=== PATIENT | male | born 1965 | race Caucasian/White ===

== ENCOUNTER 2016-11-04 22:26 | Inpatient (IN) | payer MEDICAID ==
[~2016-11-04] VITALS: Ht 185.4 cm; Wt 69.4 kg
--- NOTE | 2016-11-04 22:59 | NUR ---
Pt to room for multiple complaints. Major complaints of abd pain with swelling and firmness, as well as shortness of breath with excertion. Pt ST on monitor. Resp even and unlabored, speaking full sentences, maintaining O2 sats > 95 % on RA. Pt resting in position of comfort for self. Dr. Gibbs at bedside for MSE.
[2016-11-04] MEDS ORDERED: PANTOPRAZOLE SODIUM 40 MG VIAL IV ONE (23:15)
[2016-11-04] MEDS ORDERED: ONDANSETRON 4 MG/2 ML VIAL IV ONE (23:15)
[2016-11-04] MEDS ORDERED: MORPHINE SULFATE 2 MG/1 ML DISP.SYRIN IV ONE (23:15)
[2016-11-04] MEDS ORDERED: ONDANSETRON 4 MG/2 ML VIAL ONE (23:25)
[2016-11-04] MEDS ORDERED: PANTOPRAZOLE SODIUM 40 MG VIAL ONE (23:26)
[2016-11-04] MEDS ORDERED: MORPHINE SULFATE 2 MG/1 ML DISP.SYRIN ONE (23:26)
--- NOTE | 2016-11-04 23:26 | NUR ---
IV established, labs drawn and sent. Pt medicated for discomfort, will monitor for effects of medication. Pt resting in position of comfort for self.
[2016-11-04 23:34] LABS: BASOPHILS # (AUTO) 0.1 K/uL (0.0-8.0); BASOPHILS % (AUTO) 0.5 % (0.0-2.0); EOSINOPHILS # (AUTO) 0.2 K/uL (0.0-0.7); EOSINOPHILS % (AUTO) 1.6 % (0.0-7.0); HEMATOCRIT 27.6 % (40-50); HEMOGLOBIN 8.9 G/DL (14.0-18.0); LYMPHOCYTES # (AUTO) 1.9 K/UL (0.8-4.8); LYMPHOCYTES % (AUTO) 12.5 % (20.5-51.5); MEAN CORPUSCULAR HEMOGLOBIN 24.3 UUG (27.0-31.0); MEAN CORPUSCULAR HGB CONC 32 g/dL (32.0-37.0); MEAN CORPUSCULAR VOLUME 75.3 FL (82.0-92.0); MONOCYTES # (AUTO) 2.9 K/UL (0.1-1.30); NEUTROPHILS % (AUTO) 66.4 % (38.5-71.5); PLATELET COUNT (AUTO) 234 K/UL (150-450); RED BLOOD CELL COUNT(AUTO) 3.67 MIL/UL (4.7-6.1); WHITE BLOOD COUNT (AUTO) 15.1 K/UL (4.0-11.2)
[2016-11-04 23:47] LABS: CARBON DIOXIDE 30 mmol/L (21-32); CHLORIDE 93 mmol/L (98-107); CREATININE 0.6 mg/dL (0.6-1.3); GLUCOSE 110 mg/dL (74-106); POTASSIUM 3.4 mmol/L (3.5-5.1); UREA NITROGEN, BLOOD 3 mg/dL (7-18)
[2016-11-04 23:53] LABS: ALANINE AMINOTRANSFERASE 42 U/L (16-63); ALKALINE PHOSPHATASE 506 U/L (50-136); ASPARTATE AMINOTRANSFERASE 122 U/L (15-37); BILIRUBIN,TOTAL 2.9 mg/dL (0.2-1.0); LIPASE 168 U/L (73-393); TOTAL PROTEIN, SERUM 7.2 g/dL (6.4-8.2)
--- NOTE | 2016-11-05 00:03 | NUR ---
Pt sts no change in pain from previous medication. Pt also c/o heartburn pain. Dr. Gibbs notified, awaiting further orders.
[2016-11-05] MEDS ORDERED: HYDROMORPHONE 1 MG/1 ML DISP.SYRIN IV ONE ×2 (00:15→01:00)
[2016-11-05 00:19] LABS: EOSINOPHILS % (MANUAL) 1 % (0-8); LYMPHOCYTES % (MANUAL) 19 % (20-40); MONOCYTES % (MANUAL) 13 % (2-10); NEUTROPHILS % (MANUAL) 67 % (42-75)
--- NOTE | 2016-11-05 00:26 | NUR ---
Pt to CT via [facility]
--- NOTE | 2016-11-05 00:37 | NUR ---
pt returned from CT via [facility]
[2016-11-05 00:47] LABS: *BILIRUBIN,URIN NEGATIVE (NEGATIVE); *BLOOD, URINE Trace-lysed (NEGATIVE); *CLARITY,URINE CLEAR (CLEAR); *COLOR,URINE YELLOW (YELLOW); *KETONES,URINE NEGATIVE (NEGATIVE); *PROTEIN,URINE NEGATIVE (NEGATIVE); LEUKOCYTE ESTERASE ,URINE NEGATIVE (NEGATIVE); NITRITE, URINE NEGATIVE (NEGATIVE); UGLUCOSE NEGATIVE (NEGATIVE)
[2016-11-05 00:52] LABS: BACTERIA,URINE NONE SEEN /HPF (NONE SEEN); RBC,URINE 0-3 /HPF (0-3); SQUAMOUS EPITHELIAL CELL,UR FEW /HPF (NONE SEEN); WBC,URINE 0-3 /HPF (0-3)
[2016-11-05] MEDS ORDERED: HYDROMORPHONE 2 MG/1 ML DISP.SYRIN ONE (01:11)
--- NOTE | 2016-11-05 01:20 | NUR ---
Pt medicated for continued pain, will monitor for effects of medication.
[2016-11-05] MEDS ORDERED: CEFOTAXIME SODIUM 500 MG VIAL IV ONE (01:45)
--- NOTE | 2016-11-05 02:00 | NUR ---
Pt to be admitted. Dr. Gibbs spoke with KHURRAM Vital. Admission pending.
[2016-11-05] MEDS ORDERED: MORPHINE SULFATE 2 MG/1 ML DISP.SYRIN IV PRN (02:15)
[2016-11-05] MEDS ORDERED: MAGNESIUM HYDROXIDE 30 ML LIQUID UDC PO PRN (02:15)
[2016-11-05] MEDS ORDERED: ONDANSETRON 4 MG/2 ML VIAL IV PRN (02:15)
[2016-11-05] MEDS ORDERED: Z GUARD REMEDY PASTE 57 GM TUBE TOP PRN (02:15)
--- NOTE | 2016-11-05 02:59 | NUR ---
Pt sts no change in pain from previous medication. Pt conts to c/o severe abd pain 10/. Prior to vital sign assessment pt was resting in position of comfort for self, resp even and unlabored. No facial grimacing noted, no moaning noted. Dr. Gibbs notified of pt's cont c/o pain. Due to pt's blood pressure pain medication to be held at this time. Dr. Gibbs also notified that Claforan is unavailable. Awaiting further orders.
[2016-11-05] MEDS ORDERED: LEVOFLOXACIN 750 MG/D5W 150 ML PIGGYBACK IV ONE ×2 (03:15→03:30)
[2016-11-05] MEDS ORDERED: NEOMY/BACITRA/POLYMYXIN B OINT UD PACKET TP ONE ×2 (03:30→03:42)
[2016-11-05] MEDS ORDERED: LEVOFLOXACIN 750MG/D5W 150 ML IV ONE (03:42)
--- NOTE | 2016-11-05 04:06 | NUR ---
Sores to BUE from scratching cleaned, triple antibiotic ointment applied and simple drsg applied.
[2016-11-05] MEDS ORDERED: LORAZEPAM 2 MG/1 ML VIAL IV ONE (04:15)
[2016-11-05] MEDS ORDERED: LORAZEPAM 2 MG/1 ML VIAL ONE (04:30)
--- NOTE | 2016-11-05 05:07 | NUR ---
ABT infusion completed. No adverse reactions noted. Report called BALTA Hernandez. Preparing to transfer pt to the floor.
--- NOTE | 2016-11-05 05:35 | NUR ---
RECEIVED PATIENT FROM ER ,STILL VERY DROWSY, GOT ATIVAN 2MG FROM ER,MOVE ALL EXTREMITIES,BILATERAL ARMS WITH SMALL WOUND AND SCAB FROM ITCHING,COMPLETED ASSESSMENT DONE,VITAL SIGNS WNL,PATIENT NOT IN ANY DISTRESS,NSR ON TELE MONITOR.
[2016-11-05 05:53] VITALS: BP 96/54
[2016-11-05] MEDS: IV NS 1000 ML 1,000 ML IV PRN ×2 (07:00→20:29)
--- NOTE | 2016-11-05 07:30 | NUR ---
RECEIVED PATIENT IN BED ASLEEP BUT EASILY AROUSABLE REMAIN ON IVF ORDERED TO HIS RIGHT ANTECUBITAL WITH NO S/S OF INFILTERATION ON SITE AT THIS TIME.TELEMETRY MONITORING IS SINUS WITH NO ECTOPY.USING URINAL AT THIS TIME TO VOID.PATIENT ENCOURAGED TO CALL FOR ASSISTANCE NEEDED TO PREVENT FALLS AND HE EXPRESSED UNDERSTANDING.MADE COMFORTABLE.
[2016-11-05] MEDS: PANTOPRAZOLE SODIUM 40 MG TABLET.DR PO SCH (08:05)
[2016-11-05] MEDS ORDERED: CEFTRIAXONE 2 G in IV DEXTROSE 5% 100 ML IV SCH (09:00)
[2016-11-05 11:01] VITALS: BP 101/58
--- NOTE | 2016-11-05 11:30 | NUR ---
DR JOSE ALEJANDRO JACOBO HERE AND I NOTIFIED HIM THAT PATIENT IS A HEAVY SMOKER AND WILL REQUIRE NICOTINE PATCH AND HE STATED THAT HE WILL ORDER SOME BLOOD WORK FOR TODAY AND WILL DECIDE IF HE WILL DISCHARGE THE PATIENT TODAY OR NOT AND NOTED.
[2016-11-05 11:49] LABS: BASOPHILS # (AUTO) 0.1 K/uL (0.0-8.0); BASOPHILS % (AUTO) 1.5 % (0.0-2.0); EOSINOPHILS # (AUTO) 0.1 K/uL (0.0-0.7); EOSINOPHILS % (AUTO) 1.3 % (0.0-7.0); LYMPHOCYTES # (AUTO) 0.7 K/UL (0.8-4.8); LYMPHOCYTES % (AUTO) 9.2 % (20.5-51.5); MEAN CORPUSCULAR HEMOGLOBIN 24.3 UUG (27.0-31.0); MEAN CORPUSCULAR HGB CONC 32 g/dL (32.0-37.0); MEAN CORPUSCULAR VOLUME 75.9 FL (82.0-92.0); MONOCYTES # (AUTO) 1.5 K/UL (0.1-1.30); MONOCYTES % (AUTO) 18.9 % (0.0-11.0); NEUTROPHILS # (AUTO) 5.6 K/UL (1.8-8.9); NEUTROPHILS % (AUTO) 69.1 % (38.5-71.5)
[2016-11-05 11:58] LABS: ALANINE AMINOTRANSFERASE 32 U/L (16-63); ALKALINE PHOSPHATASE 414 U/L (50-136); ASPARTATE AMINOTRANSFERASE 84 U/L (15-37); BILIRUBIN,TOTAL 2.5 mg/dL (0.2-1.0); CARBON DIOXIDE 27 mmol/L (21-32); CHLORIDE 97 mmol/L (98-107); CREATININE 0.6 mg/dL (0.6-1.3); GLUCOSE 103 mg/dL (74-106); POTASSIUM 3.8 mmol/L (3.5-5.1); UREA NITROGEN, BLOOD 2 mg/dL (7-18)
[2016-11-05 12:05] LABS: HEMATOCRIT 23.8 % (40-50); HEMOGLOBIN 7.6 G/DL (14.0-18.0)
[2016-11-05 12:06] LABS: PLATELET COUNT (AUTO) 173 K/UL (150-450); RED BLOOD CELL COUNT(AUTO) 3.14 MIL/UL (4.7-6.1)
[2016-11-05] MEDS: CEFTRIAXONE 1 G in IV DEXTROSE 5% 50 ML IV SCH (12:16)
[2016-11-05 12:25] LABS: BAND % (MANUAL) 2 % (0-10); EOSINOPHILS % (MANUAL) 1 % (0-8); LYMPHOCYTES % (MANUAL) 12 % (20-40); MONOCYTES % (MANUAL) 15 % (2-10); NEUTROPHILS % (MANUAL) 70 % (42-75)
[2016-11-05] MEDS: ACETAMINOPHEN 325 MG TABLET PO PRN (12:56)
--- NOTE | 2016-11-05 13:04 | NUR ---
Patient complaint of chest pain not radiating to arm or shoulder and myron leg pain also, given pain meds as ordered.
[2016-11-05 15:14] VITALS: BP 108/58
[2016-11-05] MEDS ORDERED: THIAMINE HCL 200 MG/2 ML VIAL IM ONE (15:45)
[2016-11-05] MEDS: NICOTINE 21 MG/24HR PATCH TD SCH (16:13)
[2016-11-05] MEDS: LORAZEPAM 2 MG/1 ML VIAL IV PRN (16:20)
--- NOTE | 2016-11-05 16:33 | NUR ---
PATIENT IS SHOWING ALCOHOL WITHDRAWAL ARMS ARE SHAKING WITH MILD HEADACHE, GIVEN IV ATIVAN 2MG ONCE DOSE ORDERED. PATIENT WANTS TO SMOKE EXPLAINED TO HIM ABOUT THE HOSPITAL'S NO SMOKING POLICY, STARTED NICOTINE PATCH ON LEFT ARM INSTEAD ORDERED.
--- NOTE | 2016-11-05 18:14 | NUR ---
PATIENT STILL HAVING MILD HAND TREMORS BUT WAS ABLE TO NAP FOR A WHILE. OTHERWISE NO OTHER SEVERE SIGNS PF ALCOHOL WITHDRAWAL SYMPTOM SEEN AT THIS TIME.
[2016-11-05 20:00] VITALS: BP 111/63
--- NOTE | 2016-11-05 20:01 | NUR ---
Received patient resting in bed. Patient is in no distress at this time. Patient is able to verbalize needs. No pain or discomfort reported by patient. Respirations are unlabored. Reminded patient not to get out of bed on his own, and to use the call eller for assistance. Bed in lowest position with 2/4 side rails up for safety. Call light within reach. Will continue to monitor
[2016-11-06] VITALS: BP 119/64
[2016-11-06 04:00] VITALS: BP 117/72
[2016-11-06] MEDS: PANTOPRAZOLE SODIUM 40 MG TABLET.DR PO SCH (06:20)
[2016-11-06 06:41] LABS: BASOPHILS % (AUTO) 0.5 % (0.0-2.0); EOSINOPHILS # (AUTO) 0.1 K/uL (0.0-0.7); EOSINOPHILS % (AUTO) 1.5 % (0.0-7.0); HEMATOCRIT 24.2 % (40-50); HEMOGLOBIN 7.7 G/DL (14.0-18.0); LYMPHOCYTES % (AUTO) 12.9 % (20.5-51.5); MEAN CORPUSCULAR HGB CONC 32 g/dL (32.0-37.0); MEAN CORPUSCULAR VOLUME 75.9 FL (82.0-92.0); MONOCYTES # (AUTO) 1.3 K/UL (0.1-1.30); MONOCYTES % (AUTO) 15.8 % (0.0-11.0); NEUTROPHILS # (AUTO) 5.7 K/UL (1.8-8.9); NEUTROPHILS % (AUTO) 69.3 % (38.5-71.5); PLATELET COUNT (AUTO) 179 K/UL (150-450); RED BLOOD CELL COUNT(AUTO) 3.19 MIL/UL (4.7-6.1); WHITE BLOOD COUNT (AUTO) 8.1 K/UL (4.0-11.2)
[2016-11-06 07:13] LABS: ALANINE AMINOTRANSFERASE 30 U/L (16-63); ALKALINE PHOSPHATASE 392 U/L (50-136); ASPARTATE AMINOTRANSFERASE 82 U/L (15-37); BILIRUBIN,TOTAL 3.2 mg/dL (0.2-1.0); CARBON DIOXIDE 27 mmol/L (21-32); CHLORIDE 98 mmol/L (98-107); CREATININE 0.5 mg/dL (0.6-1.3); GLUCOSE 94 mg/dL (74-106); LIPASE 131 U/L (73-393); MAGNESIUM 1.6 mg/dL (1.8-2.4); PHOSPHOROUS 2.8 mg/dL (2.5-4.9); POTASSIUM 3.4 mmol/L (3.5-5.1); TOTAL PROTEIN, SERUM 5.8 g/dL (6.4-8.2); UREA NITROGEN, BLOOD 5 mg/dL (7-18)
[2016-11-06] MEDS: THIAMINE HCL 100 MG TABLET PO SCH (08:03)
[2016-11-06] MEDS: FOLIC ACID 1 MG TABLET PO SCH (08:03)
[2016-11-06] MEDS: MULTIVITAMINS,THERAPEUTIC TABLET PO SCH (08:03)
[2016-11-06] MEDS: NICOTINE 21 MG/24HR PATCH TD SCH (08:03)
[2016-11-06] MEDS: LORAZEPAM 2 MG/1 ML VIAL IV PRN (08:25)
[2016-11-06] MEDS: CEFTRIAXONE 1 G in IV DEXTROSE 5% 50 ML IV SCH (08:25)
[2016-11-06 08:28] LABS: BAND % (MANUAL) 3 % (0-10); BASOPHILS % (MANUAL) 1 % (0-2); LYMPHOCYTES % (MANUAL) 16 % (20-40); MONOCYTES % (MANUAL) 12 % (2-10); NEUTROPHILS % (MANUAL) 68 % (42-75)
[2016-11-06] MEDS: MORPHINE SULFATE 2 MG/1 ML DISP.SYRIN IV PRN ×2 (11:14→21:50)
[2016-11-06 11:38] VITALS: BP 110/64
[2016-11-06] MEDS ORDERED: POTASSIUM CHLORIDE 20 MEQ TAB.PRT.SR PO ONE (12:45)
[2016-11-06] MEDS: MAGNESIUM SULFATE/D5W 100 ML IV SCH ×2 (12:49→13:43)
[2016-11-06] MEDS: ACETAMINOPHEN 325 MG TABLET PO PRN (13:46)
--- NOTE | 2016-11-06 13:49 | NUR ---
WOUND CARE CONSULT: PT PRESENTS WITH SCRATCH/ABRASION TO RT NECK AND BILATERAL ARM SKIN TEARS, PRESENT ON ADMISSION. PT IS CONTINENT. PT HAS VERY DRY SKIN WHICH IS FRAGILE. RT HIP BRUISE NOTED. RECOMMENDATIONS MADE FOR SKIN PROTECTION AND WOUND CARE. DISCUSSED WITH NURSING STAFF. WILL SEE PRN. BOOTH IN AGREEMENT WITH PLAN OF CARE. Addendum: 11/06/16 at 1350 by COLTON ABDI RN Amended: Links added.
[2016-11-06 15:45] VITALS: BP 115/72
--- NOTE | 2016-11-06 19:10 | NUR ---
WOUND CARE IS DONE PER THE ORDER. NO S/S OF RESPIRATORY DISTRESS NOTED. PT IS ON RA. IV INTACT/PATENT. ALL SAFETY NEEDS ARE MET. NO BLEEDING NOTED.
--- NOTE | 2016-11-06 19:30 | NUR ---
PT RECEIVED IN BED, AWAKE. A/OX4. ABLE TO MAKE NEEDS KNOWN. V/S STABLE. IN NO ACUTE DISTRESS. PT STATES ABDOMINAL PAIN OF 8/10. 100 SINUS RHYTHM ON THE TELE MONITOR. IV SITE RAC INFILTRATED. RAC IV D/C. FLUIDS ON HOLD. SAFETY MEASURES IMPLEMENTED. CALL LIGHT WITHIN REACH.
[2016-11-06 20:00] VITALS: BP 115/67
[2016-11-07] VITALS: BP 117/63
[2016-11-07] MEDS: MORPHINE SULFATE 2 MG/1 ML DISP.SYRIN IV PRN (03:55)
[2016-11-07 04:00] VITALS: BP 111/65
[2016-11-07] MEDS: LORAZEPAM 2 MG/1 ML VIAL IV PRN (04:01)
[2016-11-07] MEDS: IV NS 1000 ML 1,000 ML IV PRN (05:41)
[2016-11-07 06:12] LABS: CARBON DIOXIDE 26 mmol/L (21-32); CHLORIDE 99 mmol/L (98-107); CREATININE 0.4 mg/dL (0.6-1.3); GLUCOSE 91 mg/dL (74-106); MAGNESIUM 1.9 mg/dL (1.8-2.4); POTASSIUM 3.5 mmol/L (3.5-5.1); UREA NITROGEN, BLOOD 4 mg/dL (7-18)
--- NOTE | 2016-11-07 06:44 | NUR ---
END OF SHIFT NOTES. PT SLEPT INTERMITTENTLY THROUGHOUT SHIFT. IN STABLE CONDITION. 88 SINUS RHYTHM ON THE TELE MONITOR. PT COMPLAINS OF LOWER ABDOMINAL PAIN. ADMINISTERED PAIN MEDICATION ORDERED. PT STATES FEELING ANXIOUS NOT KNOWING WHAT TO DO. PT STATES FEELING RESTLESS. ATIVAN ADMINISTERED ORDERED. IVF INFUSING. SAFETY MAINTAINED. CALL LIGHT WITHIN REACH.
[2016-11-07] MEDS: PANTOPRAZOLE SODIUM 40 MG TABLET.DR PO SCH (06:53)
--- NOTE | 2016-11-07 08:00 | NUR ---
asleep on rounds but arouses easily, tele SR, denies of pain, no tremors noted, explained plan of care- verbalized understanding, safety measures maintained, call light within reach
[2016-11-07] MEDS: MULTIVITAMINS,THERAPEUTIC TABLET PO SCH (08:44)
[2016-11-07] MEDS: CEFTRIAXONE 1 G in IV DEXTROSE 5% 50 ML IV SCH (08:44)
[2016-11-07] MEDS: FOLIC ACID 1 MG TABLET PO SCH (08:44)
[2016-11-07] MEDS: THIAMINE HCL 100 MG TABLET PO SCH (08:44)
[2016-11-07] MEDS: NICOTINE 21 MG/24HR PATCH TD SCH (08:44)
--- NOTE | 2016-11-07 10:00 | NUR ---
wound care done as ordered, states was seeing puppy dog earlier but denies now, no tremors noted
[2016-11-07 12:03] VITALS: BP 103/65
--- NOTE | 2016-11-07 14:41 | NUR ---
seen by Khoa Curtis with orders, medicated for c/o heartburn, no tremors, no hallucinations noted
[2016-11-07] MEDS ORDERED: MAG HYDROX/AL HYDROX/SIMETH 30 ML LIQUID UDC PO PRN (14:45)
[2016-11-07 16:00] VITALS: BP 110/64
--- NOTE | 2016-11-07 17:01 | NUR ---
Discharge Plan: Once medically cleared patient will be discharged to self. Provided the patient with a resource packet, in which he refused [facility] placement. Will offer patient a bus token for transportation.
[2016-11-07 17:18] LABS: BASOPHILS # (AUTO) 0.1 K/uL (0.0-8.0); BASOPHILS % (AUTO) 0.7 % (0.0-2.0); EOSINOPHILS # (AUTO) 0.2 K/uL (0.0-0.7); EOSINOPHILS % (AUTO) 2.1 % (0.0-7.0); HEMATOCRIT 27.1 % (40-50); HEMOGLOBIN 8.6 G/DL (14.0-18.0); LYMPHOCYTES # (AUTO) 1.2 K/UL (0.8-4.8); LYMPHOCYTES % (AUTO) 11.6 % (20.5-51.5); MEAN CORPUSCULAR HEMOGLOBIN 23.8 UUG (27.0-31.0); MEAN CORPUSCULAR HGB CONC 32 g/dL (32.0-37.0); MEAN CORPUSCULAR VOLUME 75.3 FL (82.0-92.0); MONOCYTES # (AUTO) 1.7 K/UL (0.1-1.30); MONOCYTES % (AUTO) 16.8 % (0.0-11.0); NEUTROPHILS # (AUTO) 7.1 K/UL (1.8-8.9); NEUTROPHILS % (AUTO) 68.8 % (38.5-71.5); PLATELET COUNT (AUTO) 187 K/UL (150-450); RED BLOOD CELL COUNT(AUTO) 3.59 MIL/UL (4.7-6.1); WHITE BLOOD COUNT (AUTO) 10.3 K/UL (4.0-11.2)
[2016-11-07 17:41] LABS: LYMPHOCYTES % (MANUAL) 18 % (20-40); MONOCYTES % (MANUAL) 14 % (2-10); NEUTROPHILS % (MANUAL) 68 % (42-75)
--- NOTE | 2016-11-07 17:45 | NUR ---
stat cbc: Hgb- 8.6/ Hct 27.1- pt wanted to leave, homeless booklet for resources/referrals given and discharge instructions given-verbalized understanding, pt in agreement with d/c plan, saline lock removed- no swelling/redness on site tele d/cd.
[2016-11-07 17:50] VITALS: BP 110/64
--- NOTE | 2016-11-07 18:05 | NUR ---
escorted to lobby in stable condition with all belongings
== END 2016-11-07 18:03 | disposition home or self-care (01) | DRG 280 ==
LOC: ER 22:27 → MED 11-05 05:02 → TELE 11-05 05:32 → MED 11-07 16:30
PROVIDERS: ADMIT Nurse Practitioner Acute Care; ATTEND Nurse Practitioner Acute Care
DX: K70.11 Alcoholic hepatitis with ascites (principal); K70.31 Alcoholic cirrhosis of liver with ascites; K65.2 Spontaneous bacterial peritonitis; D68.4 Acquired coagulation factor deficiency; E87.1 Hypo-osmolality and hyponatremia; D62 Acute posthemorrhagic anemia; B96.89 Other specified bacterial agents as the cause of diseases classified elsewhere; J98.11 Atelectasis; F10.20 Alcohol dependence, uncomplicated; Y90.9 Presence of alcohol in blood, level not specified; Z72.0 Tobacco use; F10.230 Alcohol dependence with withdrawal, uncomplicated
CPT/HCPCS: 36415; 70030-TC; 71010; 83690; 83735; 84100; 85025; 85730; 86850; 86900; 86901; 87086; 93005; A4217; A4663; C9113; G0480; J0696; J0698; J1170; J1956; J2060; J2270; J2405; J3411; J7030; J7060

== ENCOUNTER 2016-11-08 22:24 | Emergency (ER) | payer MEDICAID ==
[~2016-11-08] VITALS: Ht 185.4 cm; Wt 74.8 kg
--- NOTE | 2016-11-08 22:55 | NUR ---
MSE DONE BY XAVIER AT BEDSIDE.
[2016-11-08] MEDS ORDERED: HYDROCODONE/APAP 5-325MG TABLET PO ONE (23:15)
[2016-11-08 23:27] LABS: BASOPHILS # (AUTO) 0.1 K/uL (0.0-8.0); BASOPHILS % (AUTO) 0.8 % (0.0-2.0); EOSINOPHILS # (AUTO) 0.2 K/uL (0.0-0.7); EOSINOPHILS % (AUTO) 2.1 % (0.0-7.0); HEMATOCRIT 24.7 % (40-50); HEMOGLOBIN 7.9 G/DL (14.0-18.0); LYMPHOCYTES # (AUTO) 1.3 K/UL (0.8-4.8); LYMPHOCYTES % (AUTO) 12.4 % (20.5-51.5); MEAN CORPUSCULAR HEMOGLOBIN 23.7 UUG (27.0-31.0); MEAN CORPUSCULAR HGB CONC 32 g/dL (32.0-37.0); MONOCYTES # (AUTO) 2.3 K/UL (0.1-1.30); MONOCYTES % (AUTO) 22.1 % (0.0-11.0); NEUTROPHILS # (AUTO) 6.5 K/UL (1.8-8.9); NEUTROPHILS % (AUTO) 62.6 % (38.5-71.5); PLATELET COUNT (AUTO) 192 K/UL (150-450); RED BLOOD CELL COUNT(AUTO) 3.34 MIL/UL (4.7-6.1); WHITE BLOOD COUNT (AUTO) 10.4 K/UL (4.0-11.2)
--- NOTE | 2016-11-08 23:30 | NUR ---
PAIN GIVEN A MEAL TRAY AT BEDSIDE. NOTED NO S/S ANY DISTRESS
[2016-11-08] MEDS ORDERED: HYDROCODONE/APAP 5-325MG TABLET ONE (23:40)
[2016-11-08 23:44] LABS: ALANINE AMINOTRANSFERASE 33 U/L (16-63); ALKALINE PHOSPHATASE 374 U/L (50-136); ASPARTATE AMINOTRANSFERASE 79 U/L (15-37); BILIRUBIN,DIRECT 1.6 mg/dL (0.0-0.2); BILIRUBIN,TOTAL 2.5 mg/dL (0.2-1.0); CARBON DIOXIDE 25 mmol/L (21-32); CHLORIDE 96 mmol/L (98-107); CREATININE 0.5 mg/dL (0.6-1.3); GLUCOSE 90 mg/dL (74-106); LIPASE 141 U/L (73-393); POTASSIUM 3.5 mmol/L (3.5-5.1); TOTAL PROTEIN, SERUM 6.5 g/dL (6.4-8.2); UREA NITROGEN, BLOOD 3 mg/dL (7-18)
[2016-11-09 01:02] VITALS: BP 112/73
[2016-11-09 03:28] LABS: BAND % (MANUAL) 14 % (0-10); EOSINOPHILS % (MANUAL) 3 % (0-8); LYMPHOCYTES % (MANUAL) 14 % (20-40); METAMYELOCYTES % 1 % (0-1); MONOCYTES % (MANUAL) 11 % (2-10); NEUTROPHILS % (MANUAL) 57 % (42-75)
== END 2016-11-09 01:08 | disposition home or self-care (01) ==
LOC: ER 22:24
DX: K70.31 Alcoholic cirrhosis of liver with ascites (principal); E87.1 Hypo-osmolality and hyponatremia; D64.9 Anemia, unspecified
CPT/HCPCS: 36415; 71010; 80048; 80076; 82140; 83690; 85025; 85730; 99284; A4663

== ENCOUNTER 2016-11-11 21:58 | Inpatient (IN) | payer MEDICAID ==
[~2016-11-11] VITALS: Ht 185.4 cm; Wt 78.0 kg
--- NOTE | 2016-11-11 22:30 | NUR ---
Pt ambulated to room with steady gait, changed into gown and placed on monitor. Pt NSR and ST. Pt c/o severe abd pain and severe BLE pain. Pt recently diagnosed with liver cirrhosis and admits to being a daily drinker. Pt resting in position of comfort for self, awaiting further eval.
--- NOTE | 2016-11-11 23:40 | NUR ---
Dr. Catalan at bedside for MSE
--- NOTE | 2016-11-12 00:30 | NUR ---
Pt to and from radiology. Pt repositioned for comfort. Friend remains at bedside.
[2016-11-12 00:49] LABS: CARBON DIOXIDE 25 mmol/L (21-32); CHLORIDE 99 mmol/L (98-107); CREATININE 0.5 mg/dL (0.6-1.3); GLUCOSE 92 mg/dL (74-106); POTASSIUM 3.3 mmol/L (3.5-5.1); UREA NITROGEN, BLOOD 3 mg/dL (7-18)
[2016-11-12 00:52] LABS: BASOPHILS % (AUTO) 0.5 % (0.0-2.0); EOSINOPHILS # (AUTO) 0.3 K/uL (0.0-0.7); HEMOGLOBIN 7.7 G/DL (14.0-18.0); LYMPHOCYTES # (AUTO) 1.3 K/UL (0.8-4.8); MEAN CORPUSCULAR HGB CONC 33 g/dL (32.0-37.0); MEAN CORPUSCULAR VOLUME 73.4 FL (82.0-92.0); MONOCYTES # (AUTO) 1.7 K/UL (0.1-1.30); MONOCYTES % (AUTO) 16.9 % (0.0-11.0); NEUTROPHILS # (AUTO) 6.7 K/UL (1.8-8.9); NEUTROPHILS % (AUTO) 66.6 % (38.5-71.5); PLATELET COUNT (AUTO) 196 K/UL (150-450); RED BLOOD CELL COUNT(AUTO) 3.22 MIL/UL (4.7-6.1)
[2016-11-12 00:53] LABS: ALANINE AMINOTRANSFERASE 36 U/L (16-63); ALKALINE PHOSPHATASE 370 U/L (50-136); ASPARTATE AMINOTRANSFERASE 88 U/L (15-37); BILIRUBIN,DIRECT 1.6 mg/dL (0.0-0.2); BILIRUBIN,TOTAL 2.4 mg/dL (0.2-1.0); LIPASE 143 U/L (73-393); TOTAL PROTEIN, SERUM 6.7 g/dL (6.4-8.2)
[2016-11-12 00:59] LABS: HEMATOCRIT 23.6 % (40-50)
--- NOTE | 2016-11-12 01:00 | NUR ---
Pt medicated for discomfort, will monitor for effects of medication. Pt resting in position of comfort for self. Friend at bedside.
[2016-11-12 01:24] LABS: EOSINOPHILS % (MANUAL) 3 % (0-8); LYMPHOCYTES % (MANUAL) 10 % (20-40); MONOCYTES % (MANUAL) 17 % (2-10); NEUTROPHILS % (MANUAL) 70 % (42-75)
--- NOTE | 2016-11-12 01:30 | NUR ---
ABT infusion started, will monitor for any adverse reactions.
--- NOTE | 2016-11-12 01:42 | NUR ---
PAGED EPPIC PANEL DR MARTINES ORDERED. WAITING FOR DR DUEÑAS TO CALL BACK
--- NOTE | 2016-11-12 01:51 | NUR ---
Rectal exam completed by Dr. Catalan, awaiting results.
[2016-11-12 02:22] LABS: *OCCULT BLOOD STOOL NEGATIVE (NEGATIVE)
--- NOTE | 2016-11-12 03:00 | NUR ---
Pt ambulated to and from br with steady gait. Resting in position of comfort for self. No complaints at this time
--- NOTE | 2016-11-12 03:54 | NUR ---
Report given to BALTA Euceda. Preparing to transfer pt to the floor.
[2016-11-12 05:00] VITALS: BP 102/65
--- NOTE | 2016-11-12 07:00 | NUR ---
Admitted this 51 y/o male patient via [facility]. UGI Bleed, Anemia, & Bacterial Peritonitis. Initially patient was Telemetry status but transferred to PATTI due to IV drip meds issues. Current H/H 7.7 & 23.6. For transfusion of 1 unit PRBC, but held for now due tro H/H within parameters > 7. Tele shows sinus rhythm. Medicated for pain PRN . Ativan 1mg IVP adm for anxiousness. Multiple skin scabs/wounds noted, see pictures in chart. Wopund consult was ordered. Patient is starving requesting for food, discussed about current diet, patient verbalized understanding. Patient is on full liquid diet. Vital signs WNL. IVF NS at 75ml started, last bag of Protonix 80mg IV drip at 10ml/hr & Sandostatin IV drip 5ml/hr given & still infusing as of this time. patient sleeping comfortably at this time. Will continue to monitor. No acute resp distress.
[2016-11-12 07:29] VITALS: BP 101/60
[2016-11-12 12:00] VITALS: BP 108/63
[2016-11-12 12:43] LABS: BASOPHILS # (AUTO) 0.1 K/uL (0.0-8.0); BASOPHILS % (AUTO) 0.8 % (0.0-2.0); EOSINOPHILS # (AUTO) 0.2 K/uL (0.0-0.7); EOSINOPHILS % (AUTO) 3.1 % (0.0-7.0); HEMOGLOBIN 8.3 G/DL (14.0-18.0); LYMPHOCYTES % (AUTO) 15.8 % (20.5-51.5); MEAN CORPUSCULAR HEMOGLOBIN 23.4 UUG (27.0-31.0); MEAN CORPUSCULAR HGB CONC 32 g/dL (32.0-37.0); MEAN CORPUSCULAR VOLUME 72.9 FL (82.0-92.0); MONOCYTES # (AUTO) 1.1 K/UL (0.1-1.30); MONOCYTES % (AUTO) 16.4 % (0.0-11.0); NEUTROPHILS % (AUTO) 63.9 % (38.5-71.5); PLATELET COUNT (AUTO) 186 K/UL (150-450); RED BLOOD CELL COUNT(AUTO) 3.57 MIL/UL (4.7-6.1); WHITE BLOOD COUNT (AUTO) 6.4 K/UL (4.0-11.2)
[2016-11-12 12:50] LABS: THYROID STIMULATING HORMONE 1.649 mIU/mL (0.358-3.740)
[2016-11-12 12:51] LABS: ALANINE AMINOTRANSFERASE 29 U/L (16-63); ALKALINE PHOSPHATASE 362 U/L (50-136); ASPARTATE AMINOTRANSFERASE 73 U/L (15-37); BILIRUBIN,TOTAL 2.6 mg/dL (0.2-1.0); CARBON DIOXIDE 26 mmol/L (21-32); CHLORIDE 101 mmol/L (98-107); CHOLESTEROL 98 mg/dL (<200); CREATININE 0.6 mg/dL (0.6-1.3); GLUCOSE 104 mg/dL (74-106); HDL CHOLESTEROL 20 mg/dL (40-60); IRON, SERUM 14 ug/dL (50-175); POTASSIUM 3.6 mmol/L (3.5-5.1); TOTAL PROTEIN, SERUM 6.6 g/dL (6.4-8.2); TRIGLYCERIDES 73 MG/DL (30-150); UREA NITROGEN, BLOOD 2 mg/dL (7-18)
[2016-11-12 13:12] LABS: EOSINOPHILS % (MANUAL) 2 % (0-8); LYMPHOCYTES % (MANUAL) 16 % (20-40); MONOCYTES % (MANUAL) 11 % (2-10); NEUTROPHILS % (MANUAL) 71 % (42-75)
[2016-11-12 15:43] VITALS: BP 97/56
[2016-11-12 18:45] LABS: *BILIRUBIN,URIN NEGATIVE (NEGATIVE); *BLOOD, URINE NEGATIVE (NEGATIVE); *CLARITY,URINE CLEAR (CLEAR); *COLOR,URINE DARK YELLOW (YELLOW); *KETONES,URINE NEGATIVE (NEGATIVE); *PROTEIN,URINE NEGATIVE (NEGATIVE); LEUKOCYTE ESTERASE ,URINE NEGATIVE (NEGATIVE); NITRITE, URINE NEGATIVE (NEGATIVE); UGLUCOSE NEGATIVE (NEGATIVE)
[2016-11-12 19:00] LABS: MUCUS,URINE MODERATE /LPF (0-FEW); WBC,URINE 0-3 /HPF (0-3)
[2016-11-12 19:48] VITALS: BP 107/68
[2016-11-13] VITALS (10 sets, daily range): BP systolic 105–119; BP diastolic 60–87
--- NOTE | 2016-11-13 02:00 | NUR ---
Medicated / eMar this shift for abdominal & back pain. Restless sitting of side of bed a lot. Con't Sandostatin & NSS via IV to right forearm.
--- NOTE | 2016-11-13 05:55 | NUR ---
Note to pharmacy: Morphine charted elsewhere in eMar.
[2016-11-13 06:51] LABS: BASOPHILS # (AUTO) 0.1 K/uL (0.0-8.0); BASOPHILS % (AUTO) 0.7 % (0.0-2.0); EOSINOPHILS # (AUTO) 0.2 K/uL (0.0-0.7); EOSINOPHILS % (AUTO) 3.1 % (0.0-7.0); HEMATOCRIT 24.7 % (40-50); HEMOGLOBIN 7.9 G/DL (14.0-18.0); LYMPHOCYTES # (AUTO) 0.9 K/UL (0.8-4.8); LYMPHOCYTES % (AUTO) 12.1 % (20.5-51.5); MEAN CORPUSCULAR HEMOGLOBIN 23.7 UUG (27.0-31.0); MEAN CORPUSCULAR HGB CONC 32 g/dL (32.0-37.0); MEAN CORPUSCULAR VOLUME 73.8 FL (82.0-92.0); MONOCYTES # (AUTO) 1.2 K/UL (0.1-1.30); NEUTROPHILS # (AUTO) 5.3 K/UL (1.8-8.9); NEUTROPHILS % (AUTO) 68.1 % (38.5-71.5); PLATELET COUNT (AUTO) 191 K/UL (150-450); RED BLOOD CELL COUNT(AUTO) 3.34 MIL/UL (4.7-6.1); WHITE BLOOD COUNT (AUTO) 7.7 K/UL (4.0-11.2)
--- NOTE | 2016-11-13 07:20 | NUR ---
PATIENT RECEIVED IN ROOM RESTING IN BED WITH EYES CLOSED IN NO ACUTE DISTRESS. SR ON PLASTIC TUBING INSULATION SUPERVISOR. RESPIRATIONS EVEN AND UNLABORED. CALL LIGHT AT REACH.
[2016-11-13 08:05] LABS: EOSINOPHILS % (MANUAL) 3 % (0-8); LYMPHOCYTES % (MANUAL) 7 % (20-40); MONOCYTES % (MANUAL) 9 % (2-10); NEUTROPHILS % (MANUAL) 81 % (42-75)
[2016-11-13 08:16] LABS: ALANINE AMINOTRANSFERASE 29 U/L (16-63); ALKALINE PHOSPHATASE 303 U/L (50-136); ASPARTATE AMINOTRANSFERASE 78 U/L (15-37); BILIRUBIN,TOTAL 1.9 mg/dL (0.2-1.0); CARBON DIOXIDE 26 mmol/L (21-32); CHLORIDE 104 mmol/L (98-107); CREATININE 0.6 mg/dL (0.6-1.3); GLUCOSE 106 mg/dL (74-106); MAGNESIUM 1.9 mg/dL (1.8-2.4); PHOSPHOROUS 3.5 mg/dL (2.5-4.9); POTASSIUM 3.6 mmol/L (3.5-5.1); TOTAL PROTEIN, SERUM 6.1 g/dL (6.4-8.2); UREA NITROGEN, BLOOD 5 mg/dL (7-18)
--- NOTE | 2016-11-13 10:55 | NUR ---
PRBC ORDER FOR HGB 7.9 STARED NO A/Rs NOTED AT THIS TIME. WILL CONTINUE MONITORING.
--- NOTE | 2016-11-13 13:17 | NUR ---
FINISHED 1 UNIT OF PRBC NO A/Rs OBSERVED.
--- NOTE | 2016-11-13 14:34 | NUR ---
WOUND CARE CONSULT: PT PRESENTS WITH DRY SKIN AND DRY ABRASIONS TO ARMS WITH SCARRING. PT HAS DRY SKIN. ALL SKIN PROTECTION MEASURES IN PLACE AND DISCUSSED WITH NURSING STAFF. WILL SEE PRN. BOOTH IN AGREEMENT WITH PLAN OF CARE. Addendum: 11/13/16 at 1435 by COLTON ABDI RN Amended: Links added.
--- NOTE | 2016-11-13 17:10 | NUR ---
PATIENT FINISHED US GUIDED PARACENTESIS AND TOLERATED WITH NO S/S OF DISTRESS. 4200 ML OF FLUID REMOVED.
--- NOTE | 2016-11-13 18:30 | NUR ---
END OF SHIFT NOTE: PATIENT IN NO ACUTE DISTRESS THROUGHOUT SHIFT. PAIN MANAGED WITH MEDICATION PRESCRIBED AND AFTER PARACENTESIS PATIENT STATES. "IT IS MUCH BETTER!" VSS. NEEDS MET BY STAFF.
[2016-11-14 04:53] VITALS: BP 115/77
--- NOTE | 2016-11-14 06:30 | NUR ---
PATIENT IN NO ACUTE DISTRESS THROUGHOUT SHIFT. PAIN & SHAKINESS MANAGED WITH MEDICATION PRESCRIBED AND NEEDS MET BY STAFF. PATIENT COMPLIANT WITH CARE. CALL LIGHT PLACED WITHIN REACH OF PATIENT.
[2016-11-14 06:52] LABS: BASOPHILS # (AUTO) 0.1 K/uL (0.0-8.0); BASOPHILS % (AUTO) 0.9 % (0.0-2.0); EOSINOPHILS # (AUTO) 0.3 K/uL (0.0-0.7); HEMATOCRIT 30.8 % (40-50); HEMOGLOBIN 9.7 G/DL (14.0-18.0); LYMPHOCYTES # (AUTO) 1.6 K/UL (0.8-4.8); LYMPHOCYTES % (AUTO) 15.5 % (20.5-51.5); MEAN CORPUSCULAR HEMOGLOBIN 23.8 UUG (27.0-31.0); MEAN CORPUSCULAR HGB CONC 31 g/dL (32.0-37.0); MEAN CORPUSCULAR VOLUME 75.6 FL (82.0-92.0); MONOCYTES # (AUTO) 1.7 K/UL (0.1-1.30); MONOCYTES % (AUTO) 15.7 % (0.0-11.0); NEUTROPHILS # (AUTO) 6.9 K/UL (1.8-8.9); NEUTROPHILS % (AUTO) 64.9 % (38.5-71.5); PLATELET COUNT (AUTO) 235 K/UL (150-450); RED BLOOD CELL COUNT(AUTO) 4.07 MIL/UL (4.7-6.1); WHITE BLOOD COUNT (AUTO) 10.6 K/UL (4.0-11.2)
[2016-11-14 07:29] LABS: ALANINE AMINOTRANSFERASE 28 U/L (16-63); ALKALINE PHOSPHATASE 299 U/L (50-136); ASPARTATE AMINOTRANSFERASE 70 U/L (15-37); BILIRUBIN,TOTAL 2.6 mg/dL (0.2-1.0); CARBON DIOXIDE 27 mmol/L (21-32); CHLORIDE 102 mmol/L (98-107); CREATININE 0.6 mg/dL (0.6-1.3); GLUCOSE 97 mg/dL (74-106); MAGNESIUM 1.6 mg/dL (1.8-2.4); PHOSPHOROUS 2.7 mg/dL (2.5-4.9); POTASSIUM 3.2 mmol/L (3.5-5.1); TOTAL PROTEIN, SERUM 6.4 g/dL (6.4-8.2); UREA NITROGEN, BLOOD 4 mg/dL (7-18)
[2016-11-14 09:38] LABS: BAND % (MANUAL) 3 % (0-10); EOSINOPHILS % (MANUAL) 2 % (0-8); LYMPHOCYTES % (MANUAL) 16 % (20-40); MONOCYTES % (MANUAL) 13 % (2-10); NEUTROPHILS % (MANUAL) 66 % (42-75)
--- NOTE | 2016-11-14 10:00 | NUR ---
ABDOMEN DISTENDED AND FIRM. C/O INTERMITTENT ABD. PAIN
[2016-11-14 11:19] VITALS: BP 109/65
[2016-11-14 15:18] VITALS: BP 113/77
--- NOTE | 2016-11-14 19:40 | NUR ---
Patient alert and awake on bed, watching TV. No sob . Abdomen is rigid and distended to touch. Patient c/o of abdominal pain. Continuing on pain medication as ordered. Will continue to monitor.
[2016-11-14 20:24] VITALS: BP 103/67
[2016-11-15 04:44] VITALS: BP 98/57
--- NOTE | 2016-11-15 06:29 | NUR ---
Patient on and off awake during the shift. IV infusion disconnected for sometime upon patient's request. Abdomen still distended and firm. Continue on pain medication due to abdominal pain.
--- NOTE | 2016-11-15 07:40 | NUR ---
PATIENT RECEIVED IN ROOM RESTING IN BED WITH EYES CLOSED IN NO ACUTE DISTRESS. RESPIRATIONS EVEN AND UNLABORED. CALL LIGHT AT REACH.
[2016-11-15 07:51] LABS: BASOPHILS % (AUTO) 0.5 % (0.0-2.0); EOSINOPHILS # (AUTO) 0.3 K/uL (0.0-0.7); EOSINOPHILS % (AUTO) 3.1 % (0.0-7.0); HEMOGLOBIN 8.4 G/DL (14.0-18.0); LYMPHOCYTES # (AUTO) 1.3 K/UL (0.8-4.8); LYMPHOCYTES % (AUTO) 14.4 % (20.5-51.5); MEAN CORPUSCULAR HEMOGLOBIN 23.8 UUG (27.0-31.0); MEAN CORPUSCULAR HGB CONC 32 g/dL (32.0-37.0); MEAN CORPUSCULAR VOLUME 75.6 FL (82.0-92.0); MONOCYTES # (AUTO) 1.6 K/UL (0.1-1.30); MONOCYTES % (AUTO) 18.4 % (0.0-11.0); NEUTROPHILS # (AUTO) 5.6 K/UL (1.8-8.9); NEUTROPHILS % (AUTO) 63.6 % (38.5-71.5); WHITE BLOOD COUNT (AUTO) 8.8 K/UL (4.0-11.2)
[2016-11-15 07:59] LABS: HEMATOCRIT 26.5 % (40-50); PLATELET COUNT (AUTO) 170 K/UL (150-450)
[2016-11-15 08:25] LABS: ALANINE AMINOTRANSFERASE 22 U/L (16-63); ALKALINE PHOSPHATASE 275 U/L (50-136); ASPARTATE AMINOTRANSFERASE 58 U/L (15-37); BILIRUBIN,TOTAL 2.2 mg/dL (0.2-1.0); CARBON DIOXIDE 27 mmol/L (21-32); CHLORIDE 103 mmol/L (98-107); CREATININE 0.5 mg/dL (0.6-1.3); GLUCOSE 90 mg/dL (74-106); MAGNESIUM 1.9 mg/dL (1.8-2.4); PHOSPHOROUS 2.9 mg/dL (2.5-4.9); POTASSIUM 3.3 mmol/L (3.5-5.1); TOTAL PROTEIN, SERUM 5.5 g/dL (6.4-8.2); UREA NITROGEN, BLOOD 5 mg/dL (7-18)
[2016-11-15 09:52] LABS: BAND % (MANUAL) 1 % (0-10); EOSINOPHILS % (MANUAL) 5 % (0-8); LYMPHOCYTES % (MANUAL) 11 % (20-40); MONOCYTES % (MANUAL) 15 % (2-10); NEUTROPHILS % (MANUAL) 68 % (42-75)
[2016-11-15 11:00] VITALS: BP 106/68
--- NOTE | 2016-11-15 13:00 | NUR ---
Patient on and off awake during the shift. IV infusion disconnected upon patient's request. MD MADE AWARE Abdomen still distended and firm. Continue on pain medication due to abdominal pain.
[2016-11-15 15:06] VITALS: BP 110/72
--- NOTE | 2016-11-15 17:29 | NUR ---
END OF SHIFT NOTE: PATIENT IN NO ACUTE DISTRESS THROUGHOUT SHIFT. PAIN MANAGED WITH MEDICATION PRESCRIBED
[2016-11-15 20:11] VITALS: BP 105/69
--- NOTE | 2016-11-15 21:30 | NUR ---
PATIENT AWAKE,ALERT,ORIENTED,VITAL SIGNS WNL,ABDOMEN DISTENDED,PATIENT C/O GENERALIZED PAIN AND ANXIETY,ATIVAN AND MORPHINE MEDICATED,PATIENT SIGNED CONSENT FOR EGD PROCEDURE IN AM, PATIENT WAS EXPLAINED AND VERBALIZED UNDERSTANDING.
[2016-11-16] VITALS (8 sets, daily range): BP systolic 107–113; BP diastolic 67–76
--- NOTE | 2016-11-16 00:05 | NUR ---
NPO AFTER MIDNIGHT FOR EGD,STARTED PATIENT ON IVF ORDERED, INSTRUCTED PATIENT TO USE URINAL OR CALL FOR ASSISTANCE,BED ALARM ON.
[2016-11-16 07:02] LABS: BASOPHILS % (AUTO) 0.6 % (0.0-2.0); EOSINOPHILS # (AUTO) 0.3 K/uL (0.0-0.7); HEMOGLOBIN 8.4 G/DL (14.0-18.0); LYMPHOCYTES # (AUTO) 1.2 K/UL (0.8-4.8); LYMPHOCYTES % (AUTO) 16.9 % (20.5-51.5); MEAN CORPUSCULAR HEMOGLOBIN 23.5 UUG (27.0-31.0); MEAN CORPUSCULAR HGB CONC 31 g/dL (32.0-37.0); MEAN CORPUSCULAR VOLUME 75.8 FL (82.0-92.0); MONOCYTES # (AUTO) 1.2 K/UL (0.1-1.30); MONOCYTES % (AUTO) 16.8 % (0.0-11.0); NEUTROPHILS # (AUTO) 4.5 K/UL (1.8-8.9); NEUTROPHILS % (AUTO) 61.7 % (38.5-71.5); PLATELET COUNT (AUTO) 178 K/UL (150-450); RED BLOOD CELL COUNT(AUTO) 3.56 MIL/UL (4.7-6.1); WHITE BLOOD COUNT (AUTO) 7.2 K/UL (4.0-11.2)
[2016-11-16 07:06] LABS: ALANINE AMINOTRANSFERASE 26 U/L (16-63); ALKALINE PHOSPHATASE 307 U/L (50-136); ASPARTATE AMINOTRANSFERASE 60 U/L (15-37); CARBON DIOXIDE 25 mmol/L (21-32); CHLORIDE 103 mmol/L (98-107); CREATININE 0.6 mg/dL (0.6-1.3); GLUCOSE 95 mg/dL (74-106); PHOSPHOROUS 3.2 mg/dL (2.5-4.9); POTASSIUM 3.4 mmol/L (3.5-5.1); TOTAL PROTEIN, SERUM 5.8 g/dL (6.4-8.2); UREA NITROGEN, BLOOD 5 mg/dL (7-18)
--- NOTE | 2016-11-16 07:30 | NUR ---
PATIENT PICKED UP BY BED TO GI LAB FOR EGD ORDERED.PATIENT IS AWAKE ALERT AND ORIENTED DENIES PAIN OR DISCOMFORTS AT THIS TIME.IVF IN PROGRESS ORDERED TO HIS LEFT FOREARM NOT IN DISTRESS AT THIS TIME.
[2016-11-16 08:28] LABS: BASOPHILS % (MANUAL) 1 % (0-2); EOSINOPHILS % (MANUAL) 5 % (0-8); LYMPHOCYTES % (MANUAL) 18 % (20-40); MONOCYTES % (MANUAL) 11 % (2-10); NEUTROPHILS % (MANUAL) 65 % (42-75)
--- NOTE | 2016-11-16 09:40 | NUR ---
PATIENT RETURNED FROM THE GI LAB AWAKE ALERT AND VERBALLY RESPONSIVE WITH O2 AT 2L/M BY THE NASAL CANULLA WITH SATS AT 93%.PATIENT STATED WANTS THE CANULLA OFF HIS NOSE ENCOURAGED HIM TO LEAVE IN PLACE FOR NOW.APPLE JUICE AND JELLO GIVEN AND TOLERATED FAIRLY WELL.
--- NOTE | 2016-11-16 10:00 | NUR ---
PATIENT SEEN ANS EXAMINED BY BHAVNA PARKING ASSISTANT WITH NEW ORDERS POTASIUM LEVEL IS 3.4
--- NOTE | 2016-11-16 11:35 | NUR ---
FIRST DOSE OF POTASIUM WAS STARTED ORDERED BUT ABOUT 3/4 OF THE BAG INFUSED PATIENT STARTED TO SCREAM AND STATED THAT HE WILL REAP OFF THE LINE IN SO MUCH PAIN AND CANNOT TOLERATE ANYMORE.BHAVNA HOME CARE MUSIC THERAPIST NOTIFIED AND STATED TO STOP AND GIVE HIM ONE DOSE OF 20 MEQ ORALLY AND NOTED.
--- NOTE | 2016-11-16 12:00 | NUR ---
PATIENT SEEN BY THE PHYSICAL THERAPY AND HE AMBULATED IN THE HALLWAY AND TOLERATED WELL.
--- NOTE | 2016-11-16 15:02 | NUR ---
Faxed the patient's information to the following SNFs: [facility] - - [phone] [facility] - [phone] - [phone] [facility] - - [phone] [facility] - - [phone] [facility] - - [phone] [facility] - - [phone] [facility] - - [phone] - [phone] [facility] - - [phone] - [phone] [facility] - - [phone] [facility] - - Addendum: 11/16/16 at 1631 by HEATHER GOLDSTEIN CM Letha from [facility] [ ; [phone]; [address], [place] [address]] confirmed that they are able to admit the patient tomorrow morning. Updated the toy assembler, Lynne.
--- NOTE | 2016-11-16 16:05 | NUR ---
MEDICATED WITH ATIVAN PER PATIENTS REQUEST STATED THAT HE FEELS SHAKY
--- NOTE | 2016-11-16 18:00 | NUR ---
PATIENT WENT TO THE BATHROOM AND SEEN GETTING BACK INTO BED AND STATED THAT HE FEELS WEAK REMINDED HIM THAT HE RECEIVED MORPHINE AND SHOULD CALL FOR ASSISTANCE NEEDED TO PREVENT FALL AND HE EXPRESSED UNDERSTANDING.
--- NOTE | 2016-11-16 20:00 | NUR ---
PATIENT HAS EGD DONE TODAY,STILL C/O ABDOMINAL PAIN,RECEIVED MORPHINE FOR PAIN CONTROL,ABDOMEN STILL FIRM,VERY DISTENDED,HAS BOWEL MOVEMENT THIS AM,PATIENT DOING OK IN ROOM AIR,NO RESPIRATORY DISTRESS NOTED,FALL PRECAUTIONS PATIENT WAS REINSTRUCTED TO CALL FOR ASSISTANCE.
[2016-11-17 05:57] VITALS: BP 120/72
--- NOTE | 2016-11-17 06:09 | NUR ---
PATIENT SLEPT WELL THROUGH THE NIGHT.NO ACUTE DISTRESS.VITAL SIGNS STABLE WNL.
[2016-11-17 06:48] LABS: BASOPHILS % (AUTO) 0.6 % (0.0-2.0); EOSINOPHILS # (AUTO) 0.3 K/uL (0.0-0.7); EOSINOPHILS % (AUTO) 4.1 % (0.0-7.0); HEMATOCRIT 26.3 % (40-50); HEMOGLOBIN 8.3 G/DL (14.0-18.0); LYMPHOCYTES # (AUTO) 1.3 K/UL (0.8-4.8); LYMPHOCYTES % (AUTO) 15.4 % (20.5-51.5); MEAN CORPUSCULAR HEMOGLOBIN 23.8 UUG (27.0-31.0); MEAN CORPUSCULAR HGB CONC 32 g/dL (32.0-37.0); MEAN CORPUSCULAR VOLUME 75.2 FL (82.0-92.0); MONOCYTES # (AUTO) 1.2 K/UL (0.1-1.30); MONOCYTES % (AUTO) 14.5 % (0.0-11.0); NEUTROPHILS # (AUTO) 5.4 K/UL (1.8-8.9); NEUTROPHILS % (AUTO) 65.4 % (38.5-71.5); PLATELET COUNT (AUTO) 189 K/UL (150-450); WHITE BLOOD COUNT (AUTO) 8.2 K/UL (4.0-11.2)
[2016-11-17 07:08] LABS: ALANINE AMINOTRANSFERASE 25 U/L (16-63); ALKALINE PHOSPHATASE 266 U/L (50-136); ASPARTATE AMINOTRANSFERASE 55 U/L (15-37); BILIRUBIN,TOTAL 2.2 mg/dL (0.2-1.0); CARBON DIOXIDE 26 mmol/L (21-32); CHLORIDE 104 mmol/L (98-107); CREATININE 0.6 mg/dL (0.6-1.3); GLUCOSE 89 mg/dL (74-106); MAGNESIUM 1.8 mg/dL (1.8-2.4); PHOSPHOROUS 3.4 mg/dL (2.5-4.9); POTASSIUM 3.4 mmol/L (3.5-5.1); TOTAL PROTEIN, SERUM 5.6 g/dL (6.4-8.2); UREA NITROGEN, BLOOD 2 mg/dL (7-18)
--- NOTE | 2016-11-17 08:55 | NUR ---
AWAKE ALERT AND ORIENTED ON ROOM AIR WITH NO SHORTNESS OF BREATH AT THIS TIME.STATED TIRED BECAUSE HE DID NOT SLEEP WELL LAST NITE MADE COMFORTABLE AND WILL OBSERVE.
[2016-11-17 11:10] VITALS: BP 103/63
[2016-11-17] MEDS ORDERED: FERR325T28 PO (13:11)
[2016-11-17] MEDS ORDERED: PANT40TA2 PO (13:11)
[2016-11-17] MEDS ORDERED: DOCU100C36 PO (13:11)
--- NOTE | 2016-11-17 14:00 | NUR ---
PATIENT SEEN BY DR NAVARRO ROOT WITH ORDER TO [facility] AND NOTED PER THE SMOKE ROOM OPERATOR THE REHAB CENTER WILL BE HERE TO EVALUATE PATIENT FIRST BEFORE ACCEPTING THE PATIENT.PATIENT STATED THAT HE DOES NOT FEEL READY TO LEAVE DR ROOT WAS NOTIFIED AND HE STATED THAT PATIENT IS READY TO BE DISCHARGED.
--- NOTE | 2016-11-17 15:10 | NUR ---
PATIENT IS ALL DRESSED UP AND READY TO LEAVE INFORMED HIM THAT SOMEONE WAS COMING FROM [facility] TO EVALUATE HIM THIS EVENING FOR ADMISSION AND HE STATED THAT HE WANTS TO GO BACK TO THE [place] WHERE [place] C[place] FROM THAT HE HAS BEEN IN SO MANY REHAB PLACES AND DID NOT LIKE THE EXPERIENCE STATED FOR ME TO JUST GIVE HIM A TOKEN.DR NAVARRO ROOT NOTIFIED THAT THE PATIENT DOES NOT WANT TO GO THE REHAB AND HE STATED [facility] HE CAN GO TO WHERE EVEN HE IS COMFORTABLE AND SO HE PROVIDED A PRESCRIPTION FOR HIM.THE MIXER OPERATOR WAS NOTIFIED TO PROVIDE THE PATIENT WITH A TOKEN
--- NOTE | 2016-11-17 15:12 | NUR ---
OPTION TO GO TO THE [facility] WAS OFFERED TO THE PATIENT OPPOSED TO THE [facility] BUT PATIENT DECLINED AND STATED WILL NOT GO TO EITHER THE [facility] OR TO REHAB STATED THAT HE HAS BEEN TO THESE PLACES BEFORE AND DOES NOT LIKE THEM
--- NOTE | 2016-11-17 15:15 | NUR ---
PATIENT REFUSED TO HAVE HIS AZITHROMAX DUE AT THIS TIME AND REFUSED TO HAVE HIS PICTURES TAKEN OF HIS SCABS.PATIENTS RIGHT TO REFUSE RESPECTED.
[2016-11-17 15:16] VITALS: BP 112/72
--- NOTE | 2016-11-17 16:00 | NUR ---
PATIENT DISCHARGED WITH DISCHARGE INSTRUCTIONS AND PRESCRIPTIONS AND A BUS TOKIN AND HE WAS INSTRUCTED TO CALL HIS PRIMARY CARE DOCTOR FOR A FOLLOW UP APPOINTMENT WITHIN THE NEXT ONE TO TWO WEEKS AND TO TAKE HIS MEDICATIONS ORDERED AND HE EXPRESSED UNDERSTANDING.PATIENT ASSISTED VIA W/CHAIR AND HE AMBULATED TO THE STREET TO CATCH THE BUS.
[2016-11-17 16:19] VITALS: BP 112/72
[2016-11-26] MEDS ORDERED: THIA100T13 PO (12:20)
[2016-11-26] MEDS ORDERED: ACET325T53 PO (12:20)
[2016-11-26] MEDS ORDERED: MAGN400O6 PO (12:20)
[2016-11-26] MEDS ORDERED: FERR325T28 PO (12:20)
[2016-11-26] MEDS ORDERED: LACT10SO7 PO (12:20)
[2016-11-26] MEDS ORDERED: NICO1PAT28 TD (12:20)
[2016-11-26] MEDS ORDERED: SPIR100T PO (12:20)
[2016-11-26] MEDS ORDERED: FOLI1TAB16 PO (12:20)
[2016-11-26] MEDS ORDERED: MULT-24 PO (12:20)
[2016-11-26] MEDS ORDERED: PANT40TA2 PO (12:20)
[2016-11-26] MEDS ORDERED: HYDR-3326 PO (14:50)
[2016-12-05] MEDS ORDERED: CEPH500C2 PO (12:26)
[2016-12-05] MEDS ORDERED: PANT40TA2 PO (12:26)
[2016-12-05] MEDS ORDERED: DOCU100C36 PO (12:26)
[2016-12-05] MEDS ORDERED: FOLI1TAB16 PO (12:26)
[2016-12-05] MEDS ORDERED: SPIR100T PO (12:26)
[2016-12-05] MEDS ORDERED: ACET325T53 PO (12:26)
[2016-12-05] MEDS ORDERED: NICO1PAT28 TD (12:26)
[2016-12-05] MEDS ORDERED: THIA100T13 PO (12:26)
[2016-12-05] MEDS ORDERED: MULT-24 PO (12:26)
[2016-12-05] MEDS ORDERED: FERR325T28 PO (12:26)
[2016-12-06] MEDS ORDERED: HYDR-3326 PO (11:11)
== END 2016-11-17 16:00 | disposition home or self-care (01) | DRG 229 ==
LOC: ER 21:59 → TELE 11-12 02:30 → EDBD 11-12 02:30 → TELE-TD 11-12 06:37 → TELE 11-13 07:58 → MED 11-13 11:09
PROVIDERS: ADMIT Internal Medicine; ATTEND Nurse Practitioner Acute Care
PROC: 0W9G3ZX Drainage of Peritoneal Cavity, Percutaneous Approach, Diagnostic (ICD-10-PCS; principal; 2016-11-13)
PROC: 30233N1 Transfusion of Nonautologous Red Blood Cells into Peripheral Vein, Percutaneous Approach (ICD-10-PCS; principal; 2016-11-13)
PROC: 0DB48ZX Excision of Esophagogastric Junction, Via Natural or Artificial Opening Endoscopic, Diagnostic (ICD-10-PCS; 2016-11-16)
PROC: 0DB78ZX Excision of Stomach, Pylorus, Via Natural or Artificial Opening Endoscopic, Diagnostic (ICD-10-PCS; 2016-11-16)
PROC: 0DB98ZX Excision of Duodenum, Via Natural or Artificial Opening Endoscopic, Diagnostic (ICD-10-PCS; 2016-11-16)
PROC: 0DB68ZX Excision of Stomach, Via Natural or Artificial Opening Endoscopic, Diagnostic (ICD-10-PCS; 2016-11-16)
DX: K29.01 Acute gastritis with bleeding (principal); E43 Unspecified severe protein-calorie malnutrition; J18.9 Pneumonia, unspecified organism; D68.4 Acquired coagulation factor deficiency; K76.6 Portal hypertension; E87.1 Hypo-osmolality and hyponatremia; K29.81 Duodenitis with bleeding; I85.10 Secondary esophageal varices without bleeding; K22.8 Other specified diseases of esophagus; K86.0 Alcohol-induced chronic pancreatitis; K70.31 Alcoholic cirrhosis of liver with ascites; K86.1 Other chronic pancreatitis; K20.9 Esophagitis, unspecified; Z59.0 Homelessness; D62 Acute posthemorrhagic anemia; B19.9 Unspecified viral hepatitis without hepatic coma; F10.20 Alcohol dependence, uncomplicated; Y90.9 Presence of alcohol in blood, level not specified; G25.81 Restless legs syndrome; Z81.3 Family history of other psychoactive substance abuse and dependence; Z81.1 Family history of alcohol abuse and dependence; F17.210 Nicotine dependence, cigarettes, uncomplicated; M16.0 Bilateral primary osteoarthritis of hip; Z87.440 Personal history of urinary (tract) infections; Z68.22 Body mass index [BMI] 22.0-22.9, adult; E87.6 Hypokalemia; K40.90 Unilateral inguinal hernia, without obstruction or gangrene, not specified as recurrent; K57.30 Diverticulosis of large intestine without perforation or abscess without bleeding; R16.2 Hepatomegaly with splenomegaly, not elsewhere classified; E83.42 Hypomagnesemia; E88.09 Other disorders of plasma-protein metabolism, not elsewhere classified; J98.11 Atelectasis; K59.00 Constipation, unspecified; K29.70 Gastritis, unspecified, without bleeding; R17 Unspecified jaundice; K42.9 Umbilical hernia without obstruction or gangrene; K29.51 Unspecified chronic gastritis with bleeding
CPT/HCPCS: 36415; 71010; 76700; 82378; 83550; 83690; 83735; 84100; 84443; 85025; 85610; 85730; 86850; 86900; 86901; 86920; 87070; 87086; 87205; 93005; 94664; 97116; 97530; A4217; A4663; C9113; J0456; J0696; J2060; J2270; J2354; J3475; J3480; J3490; J3590; J7030; J7040; J7042; J7050; J7060; J7120; P9016-BL; P9021; Q0163

== ENCOUNTER 2016-11-19 22:07 | Inpatient (IN) | payer MEDICAID ==
[~2016-11-19] VITALS: Ht 185.4 cm; Wt 79.8 kg
[~2016-11-19 22:07] MED LIST: DOCU100C36 PO; FERR325T28 PO; PANT40TA2 PO
[2016-11-19] MEDS ORDERED: SODIUM BICARBONATE 4.2 % (NEUT) 5 ML VIAL TP ONE (22:45)
[2016-11-19] MEDS ORDERED: LIDOCAINE 1%-EPI 1:100,000 20 ML VIAL TP ONE (22:45)
[2016-11-19] MEDS ORDERED: LIDOCAINE 2%-EPI 1:100,000 20 ML VIAL ONE (22:52)
[2016-11-19] MEDS ORDERED: OXYCODONE/APAP 5-325 MG TABLET PO ONE (23:00)
[2016-11-19] MEDS ORDERED: LIDOCAINE 2%-EPI 1:100,000 20 ML VIAL TP ONE (23:00)
--- NOTE | 2016-11-19 23:00 | NUR ---
PATIENT CALLED 911 FOR C/O SEVER ABDOMIONAL PAIN. PATIENT UPON ARRIVAL A/OX4,C/O ABDOMINAL PAIN AND TENDERNESS ON LEFT RIB AREA. PATIENT ABDOMEN IS ROUND AND SOFT. DENIES N/V,DIRRHEA,SOB AND CP
[2016-11-19] MEDS ORDERED: OXYCODONE/APAP 5-325 MG TABLET ONE (23:07)
[2016-11-20 00:03] LABS: BILIRUBIN,DIRECT 1.5 mg/dL (0.0-0.2); BILIRUBIN,TOTAL 2.7 mg/dL (0.2-1.0); CREATININE 0.7 mg/dL (0.6-1.3); POTASSIUM 3.3 mmol/L (3.5-5.1); TOTAL PROTEIN, SERUM 6.6 g/dL (6.4-8.2)
[2016-11-20 00:42] LABS: BASOPHILS # (AUTO) 0.2 K/uL (0.0-8.0); BASOPHILS % (AUTO) 1.9 % (0.0-2.0); EOSINOPHILS # (AUTO) 0.3 K/uL (0.0-0.7); EOSINOPHILS % (AUTO) 3.4 % (0.0-7.0); HEMATOCRIT 27.9 % (40-50); HEMOGLOBIN 8.9 G/DL (14.0-18.0); LYMPHOCYTES # (AUTO) 1.9 K/UL (0.8-4.8); LYMPHOCYTES % (AUTO) 19.9 % (20.5-51.5); MEAN CORPUSCULAR HEMOGLOBIN 24.1 UUG (27.0-31.0); MEAN CORPUSCULAR HGB CONC 32 g/dL (32.0-37.0); MEAN CORPUSCULAR VOLUME 75.4 FL (82.0-92.0); MONOCYTES % (AUTO) 20.5 % (0.0-11.0); NEUTROPHILS # (AUTO) 5.2 K/UL (1.8-8.9); NEUTROPHILS % (AUTO) 54.3 % (38.5-71.5); PLATELET COUNT (AUTO) 218 K/UL (150-450); WHITE BLOOD COUNT (AUTO) 9.6 K/UL (4.0-11.2)
[2016-11-20] MEDS ORDERED: HYDROMORPHONE 1 MG/1 ML DISP.SYRIN IV ONE ×2 (01:00→03:15)
[2016-11-20] MEDS ORDERED: IV D5W-0.45% NS +20 KCL 1,000 ML IV ONE (01:07)
[2016-11-20] MEDS ORDERED: MVI-12 10 ML IV ONE (01:15)
[2016-11-20] MEDS ORDERED: THIAMINE HCL 200 MG/2 ML VIAL IV ONE (01:15)
[2016-11-20] MEDS ORDERED: HYDROMORPHONE 2 MG/1 ML DISP.SYRIN ONE ×2 (01:16→03:16)
[2016-11-20] MEDS ORDERED: THIAMINE HCL 200 MG/2 ML VIAL ONE (01:21)
[2016-11-20] MEDS ORDERED: IV NORMAL SALINE 250 ML IV ONE (01:34)
[2016-11-20] MEDS ORDERED: IOHEXOL 300MG/ML 100 ML INFUS..BTL ONE ×2 (01:34→01:53)
[2016-11-20 02:39] LABS: *BLOOD, URINE NEGATIVE (NEGATIVE); *CLARITY,URINE CLEAR (CLEAR); *COLOR,URINE AMBER (YELLOW); *KETONES,URINE NEGATIVE (NEGATIVE); *PROTEIN,URINE NEGATIVE (NEGATIVE); LEUKOCYTE ESTERASE ,URINE NEGATIVE (NEGATIVE); NITRITE, URINE NEGATIVE (NEGATIVE); PH,URINE 5.5 (5.0-8.0); UGLUCOSE NEGATIVE (NEGATIVE)
[2016-11-20 03:08] LABS: *BILIRUBIN,URIN 1+ (NEGATIVE)
[2016-11-20 03:14] LABS: BACTERIA,URINE NONE SEEN /HPF (NONE SEEN); MUCUS,URINE MODERATE /LPF (0-FEW); RBC,URINE 0-3 /HPF (0-3); SQUAMOUS EPITHELIAL CELL,UR FEW /HPF (NONE SEEN); WBC,URINE 0-3 /HPF (0-3)
[2016-11-20] MEDS ORDERED: diphenhydrAMINE 50 MG/1 ML VIAL IV ONE (03:15)
--- NOTE | 2016-11-20 03:20 | NUR ---
PAGED EPPIC PANEL FOR ADMISSION OF PATIENT. WAITING FOR JOSE ALEJANDRO JACOBO DNP TO CALL BACK
[2016-11-20] MEDS ORDERED: diphenhydrAMINE 50 MG/1 ML VIAL ONE (03:22)
[2016-11-20 04:30] VITALS: BP 126/72
--- NOTE | 2016-11-20 04:40 | NUR ---
TRANSFERED TO 2ND FLOOR VIA GURNY WITH NO DISTRESS NOTED
[2016-11-20] MEDS ORDERED: ONDANSETRON 4 MG/2 ML VIAL IV PRN (05:30)
[2016-11-20 05:46] LABS: BAND % (MANUAL) 7 % (0-10); EOSINOPHILS % (MANUAL) 3 % (0-8); LYMPHOCYTES % (MANUAL) 17 % (20-40); METAMYELOCYTES % 1 % (0-1); MONOCYTES % (MANUAL) 15 % (2-10); NEUTROPHILS % (MANUAL) 57 % (42-75)
[2016-11-20] MEDS: IV NS 1000 ML 1,000 ML IV PRN ×2 (06:00→17:55)
[2016-11-20] MEDS: LORAZEPAM 2 MG/1 ML VIAL IV PRN ×4 (06:09→23:21)
[2016-11-20] MEDS: MORPHINE SULFATE 2 MG/1 ML DISP.SYRIN IV PRN ×5 (06:09→22:14)
[2016-11-20] MEDS ORDERED: MORPHINE SULFATE 2 MG/1 ML DISP.SYRIN ONE (06:16)
[2016-11-20] MEDS ORDERED: LORAZEPAM 2 MG/1 ML VIAL ONE (06:17)
--- NOTE | 2016-11-20 06:40 | NUR ---
Admitted this patient to Telemetry floor Dx. GI Bleed, awake alert & oriented, no SOB denies chest pain but c/o abdominal discomfort. Initial assessment done, patient anxious about current condition. Abdominal distention noted, patient stated he's been constipated for 2 days. Prune juice provided. Assisted to the bathroom due to unsteady gait. Slightly jaundiced, w/ pedal edema noted. Admission orders initiated by Dr. Curtis. gear repairer applied, sinus rhythm on the monitor. On regular diet, early breakfast provided per patient request. Tolerated turkey sandwich & apple juice. IVF NS at 100ml/hr started as ordered. Ativan 2mg given IVP, & medicated w/ Morphine 2 mg IVP for pain. Kept comfortable. Instructed to use urinal for strict I & O order by MD, patient verbalized understanding. Fall precaution observed. Kept call light within reach. Will continue to monitor.
--- NOTE | 2016-11-20 07:05 | NUR ---
Patient resting comfortably, no acute resp. distress. Sinus rhythm on the monitor.
--- NOTE | 2016-11-20 07:30 | NUR ---
RECIEVED PT SOUND ASLEEP IN BED WITH HOB UP AT 35DEGREES. COLOR IS SLIGHTLY JAUNDICED. AROUSABLE AND OPENS EYES TO CALL. MAIN IVF IS NS AT 100ML/HR VIA RT AC INFUSING WELL G20. HR IS NSR NO ECTOPY. APPEARS COMFORTABLE AT THIS TIME.
[2016-11-20] MEDS: THIAMINE HCL INJ 100 MG in IV DEXTROSE 5% 50 ML IV SCH (09:21)
[2016-11-20] MEDS: PANTOPRAZOLE SODIUM 40 MG TABLET.DR PO SCH (09:21)
--- NOTE | 2016-11-20 09:30 | NUR ---
PT AWAKENED AND ATE BREAKFAST TOLERATED WELL. NO N/V NOTED. PT GENERALLY WEAK. NO APPARENT RESPIRATORY DISTRESS NOTED ON ROOM AIR. ABDOMEN IS DISTENDED AND SLIGHTLY HARD TO TOUCH. GOOD BS NOTED. HAS PEDAL EDEMA ON BOTH LEGS +3 AND ITS PITTING WITH GOOD PEDAL PULSES. VERY PLEASANT.
[2016-11-20 11:13] VITALS: BP 107/68
--- NOTE | 2016-11-20 13:30 | NUR ---
SEEN AND EXAMINED BY DR BRICEÑO. PT UP WITH PT AROUND THE RIOS, TOLERATED WELL. PT C/O PAIN ON HIS LEFT SIDE OF HIS CHEST LEVEL 7.
--- NOTE | 2016-11-20 14:00 | NUR ---
MEDICATED WITH MORPHINE SULFATE 2MG SLOW IVP PUSH FOR HIS PAIN.
[2016-11-20 15:07] VITALS: BP 107/72
--- NOTE | 2016-11-20 16:00 | NUR ---
PT IS HAVING ANXIETY AGITATION. MEDICATED WITH ATIVAN 2MG SLOW IVP. ABLE TO CALM DOWN.
[2016-11-20] MEDS: ACETAMINOPHEN 325 MG TABLET PO PRN (16:09)
--- NOTE | 2016-11-20 19:20 | NUR ---
Received pt in bed, awake, alert and oriented x 4. No acute distress noted. C/O tolerable back pain at this time. Continue to monitor. Safety measures and fall precautions maintained. Continue current plan of care.
[2016-11-20 20:14] VITALS: BP 110/72
--- NOTE | 2016-11-20 21:05 | NUR ---
Ativan given as ordered for restlessness/agitation. Continue to monitor.
--- NOTE | 2016-11-20 22:16 | NUR ---
IV leaking, Morphine given was wasted.
--- NOTE | 2016-11-20 22:20 | NUR ---
Pt Right AC Peripheral IV Line leaking, removed. Restarted on Left upper arm, G #20 x 1. Good blood return. Resume IV fluid.
[2016-11-21] MEDS: LORAZEPAM 2 MG/1 ML VIAL IV PRN ×3 (03:31→20:27)
[2016-11-21 05:43] VITALS: BP 119/76
[2016-11-21] MEDS: IV NS 1000 ML 1,000 ML IV PRN ×2 (06:16→17:21)
[2016-11-21] MEDS: PANTOPRAZOLE SODIUM 40 MG TABLET.DR PO SCH (06:40)
--- NOTE | 2016-11-21 06:48 | NUR ---
Medicated twice for pain and Ativan 4x with help. Patient uncooperative/non-compliant with care at times. Reinforced proper body positioning/alignment to avoid more pressure to affected areas. Noted some bladder incontinence, frequency and urgency. Safety measures and fall precaution maintained. Continue care as planned.
[2016-11-21 06:59] LABS: THYROID STIMULATING HORMONE 5.944 mIU/mL (0.358-3.740)
[2016-11-21 07:06] LABS: IRON, SERUM 13 ug/dL (50-175)
[2016-11-21 07:08] LABS: ALANINE AMINOTRANSFERASE 24 U/L (16-63); ALKALINE PHOSPHATASE 263 U/L (50-136); ASPARTATE AMINOTRANSFERASE 55 U/L (15-37); CARBON DIOXIDE 24 mmol/L (21-32); CHLORIDE 104 mmol/L (98-107); CHOLESTEROL 93 mg/dL (<200); CREATININE 0.5 mg/dL (0.6-1.3); GLUCOSE 95 mg/dL (74-106); HDL CHOLESTEROL 18 mg/dL (40-60); MAGNESIUM 1.8 mg/dL (1.8-2.4); PHOSPHOROUS 3.2 mg/dL (2.5-4.9); POTASSIUM 3.7 mmol/L (3.5-5.1); TOTAL PROTEIN, SERUM 5.7 g/dL (6.4-8.2); TRIGLYCERIDES 48 MG/DL (30-150); UREA NITROGEN, BLOOD 5 mg/dL (7-18)
--- NOTE | 2016-11-21 07:57 | NUR ---
RECEIVED PATIENT IN BED ASLEEP AND SEEMS COMFORTABLE WITH IVF OF NS AT 100ML/H ORDERED WITH NO S/S OF INFILTERATION.PATIENT IS COMFORTABLE AT THIS TIME AND WILL CONTINUE TO OBSERVE.
[2016-11-21 07:59] LABS: BASOPHILS # (AUTO) 0.1 K/uL (0.0-8.0); BASOPHILS % (AUTO) 0.7 % (0.0-2.0); EOSINOPHILS # (AUTO) 0.2 K/uL (0.0-0.7); EOSINOPHILS % (AUTO) 2.6 % (0.0-7.0); HEMATOCRIT 27.5 % (40-50); HEMOGLOBIN 8.7 G/DL (14.0-18.0); LYMPHOCYTES # (AUTO) 0.9 K/UL (0.8-4.8); LYMPHOCYTES % (AUTO) 10.8 % (20.5-51.5); MONOCYTES # (AUTO) 1.4 K/UL (0.1-1.30); MONOCYTES % (AUTO) 17.4 % (0.0-11.0); NEUTROPHILS # (AUTO) 5.6 K/UL (1.8-8.9); NEUTROPHILS % (AUTO) 68.5 % (38.5-71.5); PLATELET COUNT (AUTO) 207 K/UL (150-450); RED BLOOD CELL COUNT(AUTO) 3.62 MIL/UL (4.7-6.1); WHITE BLOOD COUNT (AUTO) 8.2 K/UL (4.0-11.2)
[2016-11-21 08:02] LABS: MEAN CORPUSCULAR VOLUME 75.9 FL (82.0-92.0)
[2016-11-21 08:03] LABS: MEAN CORPUSCULAR HGB CONC 32 g/dL (32.0-37.0)
[2016-11-21 09:21] LABS: BAND % (MANUAL) 3 % (0-10); BASOPHILS % (MANUAL) 1 % (0-2); EOSINOPHILS % (MANUAL) 2 % (0-8); LYMPHOCYTES % (MANUAL) 10 % (20-40); MONOCYTES % (MANUAL) 16 % (2-10); NEUTROPHILS % (MANUAL) 68 % (42-75)
[2016-11-21] MEDS: THIAMINE HCL INJ 100 MG in IV DEXTROSE 5% 50 ML IV SCH (09:21)
[2016-11-21 11:41] VITALS: BP 106/74
[2016-11-21] MEDS: MORPHINE SULFATE 2 MG/1 ML DISP.SYRIN IV PRN ×3 (15:43→23:19)
--- NOTE | 2016-11-21 15:43 | NUR ---
AWAKE ALERT AND ORIENTED REQUESTING FOR PAIN MEDICATION STATED HAVING PAIN IN HIS RIB AREA MEDICATED WITH MORPHINE ORDERED MADE COMFORTABLE AND WILL CONTINUE TO OBSERVE.
[2016-11-21 16:21] VITALS: BP 116/81
--- NOTE | 2016-11-21 17:57 | NUR ---
RESTING IN BED EATING LUNCH COMPLAINED OF FEELING TREMORS MEDICATED WITH ATIVAN ORDERED.
--- NOTE | 2016-11-21 19:22 | NUR ---
PATIENT INSTRUCTED ON THE USE OF INCENTIVE SPIROMETER.PATIENT REFUSED TO BE BATHE TODAY ATTEMPTS WAS MADE SO MANY TIMES BUT HE STILL REFUSED.
[2016-11-21 20:00] VITALS: BP_SYST 107; BP_SYST 124; BP_DIAS 65; BP_DIAS 78
[2016-11-22] MEDS: LORAZEPAM 2 MG/1 ML VIAL IV PRN (00:12)
--- NOTE | 2016-11-22 00:15 | NUR ---
NURSES NOTES PATIENT SEEN, ANXIOUS AND RESTLESS, PATIENT STATED "I WANT SOMETHING TO TAKE THE EDGE OFF." PATIENT GIVEN ATIVAN ORDERED.
[2016-11-22] MEDS: IV NS 1000 ML 1,000 ML IV PRN (03:06)
[2016-11-22 04:00] VITALS: BP 116/77
[2016-11-22] MEDS: MORPHINE SULFATE 2 MG/1 ML DISP.SYRIN IV PRN ×2 (04:30→13:09)
[2016-11-22] MEDS: PANTOPRAZOLE SODIUM 40 MG TABLET.DR PO SCH (06:20)
--- NOTE | 2016-11-22 08:00 | NUR ---
Pt is in no acute distress. Pt very disheveled and dirty - encouraged pt to take shower. Discussed plan of care with pt re: pain management, fall precautions. Pt agreeable with plan of care. Educated pt on how to splint his fx left rib with pillow when he coughs pt able to return demonstrate proper splinting technique. Call light is within reach.
[2016-11-22] MEDS: THIAMINE HCL 100 MG TABLET PO SCH (08:36)
[2016-11-22 11:57] VITALS: BP 118/79
[2016-11-22 15:38] VITALS: BP 110/75
--- NOTE | 2016-11-22 15:54 | NUR ---
Helps perform self care activities.
[2016-11-22] MEDS: NICOTINE 21 MG/24HR PATCH TD SCH (16:11)
--- NOTE | 2016-11-22 18:32 | NUR ---
Plan of care effective. No fall noted. Pt's pain managed with pain meds and splinting technique. Pt took shower with MOD A. Pt comfortable with nicotine patch on. Pix taken of L skin tare noted on left elbow, right elbow scab and bruising noted, left hip bruising noted, and right forehead bruising noted - pt states that these were all resulted fall prior to being in the hospital. Pt is in no acte distress.
[2016-11-22 20:09] VITALS: BP 113/72
[2016-11-23] MEDS: MORPHINE SULFATE 2 MG/1 ML DISP.SYRIN IV PRN ×5 (00:25→21:41)
--- NOTE | 2016-11-23 05:46 | NUR ---
PT SLEPT WELL, IN NO ACUTE DISTRESS, NO SOB. NO SIGNIFICANT CHANGE OF CONDITION THROUGHOUT THE SHIFT. PAIN MANAGEMENT ORDERED. CALL LIGHT WITHIN REACH, BED ALARM ON. WILL CONTINUE TO MONITOR.
[2016-11-23] MEDS: PANTOPRAZOLE SODIUM 40 MG TABLET.DR PO SCH (06:01)
[2016-11-23 06:49] VITALS: BP 115/65
[2016-11-23] MEDS: THIAMINE HCL 100 MG TABLET PO SCH (07:57)
[2016-11-23] MEDS: ACETAMINOPHEN 325 MG TABLET PO PRN (07:57)
[2016-11-23 08:00] VITALS: BP 96/68
[2016-11-23] MEDS: LORAZEPAM 2 MG/1 ML VIAL IV PRN ×3 (08:05→20:04)
[2016-11-23] MEDS: NICOTINE 21 MG/24HR PATCH TD SCH (09:17)
[2016-11-23] MEDS ORDERED: FUROSEMIDE 40 MG/4 ML VIAL IV ONE (09:30)
[2016-11-23] MEDS: SPIRONOLACTONE 100 MG TABLET PO SCH (10:17)
[2016-11-23 11:03] VITALS: BP 101/65
[2016-11-23 11:28] VITALS: BP 110/78
[2016-11-23 15:38] VITALS: BP 106/71
[2016-11-23] MEDS ORDERED: GUAIFENESIN/DEXTROMETHORPHAN 5 ML UDC PO PRN (16:30)
--- NOTE | 2016-11-23 19:06 | NUR ---
Patient's pain managed with morphine PRN. Patient's anxiety managed with ativan. Patient continues to experience pain in left abdomen. Ice packs placed on site of pain. Patient also complained of having trouble coughing up his flem so hot tea with honey provided to patient and patient stated that "it helped". Dr. Villalba ordered Lasix and Spironolactone. Patient's fluids discontinued. Physical therapy consult provided to patient after morphine was administered to patient. Patient tolerated PT. Patient stated that he "wanted to have dinner first before getting the morphine". Patient has tolerated pain a lot better this shift than previous shifts.
[2016-11-23 20:00] VITALS: BP 112/72
[2016-11-24 03:00] VITALS: BP 114/71
[2016-11-24] MEDS: PANTOPRAZOLE SODIUM 40 MG TABLET.DR PO SCH (06:20)
[2016-11-24 06:28] LABS: BASOPHILS # (AUTO) 0.1 K/uL (0.0-8.0); EOSINOPHILS # (AUTO) 0.3 K/uL (0.0-0.7); EOSINOPHILS % (AUTO) 4.3 % (0.0-7.0); HEMATOCRIT 27.4 % (40-50); HEMOGLOBIN 8.7 G/DL (14.0-18.0); LYMPHOCYTES # (AUTO) 1.1 K/UL (0.8-4.8); LYMPHOCYTES % (AUTO) 14.9 % (20.5-51.5); MEAN CORPUSCULAR HGB CONC 32 g/dL (32.0-37.0); MEAN CORPUSCULAR VOLUME 75.3 FL (82.0-92.0); MONOCYTES # (AUTO) 1.2 K/UL (0.1-1.30); MONOCYTES % (AUTO) 15.7 % (0.0-11.0); NEUTROPHILS # (AUTO) 4.9 K/UL (1.8-8.9); NEUTROPHILS % (AUTO) 64.1 % (38.5-71.5); PLATELET COUNT (AUTO) 223 K/UL (150-450); RED BLOOD CELL COUNT(AUTO) 3.64 MIL/UL (4.7-6.1); WHITE BLOOD COUNT (AUTO) 7.6 K/UL (4.0-11.2)
[2016-11-24 06:43] LABS: ALANINE AMINOTRANSFERASE 22 U/L (16-63); ALKALINE PHOSPHATASE 236 U/L (50-136); ASPARTATE AMINOTRANSFERASE 49 U/L (15-37); BILIRUBIN,TOTAL 1.9 mg/dL (0.2-1.0); CARBON DIOXIDE 27 mmol/L (21-32); CHLORIDE 103 mmol/L (98-107); CREATININE 0.6 mg/dL (0.6-1.3); GLUCOSE 97 mg/dL (74-106); MAGNESIUM 1.7 mg/dL (1.8-2.4); PHOSPHOROUS 3.6 mg/dL (2.5-4.9); POTASSIUM 2.9 mmol/L (3.5-5.1); TOTAL PROTEIN, SERUM 5.7 g/dL (6.4-8.2); UREA NITROGEN, BLOOD 3 mg/dL (7-18)
[2016-11-24] MEDS: SPIRONOLACTONE 100 MG TABLET PO SCH (08:33)
[2016-11-24] MEDS: THIAMINE HCL 100 MG TABLET PO SCH (08:33)
[2016-11-24] MEDS: NICOTINE 21 MG/24HR PATCH TD SCH (08:34)
[2016-11-24 08:38] LABS: EOSINOPHILS % (MANUAL) 5 % (0-8); LYMPHOCYTES % (MANUAL) 15 % (20-40); MONOCYTES % (MANUAL) 11 % (2-10); NEUTROPHILS % (MANUAL) 69 % (42-75)
[2016-11-24] MEDS ORDERED: POTASSIUM CHLORIDE 20 MEQ TAB.PRT.SR PO ONE (10:15)
[2016-11-24] MEDS ORDERED: MAGNESIUM SULFATE/D5W 100 ML IV SCH (10:15)
[2016-11-24] MEDS: MORPHINE SULFATE 2 MG/1 ML DISP.SYRIN IV PRN ×3 (10:41→21:04)
[2016-11-24] MEDS: FOLIC ACID 1 MG TABLET PO SCH (10:59)
[2016-11-24 11:47] VITALS: BP 107/61
[2016-11-24 15:29] VITALS: BP 123/69
[2016-11-24] MEDS: MULTIVITAMINS,THERAPEUTIC TABLET PO SCH (16:24)
--- NOTE | 2016-11-24 18:05 | NUR ---
Patient appears to have improved pain toleration throughout shift. Morphine given to patient at 1041 for PT consult. PT consult provided to patient at 1100 and patient tolerated, cooperated PT. Patient seen by physician's assistant professor of business, Dr. Gallagher and ordered CT of Abdomen (complete) for possible ascites and possible paracentesis. Notified results of CT Abdomen to Dr. Gallagher and Dr. Gallagher ordered paracentesis for tomorrow (11/25/16). Consent form signed by patient, and witnessed by nurse. Patient slightly improved position changes in bed and ambulation to bathroom with minimal assistance.
[2016-11-24] MEDS: LACTULOSE 20 G/30 ML LIQUID UDC PO SCH (18:58)
--- NOTE | 2016-11-24 19:30 | NUR ---
RECEIVED PATIENT IN BED FROM DAY SHIFT. A/O, NO SIGNS OF DISCOMFORT OR SOB. REPORT GIVEN AT BEDSIDE. PATIENT IS STABLE. COMPLAINTS OF PAIN 10/10 AT START OF SHIFT. MORPHINE ADMINISTERED. CALL LIGHT IS WITHIN REACH. WILL CONTINUE TO MONITOR THROUGH OUT SHIFT.
[2016-11-24 20:00] VITALS: BP 116/71
[2016-11-24] MEDS: LORAZEPAM 2 MG/1 ML VIAL IV PRN (23:31)
[2016-11-25] VITALS (7 sets, daily range): BP systolic 97–114; BP diastolic 53–76
[2016-11-25] MEDS: LACTULOSE 20 G/30 ML LIQUID UDC PO SCH ×5 (00:52→23:29)
[2016-11-25] MEDS: PANTOPRAZOLE SODIUM 40 MG TABLET.DR PO SCH (06:22)
--- NOTE | 2016-11-25 06:50 | NUR ---
PATIENT LYING IN BED. ALL NEEDS ATTENDED THROUGH OUT SHIFT. NO SIGNS OF SOB. SAFETY MEASURES IMPLEMENTED. NO SIGNS OF PAIN. ALL MEDS ADMINISTERED ORDERED.
[2016-11-25 07:48] LABS: BASOPHILS % (AUTO) 0.5 % (0.0-2.0); EOSINOPHILS # (AUTO) 0.3 K/uL (0.0-0.7); EOSINOPHILS % (AUTO) 3.2 % (0.0-7.0); HEMATOCRIT 28.7 % (40-50); HEMOGLOBIN 9.2 G/DL (14.0-18.0); LYMPHOCYTES # (AUTO) 1.1 K/UL (0.8-4.8); LYMPHOCYTES % (AUTO) 12.5 % (20.5-51.5); MEAN CORPUSCULAR HGB CONC 32 g/dL (32.0-37.0); MEAN CORPUSCULAR VOLUME 75.4 FL (82.0-92.0); MONOCYTES # (AUTO) 1.5 K/UL (0.1-1.30); MONOCYTES % (AUTO) 16.5 % (0.0-11.0); NEUTROPHILS # (AUTO) 6.2 K/UL (1.8-8.9); NEUTROPHILS % (AUTO) 67.3 % (38.5-71.5); PLATELET COUNT (AUTO) 235 K/UL (150-450); RED BLOOD CELL COUNT(AUTO) 3.81 MIL/UL (4.7-6.1); WHITE BLOOD COUNT (AUTO) 9.1 K/UL (4.0-11.2)
[2016-11-25 07:59] LABS: ALANINE AMINOTRANSFERASE 23 U/L (16-63); ALKALINE PHOSPHATASE 264 U/L (50-136); ASPARTATE AMINOTRANSFERASE 54 U/L (15-37); BILIRUBIN,TOTAL 1.9 mg/dL (0.2-1.0); CARBON DIOXIDE 26 mmol/L (21-32); CHLORIDE 104 mmol/L (98-107); CREATININE 0.6 mg/dL (0.6-1.3); GLUCOSE 98 mg/dL (74-106); MAGNESIUM 1.9 mg/dL (1.8-2.4); PHOSPHOROUS 3.6 mg/dL (2.5-4.9); POTASSIUM 3.3 mmol/L (3.5-5.1); TOTAL PROTEIN, SERUM 6.2 g/dL (6.4-8.2); UREA NITROGEN, BLOOD 5 mg/dL (7-18)
[2016-11-25 08:01] LABS: IRON, SERUM 14 ug/dL (50-175)
[2016-11-25] MEDS: SPIRONOLACTONE 100 MG TABLET PO SCH (08:10)
[2016-11-25] MEDS: FOLIC ACID 1 MG TABLET PO SCH (08:10)
[2016-11-25] MEDS: THIAMINE HCL 100 MG TABLET PO SCH (08:10)
[2016-11-25] MEDS: NICOTINE 21 MG/24HR PATCH TD SCH (08:10)
[2016-11-25] MEDS: MULTIVITAMINS,THERAPEUTIC TABLET PO SCH (08:11)
[2016-11-25] MEDS: MORPHINE SULFATE 2 MG/1 ML DISP.SYRIN IV PRN ×3 (08:11→20:06)
--- NOTE | 2016-11-25 08:30 | NUR ---
AWAKE COOPERATE WELL NO SOB C/O OF ABD PAIN NO N/V MED PRN GIVEN ORDER ON FALL PRECAUTION BED ALARM ON AND CALL BRYANT IN REACH ,SCHEDULE FOR PARACENTESIS TODAY CONSENT SIGNS AND PATIENT WAS AWARE
[2016-11-25 09:04] LABS: EOSINOPHILS % (MANUAL) 1 % (0-8); LYMPHOCYTES % (MANUAL) 13 % (20-40); MONOCYTES % (MANUAL) 8 % (2-10); NEUTROPHILS % (MANUAL) 78 % (42-75)
[2016-11-25] MEDS ORDERED: POTASSIUM CHLORIDE 20 MEQ TAB.PRT.SR PO ONE (10:15)
[2016-11-25] MEDS ORDERED: MAGNESIUM HYDROXIDE 30 ML LIQUID UDC PO PRN (10:15)
[2016-11-25] MEDS: FERROUS SULFATE 325 MG TABEC PO SCH ×2 (10:41→20:05)
[2016-11-25] MEDS: LORAZEPAM 2 MG/1 ML VIAL IV PRN (10:42)
[2016-11-25 11:19] LABS: *OCCULT BLOOD STOOL NEGATIVE (NEGATIVE)
--- NOTE | 2016-11-25 13:00 | NUR ---
EAT MOD AMT C/O ABD PAIN MORPHINE IV PRN GIVEN ORDER SCHEDULE FOR PARACENTESIS AT 3PM INFORM TO PATIENT
--- NOTE | 2016-11-25 14:08 | NUR ---
Discharge Plan: [facility]eth[facility] from [facility] [ ; [address], [place] [address]] evaluated the patient today. They agreed to admit the patient after his last hospitalization but he left AMA. They will still admit the patient once he is medically cleared. CM/SW will follow-up.
--- NOTE | 2016-11-25 15:45 | NUR ---
PARACENTESIS BY RADIOLOGIST AT BEDSIDE DREA PROCEDURE WELL TAKE OUT 6800ML FLD VS TAKEN AFTER PROCEDURE STABLE STATE FEEL MUCH BETTER NO PAIN OR SOB
--- NOTE | 2016-11-25 16:30 | NUR ---
ASSIST TO BRP VOIDING WELL AND SIT UP AT BED EAT SNACK AT THIS TIME NO PAIN OR SOB
--- NOTE | 2016-11-25 17:30 | NUR ---
VS STABLE NO RESPIRATORY DISTRESS ,PAIN UNDER CONTROL SAFETY MEASURE PROVIDED CALL LIGHT IN REACH SMALL BANDAGE AT [facility] ABD D/I
[2016-11-25] MEDS ORDERED: SOD FERRIC GLUC COMPLX/SUCROSE 125 MG in IV NORMAL SALINE 100 ML IV SCH (18:00)
--- NOTE | 2016-11-25 19:40 | NUR ---
PT RECEIVED IN BED, AWAKE. A/OX4. ABLE TO MAKE NEEDS KNOWN. V/S STABLE. IN NO ACUTE DISTRESS. PT C/O OF ABDOMINAL PAIN OF 8/10. WILL ADMINISTER PAIN MEDICATION ORDERED. IV MEDICATION INFUSING. IV LINE INTACT AND PATENT. SAFETY MEASURE IMPLEMENTED. CALL LIGHT WITHIN REACH.
[2016-11-26 05:53] VITALS: BP 105/70
[2016-11-26 06:08] LABS: BASOPHILS % (AUTO) 0.7 % (0.0-2.0); EOSINOPHILS # (AUTO) 0.3 K/uL (0.0-0.7); EOSINOPHILS % (AUTO) 4.3 % (0.0-7.0); HEMATOCRIT 28.5 % (40-50); HEMOGLOBIN 9.2 G/DL (14.0-18.0); LYMPHOCYTES # (AUTO) 1.3 K/UL (0.8-4.8); LYMPHOCYTES % (AUTO) 18.7 % (20.5-51.5); MEAN CORPUSCULAR HGB CONC 32 g/dL (32.0-37.0); MEAN CORPUSCULAR VOLUME 74.3 FL (82.0-92.0); MONOCYTES # (AUTO) 1.3 K/UL (0.1-1.30); MONOCYTES % (AUTO) 19.4 % (0.0-11.0); NEUTROPHILS % (AUTO) 56.9 % (38.5-71.5); PLATELET COUNT (AUTO) 213 K/UL (150-450); RED BLOOD CELL COUNT(AUTO) 3.84 MIL/UL (4.7-6.1); WHITE BLOOD COUNT (AUTO) 6.9 K/UL (4.0-11.2)
[2016-11-26] MEDS: LACTULOSE 20 G/30 ML LIQUID UDC PO SCH ×2 (06:11→12:25)
[2016-11-26] MEDS: PANTOPRAZOLE SODIUM 40 MG TABLET.DR PO SCH (06:11)
[2016-11-26 06:18] LABS: ALANINE AMINOTRANSFERASE 24 U/L (16-63); ALKALINE PHOSPHATASE 240 U/L (50-136); ASPARTATE AMINOTRANSFERASE 50 U/L (15-37); BILIRUBIN,TOTAL 1.8 mg/dL (0.2-1.0); CARBON DIOXIDE 27 mmol/L (21-32); CHLORIDE 105 mmol/L (98-107); CREATININE 0.6 mg/dL (0.6-1.3); GLUCOSE 87 mg/dL (74-106); MAGNESIUM 1.8 mg/dL (1.8-2.4); PHOSPHOROUS 3.5 mg/dL (2.5-4.9); POTASSIUM 3.4 mmol/L (3.5-5.1); TOTAL PROTEIN, SERUM 5.9 g/dL (6.4-8.2); UREA NITROGEN, BLOOD 1 mg/dL (7-18)
--- NOTE | 2016-11-26 06:37 | NUR ---
END OF SHIFT NOTES. PT SLEPT WELL THROUGHOUT THE NIGHT. IN STABLE CONDITION. ALL NEEDS ATTENDED. SAFETY MAINTAINED. CALL LIGHT WITHIN REACH.
[2016-11-26 07:24] LABS: BAND % (MANUAL) 2 % (0-10); EOSINOPHILS % (MANUAL) 3 % (0-8); LYMPHOCYTES % (MANUAL) 18 % (20-40); MONOCYTES % (MANUAL) 16 % (2-10); NEUTROPHILS % (MANUAL) 61 % (42-75)
[2016-11-26] MEDS: FOLIC ACID 1 MG TABLET PO SCH (08:51)
[2016-11-26] MEDS: MULTIVITAMINS,THERAPEUTIC TABLET PO SCH (08:51)
[2016-11-26] MEDS: FERROUS SULFATE 325 MG TABEC PO SCH (08:51)
[2016-11-26] MEDS: THIAMINE HCL 100 MG TABLET PO SCH (08:51)
[2016-11-26] MEDS: SPIRONOLACTONE 100 MG TABLET PO SCH (08:51)
[2016-11-26] MEDS: NICOTINE 21 MG/24HR PATCH TD SCH (08:52)
[2016-11-26] MEDS ORDERED: POTASSIUM CHLORIDE 20 MEQ TAB.PRT.SR PO ONE (10:15)
--- NOTE | 2016-11-26 11:20 | NUR ---
report received from Monica GIFFORD- took over care, resting in bed, denies of pain, up and about in the room and hallway, call light within reach
[2016-11-26 11:40] VITALS: BP 103/60
--- NOTE | 2016-11-26 12:17 | NUR ---
seen by Marlon Gill DELIVERY SALES WORKER - pt to go to [facility]- pt informed- asking if he could be d/cd tomorrow instead- informed Aileen about pt request but was told to go today and pt informed- pt agreed
[2016-11-26] MEDS ORDERED: MULT-24 PO (12:20)
[2016-11-26] MEDS ORDERED: PANT40TA2 PO (12:20)
[2016-11-26] MEDS ORDERED: LACT10SO7 PO (12:20)
[2016-11-26] MEDS ORDERED: MAGN400O6 PO (12:20)
[2016-11-26] MEDS ORDERED: FERR325T28 PO (12:20)
[2016-11-26] MEDS ORDERED: ACET325T53 PO (12:20)
[2016-11-26] MEDS ORDERED: SPIR100T PO (12:20)
[2016-11-26] MEDS ORDERED: FOLI1TAB16 PO (12:20)
[2016-11-26] MEDS ORDERED: NICO1PAT28 TD (12:20)
[2016-11-26] MEDS ORDERED: THIA100T13 PO (12:20)
[2016-11-26] MEDS: MORPHINE SULFATE 2 MG/1 ML DISP.SYRIN IV PRN (13:28)
--- NOTE | 2016-11-26 14:25 | NUR ---
report given to Nhan at [facility], saline lock removed- no swelling/redness noted on site
[2016-11-26] MEDS ORDERED: HYDR-3326 PO (14:50)
--- NOTE | 2016-11-26 15:10 | NUR ---
pt decided to go AMA - states "am going to my friend to take care of things and i have to leave right now", papers signed, A Jairo PARTY PLAN SALES AGENT informed, heavy equipment supervisor informed, charge nurse aware
== END 2016-11-26 15:10 | disposition left against medical advice (07) | DRG 135 ==
LOC: ER 22:07 → TELE 11-20 02:00 → MED 11-20 10:35
PROVIDERS: ADMIT Nurse Practitioner Acute Care; ATTEND Internal Medicine
PROC: 0W9G3ZZ Drainage of Peritoneal Cavity, Percutaneous Approach (ICD-10-PCS; principal; 2016-11-25)
DX: S22.42XA Multiple fractures of ribs, left side, initial encounter for closed fracture (principal); E43 Unspecified severe protein-calorie malnutrition; D68.4 Acquired coagulation factor deficiency; D68.69 Other thrombophilia; K76.6 Portal hypertension; E87.1 Hypo-osmolality and hyponatremia; K70.31 Alcoholic cirrhosis of liver with ascites; K86.0 Alcohol-induced chronic pancreatitis; E83.42 Hypomagnesemia; E83.51 Hypocalcemia; K20.9 Esophagitis, unspecified; E03.9 Hypothyroidism, unspecified; Z87.440 Personal history of urinary (tract) infections; D50.9 Iron deficiency anemia, unspecified; R16.1 Splenomegaly, not elsewhere classified; E80.6 Other disorders of bilirubin metabolism; R74.0 Nonspecific elevation of levels of transaminase and lactic acid dehydrogenase [LDH]; K57.30 Diverticulosis of large intestine without perforation or abscess without bleeding; E87.6 Hypokalemia; F17.210 Nicotine dependence, cigarettes, uncomplicated; M16.0 Bilateral primary osteoarthritis of hip; K29.80 Duodenitis without bleeding; K29.70 Gastritis, unspecified, without bleeding; K40.90 Unilateral inguinal hernia, without obstruction or gangrene, not specified as recurrent; F10.10 Alcohol abuse, uncomplicated; Y90.9 Presence of alcohol in blood, level not specified; E88.09 Other disorders of plasma-protein metabolism, not elsewhere classified; Z68.23 Body mass index [BMI] 23.0-23.9, adult; G25.81 Restless legs syndrome; I51.7 Cardiomegaly; R29.6 Repeated falls; E53.8 Deficiency of other specified B group vitamins; W19.XXXA Unspecified fall, initial encounter; Y93.9 Activity, unspecified; Y92.9 Unspecified place or not applicable; D63.8 Anemia in other chronic diseases classified elsewhere; R74.8 Abnormal levels of other serum enzymes; M25.451 Effusion, right hip; Z59.0 Homelessness
CPT/HCPCS: 36415; 70460; 71101; 74000; 76705; 82746; 83550; 83615; 83690; 83735; 84100; 84155; 84443; 85025; 85610; 85651; 85730; 86301; 87070; 87205; 93005; 97116; 97530; A4663; J1170; J1200; J1940; J2060; J2270; J2916; J3411; J3475; J3490; J7030; J7040; J7050; J7060; Q9967

== ENCOUNTER 2016-11-28 20:18 | Emergency (ER) | payer MEDICAID ==
[~2016-11-28] VITALS: Ht 185.4 cm; Wt 77.1 kg
[~2016-11-28 20:18] MED LIST changes: +ACET325T53 PO; -DOCU100C36 PO; +FOLI1TAB16 PO; +HYDR-3326 PO; +LACT10SO7 PO; +MAGN400O6 PO; +MULT-24 PO; +NICO1PAT28 TD; +SPIR100T PO; +THIA100T13 PO
--- NOTE | 2016-11-28 20:46 | NUR ---
DR MCGRAW AT BEDSIDE FOR EVAL
[2016-11-28] MEDS ORDERED: HYDROCODONE/APAP 5-325MG TABLET PO ONE (21:15)
[2016-11-28] MEDS ORDERED: HYDROCODONE/APAP 5-325MG TABLET ONE (21:22)
--- NOTE | 2016-11-28 21:25 | NUR ---
PATIENT REFUSED TO HAVE XRAY TAKEN. ERMD AWARE.
--- NOTE | 2016-11-28 21:26 | NUR ---
Patient discharged to home in stable conditon. Written and verbal after care instructions given. Patient verbalizes understanding of instructions. PATIENT LEFT WITH STABLE GAIT.
[2016-11-28 21:27] VITALS: BP 115/67
== END 2016-11-28 21:27 | disposition home or self-care (01) ==
LOC: ER 20:19
DX: S22.42XA Multiple fractures of ribs, left side, initial encounter for closed fracture (principal); F17.200 Nicotine dependence, unspecified, uncomplicated; G25.81 Restless legs syndrome; Z59.0 Homelessness; W19.XXXA Unspecified fall, initial encounter; Y93.89 Activity, other specified; Y92.9 Unspecified place or not applicable; Y99.9 Unspecified external cause status
CPT/HCPCS: A4663

== ENCOUNTER 2016-12-04 01:16 | Inpatient (IN) | payer MEDICAID ==
[~2016-12-04] VITALS: Ht 182.9 cm; Wt 77.1 kg
--- NOTE | 2016-12-04 02:00 | NUR ---
PATIENT WAS ASKED ABOUT MEDICATION LIST. PATIENT STATES "I DON'T TAKE ANY MEDICATION."
--- NOTE | 2016-12-04 05:37 | NUR ---
DR. COREAS AT BEDSIDE FOR PARACENTESIS.
[2016-12-04 07:00] LABS: HEMATOCRIT 33.1 % (40-50); HEMOGLOBIN 10.8 G/DL (14.0-18.0); MEAN CORPUSCULAR HEMOGLOBIN 24.2 UUG (27.0-31.0); MEAN CORPUSCULAR HGB CONC 33 g/dL (32.0-37.0); MEAN CORPUSCULAR VOLUME 74.2 FL (82.0-92.0); PLATELET COUNT (AUTO) 264 K/UL (150-450); RED BLOOD CELL COUNT(AUTO) 4.46 MIL/UL (4.7-6.1); WHITE BLOOD COUNT (AUTO) 6.4 K/UL (4.0-11.2)
[2016-12-04 07:08] LABS: CARBON DIOXIDE 27 mmol/L (21-32); CHLORIDE 101 mmol/L (98-107); CREATININE 0.5 mg/dL (0.6-1.3); GLUCOSE 91 mg/dL (74-106); POTASSIUM 3.3 mmol/L (3.5-5.1); UREA NITROGEN, BLOOD 1 mg/dL (7-18)
[2016-12-04 07:14] LABS: ALANINE AMINOTRANSFERASE 19 U/L (16-63); ALKALINE PHOSPHATASE 311 U/L (50-136); ASPARTATE AMINOTRANSFERASE 57 U/L (15-37); BILIRUBIN,DIRECT 0.6 mg/dL (0.0-0.2); BILIRUBIN,TOTAL 1.2 mg/dL (0.2-1.0); LIPASE 128 U/L (73-393); TOTAL PROTEIN, SERUM 6.3 g/dL (6.4-8.2)
--- NOTE | 2016-12-04 07:15 | NUR ---
report received from Juan watters. paracentecis in progress being done by dr borrero.
--- NOTE | 2016-12-04 07:16 | NUR ---
REPORT GIVEN TO BALTA SIERRA
--- NOTE | 2016-12-04 07:20 | NUR ---
paracentesis fluid out 300ml
--- NOTE | 2016-12-04 07:25 | NUR ---
ambulated to br to void.
--- NOTE | 2016-12-04 07:25 | NUR ---
IV saline lock inserted via left hand.
--- NOTE | 2016-12-04 08:42 | NUR ---
report given to Domenica SO. room 220
--- NOTE | 2016-12-04 09:00 | NUR ---
waiting for [facility] for admission
--- NOTE | 2016-12-04 09:58 | NUR ---
Pt trans to m/s floor, NAD noted.
[2016-12-04] MEDS ORDERED: MAGNESIUM HYDROXIDE 30 ML LIQUID UDC PO PRN (10:00)
[2016-12-04] MEDS ORDERED: ONDANSETRON 4 MG/2 ML VIAL IV PRN (10:00)
[2016-12-04] MEDS ORDERED: POTASSIUM CHLORIDE 20 MEQ TAB.PRT.SR PO ONE (10:00)
[2016-12-04 10:24] LABS: BAND % (MANUAL) 1 % (0-10); EOSINOPHILS % (MANUAL) 5 % (0-8); LYMPHOCYTES % (MANUAL) 25 % (20-40); MONOCYTES % (MANUAL) 12 % (2-10); NEUTROPHILS % (MANUAL) 57 % (42-75)
[2016-12-04 10:26] VITALS: BP 108/65
--- NOTE | 2016-12-04 10:36 | NUR ---
PT RECEIVED FROM ER VIA RORD FOR ASCITES IN STABLE CONDITION .ORIENT THE PT TO ROOM AND SURROUNDINGS
[2016-12-04] MEDS: SPIRONOLACTONE 100 MG TABLET PO SCH (10:49)
[2016-12-04] MEDS: THIAMINE HCL 100 MG TABLET PO SCH (10:49)
[2016-12-04] MEDS: FERROUS SULFATE 325 MG TABEC PO SCH ×2 (10:49→21:29)
[2016-12-04] MEDS: MULTIVITAMINS,THERAPEUTIC TABLET PO SCH (10:49)
[2016-12-04] MEDS: PANTOPRAZOLE SODIUM 40 MG TABLET.DR PO SCH (10:49)
[2016-12-04] MEDS: FOLIC ACID 1 MG TABLET PO SCH (10:49)
[2016-12-04] MEDS: MORPHINE SULFATE 2 MG/1 ML DISP.SYRIN IV PRN ×3 (10:53→21:38)
[2016-12-04] MEDS: CEPHALEXIN MONOHYDRATE 500 MG CAPSULE PO SCH ×2 (15:28→21:29)
[2016-12-04] MEDS: NICOTINE 21 MG/24HR PATCH TD SCH (15:28)
[2016-12-04 15:54] VITALS: BP 103/62
--- NOTE | 2016-12-04 16:30 | NUR ---
paracentesis fluid out 4 litter
--- NOTE | 2016-12-04 18:12 | NUR ---
pt is resting in his bed ,Zofran i/v given per Md orders.call light with in reach
--- NOTE | 2016-12-04 19:20 | NUR ---
Received patient resting in bed. Denies any pain/discomforts at this time. Continue plan of care.
[2016-12-04 20:06] VITALS: BP 111/63
[2016-12-04] MEDS: DOCUSATE SODIUM 100 MG CAPSULE PO SCH (21:29)
--- NOTE | 2016-12-04 22:10 | NUR ---
Medicated for left shoulder pain in scale of 8/10. will monitor.
[2016-12-04] MEDS ORDERED: MAG HYDROX/AL HYDROX/SIMETH 30 ML LIQUID UDC PO PRN (22:45)
[2016-12-05] MEDS: ACETAMINOPHEN 325 MG TABLET PO PRN ×2 (00:30→23:39)
[2016-12-05] MEDS: LORAZEPAM 2 MG/1 ML VIAL IV PRN ×2 (00:30→23:41)
--- NOTE | 2016-12-05 00:30 | NUR ---
Ativan given for anxiet. Will monitor.
[2016-12-05 04:25] VITALS: BP 108/64
[2016-12-05] MEDS: CEPHALEXIN MONOHYDRATE 500 MG CAPSULE PO SCH ×3 (06:09→21:45)
[2016-12-05] MEDS: PANTOPRAZOLE SODIUM 40 MG TABLET.DR PO SCH (06:09)
--- NOTE | 2016-12-05 06:30 | NUR ---
Slept well after Ativan was given. No further complaint presented. All needs attended and met. No significant event reported all night. Continue current plan of care.
[2016-12-05 07:16] LABS: ALANINE AMINOTRANSFERASE 21 U/L (16-63); ALKALINE PHOSPHATASE 293 U/L (50-136); ASPARTATE AMINOTRANSFERASE 48 U/L (15-37); BILIRUBIN,TOTAL 1.9 mg/dL (0.2-1.0); CARBON DIOXIDE 30 mmol/L (21-32); CHLORIDE 99 mmol/L (98-107); CREATININE 0.5 mg/dL (0.6-1.3); GLUCOSE 100 mg/dL (74-106); MAGNESIUM 1.6 mg/dL (1.8-2.4); PHOSPHOROUS 3.8 mg/dL (2.5-4.9); POTASSIUM 3.8 mmol/L (3.5-5.1); TOTAL PROTEIN, SERUM 5.9 g/dL (6.4-8.2); UREA NITROGEN, BLOOD 2 mg/dL (7-18)
[2016-12-05 07:20] LABS: HEMATOCRIT 29.8 % (40-50); HEMOGLOBIN 9.7 G/DL (14.0-18.0); MEAN CORPUSCULAR HEMOGLOBIN 24.3 UUG (27.0-31.0); MEAN CORPUSCULAR HGB CONC 33 g/dL (32.0-37.0); MEAN CORPUSCULAR VOLUME 74.5 FL (82.0-92.0); WHITE BLOOD COUNT (AUTO) 5.3 K/UL (4.0-11.2)
--- NOTE | 2016-12-05 07:25 | NUR ---
Received patient resting in bed. Denies any pain/discomforts at this time. Continue plan of care.call light with in reach ,bed in low position,
[2016-12-05 07:31] LABS: PLATELET COUNT (AUTO) 173 K/UL (150-450)
[2016-12-05] MEDS: NICOTINE 21 MG/24HR PATCH TD SCH (08:00)
[2016-12-05] MEDS: THIAMINE HCL 100 MG TABLET PO SCH (08:01)
[2016-12-05] MEDS: FERROUS SULFATE 325 MG TABEC PO SCH ×2 (08:01→20:37)
[2016-12-05] MEDS: SPIRONOLACTONE 100 MG TABLET PO SCH (08:01)
[2016-12-05] MEDS: MULTIVITAMINS,THERAPEUTIC TABLET PO SCH (08:01)
[2016-12-05] MEDS: FOLIC ACID 1 MG TABLET PO SCH (08:01)
[2016-12-05 09:16] LABS: BAND % (MANUAL) 1 % (0-10); EOSINOPHILS % (MANUAL) 1 % (0-8); LYMPHOCYTES % (MANUAL) 19 % (20-40); MONOCYTES % (MANUAL) 13 % (2-10); NEUTROPHILS % (MANUAL) 66 % (42-75)
[2016-12-05] MEDS ORDERED: MAGNESIUM SULFATE/D5W 100 ML IV SCH (09:45)
--- NOTE | 2016-12-05 10:30 | NUR ---
CALL TO SHAWNA GINNER AT [facility] [phone] REGARDING ACCEPTING ADMISSION OF ANDIE HAMMOND, AWAITING CALL BACK
[2016-12-05 12:04] VITALS: BP 107/57
[2016-12-05] MEDS ORDERED: PANT40TA2 PO (12:26)
[2016-12-05] MEDS ORDERED: MULT-24 PO (12:26)
[2016-12-05] MEDS ORDERED: DOCU100C36 PO (12:26)
[2016-12-05] MEDS ORDERED: FOLI1TAB16 PO (12:26)
[2016-12-05] MEDS ORDERED: ACET325T53 PO (12:26)
[2016-12-05] MEDS ORDERED: NICO1PAT28 TD (12:26)
[2016-12-05] MEDS ORDERED: THIA100T13 PO (12:26)
[2016-12-05] MEDS ORDERED: SPIR100T PO (12:26)
[2016-12-05] MEDS ORDERED: FERR325T28 PO (12:26)
[2016-12-05] MEDS ORDERED: CEPH500C2 PO (12:26)
--- NOTE | 2016-12-05 13:00 | NUR ---
SECOND CALL TO SHAWNA AT [facility], SHE STATES THE NURSE IS STILL REVIEWING THE CHART AND WILL CALL US WHEN THE PATIENT IS ACCEPTED.
[2016-12-05 15:43] VITALS: BP 111/66
--- NOTE | 2016-12-05 17:24 | NUR ---
Slept well all day. No further complaint presented. All needs attended and met. No significant event reported this time. still waiting the call from [facility]
[2016-12-05 19:50] VITALS: BP 111/66
[2016-12-05] MEDS: MORPHINE SULFATE 2 MG/1 ML DISP.SYRIN IV PRN (20:37)
[2016-12-05] MEDS: DOCUSATE SODIUM 100 MG CAPSULE PO SCH (20:37)
[2016-12-06] MEDS: MORPHINE SULFATE 2 MG/1 ML DISP.SYRIN IV PRN ×6 (02:06→22:18)
[2016-12-06] MEDS: CEPHALEXIN MONOHYDRATE 500 MG CAPSULE PO SCH ×3 (06:07→21:15)
[2016-12-06] MEDS: PANTOPRAZOLE SODIUM 40 MG TABLET.DR PO SCH (06:07)
--- NOTE | 2016-12-06 06:11 | NUR ---
VS stable. Slept in between care. Medicated twice for pain with relief. No further complaint presented. All needs attended and met. Continue care as planned.
[2016-12-06 06:38] VITALS: BP 107/66
--- NOTE | 2016-12-06 07:20 | NUR ---
Received report form night clerk nurse, patient in bed asleep, no evidence of distress noted, bed inlow position, side rails up x2.
[2016-12-06] MEDS: MULTIVITAMINS,THERAPEUTIC TABLET PO SCH (08:47)
[2016-12-06] MEDS: THIAMINE HCL 100 MG TABLET PO SCH (08:47)
[2016-12-06] MEDS: SPIRONOLACTONE 100 MG TABLET PO SCH (08:47)
[2016-12-06] MEDS: FOLIC ACID 1 MG TABLET PO SCH (08:47)
[2016-12-06] MEDS: FERROUS SULFATE 325 MG TABEC PO SCH ×2 (08:47→21:15)
[2016-12-06] MEDS: NICOTINE 21 MG/24HR PATCH TD SCH (08:47)
[2016-12-06] MEDS ORDERED: HYDR-3326 PO (11:11)
[2016-12-06 12:00] VITALS: BP 113/70
[2016-12-06 16:06] VITALS: BP 104/68
--- NOTE | 2016-12-06 18:44 | NUR ---
Patient has been reporting pain intermittently throughout the day. Patient has not had a significant amount of meals and reports not having a bowel movement in three days. Milk of magnesia administered, and pain is currently managed. bed in low position , side rails up x2.
--- NOTE | 2016-12-06 19:40 | NUR ---
PT RECEIVED IN BED, AWAKE. A/OX4. ABLE TO MAKE NEEDS KNOWN. V/S STABLE. IN NO ACUTE DISTRESS. NO C/O PAIN AT THIS TIME. IV INTACT AND PATENT. SAFETY MEASURES IMPLEMENTED. CALL LIGHT WITHIN REACH.
[2016-12-06 20:00] VITALS: BP 109/69
[2016-12-06] MEDS: DOCUSATE SODIUM 100 MG CAPSULE PO SCH (21:15)
[2016-12-07] MEDS: MORPHINE SULFATE 2 MG/1 ML DISP.SYRIN IV PRN ×3 (02:38→11:18)
[2016-12-07 05:34] VITALS: BP 108/65
--- NOTE | 2016-12-07 05:38 | NUR ---
END OF SHIFT NOTES. PT SLEPT INTERMITTENTLY THROUGHOUT SHIFT. IN STABLE CONDITION. PAIN MANAGED. ALL NEEDS ATTENDED. SAFETY MAINTAINED. CALL LIGHT WITHIN REACH.
[2016-12-07] MEDS: CEPHALEXIN MONOHYDRATE 500 MG CAPSULE PO SCH ×2 (06:40→15:50)
[2016-12-07] MEDS: PANTOPRAZOLE SODIUM 40 MG TABLET.DR PO SCH (06:40)
[2016-12-07] MEDS: SPIRONOLACTONE 100 MG TABLET PO SCH (10:09)
[2016-12-07] MEDS: FERROUS SULFATE 325 MG TABEC PO SCH (10:09)
[2016-12-07] MEDS: FOLIC ACID 1 MG TABLET PO SCH (10:09)
[2016-12-07] MEDS: THIAMINE HCL 100 MG TABLET PO SCH (10:10)
[2016-12-07] MEDS: MULTIVITAMINS,THERAPEUTIC TABLET PO SCH (10:10)
[2016-12-07] MEDS: NICOTINE 21 MG/24HR PATCH TD SCH (10:11)
[2016-12-07 11:44] VITALS: BP 107/72
[2016-12-07 14:38] VITALS: BP 107/72
[2016-12-07 16:00] VITALS: BP 110/70
--- NOTE | 2016-12-07 18:00 | NUR ---
HOME INSTRUCTIONS AND RX'S REVIEWED WITH PT. DISCHARGED HOME IV D/C'D.
== END 2016-12-07 18:00 | disposition home or self-care (01) | DRG 280 ==
LOC: ER 01:20 → MED 09:55
PROVIDERS: ADMIT Internal Medicine; ATTEND Internal Medicine
PROC: 0W9G3ZZ Drainage of Peritoneal Cavity, Percutaneous Approach (ICD-10-PCS; principal; 2016-12-04)
DX: K70.31 Alcoholic cirrhosis of liver with ascites (principal); E43 Unspecified severe protein-calorie malnutrition; D68.4 Acquired coagulation factor deficiency; E87.1 Hypo-osmolality and hyponatremia; K86.0 Alcohol-induced chronic pancreatitis; K76.6 Portal hypertension; L03.115 Cellulitis of right lower limb; L03.116 Cellulitis of left lower limb; F17.210 Nicotine dependence, cigarettes, uncomplicated; D50.9 Iron deficiency anemia, unspecified; J98.11 Atelectasis; M16.0 Bilateral primary osteoarthritis of hip; S22.32XD Fracture of one rib, left side, subsequent encounter for fracture with routine healing; W19.XXXD Unspecified fall, subsequent encounter; E87.6 Hypokalemia; Z68.23 Body mass index [BMI] 23.0-23.9, adult; E02 Subclinical iodine-deficiency hypothyroidism; Z87.440 Personal history of urinary (tract) infections; E53.8 Deficiency of other specified B group vitamins; Z59.0 Homelessness; K40.90 Unilateral inguinal hernia, without obstruction or gangrene, not specified as recurrent; G25.81 Restless legs syndrome; F41.9 Anxiety disorder, unspecified; G89.29 Other chronic pain; M54.2 Cervicalgia; M54.5 Low back pain; R60.0 Localized edema; E83.42 Hypomagnesemia; Z79.899 Other long term (current) drug therapy; R16.1 Splenomegaly, not elsewhere classified
CPT/HCPCS: 36415; 70030-TC; 71010; 83615; 83690; 83735; 84100; 84155; 85025; 85730; 87070; 87205; 93005; 97116; 97530; A4663; J2060; J2270; J2405; J3475

== ENCOUNTER 2016-12-14 15:37 | Inpatient (IN) | payer MEDICAID ==
[~2016-12-14] VITALS: Ht 182.9 cm; Wt 68.9 kg
[~2016-12-14 15:37] MED LIST changes: +CEPH500C2 PO; +DOCU100C36 PO; -LACT10SO7 PO; -MAGN400O6 PO
[2016-12-14 16:19] LABS: BASOPHILS # (AUTO) 0.2 K/uL (0.0-8.0); BASOPHILS % (AUTO) 1.9 % (0.0-2.0); EOSINOPHILS # (AUTO) 0.1 K/uL (0.0-0.7); EOSINOPHILS % (AUTO) 1.4 % (0.0-7.0); HEMOGLOBIN 10.2 G/DL (14.0-18.0); LYMPHOCYTES % (AUTO) 20.3 % (20.5-51.5); MEAN CORPUSCULAR HEMOGLOBIN 23.9 UUG (27.0-31.0); MEAN CORPUSCULAR HGB CONC 32 g/dL (32.0-37.0); MEAN CORPUSCULAR VOLUME 74.8 FL (82.0-92.0); MONOCYTES # (AUTO) 1.8 K/UL (0.1-1.30); NEUTROPHILS # (AUTO) 5.7 K/UL (1.8-8.9); NEUTROPHILS % (AUTO) 58.4 % (38.5-71.5); PLATELET COUNT (AUTO) 257 K/UL (150-450); RED BLOOD CELL COUNT(AUTO) 4.28 MIL/UL (4.7-6.1); WHITE BLOOD COUNT (AUTO) 9.8 K/UL (4.0-11.2)
[2016-12-14] MEDS ORDERED: PANTOPRAZOLE SODIUM IV 40 MG in IV DEXTROSE 5% 100 ML IV ONE (16:30)
[2016-12-14] MEDS ORDERED: ONDANSETRON IV *ER 4 MG/2 ML VIAL IV ONE (16:30)
[2016-12-14] MEDS ORDERED: MORPHINE SULFATE 4 MG/1 ML DISP.SYRIN IV ONE (16:30)
[2016-12-14] MEDS ORDERED: FUROSEMIDE 20 MG/2 ML VIAL IV ONE (16:30)
[2016-12-14 16:33] LABS: CARBON DIOXIDE 22 mmol/L (21-32); CHLORIDE 101 mmol/L (98-107); CREATININE 0.6 mg/dL (0.6-1.3); GLUCOSE 79 mg/dL (74-106); UREA NITROGEN, BLOOD 5 mg/dL (7-18)
[2016-12-14] MEDS ORDERED: FUROSEMIDE 40 MG/4 ML VIAL ONE (16:33)
[2016-12-14] MEDS ORDERED: PANTOPRAZOLE SODIUM 40 MG VIAL ONE (16:38)
[2016-12-14] MEDS ORDERED: MORPHINE SULFATE 4 MG/1 ML DISP.SYRIN ONE (16:38)
[2016-12-14] MEDS ORDERED: ONDANSETRON 4 MG/2 ML VIAL ONE (16:38)
[2016-12-14 16:47] LABS: ALANINE AMINOTRANSFERASE 21 U/L (16-63); ALKALINE PHOSPHATASE 286 U/L (50-136); ASPARTATE AMINOTRANSFERASE 55 U/L (15-37); BILIRUBIN,TOTAL 1.3 mg/dL (0.2-1.0); TOTAL PROTEIN, SERUM 6.7 g/dL (6.4-8.2)
[2016-12-14 17:05] LABS: *BILIRUBIN,URIN NEGATIVE (NEGATIVE); *BLOOD, URINE NEGATIVE (NEGATIVE); *CLARITY,URINE CLEAR (CLEAR); *COLOR,URINE YELLOW (YELLOW); *KETONES,URINE NEGATIVE (NEGATIVE); *PROTEIN,URINE NEGATIVE (NEGATIVE); *UROBILINOGEN,URINE 0.2 E.U./dl (NORMAL); LEUKOCYTE ESTERASE ,URINE NEGATIVE (NEGATIVE); NITRITE, URINE NEGATIVE (NEGATIVE); PH,URINE 5.5 (5.0-8.0); UGLUCOSE NEGATIVE (NEGATIVE)
[2016-12-14 17:09] LABS: BACTERIA,URINE NONE SEEN /HPF (NONE SEEN); RBC,URINE 0-3 /HPF (0-3); SQUAMOUS EPITHELIAL CELL,UR NONE SEEN /HPF (NONE SEEN); WBC,URINE 0-3 /HPF (0-3)
[2016-12-14] MEDS ORDERED: IV NORMAL SALINE 250 ML IV ONE (17:09)
[2016-12-14] MEDS ORDERED: NORMAL SALINE FLUSH 10 ML DISP.SYRIN ONE (17:09)
[2016-12-14] MEDS ORDERED: IOHEXOL 300MG/ML 100 ML INFUS..BTL ONE (17:09)
[2016-12-14 20:00] VITALS: BP 136/63
--- NOTE | 2016-12-14 20:00 | NUR ---
ADMITTED THIS 51 Y.O. MALE FROM ER VIA [facility],ALERT AND ORIENTED X3,APPEARS TO BE IN VERY POOR PERSONAL HYGIENE.HE IS HOMELESS AND HAS MULTIPLE MEDICAL PROBLEMS,THIS TIME HIS CHIEF COMPLAINTS IS ABDOMINAL PAIN FOR SEVERALWEEKS AND GENERALIZED WEAKNESS.AFEBRILE AND VITAL SIGNS STABLE. ON TELE SINUS 92,.ADMISSION CARE DONE.HE IS A FREQUENT PATIENT IN THIS HOSPITAL.CONTINENT OF BOWEL AND BLADDER, ABLE TO WALK TO BR BUT WITH SOME GAIT UNSTEADY.INSTRUCTED ON FALL PRECAUTION AND SAFETY ISSUES, ABLE TO COMPREHEND WELL TO INSTRUCTIONS.VENKAT JERONIMO NP NOTIFIED ,ORDERS GIVEN AND CARRIED OUT.
[2016-12-14] MEDS ORDERED: ONDANSETRON 4 MG/2 ML VIAL IV PRN (20:15)
[2016-12-14] MEDS ORDERED: ACETAMINOPHEN 325 MG TABLET PO PRN (20:15)
[2016-12-14] MEDS: HYDROCODONE/APAP 5-325MG TABLET PO PRN (21:56)
--- NOTE | 2016-12-14 22:00 | NUR ---
MEDICATED WITH NORCO 5-325 1 TAB.FOR GEN PAIN AND ABDL PAIN, WILL EVALUATE AT A LATER TIME.BIG HEMATOMA ON RIGHT FLANK NOTED,PHOTO TAKEN.REQUESTING IV PAIN MED, ACTIVE LISTENING PROVIDED. MADE PT AWARE THAT ULTRASOUND GUIDED PARACENTESIS IS ORDERED IN AM,
[2016-12-14] MEDS: DOCUSATE SODIUM 100 MG CAPSULE PO SCH (22:34)
[2016-12-14] MEDS: FERROUS SULFATE 325 MG TABEC PO SCH (22:34)
[2016-12-14] MEDS: ZOLPIDEM 5 MG TABLET PO PRN (22:35)
[2016-12-15] VITALS: BP 130/64
[2016-12-15] MEDS: HYDROCODONE/APAP 5-325MG TABLET PO PRN ×4 (02:13→19:42)
[2016-12-15 04:00] VITALS: BP 130/64
[2016-12-15 06:36] LABS: BASOPHILS % (AUTO) 0.6 % (0.0-2.0); EOSINOPHILS # (AUTO) 0.2 K/uL (0.0-0.7); EOSINOPHILS % (AUTO) 4.3 % (0.0-7.0); HEMATOCRIT 29.1 % (40-50); HEMOGLOBIN 9.5 G/DL (14.0-18.0); LYMPHOCYTES # (AUTO) 1.3 K/UL (0.8-4.8); LYMPHOCYTES % (AUTO) 26.2 % (20.5-51.5); MEAN CORPUSCULAR HEMOGLOBIN 24.4 UUG (27.0-31.0); MEAN CORPUSCULAR HGB CONC 33 g/dL (32.0-37.0); MEAN CORPUSCULAR VOLUME 74.9 FL (82.0-92.0); MONOCYTES # (AUTO) 1.1 K/UL (0.1-1.30); MONOCYTES % (AUTO) 21.4 % (0.0-11.0); NEUTROPHILS # (AUTO) 2.5 K/UL (1.8-8.9); NEUTROPHILS % (AUTO) 47.5 % (38.5-71.5); PLATELET COUNT (AUTO) 160 K/UL (150-450); RED BLOOD CELL COUNT(AUTO) 3.89 MIL/UL (4.7-6.1); WHITE BLOOD COUNT (AUTO) 5.1 K/UL (4.0-11.2)
[2016-12-15] MEDS: PANTOPRAZOLE SODIUM 40 MG TABLET.DR PO SCH (07:00)
[2016-12-15 07:16] LABS: CARBON DIOXIDE 27 mmol/L (21-32); CHLORIDE 103 mmol/L (98-107); CHOLESTEROL 108 mg/dL (<200); CREATININE 0.6 mg/dL (0.6-1.3); GLUCOSE 95 mg/dL (74-106); HDL CHOLESTEROL 39 mg/dL (40-60); MAGNESIUM 1.7 mg/dL (1.8-2.4); PHOSPHOROUS 4.3 mg/dL (2.5-4.9); POTASSIUM 3.2 mmol/L (3.5-5.1); TRIGLYCERIDES 45 MG/DL (30-150); UREA NITROGEN, BLOOD 5 mg/dL (7-18)
--- NOTE | 2016-12-15 07:30 | NUR ---
ENDORSED TO AM NURSE,IN APPARENTLY FAIR CONDITION, RESTING QUIETLY AT THIS TIME,NPO MAINTAINED,,NO ACUTE DISTRESS NOTED.
[2016-12-15] MEDS: SPIRONOLACTONE 50 MG TABLET PO SCH (08:03)
[2016-12-15] MEDS: FERROUS SULFATE 325 MG TABEC PO SCH ×2 (08:03→19:42)
[2016-12-15] MEDS: FUROSEMIDE 40 MG TABLET PO SCH (08:08)
[2016-12-15] MEDS ORDERED: POTASSIUM CHLORIDE 20 MEQ TAB.PRT.SR PO ONE ×2 (09:15→20:00)
[2016-12-15] MEDS ORDERED: MAGNESIUM OXIDE 400 MG TABLET PO ONE (09:15)
[2016-12-15 09:44] LABS: BAND % (MANUAL) 3 % (0-10); EOSINOPHILS % (MANUAL) 1 % (0-8); LYMPHOCYTES % (MANUAL) 11 % (20-40); MONOCYTES % (MANUAL) 17 % (2-10); NEUTROPHILS % (MANUAL) 68 % (42-75)
[2016-12-15] MEDS ORDERED: MORPHINE SULFATE 2 MG/1 ML DISP.SYRIN IM PRN (10:15)
[2016-12-15] MEDS ORDERED: MORPHINE SULFATE 2 MG/1 ML DISP.SYRIN INJ PRN (10:30)
[2016-12-15] MEDS ORDERED: POTASSIUM CHLORIDE 50 ML IV SCH ×2 (10:45→12:30)
[2016-12-15] MEDS: POTASSIUM CHLORIDE 50 ML IV SCH ×4 (11:05→13:45)
[2016-12-15] MEDS: MORPHINE SULFATE 2 MG/1 ML DISP.SYRIN IVP PRN ×2 (11:05→18:16)
[2016-12-15] MEDS: MAGNESIUM SULFATE/D5W 100 ML IV SCH ×3 (11:05→11:21)
[2016-12-15 11:38] VITALS: BP 132/84
--- NOTE | 2016-12-15 12:32 | NUR ---
PATIENT RECEIVED 1 BAG OF POTASSIUM IV, WHEN TRIED TO ADMINISTER THE SECOND ONE, PT REFUSED AND SAID NO MORE "OF THAT THING!! IT HAYES! i DON'T WANT IT!"
--- NOTE | 2016-12-15 12:37 | NUR ---
RETURN THE POTASSIUM IN PHARMACY BIN
[2016-12-15 15:00] VITALS: BP 116/77
--- NOTE | 2016-12-15 15:14 | NUR ---
PER DR. KAISER IF THE PT WILL HAVE MORE THAN 4L REMOVED WITH PARACENTESIS -- GIVE ALBUMIN 25 X 4 BAGS IN TOTAL OF 100 AND LASIX 40MG IV PUSH ONCE TO FOLLOW UP
[2016-12-15 16:05] VITALS: BP 116/77
[2016-12-15] MEDS: ALBUMIN HUMAN 25% 25 GM in PREMIXED 1 EACH IV SCH ×4 (17:29→20:35)
--- NOTE | 2016-12-15 17:55 | NUR ---
PT REFUSED TO RECEIVE MAGNESIUM AND POTASSIUM VIA IV. PT RECEIVED 1 BAG OUT OF 2 FOR MAGNESIUM, AND 1 OUT OF 4 BAG OF [address] ADVIS[address] KAISER IN REGARDS OF THE PT REFUSAL, PT WANTS TO RECEIVE HIS MAGNESIUM AND POTASSIUM PO.
--- NOTE | 2016-12-15 19:18 | NUR ---
PT RECEIVED PARACENTHESIS, NO BLEEDING AT THE SITE OF INSERTION. NO PAIN NOTED. NO S/S OF RESPIRATORY DISTRESS NOTED. REMOVED 650 ML OUT. ALL SAFETY NEEDS ARE MET. IV INTACT/PATENT,
[2016-12-15] MEDS: DOCUSATE SODIUM 100 MG CAPSULE PO SCH (19:42)
[2016-12-15] MEDS: MAGNESIUM OXIDE 400 MG TABLET PO SCH (19:45)
[2016-12-15 20:00] VITALS: BP 100/62
[2016-12-15] MEDS ORDERED: FUROSEMIDE 40 MG/4 ML VIAL IV ONE (21:00)
[2016-12-15] MEDS: ZOLPIDEM 5 MG TABLET PO PRN (22:22)
[2016-12-16] MEDS: MORPHINE SULFATE 2 MG/1 ML DISP.SYRIN IVP PRN ×4 (00:29→21:14)
[2016-12-16] MEDS: PANTOPRAZOLE SODIUM 40 MG TABLET.DR PO SCH (05:43)
[2016-12-16] MEDS: HYDROCODONE/APAP 5-325MG TABLET PO PRN (05:43)
[2016-12-16 05:49] VITALS: BP 127/80
[2016-12-16 06:37] LABS: HEMATOCRIT 26.8 % (40-50); MEAN CORPUSCULAR HEMOGLOBIN 25.2 UUG (27.0-31.0); MEAN CORPUSCULAR HGB CONC 34 g/dL (32.0-37.0); PLATELET COUNT (AUTO) 112 K/UL (150-450); RED BLOOD CELL COUNT(AUTO) 3.57 MIL/UL (4.7-6.1); WHITE BLOOD COUNT (AUTO) 3.2 K/UL (4.0-11.2)
[2016-12-16 06:54] LABS: CARBON DIOXIDE 34 mmol/L (21-32); CHLORIDE 99 mmol/L (98-107); CREATININE 0.4 mg/dL (0.6-1.3); GLUCOSE 93 mg/dL (74-106); MAGNESIUM 1.6 mg/dL (1.8-2.4); UREA NITROGEN, BLOOD 4 mg/dL (7-18)
[2016-12-16] MEDS: FERROUS SULFATE 325 MG TABEC PO SCH ×2 (08:23→21:13)
[2016-12-16] MEDS: FUROSEMIDE 40 MG TABLET PO SCH (08:23)
[2016-12-16] MEDS: SPIRONOLACTONE 50 MG TABLET PO SCH (08:23)
[2016-12-16] MEDS: MAGNESIUM OXIDE 400 MG TABLET PO SCH ×2 (08:23→17:47)
[2016-12-16 08:29] LABS: POTASSIUM 2.5 mmol/L (3.5-5.1)
--- NOTE | 2016-12-16 08:50 | NUR ---
POTASSIUM RESULTS REPORTED TO DR. JOB ROOT. SEE NEW ORDERS.
[2016-12-16 11:06] LABS: BAND % (MANUAL) 1 % (0-10); EOSINOPHILS % (MANUAL) 4 % (0-8); LYMPHOCYTES % (MANUAL) 27 % (20-40); MONOCYTES % (MANUAL) 20 % (2-10); NEUTROPHILS % (MANUAL) 48 % (42-75)
[2016-12-16 11:14] VITALS: BP 108/57
[2016-12-16] MEDS: POTASSIUM CHLORIDE 50 ML IV SCH ×4 (15:07→17:15)
[2016-12-16 15:14] VITALS: BP 102/58
--- NOTE | 2016-12-16 17:15 | NUR ---
Pt reports being unable to tolerate administration of potassium medications, specifically KCL 10 meq/50 ml IVPB, first bag out of four completed as ordered. MD notified. Will follow up with request to switch to PO method. Pt has no s/s of any acute distress, aside from being unable to tolerate IVPB potassium medications. Will continue to monitor and follow up.
[2016-12-16] MEDS: MAGNESIUM SULFATE/D5W 100 ML IV SCH ×2 (17:36→17:37)
[2016-12-16] MEDS ORDERED: POTASSIUM PHOSPHATE MM 5 MMOL in IV DEXTROSE 5% 100 ML IV SCH (18:00)
--- NOTE | 2016-12-16 18:58 | NUR ---
Pt shows no s/s of distress at this time. Pt unable to tolerate additional IVPB potassium medications, notified, pharmacy request to add litocane Addendum: 12/16/16 at 1905 by CARMEN SIMONS RN lidocaine to upcoming doses. Pain managed throughout the shift with PRN pain medication per orders. Pt refused dinner tray stating allergy to tomato sauce. Allergy noted in chart and new tray ordered, and delivered to bedside. Pt has remained in stable condition throughout this shift. All safety and comfort measures met. Will continue to monitor and endorse to [facility] shift lead.
[2016-12-16] MEDS: POTASSIUM CHLORIDE 10 MEQ CAPSULE.SA PO SCH ×2 (19:15→23:15)
--- NOTE | 2016-12-16 19:30 | NUR ---
RECEIVED PATIENT FROM DAY SHIFT NURSE. SHIFT REPORT AT BEDSIDE. PATIENT IN NO DISTRESS. COMPLAINTS OF PAIN 8/10 ABDOMINAL. PERTINENT ASSESSMENTS COMPLETED. WILL CONTINUE TO MONITOR PATIENT THROUGH OUT SHIFT.
[2016-12-16 20:25] VITALS: BP 108/65
[2016-12-16] MEDS: DOCUSATE SODIUM 100 MG CAPSULE PO SCH (21:13)
--- NOTE | 2016-12-16 21:30 | NUR ---
ACCORDING TO DAY SHIFT NURSE DURING REPORT POTASSIUM MEDICATION GIVEN BOTH PO DOSE AND IV DOSE. MEDICATIONS WERE NOT SCANNED. DAY SHIFT NURSE STATED THAT PATIENT DOES NOT WANT POTASSIUM IV MEDICATION AND WAS COMPLAINING OF PAIN DURING ADMINISTRATION. SECOND DOSE OF POTASSIUM NOT GIVEN DUE TO DRUG NOT BEING AVAILABLE. CHARGE NURSE INFORMED. WILL F/U.
[2016-12-17] MEDS: POTASSIUM CHLORIDE 10 MEQ CAPSULE.SA PO SCH ×3 (03:42→13:45)
--- NOTE | 2016-12-17 03:42 | NUR ---
SECOND DOSE OF POTASSIUM MICRO-K 30 MEQ ADMINISTERED PO. DOSE OF POTASSIUM BROUGHT BY NURSE AZURE ARCHITECT. WILL CONTINUE TO MONITOR PATIENT THROUGH OUT SHIFT.
[2016-12-17] MEDS ORDERED: POTASSIUM CHLORIDE 10 MEQ CAPSULE.SA ONE (03:49)
[2016-12-17 05:47] VITALS: BP 101/57
[2016-12-17] MEDS: PANTOPRAZOLE SODIUM 40 MG TABLET.DR PO SCH (06:43)
--- NOTE | 2016-12-17 07:20 | NUR ---
RECEIVED REPORT FROM SALES DEPARTMENT CLERK NURSE, PATIENT IN BED SLEEPING, UPON AWAKING PATIENT MENTIONED THAT HE NEEDS PAIN MEDS AND THAT HIS ABDOMEN IS ENLARGED AGAIN AND IN PAIN.
[2016-12-17] MEDS: FUROSEMIDE 40 MG TABLET PO SCH (08:39)
[2016-12-17] MEDS: SPIRONOLACTONE 50 MG TABLET PO SCH (08:39)
[2016-12-17] MEDS: MAGNESIUM OXIDE 400 MG TABLET PO SCH ×2 (08:39→17:00)
[2016-12-17] MEDS: MORPHINE SULFATE 2 MG/1 ML DISP.SYRIN IVP PRN ×3 (08:39→20:57)
[2016-12-17] MEDS: FERROUS SULFATE 325 MG TABEC PO SCH ×2 (08:39→20:58)
[2016-12-17 10:17] LABS: BASOPHILS % (AUTO) 0.5 % (0.0-2.0); EOSINOPHILS # (AUTO) 0.1 K/uL (0.0-0.7); EOSINOPHILS % (AUTO) 1.7 % (0.0-7.0); LYMPHOCYTES # (AUTO) 0.7 K/UL (0.8-4.8); LYMPHOCYTES % (AUTO) 14.8 % (20.5-51.5); MEAN CORPUSCULAR HEMOGLOBIN 24.5 UUG (27.0-31.0); MEAN CORPUSCULAR HGB CONC 33 g/dL (32.0-37.0); MEAN CORPUSCULAR VOLUME 75.1 FL (82.0-92.0); MONOCYTES # (AUTO) 0.7 K/UL (0.1-1.30); MONOCYTES % (AUTO) 14.2 % (0.0-11.0); NEUTROPHILS # (AUTO) 3.4 K/UL (1.8-8.9); NEUTROPHILS % (AUTO) 68.8 % (38.5-71.5); PLATELET COUNT (AUTO) 131 K/UL (150-450)
[2016-12-17 10:25] LABS: HEMATOCRIT 32.3 % (40-50); HEMOGLOBIN 10.5 G/DL (14.0-18.0); WHITE BLOOD COUNT (AUTO) 4.9 K/UL (4.0-11.2)
[2016-12-17 10:43] LABS: CARBON DIOXIDE 31 mmol/L (21-32); CHLORIDE 101 mmol/L (98-107); CREATININE 0.5 mg/dL (0.6-1.3); GLUCOSE 100 mg/dL (74-106); MAGNESIUM 1.9 mg/dL (1.8-2.4); PHOSPHOROUS 3.3 mg/dL (2.5-4.9); POTASSIUM 3.3 mmol/L (3.5-5.1); UREA NITROGEN, BLOOD 4 mg/dL (7-18)
[2016-12-17 11:03] VITALS: BP 106/68
[2016-12-17] MEDS ORDERED: POTASSIUM CHLORIDE 20 MEQ TAB.PRT.SR PO ONE (11:15)
[2016-12-17 15:22] VITALS: BP 104/69
[2016-12-17] MEDS: POTASSIUM CHLORIDE 10 MEQ in IV D5 1/2 NS 1000 ML 1,000 ML IV PRN (16:51)
--- NOTE | 2016-12-17 18:24 | NUR ---
Patient has been cooperative with care all day, no evidence of distress besides severe levels of pain just before the medication has worn off. Patient will be Npo after midnight for an endoscopy tomorrow morning. Consent still needs to be signed after Dr Valle arrives. Patient is in bed, awake, watching TV making pleasant conversation.
[2016-12-17 20:41] VITALS: BP 101/47
[2016-12-17] MEDS: DOCUSATE SODIUM 100 MG CAPSULE PO SCH (20:58)
--- NOTE | 2016-12-17 23:16 | NUR ---
PATIENT RECEIVED SITTING UPRIGHT IN BED. ALERT AND ORIENTED X4, PLEASANT AND COOPERATIVE. ABDOMINAL DISTENTION WITH PAIN 9/10 GIVEN IV MORPHINE PRN ORDERED. INSTRUCTED AND REMINDED FOR NPO AFTER MIDNIGHT TONIGHT FOR ENDOSCOPY TOMORROW. CONSENT SIGNED AT BEDSIDE WITNESS BY THE NURSE ADVISOR, INFORMED CONSENT WITH THE PHYSICIAN IN THE MORNING. INFILTRATED IV SITE, REINSERTED ON LEFT FOREARM. OTHERWISE PATIENT IS COMFORTABLE NO OTHER COMPLAINT. VSS. CALL LIGHT WITHIN REACH.
[2016-12-18] MEDS: MORPHINE SULFATE 2 MG/1 ML DISP.SYRIN IVP PRN ×4 (03:22→23:10)
[2016-12-18 04:00] VITALS: BP 99/56
[2016-12-18] MEDS: POTASSIUM CHLORIDE 10 MEQ in IV D5 1/2 NS 1000 ML 1,000 ML IV PRN ×2 (05:36→18:27)
--- NOTE | 2016-12-18 05:45 | NUR ---
PATIENT SLEPT INTERMITTENTLY THROUGH THE NIGHT DUE TO ABDOMINAL PAIN. MAINTAINED ON NPO FOR ENDOSCOPY TODAY. OTHERWISE NO RESPIRATORY DISTRESS. ALL NEEDS ATTENDED.
[2016-12-18] MEDS: PANTOPRAZOLE SODIUM 40 MG TABLET.DR PO SCH (06:26)
--- NOTE | 2016-12-18 07:25 | NUR ---
RECEIVED REPORT FROM RN PERITONEAL DIALYSIS NURSE, PATIENT IN BED COMPLAINED THAT EVERYONE KEPT COMING IN TO TAKE BLOOD, VITALS, TRASH ETC. AND THAT THEY DIDNT CLOSE THE DOOR. COMPLAINS OF PAIN 71/0, ADVISED THAT MEDICATION IS NOT DUE UNTIL 9AM, ADVISED TO REPOSITION TO HELP ALLEVIATE PAIN.
[2016-12-18 07:50] LABS: CARBON DIOXIDE 28 mmol/L (21-32); CHLORIDE 105 mmol/L (98-107); CREATININE 0.5 mg/dL (0.6-1.3); GLUCOSE 111 mg/dL (74-106); MAGNESIUM 1.8 mg/dL (1.8-2.4); PHOSPHOROUS 3.2 mg/dL (2.5-4.9); POTASSIUM 3.7 mmol/L (3.5-5.1); UREA NITROGEN, BLOOD 7 mg/dL (7-18)
[2016-12-18 08:02] LABS: BASOPHILS % (AUTO) 0.6 % (0.0-2.0); EOSINOPHILS # (AUTO) 0.2 K/uL (0.0-0.7); EOSINOPHILS % (AUTO) 3.2 % (0.0-7.0); HEMATOCRIT 29.7 % (36.7-47.1); HEMOGLOBIN 9.8 g/dL (12.5-16.3); LYMPHOCYTES # (AUTO) 1.2 K/uL (20.0-40.0); LYMPHOCYTES % (AUTO) 21.6 % (20.5-51.5); MEAN CORPUSCULAR HEMOGLOBIN 24.9 uug (23.8-33.4); MEAN CORPUSCULAR HGB CONC 33 g/dL (32.5-36.3); MEAN CORPUSCULAR VOLUME 75.1 fL (73.0-96.2); MONOCYTES % (AUTO) 18.8 % (0.0-11.0); NEUTROPHILS % (AUTO) 55.8 % (38.5-71.5); PLATELET COUNT (AUTO) 97 K/uL (152-348); RED BLOOD CELL COUNT(AUTO) 3.95 MIL/uL (4.06-5.63); WHITE BLOOD COUNT (AUTO) 5.5 K/uL (3.6-10.2)
[2016-12-18] MEDS: FERROUS SULFATE 325 MG TABEC PO SCH ×2 (09:43→21:00)
[2016-12-18] MEDS: SPIRONOLACTONE 50 MG TABLET PO SCH (09:43)
[2016-12-18] MEDS: FUROSEMIDE 40 MG TABLET PO SCH (09:43)
[2016-12-18 11:02] VITALS: BP 94/57
[2016-12-18 12:31] LABS: EOSINOPHILS % (MANUAL) 6 % (0-8); LYMPHOCYTES % (MANUAL) 25 % (20-40); MONOCYTES % (MANUAL) 14 % (2-10); NEUTROPHILS % (MANUAL) 55 % (42-75)
[2016-12-18 15:03] VITALS: BP 97/73
[2016-12-18] MEDS: CYCLOBENZAPRINE HCL 10 MG TABLET PO PRN (17:08)
--- NOTE | 2016-12-18 18:48 | NUR ---
patient has been compliant with care, experienced intermittent episodes of severe pain, relieved with medication. No evidence of distress noted at this time, bed in low side rails up x2. Report endorsed to mold shifter nurse.
[2016-12-18 20:00] VITALS: BP 98/65
[2016-12-18] MEDS: DOCUSATE SODIUM 100 MG CAPSULE PO SCH (21:00)
[2016-12-18] MEDS: HYDROCODONE/APAP 5-325MG TABLET PO PRN (21:05)
[2016-12-19] MEDS: MORPHINE SULFATE 2 MG/1 ML DISP.SYRIN IVP PRN ×2 (05:32→11:45)
[2016-12-19 05:44] VITALS: BP 94/56
[2016-12-19] MEDS: PANTOPRAZOLE SODIUM 40 MG TABLET.DR PO SCH (06:42)
[2016-12-19 07:41] LABS: BASOPHILS % (AUTO) 0.6 % (0.0-2.0); EOSINOPHILS # (AUTO) 0.3 K/uL (0.0-0.7); EOSINOPHILS % (AUTO) 5.2 % (0.0-7.0); HEMATOCRIT 29.8 % (40-50); HEMOGLOBIN 9.6 G/DL (14.0-18.0); LYMPHOCYTES # (AUTO) 1.1 K/UL (0.8-4.8); LYMPHOCYTES % (AUTO) 20.8 % (20.5-51.5); MEAN CORPUSCULAR HEMOGLOBIN 24.7 UUG (27.0-31.0); MEAN CORPUSCULAR HGB CONC 32 g/dL (32.0-37.0); MEAN CORPUSCULAR VOLUME 76.6 FL (82.0-92.0); MONOCYTES # (AUTO) 0.9 K/UL (0.1-1.30); MONOCYTES % (AUTO) 17.1 % (0.0-11.0); NEUTROPHILS % (AUTO) 56.3 % (38.5-71.5); PLATELET COUNT (AUTO) 101 K/UL (150-450); WHITE BLOOD COUNT (AUTO) 5.3 K/UL (4.0-11.2)
[2016-12-19 07:44] LABS: CARBON DIOXIDE 26 mmol/L (21-32); CHLORIDE 105 mmol/L (98-107); CREATININE 0.5 mg/dL (0.6-1.3); GLUCOSE 98 mg/dL (74-106); MAGNESIUM 1.6 mg/dL (1.8-2.4); PHOSPHOROUS 3.6 mg/dL (2.5-4.9); POTASSIUM 3.3 mmol/L (3.5-5.1); UREA NITROGEN, BLOOD 5 mg/dL (7-18)
[2016-12-19] MEDS: POTASSIUM CHLORIDE 10 MEQ in IV D5 1/2 NS 1000 ML 1,000 ML IV PRN (08:15)
--- NOTE | 2016-12-19 08:30 | NUR ---
PATIENT IS AWAKE ALERT AND ORIENTED MEDICATED FOR C/O PAIN ORDERED.REMAIN ON IVF ORDERED WITH NO S/S OF INFILTERATION ON SITE MADE COMFORTABLE WITH NO DISTRESS AT THIS TIME.
[2016-12-19] MEDS: FERROUS SULFATE 325 MG TABEC PO SCH (08:37)
[2016-12-19] MEDS: FUROSEMIDE 40 MG TABLET PO SCH (08:37)
[2016-12-19] MEDS: SPIRONOLACTONE 50 MG TABLET PO SCH (08:37)
[2016-12-19] MEDS: HYDROCODONE/APAP 5-325MG TABLET PO PRN (08:38)
[2016-12-19 09:27] LABS: BAND % (MANUAL) 1 % (0-10); EOSINOPHILS % (MANUAL) 2 % (0-8); LYMPHOCYTES % (MANUAL) 20 % (20-40); MONOCYTES % (MANUAL) 15 % (2-10); NEUTROPHILS % (MANUAL) 62 % (42-75)
[2016-12-19] MEDS ORDERED: POTASSIUM CHLORIDE 20 MEQ TAB.PRT.SR PO ONE (09:45)
--- NOTE | 2016-12-19 09:45 | NUR ---
POTASSIUM LEVEL IS 3.3 AND MAGNESSIUM IS 1.[address] KAISER WITH NEW ORDERS AND NOTED
[2016-12-19] MEDS ORDERED: SPIR50TA PO (09:52)
[2016-12-19] MEDS ORDERED: FURO40TA5 PO (09:52)
[2016-12-19] MEDS ORDERED: HYDR-3326 PO (09:52)
--- NOTE | 2016-12-19 10:28 | NUR ---
ORDER NOTED TO DISCHARGE PATIENT TO THE ASSISTED SO THE LEAD ELECTRICAL ENGINEER CALLED THE INSPECTOR [facility]ALL [facility]INTS WHO STATED THAT THE SNF WILL NOT TAKE HIM BECAUSE HE LEAVES THE SNF AMA EACH TIME HE IS ADMITTED THERE PATIENT WILL NEED TO GO TO THE NURSING HOME.
[2016-12-19] MEDS: MAGNESIUM SULFATE/D5W 100 ML IV SCH ×2 (10:35→11:45)
[2016-12-19] MEDS: CYCLOBENZAPRINE HCL 10 MG TABLET PO PRN (10:35)
[2016-12-19] MEDS: POTASSIUM CHLORIDE 20 MEQ TAB.PRT.SR PO SCH ×3 (10:35→13:03)
[2016-12-19 11:58] VITALS: BP 114/70
--- NOTE | 2016-12-19 13:10 | NUR ---
PATIENT DISCHARGED WITH DISCHARGE INSTRUCTIONS AND PRESCRIPTIONS AND PATIENT INSTRUCTED TO CALL HIS PRIMARY DOCTOR AND POKER IN FOR A FOLLOW UP APPOINTMENT WITHIN THIS WEEK.[facility] PHARMACIST WAS CALLED TO SEE PATIENT BUT PATIENT STATED DOES NOT NEED TO BE EDUCATED. PATIENT REFUSED TO TAKE THE DISCHARGE PAPERS STATED DOES NOT NEED THEM BUT DID TAKE THE PRESCRIPTION AND ALL OF HIS PERSONAL BELONGINGS.PATIENT ASSISTED TO [place] WITH THE TOKIN FOR THE BUS RIDE.
[2016-12-19 13:58] VITALS: BP 114/70
== END 2016-12-19 13:10 | disposition home or self-care (01) | DRG 280 ==
LOC: ER 15:38 → TELE 19:35 → MED 12-15 15:41
PROVIDERS: ADMIT Internal Medicine; ATTEND Internal Medicine
PROC: 0W9G3ZZ Drainage of Peritoneal Cavity, Percutaneous Approach (ICD-10-PCS; principal; 2016-12-15)
DX: K70.31 Alcoholic cirrhosis of liver with ascites (principal); E43 Unspecified severe protein-calorie malnutrition; L03.115 Cellulitis of right lower limb; K76.6 Portal hypertension; E87.1 Hypo-osmolality and hyponatremia; L03.116 Cellulitis of left lower limb; I85.10 Secondary esophageal varices without bleeding; F10.20 Alcohol dependence, uncomplicated; D50.9 Iron deficiency anemia, unspecified; J98.11 Atelectasis; E02 Subclinical iodine-deficiency hypothyroidism; F17.210 Nicotine dependence, cigarettes, uncomplicated; Y90.9 Presence of alcohol in blood, level not specified; Z59.0 Homelessness; G25.81 Restless legs syndrome; Z68.20 Body mass index [BMI] 20.0-20.9, adult; E87.6 Hypokalemia; Z91.19 Patient's noncompliance with other medical treatment and regimen; R60.0 Localized edema; G89.29 Other chronic pain; M54.9 Dorsalgia, unspecified; M54.2 Cervicalgia; M54.5 Low back pain; S22.42XD Multiple fractures of ribs, left side, subsequent encounter for fracture with routine healing; X58.XXXD Exposure to other specified factors, subsequent encounter; F41.9 Anxiety disorder, unspecified; F32.9 Major depressive disorder, single episode, unspecified; K27.9 Peptic ulcer, site unspecified, unspecified as acute or chronic, without hemorrhage or perforation; K86.89 Other specified diseases of pancreas
CPT/HCPCS: 36415; 70030-TC; 71010; 83735; 84100; 85025; 85610; 93005; A4663; C9113; J1940; J2270; J2405; J3475; J3480; J3490; J7030; J7040; J7050; J7060; P9047; Q9967

== ENCOUNTER 2016-12-23 22:25 | Emergency (ER) | payer MEDICAID ==
[~2016-12-23] VITALS: Ht 182.9 cm; Wt 70.3 kg
[~2016-12-23 22:25] MED LIST changes: -ACET325T53 PO; -CEPH500C2 PO; -FOLI1TAB16 PO; +FURO40TA5 PO; -MULT-24 PO; -NICO1PAT28 TD; -PANT40TA2 PO; -SPIR100T PO; +SPIR50TA PO; -THIA100T13 PO
--- NOTE | 2016-12-24 00:34 | NUR ---
Patient discharged to home in stable conditon. Written and verbal after care instructions given. Patient verbalizes understanding of instructions. Ambulated from ER with stable gait. patient refused to take AVS and prescription at this time. Patient education provided, patient offered list of homeless shelters and resources. patient refused at this time.
[2016-12-24 00:52] VITALS: BP 113/78
== END 2016-12-24 00:57 | disposition home or self-care (01) ==
LOC: ER 22:26
DX: K70.31 Alcoholic cirrhosis of liver with ascites (principal); F10.988 Alcohol use, unspecified with other alcohol-induced disorder; F17.200 Nicotine dependence, unspecified, uncomplicated; Z59.0 Homelessness; G25.81 Restless legs syndrome; W01.0XXA Fall on same level from slipping, tripping and stumbling without subsequent striking against object, initial encounter; Y93.89 Activity, other specified; Y92.9 Unspecified place or not applicable; Y99.9 Unspecified external cause status
CPT/HCPCS: A4663; J1885

== ENCOUNTER 2016-12-26 15:37 | Emergency (ER) | payer MEDICAID ==
[~2016-12-26] VITALS: Ht 182.9 cm; Wt 68.9 kg
--- NOTE | 2016-12-26 16:14 | NUR ---
PT STATES THAT HE DOES NOT TAKE ANY HOME MEDICATION AT HIS TIME.
--- NOTE | 2016-12-26 17:36 | NUR ---
Patient discharged to home in stable conditon. Written and verbal after care instructions given to patient and family-friend. Patient verbalizes understanding of instructions.
== END 2016-12-26 17:49 | disposition home or self-care (01) ==
LOC: ER 15:39
DX: K70.31 Alcoholic cirrhosis of liver with ascites (principal); F10.988 Alcohol use, unspecified with other alcohol-induced disorder; G89.29 Other chronic pain; F17.200 Nicotine dependence, unspecified, uncomplicated
CPT/HCPCS: A4663; J2270

== ENCOUNTER 2017-06-29 16:18 | Emergency (ER) | payer MEDICAID ==
[~2017-06-29] VITALS: Ht 177.8 cm; Wt 72.1 kg
--- NOTE | 2017-06-29 16:42 | NUR ---
REPORTED TO HAVE RAN OUT OF HIS MEDS 3 WEEKS AGO - NOT TAKING ANY MEDICATION AT THE MOMENT.
--- NOTE | 2017-06-29 17:23 | NUR ---
PT IS IN ROOM #1A. DR COREAS EVALUATED THE PT.
[2017-06-29 17:25] LABS: BASOPHILS # (AUTO) 0.1 K/uL (0.0-8.0); BASOPHILS % (AUTO) 0.9 % (0.0-2.0); EOSINOPHILS # (AUTO) 0.2 K/uL (0.0-0.7); EOSINOPHILS % (AUTO) 2.4 % (0.0-7.0); HEMATOCRIT 35.7 % (36.7-47.1); HEMOGLOBIN 11.7 g/dL (12.5-16.3); LYMPHOCYTES # (AUTO) 2.1 K/uL (20.0-40.0); MEAN CORPUSCULAR HEMOGLOBIN 23.9 uug (23.8-33.4); MEAN CORPUSCULAR HGB CONC 33 g/dL (32.5-36.3); MEAN CORPUSCULAR VOLUME 72.6 fL (73.0-96.2); MONOCYTES # (AUTO) 1.2 K/uL (2.0-10.0); MONOCYTES % (AUTO) 16.7 % (0.0-11.0); NEUTROPHILS # (AUTO) 3.7 K/uL (1.8-8.9); PLATELET COUNT (AUTO) 118 K/uL (152-348); RED BLOOD CELL COUNT(AUTO) 4.92 MIL/uL (4.06-5.63); WHITE BLOOD COUNT (AUTO) 7.3 K/uL (3.6-10.2)
[2017-06-29 17:32] LABS: ABG BASE EXCESS 1.3 mmol/L; ABG PCO2 36.6 mmHg (35.0-45.0); ABG PH 7.452 (7.350-7.450); ABG PO2 96.4 mmHg (75.0-100.0); ABG SITE LEFT RADIAL; ABG TOTAL HEMOGLOBIN 12.7 G/dL (13.5-18.0); COHb 9.7 % (0.5-1.5); MetHb 0.4 % (0.0-1.5); VENT MODE Nasal Cannula
[2017-06-29 17:35] LABS: CARBON DIOXIDE 27 mmol/L (21-32); CHLORIDE 102 mmol/L (98-107); CREATININE 0.5 mg/dL (0.6-1.3); GLUCOSE 107 mg/dL (74-106); POTASSIUM 3.2 mmol/L (3.5-5.1); UREA NITROGEN, BLOOD 5 mg/dL (7-18)
[2017-06-29 17:39] LABS: ETHANOL 374 MG/DL (0-0)
[2017-06-29 17:40] LABS: ALANINE AMINOTRANSFERASE 49 U/L (16-63); ALKALINE PHOSPHATASE 233 U/L (50-136); ASPARTATE AMINOTRANSFERASE 101 U/L (15-37); BILIRUBIN,DIRECT 0.3 mg/dL (0.0-0.2); BILIRUBIN,TOTAL 0.9 mg/dL (0.2-1.0); TOTAL PROTEIN, SERUM 7.3 g/dL (6.4-8.2)
[2017-06-29 17:49] LABS: ACETAMINOPHEN < 2.0 ug/mL (10-30)
[2017-06-29 17:50] LABS: THYROID STIMULATING HORMONE 1.247 mIU/mL (0.358-3.740)
[2017-06-29 18:17] LABS: BAND % (MANUAL) 3 % (0-10); EOSINOPHILS % (MANUAL) 3 % (0-8); LYMPHOCYTES % (MANUAL) 29 % (20-40); MONOCYTES % (MANUAL) 16 % (2-10); NEUTROPHILS % (MANUAL) 49 % (42-75)
[2017-06-29] MEDS ORDERED: PANTOPRAZOLE SODIUM 40 MG VIAL IV ONE (18:45)
[2017-06-29 19:22] LABS: BASOPHILS # (AUTO) 0.1 K/uL (0.0-8.0); BASOPHILS % (AUTO) 1.4 % (0.0-2.0); EOSINOPHILS # (AUTO) 0.2 K/uL (0.0-0.7); EOSINOPHILS % (AUTO) 2.8 % (0.0-7.0); HEMOGLOBIN 11.4 g/dL (12.5-16.3); LYMPHOCYTES % (AUTO) 31.9 % (20.5-51.5); MEAN CORPUSCULAR HGB CONC 33 g/dL (32.5-36.3); MEAN CORPUSCULAR VOLUME 73.5 fL (73.0-96.2); MONOCYTES % (AUTO) 15.7 % (0.0-11.0); NEUTROPHILS % (AUTO) 48.2 % (38.5-71.5); PLATELET COUNT (AUTO) 115 K/uL (152-348); RED BLOOD CELL COUNT(AUTO) 4.76 MIL/uL (4.06-5.63); WHITE BLOOD COUNT (AUTO) 6.3 K/uL (3.6-10.2)
--- NOTE | 2017-06-29 19:23 | NUR ---
REPORT GIVEN TO WORKERS' COMPENSATION COMMISSIONER RN.
[2017-06-29] MEDS ORDERED: PANTOPRAZOLE SODIUM 40 MG VIAL ONE (19:27)
[2017-06-29 20:19] LABS: BAND % (MANUAL) 3 % (0-10); EOSINOPHILS % (MANUAL) 4 % (0-8); LYMPHOCYTES % (MANUAL) 29 % (20-40); MONOCYTES % (MANUAL) 14 % (2-10); NEUTROPHILS % (MANUAL) 50 % (42-75)
[2017-06-29] MEDS ORDERED: ALBUTEROL SULFATE 2.5 MG/3 ML NEBU NEB ONE (20:30)
[2017-06-29] MEDS ORDERED: IPRATROPIUM BROMIDE 0.5 MG/2.5 ML NEBU NEB ONE (20:30)
[2017-06-29] MEDS ORDERED: ALBUTEROL SULFATE 2.5 MG/3 ML NEBU ONE (20:57)
[2017-06-29] MEDS ORDERED: IPRATROPIUM BROMIDE 0.5 MG/2.5 ML NEBU ONE (20:57)
[2017-06-29] MEDS ORDERED: IV NORMAL SALINE 1000 ML BAG IV ONE (21:30)
[2017-06-29 22:26] VITALS: BP 131/79
== END 2017-06-29 22:15 | disposition home or self-care (01) ==
LOC: ER 16:19
DX: F10.129 Alcohol abuse with intoxication, unspecified (principal); K70.31 Alcoholic cirrhosis of liver with ascites; F17.210 Nicotine dependence, cigarettes, uncomplicated; Z91.018 Allergy to other foods; Z79.891 Long term (current) use of opiate analgesic; Z79.899 Other long term (current) drug therapy
CPT/HCPCS: 36415; 36600; 70030-TC; 70450; 71045; 83605; 84443; 85025; 85730; 87040; 93005; A4663; C9113; G0480; G0480-TC; J3590; J7030

== ENCOUNTER 2017-10-31 16:24 | Inpatient (IN) | payer MEDICAID ==
[~2017-10-31] VITALS: Ht 185.4 cm; Wt 66.4 kg
[2017-10-31] MEDS ORDERED: TDAP DIPH,PERTUSS,TET VAC/PF 0.5 ML DISP.SYRIN IM ONE ×2 (16:45→16:51)
[2017-10-31 17:08] LABS: BASOPHILS # (AUTO) 0.1 K/uL (0.0-8.0); BASOPHILS % (AUTO) 0.6 % (0.0-2.0); EOSINOPHILS # (AUTO) 0.2 K/uL (0.0-0.7); EOSINOPHILS % (AUTO) 2.2 % (0.0-7.0); HEMATOCRIT 32.9 % (36.7-47.1); HEMOGLOBIN 10.8 g/dL (12.5-16.3); LYMPHOCYTES # (AUTO) 1.6 K/uL (20.0-40.0); LYMPHOCYTES % (AUTO) 15.6 % (20.5-51.5); MEAN CORPUSCULAR HEMOGLOBIN 25.9 uug (23.8-33.4); MEAN CORPUSCULAR HGB CONC 33 g/dL (32.5-36.3); MEAN CORPUSCULAR VOLUME 79.1 fL (73.0-96.2); MONOCYTES # (AUTO) 1.8 K/uL (2.0-10.0); MONOCYTES % (AUTO) 17.1 % (0.0-11.0); NEUTROPHILS # (AUTO) 6.7 K/uL (1.8-8.9); NEUTROPHILS % (AUTO) 64.5 % (38.5-71.5); PLATELET COUNT (AUTO) 176 K/uL (152-348); RED BLOOD CELL COUNT(AUTO) 4.17 MIL/uL (4.06-5.63); WHITE BLOOD COUNT (AUTO) 10.4 K/uL (3.6-10.2)
[2017-10-31] MEDS ORDERED: NEOMY/BACITRA/POLYMYXIN B OINT UD PACKET TP ONE (17:19)
[2017-10-31 17:20] LABS: ALANINE AMINOTRANSFERASE 46 U/L (16-63); ALKALINE PHOSPHATASE 398 U/L (50-136); ASPARTATE AMINOTRANSFERASE 110 U/L (15-37); BILIRUBIN,DIRECT 2.7 mg/dL (0.0-0.2); BILIRUBIN,TOTAL 3.9 mg/dL (0.2-1.0); CARBON DIOXIDE 25 mmol/L (21-32); CHLORIDE 99 mmol/L (98-107); CREATININE 0.5 mg/dL (0.6-1.3); GLUCOSE 91 mg/dL (74-106); LIPASE 166 U/L (73-393); TOTAL PROTEIN, SERUM 6.2 g/dL (6.4-8.2)
[2017-10-31 17:24] LABS: POTASSIUM 2.7 mmol/L (3.5-5.1); UREA NITROGEN, BLOOD 2 mg/dL (7-18)
[2017-10-31] MEDS ORDERED: PANTOPRAZOLE SODIUM IV 40 MG in IV DEXTROSE 5% 100 ML IV ONE (17:30)
[2017-10-31 17:36] LABS: BAND % (MANUAL) 2 % (0-10); EOSINOPHILS % (MANUAL) 1 % (0-8); LYMPHOCYTES % (MANUAL) 17 % (20-40); MONOCYTES % (MANUAL) 14 % (2-10); NEUTROPHILS % (MANUAL) 66 % (42-75)
[2017-10-31] MEDS: POTASSIUM CHLORIDE 50 ML IV SCH ×3 (17:45→18:32)
[2017-10-31] MEDS ORDERED: POTASSIUM CHLORIDE 0 ML ONE (18:14)
[2017-10-31] MEDS ORDERED: POTASSIUM CHLORIDE 50 ML ONE (18:15)
[2017-10-31] MEDS ORDERED: POTASSIUM CHLORIDE 20 MEQ TAB.PRT.SR PO ONE (18:30)
[2017-10-31] MEDS ORDERED: POTASSIUM CHLORIDE 10 MEQ TAB.PRT.SR ONE (18:35)
[2017-10-31 19:00] VITALS: BP 105/66
[2017-10-31] MEDS ORDERED: MAGNESIUM HYDROXIDE 30 ML LIQUID UDC PO PRN (19:00)
[2017-10-31] MEDS ORDERED: HYDROMORPHONE 1 MG/1 ML DISP.SYRIN IV PRN (19:00)
[2017-10-31] MEDS ORDERED: ACETAMINOPHEN 325 MG TABLET PO PRN (19:00)
[2017-10-31] MEDS ORDERED: HYDROCODONE/APAP 5-325MG TABLET PO PRN (19:00)
[2017-10-31] MEDS ORDERED: ONDANSETRON 4 MG/2 ML VIAL IV PRN (19:00)
[2017-10-31] MEDS: MORPHINE SULFATE 2 MG/1 ML DISP.SYRIN IM PRN (20:03)
[2017-10-31 20:05] VITALS: BP 105/63
[2017-10-31] MEDS: IV NS 1000 ML 1,000 ML IV PRN (23:20)
[2017-11-01] VITALS: BP 97/54
[2017-11-01 04:00] VITALS: BP 94/55
[2017-11-01] MEDS: MORPHINE SULFATE 2 MG/1 ML DISP.SYRIN IM PRN ×4 (05:57→20:36)
[2017-11-01 06:42] LABS: EOSINOPHILS # (AUTO) 0.1 K/uL (0.0-0.7); LYMPHOCYTES # (AUTO) 0.8 K/uL (20.0-40.0); LYMPHOCYTES % (AUTO) 13.9 % (20.5-51.5); NEUTROPHILS # (AUTO) 3.9 K/uL (1.8-8.9); PLATELET COUNT (AUTO) 147 K/uL (152-348)
[2017-11-01 06:50] LABS: BASOPHILS % (AUTO) 0.7 % (0.0-2.0); EOSINOPHILS % (AUTO) 1.9 % (0.0-7.0); MEAN CORPUSCULAR HEMOGLOBIN 26.3 uug (23.8-33.4); MEAN CORPUSCULAR HGB CONC 33 g/dL (32.5-36.3); MEAN CORPUSCULAR VOLUME 79.4 fL (73.0-96.2); MONOCYTES # (AUTO) 1.2 K/uL (2.0-10.0); MONOCYTES % (AUTO) 19.3 % (0.0-11.0); NEUTROPHILS % (AUTO) 64.2 % (38.5-71.5); RED BLOOD CELL COUNT(AUTO) 3.69 MIL/uL (4.06-5.63)
[2017-11-01 06:51] LABS: HEMATOCRIT 29.3 % (36.7-47.1); HEMOGLOBIN 9.7 g/dL (12.5-16.3)
[2017-11-01] MEDS ORDERED: PANTOPRAZOLE SODIUM 40 MG TABLET.DR PO SCH (07:00)
[2017-11-01 07:02] LABS: ALANINE AMINOTRANSFERASE 40 U/L (16-63); ALKALINE PHOSPHATASE 337 U/L (50-136); ASPARTATE AMINOTRANSFERASE 85 U/L (15-37); BILIRUBIN,DIRECT 1.9 mg/dL (0.0-0.2); BILIRUBIN,TOTAL 2.9 mg/dL (0.2-1.0); CARBON DIOXIDE 28 mmol/L (21-32); CHLORIDE 102 mmol/L (98-107); CREATININE 0.5 mg/dL (0.6-1.3); GLUCOSE 89 mg/dL (74-106); MAGNESIUM 1.9 mg/dL (1.8-2.4); PHOSPHOROUS 2.9 mg/dL (2.5-4.9); TOTAL PROTEIN, SERUM 5.7 g/dL (6.4-8.2); UREA NITROGEN, BLOOD 3 mg/dL (7-18)
[2017-11-01 08:12] LABS: CHOLESTEROL 117 mg/dL (<200); HDL CHOLESTEROL 23 mg/dL (40-60); TRIGLYCERIDES 71 MG/DL (30-150)
[2017-11-01] MEDS: THIAMINE HCL 100 MG TABLET PO SCH (08:38)
[2017-11-01] MEDS: FOLIC ACID 1 MG TABLET PO SCH (08:38)
[2017-11-01] MEDS: NICOTINE 21 MG/24HR PATCH TD SCH (08:38)
[2017-11-01] MEDS ORDERED: POTASSIUM CHLORIDE 20 MEQ TAB.PRT.SR PO ONE (09:30)
[2017-11-01 09:35] LABS: BAND % (MANUAL) 1 % (0-10); BASOPHILS % (MANUAL) 2 % (0-2); EOSINOPHILS % (MANUAL) 3 % (0-8); LYMPHOCYTES % (MANUAL) 8 % (20-40); MONOCYTES % (MANUAL) 21 % (2-10); MYELOCYTES % 1 % (0-0); NEUTROPHILS % (MANUAL) 64 % (42-75)
[2017-11-01 11:21] LABS: *OCCULT BLOOD STOOL NEGATIVE (NEGATIVE)
[2017-11-01 11:56] VITALS: BP 110/60
[2017-11-01 16:00] VITALS: BP 102/62
[2017-11-01] MEDS: IV NS 1000 ML 1,000 ML IV PRN (17:44)
[2017-11-01] MEDS: LORAZEPAM 2 MG/1 ML VIAL IV PRN ×2 (17:44→23:06)
[2017-11-01 20:07] VITALS: BP 101/53
[2017-11-01] MEDS: PANTOPRAZOLE SODIUM 40 MG VIAL IV SCH (20:30)
[2017-11-02 00:14] VITALS: BP 98/57
[2017-11-02 05:08] VITALS: BP 105/64
[2017-11-02 06:31] LABS: BASOPHILS % (AUTO) 0.7 % (0.0-2.0); EOSINOPHILS # (AUTO) 0.1 K/uL (0.0-0.7); EOSINOPHILS % (AUTO) 2.1 % (0.0-7.0); HEMATOCRIT 30.1 % (36.7-47.1); HEMOGLOBIN 9.7 g/dL (12.5-16.3); LYMPHOCYTES # (AUTO) 0.9 K/uL (20.0-40.0); LYMPHOCYTES % (AUTO) 15.3 % (20.5-51.5); MEAN CORPUSCULAR HEMOGLOBIN 25.8 uug (23.8-33.4); MEAN CORPUSCULAR HGB CONC 32 g/dL (32.5-36.3); MEAN CORPUSCULAR VOLUME 79.5 fL (73.0-96.2); MONOCYTES # (AUTO) 1.2 K/uL (2.0-10.0); MONOCYTES % (AUTO) 21.1 % (0.0-11.0); NEUTROPHILS # (AUTO) 3.4 K/uL (1.8-8.9); NEUTROPHILS % (AUTO) 60.8 % (38.5-71.5); PLATELET COUNT (AUTO) 132 K/uL (152-348); RED BLOOD CELL COUNT(AUTO) 3.78 MIL/uL (4.06-5.63); WHITE BLOOD COUNT (AUTO) 5.6 K/uL (3.6-10.2)
[2017-11-02 06:42] LABS: CARBON DIOXIDE 28 mmol/L (21-32); CHLORIDE 101 mmol/L (98-107); CREATININE 0.5 mg/dL (0.6-1.3); GLUCOSE 90 mg/dL (74-106); POTASSIUM 3.2 mmol/L (3.5-5.1); UREA NITROGEN, BLOOD 3 mg/dL (7-18)
[2017-11-02] MEDS: FOLIC ACID 1 MG TABLET PO SCH (08:57)
[2017-11-02] MEDS: NICOTINE 21 MG/24HR PATCH TD SCH (08:57)
[2017-11-02] MEDS: THIAMINE HCL 100 MG TABLET PO SCH (08:57)
[2017-11-02] MEDS: PANTOPRAZOLE SODIUM 40 MG VIAL IV SCH ×2 (08:58→20:23)
[2017-11-02] MEDS: IV NS 1000 ML 1,000 ML IV PRN (09:12)
[2017-11-02 10:24] LABS: EOSINOPHILS % (MANUAL) 1 % (0-8); LYMPHOCYTES % (MANUAL) 13 % (20-40); MONOCYTES % (MANUAL) 5 % (2-10); NEUTROPHILS % (MANUAL) 81 % (42-75)
[2017-11-02 11:44] VITALS: BP 116/68
[2017-11-02] MEDS ORDERED: POTASSIUM CHLORIDE 20 MEQ POWDER PACKET PO ONE (12:30)
[2017-11-02] MEDS: MORPHINE SULFATE 2 MG/1 ML DISP.SYRIN IM PRN ×2 (15:23→20:31)
[2017-11-02 15:45] VITALS: BP 105/65
[2017-11-02 17:54] LABS: *BILIRUBIN,URIN 1+ (NEGATIVE); *BLOOD, URINE NEGATIVE (NEGATIVE); *CLARITY,URINE CLEAR (CLEAR); *COLOR,URINE AMBER (YELLOW); *KETONES,URINE NEGATIVE (NEGATIVE); *PROTEIN,URINE NEGATIVE (NEGATIVE); LEUKOCYTE ESTERASE ,URINE NEGATIVE (NEGATIVE); NITRITE, URINE NEGATIVE (NEGATIVE); UGLUCOSE NEGATIVE (NEGATIVE)
[2017-11-02 18:21] LABS: WBC,URINE 0-3 /HPF (0-3)
[2017-11-02 18:22] LABS: MUCUS,URINE FEW /LPF (0-FEW)
[2017-11-02 20:23] VITALS: BP 126/81
[2017-11-02] MEDS: LORAZEPAM 2 MG/1 ML VIAL IV PRN (22:11)
[2017-11-03] MEDS: MORPHINE SULFATE 2 MG/1 ML DISP.SYRIN IM PRN ×4 (00:36→12:18)
[2017-11-03] MEDS: IV NS 1000 ML 1,000 ML IV PRN (04:48)
[2017-11-03 05:16] VITALS: BP 102/63
[2017-11-03 06:51] LABS: CARBON DIOXIDE 25 mmol/L (21-32); CHLORIDE 105 mmol/L (98-107); CREATININE 0.5 mg/dL (0.6-1.3); GLUCOSE 91 mg/dL (74-106); POTASSIUM 3.3 mmol/L (3.5-5.1); UREA NITROGEN, BLOOD 4 mg/dL (7-18)
[2017-11-03] MEDS: FOLIC ACID 1 MG TABLET PO SCH (08:03)
[2017-11-03] MEDS: THIAMINE HCL 100 MG TABLET PO SCH (08:03)
[2017-11-03] MEDS: PANTOPRAZOLE SODIUM 40 MG VIAL IV SCH (08:07)
[2017-11-03] MEDS: NICOTINE 21 MG/24HR PATCH TD SCH (08:07)
[2017-11-03] MEDS ORDERED: MAGNESIUM CITRATE 296 ML BOTTLE PO ONE (10:00)
[2017-11-03] MEDS ORDERED: FLEET ENEMA 133 ML BOTTLE RC PRN (10:00)
[2017-11-03] MEDS ORDERED: POTASSIUM CHLORIDE 50 ML IV SCH (11:30)
[2017-11-03 11:40] VITALS: BP 119/74
[2017-11-03] MEDS ORDERED: POTASSIUM CHLORIDE 20 MEQ TAB.PRT.SR PO ONE (11:45)
[2017-11-03] MEDS ORDERED: GOLYTELY 4000 ML BOTTLE PO ONE (12:00)
== END 2017-11-03 13:05 | disposition left against medical advice (07) | DRG 280 ==
LOC: ER 16:27 → TELE 18:42 → MED 11-02 12:45
PROVIDERS: ADMIT Internal Medicine; ATTEND Nurse Practitioner Acute Care
DX: K70.31 Alcoholic cirrhosis of liver with ascites (principal); D68.4 Acquired coagulation factor deficiency; E46 Unspecified protein-calorie malnutrition; I11.9 Hypertensive heart disease without heart failure; K76.6 Portal hypertension; D69.59 Other secondary thrombocytopenia; K86.1 Other chronic pancreatitis; I85.10 Secondary esophageal varices without bleeding; G62.1 Alcoholic polyneuropathy; F10.10 Alcohol abuse, uncomplicated; D50.0 Iron deficiency anemia secondary to blood loss (chronic); F17.210 Nicotine dependence, cigarettes, uncomplicated; Z59.0 Homelessness; Y90.9 Presence of alcohol in blood, level not specified; Z91.19 Patient's noncompliance with other medical treatment and regimen; G25.81 Restless legs syndrome; E87.6 Hypokalemia; K57.30 Diverticulosis of large intestine without perforation or abscess without bleeding; K21.9 Gastro-esophageal reflux disease without esophagitis; E03.9 Hypothyroidism, unspecified; I70.0 Atherosclerosis of aorta; G89.4 Chronic pain syndrome; F41.9 Anxiety disorder, unspecified; K27.9 Peptic ulcer, site unspecified, unspecified as acute or chronic, without hemorrhage or perforation; D72.829 Elevated white blood cell count, unspecified; S40.812A Abrasion of left upper arm, initial encounter; S40.811A Abrasion of right upper arm, initial encounter; W19.XXXA Unspecified fall, initial encounter; Y92.89 Other specified places as the place of occurrence of the external cause; F32.9 Major depressive disorder, single episode, unspecified
CPT/HCPCS: 36415; 71045; 76700; 83690; 83735; 84100; 85025; 85730; 90715; 93005; A4217; A4663; C9113; J2060; J2270; J3480; J7030; J7060

== ENCOUNTER 2018-03-17 20:36 | Inpatient (IN) | payer MEDICAID ==
[~2018-03-17] VITALS: Ht 185.4 cm; Wt 70.8 kg
[2018-03-17] MEDS ORDERED: ONDANSETRON 4 MG/2 ML VIAL IV ONE (21:15)
[2018-03-17] MEDS ORDERED: PANTOPRAZOLE SODIUM 40 MG VIAL IV ONE (21:15)
[2018-03-17] MEDS ORDERED: HYDROMORPHONE 1 MG/1 ML DISP.SYRIN IV ONE (21:15)
[2018-03-17] MEDS ORDERED: IV NORMAL SALINE 500 ML BAG IV ONE (21:15)
--- NOTE | 2018-03-17 21:25 | NUR ---
PT A/OX4, SELF-AMBULATED INTO THE ED C/O ABD PAIN. PT HAS HX OF ASCITES AND PRESENTS W/ DISTENDED ABD. VSS. ABD PAIN 10/10, SHARP IN QUALITY AND CONSTANT. ABD SOUNDS ACTIVE UPON AUSCULTATION. PT STATES HE HAS VOMITED TODAY. PT DENIES C/P, SOB, DIZZINESS, HEADACHE. ER MD AT BEDSIDE FOR MSE.
[2018-03-17] MEDS ORDERED: PANTOPRAZOLE SODIUM 40 MG VIAL ONE (21:30)
[2018-03-17] MEDS ORDERED: ONDANSETRON 4 MG/2 ML VIAL ONE (21:30)
[2018-03-17] MEDS ORDERED: HYDROMORPHONE 1 MG/1 ML DISP.SYRIN ONE (21:30)
--- NOTE | 2018-03-17 21:40 | NUR ---
PILLOW FILLER AT BEDSIDE.
[2018-03-17 21:41] LABS: BASOPHILS % (AUTO) 0.7 % (0.0-2.0); EOSINOPHILS # (AUTO) 0.1 K/uL (0.0-0.7); EOSINOPHILS % (AUTO) 2.6 % (0.0-7.0); HEMATOCRIT 27.9 % (36.7-47.1); LYMPHOCYTES # (AUTO) 1.2 K/uL (20.0-40.0); LYMPHOCYTES % (AUTO) 21.1 % (20.5-51.5); MEAN CORPUSCULAR HEMOGLOBIN 21.3 uug (23.8-33.4); MEAN CORPUSCULAR HGB CONC 32 g/dL (32.5-36.3); MEAN CORPUSCULAR VOLUME 66.4 fL (73.0-96.2); MONOCYTES # (AUTO) 1.3 K/uL (2.0-10.0); MONOCYTES % (AUTO) 21.9 % (0.0-11.0); NEUTROPHILS # (AUTO) 3.1 K/uL (1.8-8.9); NEUTROPHILS % (AUTO) 53.7 % (38.5-71.5); PLATELET COUNT (AUTO) 124 K/uL (152-348); WHITE BLOOD COUNT (AUTO) 5.7 K/uL (3.6-10.2)
--- NOTE | 2018-03-17 21:41 | NUR ---
Pt provided urine sample, sent to lab.
--- NOTE | 2018-03-17 21:44 | NUR ---
PT TAKEN TO RADIOLOGY FOR CT SCAN.
[2018-03-17 21:45] LABS: *BILIRUBIN,URIN NEGATIVE (NEGATIVE); *BLOOD, URINE NEGATIVE (NEGATIVE); *CLARITY,URINE CLEAR (CLEAR); *COLOR,URINE YELLOW (YELLOW); *KETONES,URINE NEGATIVE (NEGATIVE); *PROTEIN,URINE NEGATIVE (NEGATIVE); *UROBILINOGEN,URINE 0.2 E.U./dl (NORMAL); LEUKOCYTE ESTERASE ,URINE NEGATIVE (NEGATIVE); NITRITE, URINE NEGATIVE (NEGATIVE); UGLUCOSE NEGATIVE (NEGATIVE)
[2018-03-17 21:46] LABS: CARBON DIOXIDE 22 mmol/L (21-32); CHLORIDE 101 mmol/L (98-107); CREATININE 0.6 mg/dL (0.6-1.3); GLUCOSE 86 mg/dL (74-106); POTASSIUM 2.9 mmol/L (3.5-5.1); UREA NITROGEN, BLOOD 4 mg/dL (7-18)
[2018-03-17 21:49] LABS: ALANINE AMINOTRANSFERASE 36 U/L (16-63); ALKALINE PHOSPHATASE 313 U/L (50-136); ASPARTATE AMINOTRANSFERASE 61 U/L (15-37); BILIRUBIN,DIRECT 1.1 mg/dL (0.0-0.2); BILIRUBIN,TOTAL 2.1 mg/dL (0.2-1.0); LIPASE 279 U/L (73-393); TOTAL PROTEIN, SERUM 7.1 g/dL (6.4-8.2)
--- NOTE | 2018-03-17 22:06 | NUR ---
PT BACK IN ED FROM RADIOLOGY.
[2018-03-17 22:11] LABS: SQUAMOUS EPITHELIAL CELL,UR FEW /HPF (NONE SEEN); WBC,URINE NONE SEEN /HPF (0-3)
[2018-03-17] MEDS ORDERED: POTASSIUM CHLORIDE 20 MEQ TAB.PRT.SR PO ONE (22:15)
[2018-03-17] MEDS ORDERED: POTASSIUM CHLORIDE 20 MEQ TAB.PRT.SR ONE (22:16)
[2018-03-17 22:23] LABS: EOSINOPHILS % (MANUAL) 3 % (0-8); LYMPHOCYTES % (MANUAL) 17 % (20-40); MONOCYTES % (MANUAL) 21 % (2-10); NEUTROPHILS % (MANUAL) 59 % (42-75)
--- NOTE | 2018-03-17 22:53 | NUR ---
ER SPOKE W/ JOSE ALEJANDRO JACOBO, KOFI, RE PT'S ADMISSION TO TELE.
--- NOTE | 2018-03-17 23:10 | NUR ---
PT WILL BE ADMITTED TO TELE 223 UNDER JOSE ALEJANDRO JACOBO DNP.
--- NOTE | 2018-03-17 23:10 | NUR ---
GAVE ADMITTING REPORT TO BHAVYA.
--- NOTE | 2018-03-17 23:30 | NUR ---
Patient admitted in Telemetry Unit under the care of Ronald Curtis PLASTER MIXER . Belonging list done . Charge Nurse confiscated contra band and place it a locker . Patient alert oriented . Complaining of pain will medicate patient as ordered. Ronald Curtis was notified .
[2018-03-17 23:56] VITALS: BP 110/61
[2018-03-18] MEDS ORDERED: ACETAMINOPHEN 325 MG TABLET PO PRN (00:30)
[2018-03-18] MEDS ORDERED: Z GUARD REMEDY PASTE 57 GM TUBE TOP PRN (00:30)
[2018-03-18] MEDS ORDERED: ONDANSETRON 4 MG/2 ML VIAL IV PRN (00:30)
[2018-03-18] MEDS ORDERED: POTASSIUM CHLORIDE 40 MEQ in IV D5/ 0.9% NACL 1,000 ML IV PRN (00:30)
[2018-03-18] MEDS ORDERED: ZOLPIDEM 5 MG TABLET PO PRN (00:30)
[2018-03-18] MEDS ORDERED: THIAMINE HCL INJ 100 MG in IV DEXTROSE 5% 50 ML IV SCH (00:30)
[2018-03-18] MEDS ORDERED: THIAMINE HCL 200 MG/2 ML VIAL ONE (01:15)
[2018-03-18] MEDS: MORPHINE SULFATE 4 MG/1 ML DISP.SYRIN IV PRN ×5 (01:19→23:09)
[2018-03-18] MEDS ORDERED: POTASSIUM CHLORIDE 10 MEQ TAB.PRT.SR PO SCH (02:00)
--- NOTE | 2018-03-18 02:00 | NUR ---
PATIENT REFUSED IV WITH POTASSIUM ON IT, STATED THAT IT WILL HURT HIS IV SITE AND ARMS, NOTIFY DR. DE LA VEGA WITH ORDER TO CHANGE IV WITH NO POTASSIUM ON IT, AND TO GIVE KDUR 40 MEQ, TIMES TWO DOSES ONLY.
[2018-03-18] MEDS: PANTOPRAZOLE SODIUM 40 MG VIAL IV SCH ×3 (02:19→21:30)
[2018-03-18] MEDS: POTASSIUM CHLORIDE 20 MEQ TAB.PRT.SR PO SCH ×2 (02:36→06:01)
[2018-03-18] MEDS: IV D5/ 0.9% NACL 1,000 ML IV PRN ×2 (02:38→23:10)
[2018-03-18 04:00] VITALS: BP 98/57
[2018-03-18 06:37] LABS: BASOPHILS % (AUTO) 0.9 % (0.0-2.0); EOSINOPHILS # (AUTO) 0.1 K/uL (0.0-0.7); EOSINOPHILS % (AUTO) 3.2 % (0.0-7.0); LYMPHOCYTES # (AUTO) 0.9 K/uL (20.0-40.0); LYMPHOCYTES % (AUTO) 27.1 % (20.5-51.5); MEAN CORPUSCULAR HEMOGLOBIN 21.6 uug (23.8-33.4); MEAN CORPUSCULAR HGB CONC 32 g/dL (32.5-36.3); MEAN CORPUSCULAR VOLUME 67.5 fL (73.0-96.2); MONOCYTES # (AUTO) 0.8 K/uL (2.0-10.0); MONOCYTES % (AUTO) 23.8 % (0.0-11.0); NEUTROPHILS # (AUTO) 1.5 K/uL (1.8-8.9); PLATELET COUNT (AUTO) 93 K/uL (152-348); RED BLOOD CELL COUNT(AUTO) 3.36 MIL/uL (4.06-5.63)
[2018-03-18 06:48] LABS: CARBON DIOXIDE 23 mmol/L (21-32); CHLORIDE 105 mmol/L (98-107); CREATININE 0.5 mg/dL (0.6-1.3); GLUCOSE 89 mg/dL (74-106); MAGNESIUM 1.8 mg/dL (1.8-2.4); PHOSPHOROUS 3.5 mg/dL (2.5-4.9); POTASSIUM 3.6 mmol/L (3.5-5.1); UREA NITROGEN, BLOOD 3 mg/dL (7-18)
[2018-03-18 07:45] LABS: WHITE BLOOD COUNT (AUTO) 3.4 K/uL (3.6-10.2)
[2018-03-18 07:46] LABS: HEMOGLOBIN 7.3 g/dL (12.5-16.3)
[2018-03-18 07:47] LABS: HEMATOCRIT 22.7 % (36.7-47.1)
[2018-03-18] MEDS: THIAMINE HCL 100 MG TABLET PO SCH (09:41)
[2018-03-18] MEDS: FOLIC ACID 1 MG TABLET PO SCH (09:41)
[2018-03-18] MEDS: FUROSEMIDE 40 MG TABLET PO SCH ×2 (09:41→16:48)
[2018-03-18] MEDS: SPIRONOLACTONE 100 MG TABLET PO SCH (09:41)
[2018-03-18] MEDS: MULTIVITAMINS,THERAPEUTIC TABLET PO SCH (09:41)
[2018-03-18 10:11] LABS: BASOPHILS % (MANUAL) 1 % (0-2); EOSINOPHILS % (MANUAL) 3 % (0-8); LYMPHOCYTES % (MANUAL) 31 % (20-40); METAMYELOCYTES % 1 % (0-1); MONOCYTES % (MANUAL) 19 % (2-10); NEUTROPHILS % (MANUAL) 45 % (42-75)
[2018-03-18 11:29] VITALS: BP 113/66
[2018-03-18 16:14] VITALS: BP 97/47
--- NOTE | 2018-03-18 20:36 | NUR ---
RECEIVED PATIENT ALERT ORIENTED, SLIGHTLY AGITATED, ATTEND ALL NEEDS, KEPT COMFORTABLE. PATIENT REQUEST EXTRA WATER, TEACH PATIENT TO SLOW DOWN ON FLUIDS, BUT PATIENT DO WANT HE WANTS. CONT ON PAIN MANAGEMENT. CONT TO MONITOR.
[2018-03-18 20:52] VITALS: BP 120/62
--- NOTE | 2018-03-18 21:00 | NUR ---
PATIENT REFUSING IV FLUIDS, EXPLAINED THE RISK AND BENEFITS OF NON COMPLIANCE WITH CARE. PATIENT PERIPHERAL IV PATENT NO REDNESS, NO S/S OF INFILTRATION NOTED, PATIENT IV FLUIDS ON HOLD, PATIENT DRINKS ENOUGH PO FLUIDS, WILL CONT TO ENCOURAGE.
--- NOTE | 2018-03-19 | NUR ---
PATIENT CONTINUE TO REFUSED IV FLUIDS, PATIENT ALERT ORIENTED, RESPECT PATIENT WISHES.
[2018-03-19 06:25] LABS: BASOPHILS % (AUTO) 0.5 % (0.0-2.0); EOSINOPHILS # (AUTO) 0.1 K/uL (0.0-0.7); HEMATOCRIT 22.8 % (36.7-47.1); LYMPHOCYTES # (AUTO) 0.5 K/uL (20.0-40.0); LYMPHOCYTES % (AUTO) 13.4 % (20.5-51.5); MEAN CORPUSCULAR HEMOGLOBIN 21.2 uug (23.8-33.4); MEAN CORPUSCULAR HGB CONC 32 g/dL (32.5-36.3); MEAN CORPUSCULAR VOLUME 66.6 fL (73.0-96.2); MONOCYTES # (AUTO) 0.9 K/uL (2.0-10.0); MONOCYTES % (AUTO) 26.3 % (0.0-11.0); NEUTROPHILS % (AUTO) 57.8 % (38.5-71.5); PLATELET COUNT (AUTO) 69 K/uL (152-348); RED BLOOD CELL COUNT(AUTO) 3.43 MIL/uL (4.06-5.63); WHITE BLOOD COUNT (AUTO) 3.5 K/uL (3.6-10.2)
[2018-03-19 06:36] LABS: CARBON DIOXIDE 28 mmol/L (21-32); CHLORIDE 98 mmol/L (98-107); CREATININE 0.5 mg/dL (0.6-1.3); GLUCOSE 104 mg/dL (74-106); MAGNESIUM 1.6 mg/dL (1.8-2.4); PHOSPHOROUS 3.1 mg/dL (2.5-4.9); POTASSIUM 3.1 mmol/L (3.5-5.1); UREA NITROGEN, BLOOD 4 mg/dL (7-18)
--- NOTE | 2018-03-19 06:39 | NUR ---
PATIENT ASLEPT BUT EASITLY AWAKEN, NO COMPLAIN OF PAIN AT THIS TIME. PATIENT DRINK AND ATE FOOD ALL NIGHTS, CONT TO REFUSED IV FLUIDS, PATIENT COMPLAIN OF ITCHING OF THE BACK, WILL OFFER SHOWER AND THEN APPLY LOTION TO SKIN MAY DUE TO DRYNESS. CONT TO MONITOR.
[2018-03-19 06:43] VITALS: BP 110/68
[2018-03-19 06:46] LABS: HEMOGLOBIN 7.3 g/dL (12.5-16.3)
[2018-03-19] MEDS: FUROSEMIDE 40 MG TABLET PO SCH ×2 (08:07→17:19)
[2018-03-19] MEDS: THIAMINE HCL 100 MG TABLET PO SCH (08:07)
[2018-03-19] MEDS: PANTOPRAZOLE SODIUM 40 MG VIAL IV SCH ×2 (08:07→20:40)
[2018-03-19] MEDS: FOLIC ACID 1 MG TABLET PO SCH (08:07)
[2018-03-19] MEDS: MULTIVITAMINS,THERAPEUTIC TABLET PO SCH (08:07)
[2018-03-19] MEDS: SPIRONOLACTONE 100 MG TABLET PO SCH (08:08)
[2018-03-19] MEDS: MORPHINE SULFATE 4 MG/1 ML DISP.SYRIN IV PRN ×3 (08:16→20:44)
--- NOTE | 2018-03-19 08:30 | NUR ---
Pt IV site leaking. Removed IV, kept FA clean and dry. New site on right FA 22g, intact and patent with no s/s of redness or swelling. Pt has no complaints of pain. Will continue to monitor. Addendum: 03/19/18 at 2158 by CLARK JOSÉ RN WRONG TIME, - NOTE DOCUMENTED FOR 2030
[2018-03-19 08:58] LABS: LYMPHOCYTES % (MANUAL) 12 % (20-40); MONOCYTES % (MANUAL) 23 % (2-10); NEUTROPHILS % (MANUAL) 65 % (42-75)
[2018-03-19] MEDS ORDERED: diphenhydrAMINE 50 MG/1 ML VIAL IV PRN (11:45)
[2018-03-19 11:57] VITALS: BP 91/53
[2018-03-19] MEDS ORDERED: POTASSIUM CHLORIDE 20 MEQ TAB.PRT.SR PO ONE (12:30)
[2018-03-19] MEDS ORDERED: MAGNESIUM OXIDE 400 MG TABLET PO ONE (12:30)
[2018-03-19 15:52] VITALS: BP 90/46
--- NOTE | 2018-03-19 19:45 | NUR ---
Pt awake, sitting up in bed. Alert and oriented x4. Discussed and reviewed plan of care with pt, pt cooperative with care. Pt states pain level of 9/10 on pain scale. Pt shows no s/s of acute distress. IV intact. Safety precautions and comfort measures implemented. Call light within reach. Will continue to monitor.
[2018-03-19 20:15] VITALS: BP 94/54
[2018-03-19 20:45] VITALS: BP 107/66
[2018-03-19] MEDS ORDERED: diphenhydrAMINE 50 MG CAPSULE PO PRN (20:45)
[2018-03-19] MEDS ORDERED: FLUOCINONIDE 0.05% CREAM 30 GM TUBE TP PRN (20:45)
[2018-03-20 05:16] VITALS: BP 99/45
--- NOTE | 2018-03-20 06:35 | NUR ---
No significant changes t/o shift. Pain med given x1 with effect. Pt states pain level of 4/10 on pain scale but can tolerate. Denies SOB, n/v, or severe headache. No acute distress noted. Safety precautions and comfort measures maintained at all times. All needs met during shift. Call light within reach.
[2018-03-20 06:50] LABS: BASOPHILS % (AUTO) 0.7 % (0.0-2.0); EOSINOPHILS # (AUTO) 0.1 K/uL (0.0-0.7); EOSINOPHILS % (AUTO) 1.7 % (0.0-7.0); HEMATOCRIT 24.6 % (36.7-47.1); HEMOGLOBIN 7.9 g/dL (12.5-16.3); LYMPHOCYTES # (AUTO) 0.7 K/uL (20.0-40.0); LYMPHOCYTES % (AUTO) 16.2 % (20.5-51.5); MEAN CORPUSCULAR HEMOGLOBIN 21.7 uug (23.8-33.4); MEAN CORPUSCULAR HGB CONC 32 g/dL (32.5-36.3); MEAN CORPUSCULAR VOLUME 67.4 fL (73.0-96.2); MONOCYTES # (AUTO) 1.2 K/uL (2.0-10.0); NEUTROPHILS # (AUTO) 2.2 K/uL (1.8-8.9); NEUTROPHILS % (AUTO) 53.4 % (38.5-71.5); PLATELET COUNT (AUTO) 82 K/uL (152-348); RED BLOOD CELL COUNT(AUTO) 3.65 MIL/uL (4.06-5.63); WHITE BLOOD COUNT (AUTO) 4.1 K/uL (3.6-10.2)
[2018-03-20 07:11] LABS: ALANINE AMINOTRANSFERASE 23 U/L (16-63); ALKALINE PHOSPHATASE 231 U/L (50-136); ASPARTATE AMINOTRANSFERASE 41 U/L (15-37); BILIRUBIN,TOTAL 1.7 mg/dL (0.2-1.0); CARBON DIOXIDE 26 mmol/L (21-32); CHLORIDE 100 mmol/L (98-107); CREATININE 0.6 mg/dL (0.6-1.3); GLUCOSE 95 mg/dL (74-106); LIPASE 158 U/L (73-393); MAGNESIUM 1.9 mg/dL (1.8-2.4); POTASSIUM 3.4 mmol/L (3.5-5.1); TOTAL PROTEIN, SERUM 5.8 g/dL (6.4-8.2); UREA NITROGEN, BLOOD 7 mg/dL (7-18)
--- NOTE | 2018-03-20 07:20 | NUR ---
RECEIVED PATIENT RESTING IN BED , NO S/S ACUTE DISTRESS NOTED AT THIS TIME. CONTINUE CARE.
[2018-03-20] MEDS: SPIRONOLACTONE 100 MG TABLET PO SCH (08:47)
[2018-03-20] MEDS: THIAMINE HCL 100 MG TABLET PO SCH (08:47)
[2018-03-20] MEDS: MULTIVITAMINS,THERAPEUTIC TABLET PO SCH (08:47)
[2018-03-20] MEDS: FOLIC ACID 1 MG TABLET PO SCH (08:47)
[2018-03-20] MEDS: FUROSEMIDE 40 MG TABLET PO SCH (08:47)
[2018-03-20] MEDS: PANTOPRAZOLE SODIUM 40 MG VIAL IV SCH (08:47)
[2018-03-20 11:28] VITALS: BP 100/60
[2018-03-20] MEDS ORDERED: POTASSIUM CHLORIDE 20 MEQ TAB.PRT.SR PO ONE (12:15)
[2018-03-20 12:23] LABS: BAND % (MANUAL) 2 % (0-10); EOSINOPHILS % (MANUAL) 1 % (0-8); LYMPHOCYTES % (MANUAL) 15 % (20-40); MONOCYTES % (MANUAL) 26 % (2-10); NEUTROPHILS % (MANUAL) 56 % (42-75)
--- NOTE | 2018-03-20 13:00 | NUR ---
PATIENT IS DISCHARGE TO HOME, ON STABLE CONDITION, AMBULATORY , SELF CARE. ABLE TO MAKE NEEDS KNOWN, NO S/S ACUTE DISTRESS NOTED. DISCHARGE INSTRUCTIONS PROVIDED AND VERBALIZED UNDERSTANDING. IV REMOVED. BELONGINGS ACCOUNTED FOR AND QUESTIONS AND CONCERNS ADDRESSED.
[2018-03-20] MEDS ORDERED: SPIR100T PO (20:06)
[2018-03-20] MEDS ORDERED: MULT-24 PO (20:06)
[2018-03-20] MEDS ORDERED: THIA100T13 PO (20:06)
[2018-03-20] MEDS ORDERED: FOLI1TAB16 PO (20:06)
[2018-03-20] MEDS ORDERED: FURO40TA5 PO (20:06)
== END 2018-03-20 13:10 | disposition home or self-care (01) | DRG 280 ==
LOC: ER 20:37 → TELE 23:15 → MED 03-18 16:20
PROVIDERS: ADMIT Nurse Practitioner Acute Care; ATTEND Nurse Practitioner Acute Care
PROC: 0W9G3ZZ Drainage of Peritoneal Cavity, Percutaneous Approach (ICD-10-PCS; principal; 2018-03-17)
DX: K70.31 Alcoholic cirrhosis of liver with ascites (principal); I85.11 Secondary esophageal varices with bleeding; D68.4 Acquired coagulation factor deficiency; D69.59 Other secondary thrombocytopenia; D69.6 Thrombocytopenia, unspecified; E87.1 Hypo-osmolality and hyponatremia; E87.2 Acidosis; G62.1 Alcoholic polyneuropathy; E87.6 Hypokalemia; Z59.0 Homelessness; F10.10 Alcohol abuse, uncomplicated; Y90.9 Presence of alcohol in blood, level not specified; F17.210 Nicotine dependence, cigarettes, uncomplicated; D63.8 Anemia in other chronic diseases classified elsewhere; K76.1 Chronic passive congestion of liver; L29.9 Pruritus, unspecified
CPT/HCPCS: 36415; 70030-TC; 71045; 83605; 83690; 83735; 84100; 85025; 85730; 87040; 87086; 93005; A4663; C9113; G0378; J1170; J1200; J2270; J2405; J3411; J3480; J7040; J7042; J7060

== ENCOUNTER 2018-05-06 18:09 | Emergency (ER) | payer MEDICAID ==
[~2018-05-06] VITALS: Ht 182.9 cm; Wt 77.1 kg
[~2018-05-06 18:09] MED LIST changes: -DOCU100C36 PO; -FERR325T28 PO; +FOLI1TAB16 PO; -HYDR-3326 PO; +MULT-24 PO; +SPIR100T PO; -SPIR50TA PO; +THIA100T13 PO
--- NOTE | 2018-05-06 18:31 | NUR ---
pending MD evaluation, urinal offered per patient's request.
--- NOTE | 2018-05-06 18:39 | NUR ---
Dr Roberts is now at bedside.
[2018-05-06 19:10] LABS: BASOPHILS # (AUTO) 0.1 K/uL (0.0-8.0); BASOPHILS % (AUTO) 1.6 % (0.0-2.0); EOSINOPHILS # (AUTO) 0.1 K/uL (0.0-0.7); EOSINOPHILS % (AUTO) 1.9 % (0.0-7.0); HEMATOCRIT 31.6 % (36.7-47.1); MEAN CORPUSCULAR HEMOGLOBIN 21.5 uug (23.8-33.4); MEAN CORPUSCULAR HGB CONC 32 g/dL (32.5-36.3); MEAN CORPUSCULAR VOLUME 68.4 fL (73.0-96.2); MONOCYTES # (AUTO) 1.1 K/uL (2.0-10.0); MONOCYTES % (AUTO) 16.4 % (0.0-11.0); NEUTROPHILS # (AUTO) 3.5 K/uL (1.8-8.9); NEUTROPHILS % (AUTO) 51.1 % (38.5-71.5); PLATELET COUNT (AUTO) 170 K/uL (152-348); RED BLOOD CELL COUNT(AUTO) 4.62 MIL/uL (4.06-5.63); WHITE BLOOD COUNT (AUTO) 6.9 K/uL (3.6-10.2)
[2018-05-06 19:14] LABS: CARBON DIOXIDE 26 mmol/L (21-32); CHLORIDE 105 mmol/L (98-107); CREATININE 0.5 mg/dL (0.6-1.3); GLUCOSE 84 mg/dL (74-106); POTASSIUM 3.1 mmol/L (3.5-5.1); UREA NITROGEN, BLOOD 3 mg/dL (7-18)
--- NOTE | 2018-05-06 19:14 | NUR ---
SBAR to nurse Tiffanie
[2018-05-06 19:20] LABS: ALANINE AMINOTRANSFERASE 27 U/L (16-63); ALKALINE PHOSPHATASE 221 U/L (50-136); ASPARTATE AMINOTRANSFERASE 54 U/L (15-37); BILIRUBIN,DIRECT 0.8 mg/dL (0.0-0.2); BILIRUBIN,TOTAL 1.4 mg/dL (0.2-1.0); LIPASE 70 U/L (73-393); TOTAL PROTEIN, SERUM 6.1 g/dL (6.4-8.2)
[2018-05-06 19:31] LABS: *BILIRUBIN,URIN NEGATIVE (NEGATIVE); *BLOOD, URINE NEGATIVE (NEGATIVE); *CLARITY,URINE CLEAR (CLEAR); *COLOR,URINE YELLOW (YELLOW); *KETONES,URINE NEGATIVE (NEGATIVE); *UROBILINOGEN,URINE 0.2 E.U./dl (NORMAL); LEUKOCYTE ESTERASE ,URINE NEGATIVE (NEGATIVE); NITRITE, URINE NEGATIVE (NEGATIVE); PH,URINE 6.5 (5.0-8.0); UGLUCOSE NEGATIVE (NEGATIVE)
[2018-05-06 19:58] LABS: BAND % (MANUAL) 5 % (0-10); EOSINOPHILS % (MANUAL) 4 % (0-8); LYMPHOCYTES % (MANUAL) 20 % (20-40); MONOCYTES % (MANUAL) 15 % (2-10); NEUTROPHILS % (MANUAL) 56 % (42-75)
[2018-05-06] MEDS ORDERED: POTASSIUM CHLORIDE 20 MEQ TAB.PRT.SR PO ONE ×2 (20:30)
[2018-05-06] MEDS ORDERED: POTASSIUM CHLORIDE 20 MEQ TAB.PRT.SR ONE (20:36)
--- NOTE | 2018-05-06 21:02 | NUR ---
Patient given written and verbal discharge instructions. Patient verbalizes understanding of instructions. Patient is ambulatory with steady gait. Refuses offer of [facility] placement. Patient given list of available shelters in surrounding area. Patient provided with taxi voucher for desired destination. Homeless waiver form signed.
[2018-05-06 21:06] VITALS: BP 110/74
== END 2018-05-06 21:07 | disposition home or self-care (01) ==
LOC: ER 18:09
DX: G89.29 Other chronic pain (principal); R10.9 Unspecified abdominal pain; E87.6 Hypokalemia; D64.9 Anemia, unspecified; Z91.018 Allergy to other foods; Z91.010 Allergy to peanuts; Z59.0 Homelessness; Z79.899 Other long term (current) drug therapy
CPT/HCPCS: 36415; 83690; 85025; A4663

== ENCOUNTER 2018-07-15 17:47 | Inpatient (IN) | payer MEDICAID, OTHER ==
[~2018-07-15] VITALS: Ht 182.9 cm; Wt 89.4 kg
--- NOTE | 2018-07-15 18:05 | NUR ---
Dr Kimball is at bedside evaluating the patient, pending orders
[2018-07-15 18:20] LABS: BASOPHILS # (AUTO) 0.1 K/uL (0.0-8.0); BASOPHILS % (AUTO) 0.8 % (0.0-2.0); EOSINOPHILS # (AUTO) 0.1 K/uL (0.0-0.7); HEMATOCRIT 25.1 % (36.7-47.1); HEMOGLOBIN 8.2 g/dL (12.5-16.3); LYMPHOCYTES # (AUTO) 1.2 K/uL (20.0-40.0); LYMPHOCYTES % (AUTO) 18.1 % (20.5-51.5); MEAN CORPUSCULAR HEMOGLOBIN 23.9 uug (23.8-33.4); MEAN CORPUSCULAR HGB CONC 33 g/dL (32.5-36.3); MEAN CORPUSCULAR VOLUME 73.5 fL (73.0-96.2); MONOCYTES # (AUTO) 1.7 K/uL (2.0-10.0); MONOCYTES % (AUTO) 24.6 % (0.0-11.0); NEUTROPHILS # (AUTO) 3.8 K/uL (1.8-8.9); NEUTROPHILS % (AUTO) 55.5 % (38.5-71.5); PLATELET COUNT (AUTO) 103 K/uL (152-348); RED BLOOD CELL COUNT(AUTO) 3.41 MIL/uL (4.06-5.63); WHITE BLOOD COUNT (AUTO) 6.8 K/uL (3.6-10.2)
--- NOTE | 2018-07-15 18:21 | NUR ---
Patient is resting comfortably on gurney with eyes closed, extra warm blankets on ,for results and disposition
[2018-07-15 18:28] LABS: CARBON DIOXIDE 24 mmol/L (21-32); CHLORIDE 97 mmol/L (98-107); CREATININE 0.6 mg/dL (0.6-1.3); GLUCOSE 106 mg/dL (74-106); POTASSIUM 3.5 mmol/L (3.5-5.1); UREA NITROGEN, BLOOD 4 mg/dL (7-18)
--- NOTE | 2018-07-15 18:31 | NUR ---
Patient wants something for his chronic pains, notified.
[2018-07-15 18:33] LABS: ALANINE AMINOTRANSFERASE 30 U/L (16-63); ALKALINE PHOSPHATASE 389 U/L (50-136); ASPARTATE AMINOTRANSFERASE 80 U/L (15-37); BILIRUBIN,TOTAL 1.8 mg/dL (0.2-1.0); LIPASE 236 U/L (73-393); TOTAL PROTEIN, SERUM 5.6 g/dL (6.4-8.2)
--- NOTE | 2018-07-15 18:44 | NUR ---
Dr Rosales is now at bedside evaluating the patient.
[2018-07-15 18:55] LABS: BAND % (MANUAL) 3 % (0-10); LYMPHOCYTES % (MANUAL) 15 % (20-40); MONOCYTES % (MANUAL) 23 % (2-10); NEUTROPHILS % (MANUAL) 59 % (42-75)
--- NOTE | 2018-07-15 19:09 | NUR ---
Received report from richard RN, assumed care of pt., pt. in bed, bed in low position, NAD
--- NOTE | 2018-07-15 20:15 | NUR ---
Pt. up to use restroom, ambulated w/ steady gait
--- NOTE | 2018-07-15 21:40 | NUR ---
Pt. resting in bed, bed in low position, NAD
--- NOTE | 2018-07-15 22:24 | NUR ---
at bedside for paracentesis procedure,
[2018-07-15] MEDS ORDERED: LIDOCAINE HCL 1% 20 ML VIAL ONE (22:30)
[2018-07-15] MEDS ORDERED: IV NORMAL SALINE 1000 ML BAG IV ONE (22:45)
--- NOTE | 2018-07-15 22:56 | NUR ---
Pt. taken off unit for CT
--- NOTE | 2018-07-15 23:18 | NUR ---
Pt. back from CT,
--- NOTE | 2018-07-15 23:47 | NUR ---
[facility] called, awaiting callback from Dr. Borja
--- NOTE | 2018-07-15 23:47 | NUR ---
Pt. resting in bed, IV infusing/patent- no s/s infiltration/phlebitis,
--- NOTE | 2018-07-15 23:57 | NUR ---
KADEN speaking with Jose M Martines (SURGERY).
[2018-07-16] VITALS (12 sets, daily range): BP systolic 95–159; BP diastolic 53–77
--- NOTE | 2018-07-16 00:17 | NUR ---
Called security to collect pt. contraband - marijuana pipe and full beer cans found in pt. bag, requested pt. to be wanded,
--- NOTE | 2018-07-16 00:30 | NUR ---
Security at bedside, pt. wanded, paraphenalia/contraband collected and taken w/ security,
[2018-07-16] MEDS ORDERED: SWABABLE VALVE TRANSFER SET EA MC ONE (00:34)
[2018-07-16] MEDS ORDERED: IV NORMAL SALINE 250 ML IV ONE (00:34)
[2018-07-16] MEDS ORDERED: NORMAL SALINE FLUSH 10 ML DISP.SYRIN ONE (00:34)
[2018-07-16] MEDS ORDERED: IOHEXOL 350 100 ML INFUS..BTL ONE (00:34)
--- NOTE | 2018-07-16 00:39 | NUR ---
Gave report to Erika, pt. to go into [phone] tele.,
--- NOTE | 2018-07-16 00:46 | NUR ---
Pt. taken off unit via stretcher by [employer]. for CTA
--- NOTE | 2018-07-16 01:07 | NUR ---
Pt. back from CT,
--- NOTE | 2018-07-16 01:33 | NUR ---
Pt. taken off unit for transfer to tele. via stretcher by CARLINE Lomeli
--- NOTE | 2018-07-16 01:34 | NUR ---
IV fluids infusing and to be continued upstairs, no s/s infiltration/phlebitis,
--- NOTE | 2018-07-16 02:00 | NUR ---
PATIENT BROUGHT IN FROM ER VIA GOURNEY. PATEINT ALERT AND AWAKE . C/O PAIN LOWER ABD. ABDOMEN DISTENDED AND FIRM TO TOUCH . PATIENT UNCLEAN WITH FOUL ODOR. DECLINED SHOWER. PROVIDED COMPLETE BED BATH . SINUS RHYTHM ON THE MONITOR. WILL . SKIN ASSESSMENT DONE. PICTURES TAKEN. WILL CONTINUE TO MONITOR
[2018-07-16] MEDS ORDERED: IV NS 1000 ML 1,000 ML IV PRN (02:08)
[2018-07-16] MEDS ORDERED: ACETAMINOPHEN 325 MG TABLET PO PRN (02:15)
[2018-07-16] MEDS ORDERED: ONDANSETRON 4 MG/2 ML VIAL IV PRN (02:15)
[2018-07-16] MEDS ORDERED: Z GUARD REMEDY PASTE 57 GM TUBE TOP PRN (02:15)
[2018-07-16] MEDS: HYDROCODONE/APAP 10-325 MG TABLET PO PRN ×4 (02:49→23:14)
[2018-07-16 02:55] LABS: HEMATOCRIT 22.3 % (36.7-47.1)
[2018-07-16 03:01] LABS: HEMOGLOBIN 7.2 g/dL (12.5-16.3)
--- NOTE | 2018-07-16 03:15 | NUR ---
Recieved critical lab value h/h 7.2/22.3 notified with new orders
--- NOTE | 2018-07-16 06:35 | NUR ---
PATIENT AWAKE ON AND OFF . BLODD IS TRANSFUSING ORDERED WITH OUT ANY A/R.CONTINUE MONITORING V/S . ABDOMEN STILL DISTENDED. SAFETY PRECAUTIONS OBSERVED.
--- NOTE | 2018-07-16 08:00 | NUR ---
RECEIVED PATIENT AWAKE ALERT AND ORIENTED WITH BLOOD TRANSFUSSION IN PROGRESS ORDERED TO HIS LEFT ANTECUBITAL WITH NO S/S OF ADVERSE OR ALLERGIC REACTIONS AT THIS TIME ABDOMEN VERY LARGE AND DISTENDED NO C/O PAIN OR DISCOMFORTS AT THIS TIME WILL CONTINUE TO OBSERVE.
--- NOTE | 2018-07-16 09:00 | NUR ---
SECOND UNIT OD PRBC STARTED ORDERED TOLERATING WELL WITH NO ADVERSE OR ALLERGIC REACTIONS AT THIS TIME.
--- NOTE | 2018-07-16 12:00 | NUR ---
SECOND UNIT OF PRBC COMPLETED ORDERED WITH NO ADVERSE OR ALLERGIC REACTIONS AT THIS TIME LINE FLUSHED PER PROTOCOL MADE COMFORTABLE AND WILL CONTINUE TO OBSERVE.
[2018-07-16 13:23] LABS: BASOPHILS % (AUTO) 0.6 % (0.0-2.0); EOSINOPHILS % (AUTO) 0.6 % (0.0-7.0); HEMATOCRIT 25.6 % (36.7-47.1); HEMOGLOBIN 8.7 g/dL (12.5-16.3); LYMPHOCYTES # (AUTO) 0.8 K/uL (20.0-40.0); LYMPHOCYTES % (AUTO) 12.6 % (20.5-51.5); MEAN CORPUSCULAR HEMOGLOBIN 25.6 uug (23.8-33.4); MEAN CORPUSCULAR HGB CONC 34 g/dL (32.5-36.3); MEAN CORPUSCULAR VOLUME 75.4 fL (73.0-96.2); MONOCYTES # (AUTO) 1.7 K/uL (2.0-10.0); MONOCYTES % (AUTO) 25.3 % (0.0-11.0); NEUTROPHILS # (AUTO) 4.1 K/uL (1.8-8.9); NEUTROPHILS % (AUTO) 60.9 % (38.5-71.5); PLATELET COUNT (AUTO) 68 K/uL (152-348); WHITE BLOOD COUNT (AUTO) 6.7 K/uL (3.6-10.2)
[2018-07-16 13:32] LABS: ALANINE AMINOTRANSFERASE 33 U/L (16-63); ALKALINE PHOSPHATASE 364 U/L (50-136); ASPARTATE AMINOTRANSFERASE 118 U/L (15-37); BILIRUBIN,TOTAL 2.9 mg/dL (0.2-1.0); CARBON DIOXIDE 26 mmol/L (21-32); CHLORIDE 101 mmol/L (98-107); CREATININE 0.5 mg/dL (0.6-1.3); GLUCOSE 78 mg/dL (74-106); MAGNESIUM 1.6 mg/dL (1.8-2.4); PHOSPHOROUS 2.8 mg/dL (2.5-4.9); POTASSIUM 3.9 mmol/L (3.5-5.1); TOTAL PROTEIN, SERUM 5.2 g/dL (6.4-8.2); UREA NITROGEN, BLOOD 4 mg/dL (7-18)
[2018-07-16 13:40] LABS: BAND % (MANUAL) 2 % (0-10); EOSINOPHILS % (MANUAL) 1 % (0-8); LYMPHOCYTES % (MANUAL) 11 % (20-40); METAMYELOCYTES % 1 % (0-1); MONOCYTES % (MANUAL) 22 % (2-10); NEUTROPHILS % (MANUAL) 63 % (42-75)
--- NOTE | 2018-07-16 18:35 | NUR ---
MEDICATED FOR C/O ABDOMINAL PAIN PATIENT IS REFUSING TO EAT STATED NOT HUNGRY BUT DRINKING HIS FLUIDS ORALLY WILL CONTINUE TO OBSERVE.
--- NOTE | 2018-07-16 19:10 | NUR ---
DR KEITH HERE TO SEE PATIENT WITH NEW ORDERS AND NOTED STATED PLANNING FOR ENDOSCOPY AND PARACENTESIS BUT STATED WILL DECIDE AND WILL CALL FOR ORDERS ENDORSED.
[2018-07-16] MEDS ORDERED: PHYTONADIONE 10 MG/1 ML AMPUL SQ ONE (20:00)
[2018-07-16] MEDS ORDERED: GUAIFENESIN/DEXTROMETHORPHAN 5 ML UDC PO PRN (23:30)
[2018-07-16] MEDS: MAGNESIUM SULFATE/D5W 100 ML IV SCH (23:51)
--- NOTE | 2018-07-17 | NUR ---
PATIENT REFUSED ORDERED IV MAGNESIUM WANTS TO TAKE IN PILL OR LIQUID FORM. I EXPLAINED THE RISKS OF NOT RECEIVING MAGNESIUM AND PATIENT STILL REFUSED.
[2018-07-17] MEDS ORDERED: MAGNESIUM SULFATE/D5W 200 ML ONE (00:29)
[2018-07-17] MEDS: MAGNESIUM SULFATE/D5W 100 ML IV SCH ×2 (01:00)
--- NOTE | 2018-07-17 01:00 | NUR ---
PATIENT REFUSED ORDERED IV MAGNESIUM WANTS TO TAKE IN PILL OR LIQUID FORM. I EXPLAINED THE RISKS OF NOT RECEIVING MAGNESIUM AND PATIENT STILL REFUSED.
[2018-07-17 05:19] VITALS: BP 120/71
[2018-07-17 06:29] LABS: BASOPHILS % (AUTO) 0.5 % (0.0-2.0); EOSINOPHILS % (AUTO) 0.3 % (0.0-7.0); HEMATOCRIT 27.3 % (36.7-47.1); LYMPHOCYTES # (AUTO) 0.6 K/uL (20.0-40.0); LYMPHOCYTES % (AUTO) 11.9 % (20.5-51.5); MEAN CORPUSCULAR HEMOGLOBIN 25.3 uug (23.8-33.4); MEAN CORPUSCULAR HGB CONC 33 g/dL (32.5-36.3); MEAN CORPUSCULAR VOLUME 76.3 fL (73.0-96.2); MONOCYTES # (AUTO) 1.1 K/uL (2.0-10.0); MONOCYTES % (AUTO) 22.6 % (0.0-11.0); NEUTROPHILS # (AUTO) 3.3 K/uL (1.8-8.9); NEUTROPHILS % (AUTO) 64.7 % (38.5-71.5); PLATELET COUNT (AUTO) 54 K/uL (152-348); RED BLOOD CELL COUNT(AUTO) 3.58 MIL/uL (4.06-5.63); WHITE BLOOD COUNT (AUTO) 5.1 K/uL (3.6-10.2)
--- NOTE | 2018-07-17 06:54 | NUR ---
PATIENT SLEPT INTERMITTENTLY THROUGHOUT NIGHT. PATIENT REFUSED IV MAGNESIUM 1G X 2 BAG INFUSION, IS REQUESTING TO HAVE ORAL MAGNESIUM EITHER IN PILL OR LIQUID FORM. I OFFERED TO MOVE IV SITES TO ALLEVIATE PREVIOUS EXPERIENCE WITH IV PUMP ALARM, BUT PATIENT IS ADAMANT ABOUT WANTING ORAL MAGNESIUM. COMPLAINTS OF PAIN WERE ADDRESSED WITH PRESCRIBED ANALGESICS. FALL AND SAFETY PRECAUTIONS IN PLACE. CALL LIGHT WITHIN REACH AT ALL TIMES. WILL PROVIDE INFORMATION TO ONCOMING SHIFT.
[2018-07-17 06:55] LABS: CARBON DIOXIDE 24 mmol/L (21-32); CHLORIDE 100 mmol/L (98-107); CHOLESTEROL 96 mg/dL (<200); CREATININE 0.5 mg/dL (0.6-1.3); GLUCOSE 63 mg/dL (74-106); HDL CHOLESTEROL 36 mg/dL (40-60); MAGNESIUM 1.6 mg/dL (1.8-2.4); PHOSPHOROUS 2.5 mg/dL (2.5-4.9); POTASSIUM 3.7 mmol/L (3.5-5.1); TRIGLYCERIDES 75 MG/DL (30-150); UREA NITROGEN, BLOOD 5 mg/dL (7-18)
[2018-07-17 07:26] LABS: LYMPHOCYTES % (MANUAL) 13 % (20-40); MONOCYTES % (MANUAL) 22 % (2-10); NEUTROPHILS % (MANUAL) 65 % (42-75)
[2018-07-17] MEDS: HYDROCODONE/APAP 10-325 MG TABLET PO PRN ×2 (08:37→15:50)
--- NOTE | 2018-07-17 08:37 | NUR ---
AWAKE ALERT AND ORIENTED STATED HAVING PAIN IN ABDOMEN MEDICATED ORDERED ABDOMEN REMAINS DISTENDED REFUSING TO EAT HIS BREAKFAST AT THIS TIME STATED WILL EAT SOON CALL LIGHTS AND PERSONAL BELONGINGS PLACED WITHIN EASY REACH MADE COMFORTABLE AND WILL CONTINUE TO OBSERVE.
[2018-07-17] MEDS ORDERED: PHYTONADIONE 10 MG/1 ML AMPUL SQ ONE (09:00)
--- NOTE | 2018-07-17 09:58 | NUR ---
PATIENT REFUSED MAGNESSIUM YESTERDAY ORDERED AND CONTINUE TO REFUSE STATED WILL ATTEMPT TO TAKE ORALLY BUT NOT IV ROUTE. ATTEMPTS TO EXPLAIN TO THE PATIENT THE BENEFIT OF TAKING HIS MEDICATIONS ORDERED FAILED AND PATIENTS RIGHTS TO REFUSED RESPECTED AT THIS TIME.
[2018-07-17] MEDS ORDERED: MAGNESIUM SULFATE/D5W 100 ML IV SCH ×2 (10:00→12:45)
[2018-07-17] MEDS ORDERED: MAGNESIUM OXIDE 400 MG TABLET PO ONE (10:00)
[2018-07-17 11:27] VITALS: BP 134/85
[2018-07-17 15:10] VITALS: BP 133/80
--- NOTE | 2018-07-17 15:31 | NUR ---
PATIENT CONTINUES TO SLEEP ON AND OFF ALERT WHEN AWAKE TAKING FLUIDS ORALLY BUT CONTINUES TO REFUSE HIS MEALS STATED WILL EAT BUT STILL HAS NOT EATEN YET.WILL CONTINUE TO ENCOURAGE PATIENT TO SOME NO MATTER HOW SMALL.
--- NOTE | 2018-07-17 17:38 | NUR ---
AWAKE AT THIS TIME EATING HIS FRUIT STATED WILL ATTEMPT TO EAT SOME OF HIS POTATOES AND TURKEY.
[2018-07-17 20:29] VITALS: BP 140/84
--- NOTE | 2018-07-17 20:45 | NUR ---
MS Nursing Note: A/O x4 Denies of any distress On Med surg status. Abd very distended 20 ga angio S/L intact/patent. Side rails up Call light within reach.
--- NOTE | 2018-07-17 22:12 | NUR ---
Consent: Pt signed consent for parcenthesis and iv sedation. Notify Dr Valle voicemail [phone]. Procedure scheduled for 9am tomorrow.
[2018-07-18 05:03] VITALS: BP 124/84
--- NOTE | 2018-07-18 06:37 | NUR ---
Ms Nursing: Awake in room Lab draw completed. Started S/l 20 ga angio to right forearm . Remains NPO since Midnight. Siderails up Call light within reach.Denies of any distress.
[2018-07-18 07:18] LABS: BASOPHILS % (AUTO) 0.3 % (0.0-2.0); EOSINOPHILS % (AUTO) 0.5 % (0.0-7.0); HEMATOCRIT 27.7 % (36.7-47.1); HEMOGLOBIN 9.2 g/dL (12.5-16.3); LYMPHOCYTES # (AUTO) 0.6 K/uL (20.0-40.0); LYMPHOCYTES % (AUTO) 8.6 % (20.5-51.5); MEAN CORPUSCULAR HEMOGLOBIN 25.2 uug (23.8-33.4); MEAN CORPUSCULAR HGB CONC 33 g/dL (32.5-36.3); MEAN CORPUSCULAR VOLUME 76.4 fL (73.0-96.2); MONOCYTES # (AUTO) 1.2 K/uL (2.0-10.0); MONOCYTES % (AUTO) 18.4 % (0.0-11.0); NEUTROPHILS # (AUTO) 4.7 K/uL (1.8-8.9); NEUTROPHILS % (AUTO) 72.2 % (38.5-71.5); PLATELET COUNT (AUTO) 61 K/uL (152-348); RED BLOOD CELL COUNT(AUTO) 3.63 MIL/uL (4.06-5.63); WHITE BLOOD COUNT (AUTO) 6.4 K/uL (3.6-10.2)
[2018-07-18 07:32] LABS: CARBON DIOXIDE 25 mmol/L (21-32); CHLORIDE 99 mmol/L (98-107); CREATININE 0.5 mg/dL (0.6-1.3); GLUCOSE 97 mg/dL (74-106); MAGNESIUM 1.7 mg/dL (1.8-2.4); POTASSIUM 3.7 mmol/L (3.5-5.1); UREA NITROGEN, BLOOD 8 mg/dL (7-18)
[2018-07-18 08:31] LABS: EOSINOPHILS % (MANUAL) 1 % (0-8); LYMPHOCYTES % (MANUAL) 8 % (20-40); MONOCYTES % (MANUAL) 9 % (2-10); NEUTROPHILS % (MANUAL) 82 % (42-75)
--- NOTE | 2018-07-18 08:50 | NUR ---
PATIENT PICKED UP BY BED TO GI LAB ORDERED FOR PARACENTESIS PATIENT IS ALERT ORIENTED AND STATED THAT HE HAS NOT HAD ANY THING TO DRINK SINCE MIDNITE.
[2018-07-18] MEDS ORDERED: LIDOCAINE 1%-EPI 1:100,000 20 ML VIAL ONE (09:08)
--- NOTE | 2018-07-18 10:19 | NUR ---
10:15am: SS consulted received this morning. This SW attempted to see the patient, but patient was in surgery. SW will follow-up at a later time.
[2018-07-18 10:30] VITALS: BP 111/64
--- NOTE | 2018-07-18 10:35 | NUR ---
PATIENT RETURNED FROM PACU BY BED AWAKE ALERT AND ORIENTED WITH LR IN PROGRESS ORDERED TO HIS RIGHT ARM ABD STILL LARGE AND DISTENDED BUT SOFTER AT THIS TIME.ON O2 WITH NO SHORTNESS OF BREATH NOTED LEFT ABDOMEN WITH 4X4 GAUZE INTACT WITH NO DRAINAGE AT THIS TIME PATIENT MADE COMFORTABLE.
[2018-07-18 10:45] VITALS: BP 114/67
--- NOTE | 2018-07-18 11:04 | NUR ---
PULVERIZER FEEDER HERE A STATED HAS ORDER FOR PARACENTESIS FROM DR BRICEÑO INFORMED HIM THAT PATIENT JUST RETURNED FROM PACU AFTER PARACENTESIS BY DR KEITH AND 6000 ML WAS REMOVED AND AFTER HE CHECKED PATIENT STATED THAT HE STILL HAS A LOT OF FLUID STATED WILL TALK TO THE RADIOLOGIST TO SEE WHAT HE WANTS TO DO.
[2018-07-18 11:07] VITALS: BP 102/63
[2018-07-18] MEDS ORDERED: IV LACTATED RINGERS SOLUTION 1,000 ML IV PRN (11:15)
[2018-07-18] MEDS ORDERED: MAGNESIUM OXIDE 400 MG TABLET PO ONE (11:30)
--- NOTE | 2018-07-18 11:31 | NUR ---
MAGNESSIUM LEVEL IS 1.7 DR BRICEÑO NOTIFIED WITH ORDER FOR REPLACEMENT AND NOTED
--- NOTE | 2018-07-18 11:39 | NUR ---
DR BRICEÑO HERE NOTIFIED HIM THAT 6000 ML WAS REMOVED FROM THE PATIENT TODAY AND PER THE BUSINESS SUPPORT HE STILL HAS LOTS OF FLUIDS IN THE ABDOMEN AND HE STATED NOT TO REMOVE ANY MORE TODAY.
[2018-07-18] MEDS: HYDROCODONE/APAP 10-325 MG TABLET PO PRN (11:59)
--- NOTE | 2018-07-18 12:19 | NUR ---
DR BRICEÑO HERE SEEN PATIENT WITH ORDER TO DISCHARGE PATIENT HOME TODAY AND TO FOLLOW UP WITH PATTI LABOY PREBOARDER BRICK POINTER AWARE TO DETERMINE HIS FINAL DESTINATION
[2018-07-18 15:09] VITALS: BP 107/62
--- NOTE | 2018-07-18 16:02 | NUR ---
AWAITING FOR LEAD SALES CONSULTANT SPANISH SPEAKING BABYSITTER TO CONCLUDE PATIENTS FINAL DESTINATION PATIENT AWARE OF HIS DISCHARGE WAS SEEN BY THE PHYSICAL THERAPY PATIENT WAS ABLE TO ONLY STAND STATED FEELS VERY WEAK AND BACK TO BED.
[2018-07-18] MEDS ORDERED: NEUTRA PHOS PACKET PO ONE (16:45)
--- NOTE | 2018-07-18 18:00 | NUR ---
PATIENT IS REFUSING [facility] AND INTERMEDIATE PER THE COMPUTER SCIENCE INSTRUCTOR PATIENT STATED WILL JUST LEAVE
[2018-07-18] MEDS ORDERED: PROPOFOL 200 MG/20 ML BOTTLE IV ONE (18:41)
[2018-07-18] MEDS ORDERED: IV LACTATED RINGERS SOLUTION 1,000 ML BAG IV ONE (18:41)
[2018-07-18] MEDS ORDERED: LIDOCAINE-MPF 2% 5 ML VIAL MC ONE (18:41)
--- NOTE | 2018-07-18 18:42 | NUR ---
PATIENT DISCHARGED TO SELF WITH ALL OF HIS PERSONAL BELONGINGS AND PRESCRIPTION AND INSTRUCTED TO CALL PATTI SINGH AND ANDRALE AN APPOINTMENT FOR A FOLLOW UP WITH A GASTRO ENTEROLOGIST AND HE EXPRESSED UNDERSTANDING. ESCORTED OUT BY W/CHAIR.
== END 2018-07-18 18:42 | disposition home or self-care (01) | DRG 280 ==
LOC: ER 17:48 → TELE3 07-16 01:27 → MEDSURG3 07-16 13:15
PROVIDERS: ADMIT Nurse Practitioner Acute Care
PROC: 0W9G3ZZ Drainage of Peritoneal Cavity, Percutaneous Approach (ICD-10-PCS; principal; 2018-07-16)
PROC: 30233N1 Transfusion of Nonautologous Red Blood Cells into Peripheral Vein, Percutaneous Approach (ICD-10-PCS; principal; 2018-07-16)
PROC: 0W9G3ZX Drainage of Peritoneal Cavity, Percutaneous Approach, Diagnostic (ICD-10-PCS; 2018-07-18)
DX: K70.31 Alcoholic cirrhosis of liver with ascites (principal); I85.11 Secondary esophageal varices with bleeding; J90 Pleural effusion, not elsewhere classified; D68.9 Coagulation defect, unspecified; E44.0 Moderate protein-calorie malnutrition; E83.42 Hypomagnesemia; D69.6 Thrombocytopenia, unspecified; S22.41XA Multiple fractures of ribs, right side, initial encounter for closed fracture; E87.1 Hypo-osmolality and hyponatremia; G62.1 Alcoholic polyneuropathy; K76.6 Portal hypertension; I85.10 Secondary esophageal varices without bleeding; F10.229 Alcohol dependence with intoxication, unspecified; Y90.8 Blood alcohol level of 240 mg/100 ml or more; S22.41XD Multiple fractures of ribs, right side, subsequent encounter for fracture with routine healing; X58.XXXD Exposure to other specified factors, subsequent encounter; S32.039D Unspecified fracture of third lumbar vertebra, subsequent encounter for fracture with routine healing; Z59.0 Homelessness; J98.11 Atelectasis; K57.30 Diverticulosis of large intestine without perforation or abscess without bleeding; M16.0 Bilateral primary osteoarthritis of hip; G25.81 Restless legs syndrome; F41.9 Anxiety disorder, unspecified; X58.XXXA Exposure to other specified factors, initial encounter; Y92.89 Other specified places as the place of occurrence of the external cause; E53.8 Deficiency of other specified B group vitamins; F17.200 Nicotine dependence, unspecified, uncomplicated; F32.9 Major depressive disorder, single episode, unspecified; K86.1 Other chronic pancreatitis; E03.9 Hypothyroidism, unspecified; D64.9 Anemia, unspecified; R58 Hemorrhage, not elsewhere classified; M84.48XD Pathological fracture, other site, subsequent encounter for fracture with routine healing
CPT/HCPCS: 36415; 49083; 71045; 83690; 83735; 83986; 84100; 84155; 85018; 85025; 85730; 86850; 86900; 86901; 86920; 87070; 87075; 87205; 93005; 97110; 97530; A4663; G0378; G0480; J2405; J3430; J3475; J3490; J7030; J7050; J7120; P9016-BL; P9021; Q9967

== ENCOUNTER 2018-09-16 21:08 | Inpatient (IN) | payer OTHER ==
[~2018-09-16] VITALS: Ht 177.8 cm; Wt 75.3 kg
[2018-09-16] MEDS ORDERED: MORPHINE SULFATE 2 MG/1 ML DISP.SYRIN IV ONE (22:45)
[2018-09-16] MEDS ORDERED: ONDANSETRON 4 MG/2 ML VIAL IV ONE (22:45)
[2018-09-16] MEDS ORDERED: ONDANSETRON 4 MG/2 ML VIAL ONE (23:09)
[2018-09-16] MEDS ORDERED: MORPHINE SULFATE 2 MG/1 ML DISP.SYRIN ONE (23:09)
[2018-09-16 23:43] LABS: BASOPHILS # (AUTO) 0.1 K/uL (0.0-8.0); BASOPHILS % (AUTO) 0.7 % (0.0-2.0); EOSINOPHILS # (AUTO) 0.3 K/uL (0.0-0.7); EOSINOPHILS % (AUTO) 3.4 % (0.0-7.0); HEMATOCRIT 27.5 % (36.7-47.1); HEMOGLOBIN 9.2 g/dL (12.5-16.3); LYMPHOCYTES # (AUTO) 1.5 K/uL (20.0-40.0); LYMPHOCYTES % (AUTO) 20.3 % (20.5-51.5); MEAN CORPUSCULAR HEMOGLOBIN 26.3 uug (23.8-33.4); MEAN CORPUSCULAR HGB CONC 33 g/dL (32.5-36.3); MEAN CORPUSCULAR VOLUME 78.8 fL (73.0-96.2); MONOCYTES # (AUTO) 1.6 K/uL (2.0-10.0); MONOCYTES % (AUTO) 21.6 % (0.0-11.0); PLATELET COUNT (AUTO) 171 K/uL (152-348); RED BLOOD CELL COUNT(AUTO) 3.49 MIL/uL (4.06-5.63); WHITE BLOOD COUNT (AUTO) 7.4 K/uL (3.6-10.2)
[2018-09-16 23:50] LABS: CARBON DIOXIDE 25 mmol/L (21-32); CHLORIDE 98 mmol/L (98-107); CREATININE 0.6 mg/dL (0.6-1.3); GLUCOSE 87 mg/dL (74-106); POTASSIUM 3.4 mmol/L (3.5-5.1); UREA NITROGEN, BLOOD 8 mg/dL (7-18)
[2018-09-17 00:03] LABS: ALANINE AMINOTRANSFERASE 19 U/L (16-63); ALKALINE PHOSPHATASE 362 U/L (50-136); ASPARTATE AMINOTRANSFERASE 43 U/L (15-37); BILIRUBIN,DIRECT 0.4 mg/dL (0.0-0.2); LIPASE 418 U/L (73-393); TOTAL PROTEIN, SERUM 5.9 g/dL (6.4-8.2)
[2018-09-17] MEDS ORDERED: MORPHINE SULFATE 2 MG/1 ML DISP.SYRIN ONE (00:07)
[2018-09-17] MEDS ORDERED: LEVOFLOXACIN 750 MG/D5W 150 ML PIGGYBACK IV ONE (00:15)
[2018-09-17] MEDS ORDERED: MORPHINE SULFATE 2 MG/1 ML DISP.SYRIN IV ONE ×2 (00:15→15:00)
[2018-09-17] MEDS ORDERED: LEVOFLOXACIN 750MG/D5W 0 ML IV ONE (00:23)
[2018-09-17] MEDS ORDERED: Z GUARD REMEDY PASTE 57 GM TUBE TOP PRN (00:30)
[2018-09-17] MEDS ORDERED: ONDANSETRON 4 MG/2 ML VIAL IV PRN (00:30)
[2018-09-17] MEDS ORDERED: MAGNESIUM HYDROXIDE 30 ML LIQUID UDC PO PRN (00:30)
[2018-09-17] MEDS ORDERED: MORPHINE SULFATE 4 MG/1 ML DISP.SYRIN ONE (00:53)
[2018-09-17] MEDS ORDERED: MORPHINE SULFATE 4 MG/1 ML DISP.SYRIN IV ONE (01:00)
[2018-09-17 01:04] LABS: *BILIRUBIN,URIN NEGATIVE (NEGATIVE); *COLOR,URINE YELLOW (YELLOW); *KETONES,URINE NEGATIVE (NEGATIVE); *UROBILINOGEN,URINE 0.2 E.U./dl (NORMAL); LEUKOCYTE ESTERASE ,URINE NEGATIVE (NEGATIVE); NITRITE, URINE NEGATIVE (NEGATIVE); PH,URINE 6.5 (5.0-8.0); UGLUCOSE NEGATIVE (NEGATIVE)
[2018-09-17 01:05] LABS: *BLOOD, URINE TRACE (NEGATIVE); *CLARITY,URINE HAZY (CLEAR)
[2018-09-17 01:10] LABS: BACTERIA,URINE NONE SEEN /HPF (NONE SEEN); RBC,URINE 0-3 /HPF (0-3); WBC,URINE 0-3 /HPF (0-3)
[2018-09-17 01:11] LABS: SQUAMOUS EPITHELIAL CELL,UR FEW /HPF (NONE SEEN)
[2018-09-17 01:18] LABS: EOSINOPHILS % (MANUAL) 1 % (0-8); LYMPHOCYTES % (MANUAL) 18 % (20-40); MONOCYTES % (MANUAL) 12 % (2-10); NEUTROPHILS % (MANUAL) 69 % (42-75)
[2018-09-17 01:48] VITALS: BP 107/62
[2018-09-17] MEDS: MORPHINE SULFATE 2 MG/1 ML DISP.SYRIN IV PRN ×5 (04:16→23:38)
[2018-09-17 04:50] VITALS: BP 116/60
[2018-09-17 08:00] VITALS: BP 99/55
[2018-09-17 11:24] VITALS: BP 105/71
[2018-09-17] MEDS: FAMOTIDINE. 20 MG/2 ML VIAL IV SCH (12:05)
[2018-09-17 12:08] LABS: BASOPHILS % (AUTO) 0.8 % (0.0-2.0); EOSINOPHILS # (AUTO) 0.1 K/uL (0.0-0.7); EOSINOPHILS % (AUTO) 2.4 % (0.0-7.0); HEMATOCRIT 27.9 % (36.7-47.1); MEAN CORPUSCULAR HEMOGLOBIN 25.6 uug (23.8-33.4); MEAN CORPUSCULAR HGB CONC 32 g/dL (32.5-36.3); MEAN CORPUSCULAR VOLUME 79.6 fL (73.0-96.2); NEUTROPHILS # (AUTO) 3.6 K/uL (1.8-8.9); NEUTROPHILS % (AUTO) 61.4 % (38.5-71.5); PLATELET COUNT (AUTO) 141 K/uL (152-348); WHITE BLOOD COUNT (AUTO) 5.8 K/uL (3.6-10.2)
[2018-09-17 12:09] LABS: LYMPHOCYTES # (AUTO) 1.2 K/uL (20.0-40.0); MONOCYTES # (AUTO) 0.9 K/uL (2.0-10.0); MONOCYTES % (AUTO) 15.4 % (0.0-11.0)
[2018-09-17 12:13] LABS: LYMPHOCYTES % (MANUAL) 25 % (20-40); MONOCYTES % (MANUAL) 10 % (2-10); NEUTROPHILS % (MANUAL) 65 % (42-75)
[2018-09-17 12:14] LABS: ASPARTATE AMINOTRANSFERASE 40 U/L (15-37); BILIRUBIN,TOTAL 1.6 mg/dL (0.2-1.0); CARBON DIOXIDE 28 mmol/L (21-32); CHLORIDE 102 mmol/L (98-107); CHOLESTEROL 129 mg/dL (<200); CREATININE 0.4 mg/dL (0.6-1.3); GLUCOSE 96 mg/dL (74-106); HDL CHOLESTEROL 77 mg/dL (40-60); MAGNESIUM 1.8 mg/dL (1.8-2.4); PHOSPHOROUS 3.8 mg/dL (2.5-4.9); POTASSIUM 3.6 mmol/L (3.5-5.1); TOTAL PROTEIN, SERUM 5.6 g/dL (6.4-8.2); TRIGLYCERIDES 37 MG/DL (30-150); UREA NITROGEN, BLOOD 6 mg/dL (7-18)
[2018-09-17 12:32] LABS: ALANINE AMINOTRANSFERASE 15 U/L (16-63); ALKALINE PHOSPHATASE 309 U/L (50-136)
[2018-09-17 15:42] VITALS: BP 117/60
[2018-09-17 20:24] VITALS: BP 107/62
[2018-09-17] MEDS ORDERED: LEVOFLOXACIN 750MG/D5W 150 ML IV ONE (23:33)
[2018-09-17] MEDS: LEVOFLOXACIN 750MG/D5W 750 MG in PREMIXED 1 EACH IV SCH (23:38)
[2018-09-18] MEDS: MORPHINE SULFATE 2 MG/1 ML DISP.SYRIN IV PRN ×4 (04:10→20:18)
[2018-09-18 05:57] VITALS: BP 99/59
[2018-09-18 07:40] LABS: MAGNESIUM 1.6 mg/dL (1.8-2.4); PHOSPHOROUS 3.2 mg/dL (2.5-4.9)
[2018-09-18 08:06] LABS: BASOPHILS % (AUTO) 0.7 % (0.0-2.0); EOSINOPHILS # (AUTO) 0.1 K/uL (0.0-0.7); EOSINOPHILS % (AUTO) 3.1 % (0.0-7.0); HEMOGLOBIN 8.5 g/dL (12.5-16.3); LYMPHOCYTES # (AUTO) 0.6 K/uL (20.0-40.0); LYMPHOCYTES % (AUTO) 16.3 % (20.5-51.5); MEAN CORPUSCULAR HEMOGLOBIN 25.9 uug (23.8-33.4); MEAN CORPUSCULAR HGB CONC 33 g/dL (32.5-36.3); MEAN CORPUSCULAR VOLUME 79.1 fL (73.0-96.2); MONOCYTES # (AUTO) 0.9 K/uL (2.0-10.0); MONOCYTES % (AUTO) 21.9 % (0.0-11.0); NEUTROPHILS # (AUTO) 2.3 K/uL (1.8-8.9); PLATELET COUNT (AUTO) 106 K/uL (152-348); RED BLOOD CELL COUNT(AUTO) 3.28 MIL/uL (4.06-5.63); WHITE BLOOD COUNT (AUTO) 3.9 K/uL (3.6-10.2)
[2018-09-18] MEDS: FAMOTIDINE. 20 MG/2 ML VIAL IV SCH (09:05)
[2018-09-18 11:32] VITALS: BP 100/59
[2018-09-18] MEDS ORDERED: MAGNESIUM OXIDE 400 MG TABLET PO ONE (12:15)
[2018-09-18 13:31] LABS: BAND % (MANUAL) 2 % (0-10); EOSINOPHILS % (MANUAL) 2 % (0-8); LYMPHOCYTES % (MANUAL) 20 % (20-40); MONOCYTES % (MANUAL) 17 % (2-10); NEUTROPHILS % (MANUAL) 59 % (42-75)
[2018-09-18 15:28] VITALS: BP 108/62
[2018-09-18] MEDS: MORPHINE SULFATE 2 MG/1 ML DISP.SYRIN IV ONE ×2 (16:36→16:40)
[2018-09-18 20:44] VITALS: BP 113/69
[2018-09-19] MEDS: LEVOFLOXACIN 750MG/D5W 750 MG in PREMIXED 1 EACH IV SCH (00:06)
[2018-09-19] MEDS: MORPHINE SULFATE 2 MG/1 ML DISP.SYRIN IV PRN ×4 (00:41→16:54)
[2018-09-19 06:35] LABS: BASOPHILS % (AUTO) 0.6 % (0.0-2.0); EOSINOPHILS # (AUTO) 0.2 K/uL (0.0-0.7); EOSINOPHILS % (AUTO) 3.4 % (0.0-7.0); HEMATOCRIT 25.9 % (36.7-47.1); HEMOGLOBIN 8.4 g/dL (12.5-16.3); LYMPHOCYTES # (AUTO) 0.7 K/uL (20.0-40.0); LYMPHOCYTES % (AUTO) 15.5 % (20.5-51.5); MEAN CORPUSCULAR HGB CONC 32 g/dL (32.5-36.3); MEAN CORPUSCULAR VOLUME 80.2 fL (73.0-96.2); MONOCYTES # (AUTO) 0.9 K/uL (2.0-10.0); MONOCYTES % (AUTO) 19.6 % (0.0-11.0); NEUTROPHILS # (AUTO) 2.7 K/uL (1.8-8.9); NEUTROPHILS % (AUTO) 60.9 % (38.5-71.5); PLATELET COUNT (AUTO) 97 K/uL (152-348); RED BLOOD CELL COUNT(AUTO) 3.23 MIL/uL (4.06-5.63); WHITE BLOOD COUNT (AUTO) 4.4 K/uL (3.6-10.2)
[2018-09-19 06:36] VITALS: BP 99/63
[2018-09-19 06:44] LABS: BILIRUBIN,TOTAL 0.9 mg/dL (0.2-1.0); CREATININE 0.7 mg/dL (0.6-1.3); MAGNESIUM 1.6 mg/dL (1.8-2.4); POTASSIUM 3.3 mmol/L (3.5-5.1)
[2018-09-19] MEDS: FAMOTIDINE. 20 MG/2 ML VIAL IV SCH (08:38)
[2018-09-19 08:49] VITALS: BP 101/65
[2018-09-19 09:14] LABS: EOSINOPHILS % (MANUAL) 3 % (0-8); LYMPHOCYTES % (MANUAL) 14 % (20-40); MONOCYTES % (MANUAL) 15 % (2-10); NEUTROPHILS % (MANUAL) 68 % (42-75)
[2018-09-19] MEDS ORDERED: MAGNESIUM OXIDE 400 MG TABLET PO ONE (10:00)
[2018-09-19] MEDS ORDERED: POTASSIUM CHLORIDE 20 MEQ TAB.PRT.SR PO ONE (10:00)
[2018-09-19 11:43] VITALS: BP 94/54
[2018-09-19 16:03] VITALS: BP 103/68
[2018-09-19 20:00] VITALS: BP 111/64
[2018-09-19] MEDS ORDERED: diphenhydrAMINE 50 MG/1 ML VIAL IV PRN (20:15)
[2018-09-19] MEDS ORDERED: MORPHINE SULFATE 4 MG/1 ML DISP.SYRIN IV STA (21:25)
[2018-09-19] MEDS ORDERED: VITAMIN E CREAM 56.7 GM JAR TP STA (21:25)
[2018-09-20] MEDS: LEVOFLOXACIN 750MG/D5W 750 MG in PREMIXED 1 EACH IV SCH (00:22)
[2018-09-20] MEDS: MORPHINE SULFATE 2 MG/1 ML DISP.SYRIN IV PRN ×2 (02:50→08:36)
[2018-09-20 06:23] VITALS: BP 105/62
[2018-09-20] MEDS ORDERED: FAMOTIDINE 20 MG TABLET PO SCH (09:00)
[2018-09-20 11:48] VITALS: BP 95/59
[2018-09-20] MEDS ORDERED: VITAMIN E CREAM 56.7 GM JAR TP SCH (12:00)
== END 2018-09-20 14:25 | disposition home or self-care (01) | DRG 280 ==
LOC: ER 21:10 → MEDSURG3 09-17 00:20
PROVIDERS: ADMIT Internal Medicine; ATTEND Internal Medicine
PROC: 0W9G3ZZ Drainage of Peritoneal Cavity, Percutaneous Approach (ICD-10-PCS; principal; 2018-09-17)
DX: K70.31 Alcoholic cirrhosis of liver with ascites (principal); J96.01 Acute respiratory failure with hypoxia; E43 Unspecified severe protein-calorie malnutrition; J18.9 Pneumonia, unspecified organism; K57.31 Diverticulosis of large intestine without perforation or abscess with bleeding; F10.188 Alcohol abuse with other alcohol-induced disorder; Y90.9 Presence of alcohol in blood, level not specified; Z59.0 Homelessness; E87.6 Hypokalemia; Z68.23 Body mass index [BMI] 23.0-23.9, adult; G62.1 Alcoholic polyneuropathy; D50.9 Iron deficiency anemia, unspecified; D64.9 Anemia, unspecified; K40.90 Unilateral inguinal hernia, without obstruction or gangrene, not specified as recurrent; Z81.8 Family history of other mental and behavioral disorders; I45.10 Unspecified right bundle-branch block; J44.0 Chronic obstructive pulmonary disease with (acute) lower respiratory infection; F17.210 Nicotine dependence, cigarettes, uncomplicated; G89.29 Other chronic pain; M51.34 Other intervertebral disc degeneration, thoracic region; G25.81 Restless legs syndrome
CPT/HCPCS: 36415; 70030-TC; 71045; 83690; 83735; 84100; 85025; 85730; 87040; 93005; A4663; G0378; J1200; J1956; J2270; J2405; J3490

== ENCOUNTER 2018-10-18 21:39 | Inpatient (IN) | payer OTHER ==
[~2018-10-18] VITALS: Ht 182.9 cm; Wt 70.3 kg
[2018-10-18] MEDS ORDERED: IV NORMAL SALINE 500 ML BAG IV ONE (22:30)
[2018-10-18] MEDS ORDERED: LORAZEPAM 2 MG/1 ML VIAL IV ONE (22:30)
[2018-10-18] MEDS ORDERED: ONDANSETRON 4 MG/2 ML VIAL IV ONE (22:30)
[2018-10-18] MEDS ORDERED: HYDROMORPHONE 1 MG/1 ML DISP.SYRIN IV ONE (22:30)
[2018-10-18] MEDS ORDERED: HYDROMORPHONE 1 MG/1 ML DISP.SYRIN ONE (22:48)
[2018-10-18] MEDS ORDERED: ONDANSETRON 4 MG/2 ML VIAL ONE (22:48)
[2018-10-18] MEDS ORDERED: LORAZEPAM 2 MG/1 ML VIAL ONE (22:50)
[2018-10-18 22:52] LABS: RED BLOOD CELL COUNT(AUTO) 3.87 MIL/uL (4.06-5.63); WHITE BLOOD COUNT (AUTO) 8.5 K/uL (3.6-10.2)
[2018-10-18 22:53] LABS: BASOPHILS # (AUTO) 0.2 K/uL (0.0-8.0); BASOPHILS % (AUTO) 1.8 % (0.0-2.0); EOSINOPHILS # (AUTO) 0.3 K/uL (0.0-0.7); EOSINOPHILS % (AUTO) 3.4 % (0.0-7.0); HEMATOCRIT 28.8 % (36.7-47.1); HEMOGLOBIN 9.4 g/dL (12.5-16.3); LYMPHOCYTES # (AUTO) 1.7 K/uL (20.0-40.0); LYMPHOCYTES % (AUTO) 20.3 % (20.5-51.5); MEAN CORPUSCULAR HEMOGLOBIN 24.2 uug (23.8-33.4); MEAN CORPUSCULAR HGB CONC 33 g/dL (32.5-36.3); MEAN CORPUSCULAR VOLUME 74.6 fL (73.0-96.2); MONOCYTES # (AUTO) 1.7 K/uL (2.0-10.0); MONOCYTES % (AUTO) 20.4 % (0.0-11.0); NEUTROPHILS # (AUTO) 4.6 K/uL (1.8-8.9); NEUTROPHILS % (AUTO) 54.1 % (38.5-71.5); PLATELET COUNT (AUTO) 269 K/uL (152-348)
[2018-10-18 22:56] LABS: CREATININE 0.7 mg/dL (0.6-1.3)
[2018-10-18 23:02] LABS: BILIRUBIN,DIRECT 0.3 mg/dL (0.0-0.2); BILIRUBIN,TOTAL 0.8 mg/dL (0.2-1.0)
[2018-10-18 23:21] LABS: EOSINOPHILS % (MANUAL) 1 % (0-8); LYMPHOCYTES % (MANUAL) 14 % (20-40); MONOCYTES % (MANUAL) 8 % (2-10); NEUTROPHILS % (MANUAL) 77 % (42-75)
[2018-10-19] MEDS ORDERED: POTASSIUM CHLORIDE 20 MEQ TAB.PRT.SR PO ONE
[2018-10-19] MEDS ORDERED: POTASSIUM CHLORIDE 20 MEQ TAB.PRT.SR ONE (00:12)
[2018-10-19] MEDS ORDERED: diphenhydrAMINE 50 MG/1 ML VIAL ONE (00:35)
[2018-10-19] MEDS: diphenhydrAMINE 50 MG/1 ML VIAL IV PRN ×2 (00:40→05:13)
[2018-10-19] MEDS ORDERED: ACETAMINOPHEN 325 MG TABLET PO PRN (01:15)
[2018-10-19] MEDS ORDERED: MAGNESIUM HYDROXIDE 30 ML LIQUID UDC PO PRN (01:15)
[2018-10-19] MEDS ORDERED: TEMAZEPAM 15 MG CAPSULE PO PRN (01:15)
[2018-10-19] MEDS ORDERED: ONDANSETRON 4 MG/2 ML VIAL IV PRN (01:15)
[2018-10-19] MEDS ORDERED: Z GUARD REMEDY PASTE 57 GM TUBE TOP PRN (01:15)
[2018-10-19 01:45] VITALS: BP 110/56
[2018-10-19] MEDS: HYDROMORPHONE 1 MG/1 ML DISP.SYRIN IV PRN ×4 (03:20→21:31)
[2018-10-19 04:00] VITALS: BP 95/56
[2018-10-19] MEDS: PANTOPRAZOLE SODIUM 40 MG TABLET.DR PO SCH (06:11)
[2018-10-19 09:40] VITALS: BP 113/50
[2018-10-19 11:32] VITALS: BP 103/75
[2018-10-19 15:22] VITALS: BP 95/56
[2018-10-19] MEDS: HYDROCODONE/APAP 10-325 MG TABLET PO PRN (17:11)
[2018-10-19 20:00] VITALS: BP 91/54
[2018-10-20] MEDS: HYDROMORPHONE 1 MG/1 ML DISP.SYRIN IV PRN (02:14)
[2018-10-20 05:47] VITALS: BP 94/49
[2018-10-20 06:07] LABS: BASOPHILS # (AUTO) 0.1 K/uL (0.0-8.0); BASOPHILS % (AUTO) 0.9 % (0.0-2.0); EOSINOPHILS # (AUTO) 0.3 K/uL (0.0-0.7); EOSINOPHILS % (AUTO) 5.9 % (0.0-7.0); HEMATOCRIT 24.7 % (36.7-47.1); HEMOGLOBIN 8.1 g/dL (12.5-16.3); LYMPHOCYTES % (AUTO) 18.8 % (20.5-51.5); MEAN CORPUSCULAR HGB CONC 33 g/dL (32.5-36.3); MEAN CORPUSCULAR VOLUME 73.3 fL (73.0-96.2); MONOCYTES # (AUTO) 1.3 K/uL (2.0-10.0); MONOCYTES % (AUTO) 24.4 % (0.0-11.0); NEUTROPHILS # (AUTO) 2.7 K/uL (1.8-8.9); PLATELET COUNT (AUTO) 219 K/uL (152-348); RED BLOOD CELL COUNT(AUTO) 3.37 MIL/uL (4.06-5.63); WHITE BLOOD COUNT (AUTO) 5.4 K/uL (3.6-10.2)
[2018-10-20] MEDS: PANTOPRAZOLE SODIUM 40 MG TABLET.DR PO SCH (06:24)
[2018-10-20 06:34] LABS: CARBON DIOXIDE 26 mmol/L (21-32); CHLORIDE 105 mmol/L (98-107); CREATININE 0.6 mg/dL (0.6-1.3); GLUCOSE 98 mg/dL (74-106); MAGNESIUM 1.8 mg/dL (1.8-2.4); PHOSPHOROUS 3.7 mg/dL (2.5-4.9); POTASSIUM 3.6 mmol/L (3.5-5.1); UREA NITROGEN, BLOOD 7 mg/dL (7-18)
[2018-10-20] MEDS: HYDROCODONE/APAP 10-325 MG TABLET PO PRN (09:15)
[2018-10-20 09:22] LABS: BAND % (MANUAL) 1 % (0-10); BASOPHILS % (MANUAL) 0 % (0-2); EOSINOPHILS % (MANUAL) 3 % (0-8); LYMPHOCYTES % (MANUAL) 9 % (20-40); MONOCYTES % (MANUAL) 23 % (2-10); NEUTROPHILS % (MANUAL) 64 % (42-75)
[2018-10-20 11:19] VITALS: BP 92/55
[2018-10-20 11:21] LABS: HEMATOCRIT 30.5 % (36.7-47.1); HEMOGLOBIN 9.7 g/dL (12.5-16.3)
== END 2018-10-20 12:50 | disposition home or self-care (01) | DRG 280 ==
LOC: ER 21:42 → MEDSURG3 23:45
PROVIDERS: ADMIT Nurse Practitioner Acute Care; ATTEND Registered Nurse
PROC: 0W9G3ZX Drainage of Peritoneal Cavity, Percutaneous Approach, Diagnostic (ICD-10-PCS; principal; 2018-10-19)
DX: K70.31 Alcoholic cirrhosis of liver with ascites (principal); F11.20 Opioid dependence, uncomplicated; K76.6 Portal hypertension; K75.9 Inflammatory liver disease, unspecified; G62.1 Alcoholic polyneuropathy; Y90.9 Presence of alcohol in blood, level not specified; Z91.010 Allergy to peanuts; Z91.018 Allergy to other foods; G89.4 Chronic pain syndrome; G25.81 Restless legs syndrome; Z59.0 Homelessness; D63.8 Anemia in other chronic diseases classified elsewhere; F10.21 Alcohol dependence, in remission; Z91.19 Patient's noncompliance with other medical treatment and regimen; Z76.5 Malingerer [conscious simulation]; E87.6 Hypokalemia; F17.210 Nicotine dependence, cigarettes, uncomplicated
CPT/HCPCS: 36415; 83690; 83735; 83986; 84100; 85018; 85025; 85730; 87070; 87205; 93005; A4663; G0378; J1170; J1200; J2060; J2405; J7040

== ENCOUNTER 2018-10-25 20:54 | Emergency (ER) | payer OTHER ==
[~2018-10-25] VITALS: Ht 172.7 cm; Wt 79.4 kg
--- NOTE | 2018-10-25 21:17 | NUR ---
Patient is AAOx4, speaking in complete sentences, speech is clear. Able to follow /comprehend directions. Gait is stable. No cardiovascular distress noted. Rate/rhythm regular. No CP. No respiratory distress noted. Respirations even , unlabored, symmetrical chest rise. No adventitious sounds noted. Chief complaint: Patient comes in with c/o ABD distention, pain 8/10. Patient requesting " to drain the fluid from my stomach". Patient has history of frequent thoracentesis. Patient has history of Liver Cirrhosis, this is a chronic issue for him. He also endroses ABD discomfort for the last year, lower back and BLE pain s/p ground level fall today. Denies LOC/head injury. + N/V x 1. Bowel sounds present and normoactive in all four quadrants. + ABD distention. Denies Fever/Chills. No recent travel. No pertinent medical history/NKDA. + ETOH (2tall cans of beer/ -recreational drug use/ +5cigarettes per day. LBM- yesterday. Continent of bowel and bladder function. Patient in bed, bed in lowest position. Siderails up x 2. Call light within reach. Frequent observation ongoing. Addendum: 10/25/18 at 2137 by [email or web address] Patient is AAOx4, speaking in complete sentences, speech is clear. Able to follow /comprehend directions. Gait is stable. No cardiovascular distress noted. Rate/rhythm regular. No CP. No respiratory distress noted. Respirations even , unlabored, symmetrical chest rise. No adventitious sounds noted. Chief complaint: Patient comes in with c/o ABD distention, pain 8/10. Patient requesting " to drain the fluid from my stomach". Patient has history of frequent paracentesis. Patient has history of Liver Cirrhosis, this is a chronic issue for him. He also endroses ABD discomfort for the last year, lower back and BLE pain s/p ground level fall today. Denies LOC/head injury. + N/V x 1. Bowel sounds present and normoactive in all four quadrants. + ABD distention. Denies Fever/Chills. No recent travel. No pertinent medical history/NKDA. + ETOH (2tall cans of beer/ -recreational drug use/ +5cigarettes per day. LBM- yesterday. Continent of bowel and bladder function. Patient in bed, bed in lowest position. Siderails up x 2. Call light within reach. Frequent observation ongoing.
[2018-10-25 21:31] LABS: BASOPHILS # (AUTO) 0.2 K/uL (0.0-8.0); BASOPHILS % (AUTO) 1.4 % (0.0-2.0); EOSINOPHILS # (AUTO) 0.4 K/uL (0.0-0.7); HEMATOCRIT 27.5 % (36.7-47.1); HEMOGLOBIN 8.8 g/dL (12.5-16.3); MEAN CORPUSCULAR HEMOGLOBIN 23.1 uug (23.8-33.4); MEAN CORPUSCULAR HGB CONC 32 g/dL (32.5-36.3); MONOCYTES # (AUTO) 2.1 K/uL (2.0-10.0); NEUTROPHILS # (AUTO) 6.4 K/uL (1.8-8.9); NEUTROPHILS % (AUTO) 57.6 % (38.5-71.5); PLATELET COUNT (AUTO) 371 K/uL (152-348); RED BLOOD CELL COUNT(AUTO) 3.82 MIL/uL (4.06-5.63); WHITE BLOOD COUNT (AUTO) 11.2 K/uL (3.6-10.2)
[2018-10-25 21:38] LABS: CARBON DIOXIDE 23 mmol/L (21-32); CHLORIDE 106 mmol/L (98-107); CREATININE 0.6 mg/dL (0.6-1.3); GLUCOSE 96 mg/dL (74-106); POTASSIUM 4.1 mmol/L (3.5-5.1); UREA NITROGEN, BLOOD 5 mg/dL (7-18)
[2018-10-25 21:51] LABS: ALANINE AMINOTRANSFERASE 27 U/L (16-63); ALKALINE PHOSPHATASE 315 U/L (50-136); ASPARTATE AMINOTRANSFERASE 52 U/L (15-37); BILIRUBIN,DIRECT 0.3 mg/dL (0.0-0.2); BILIRUBIN,TOTAL 0.9 mg/dL (0.2-1.0); LIPASE 247 U/L (73-393); TOTAL PROTEIN, SERUM 6.2 g/dL (6.4-8.2)
[2018-10-25 22:11] LABS: EOSINOPHILS % (MANUAL) 5 % (0-8); LYMPHOCYTES % (MANUAL) 8 % (20-40); MONOCYTES % (MANUAL) 12 % (2-10); NEUTROPHILS % (MANUAL) 75 % (42-75)
--- NOTE | 2018-10-25 22:18 | NUR ---
Paracentesis ongoing. Well tolerated by the patient
--- NOTE | 2018-10-25 22:46 | NUR ---
Patient in bed, no acute distress noted. Patient continues to have drainage from Paracentesis. Currently 5.5 L has been removed at this time.
[2018-10-25 23:29] VITALS: BP 103/68
--- NOTE | 2018-10-25 23:29 | NUR ---
dcPatient discharged to home in stable conditon. Written and verbal after care instructions given. Patient verbalizes understanding of instructions. Ambulated from ER with stable gait. All belongings with patient. Dressing applied to area of insertion for paracentesis. No bleeding at site. Covered with dry dressing/tegaderm and iodine for infection control measures.
== END 2018-10-25 23:30 | disposition home or self-care (01) ==
LOC: ER 20:54
DX: K70.31 Alcoholic cirrhosis of liver with ascites (principal); F17.210 Nicotine dependence, cigarettes, uncomplicated; Z91.018 Allergy to other foods; Z59.0 Homelessness
CPT/HCPCS: 36415; 49083; 70030-TC; 83690; 83986; 85025; 85730; 87070; 87205; A4663

== ENCOUNTER 2018-12-10 16:09 | Inpatient (IN) | payer OTHER ==
[~2018-12-10] VITALS: Ht 182.9 cm; Wt 74.1 kg
[2018-12-10 16:46] LABS: BASOPHILS # (AUTO) 0.1 K/uL (0.0-8.0); BASOPHILS % (AUTO) 0.3 % (0.0-2.0); EOSINOPHILS % (AUTO) 0.1 % (0.0-7.0); HEMATOCRIT 28.5 % (36.7-47.1); HEMOGLOBIN 9.1 g/dL (12.5-16.3); LYMPHOCYTES # (AUTO) 0.6 K/uL (20.0-40.0); LYMPHOCYTES % (AUTO) 3.1 % (20.5-51.5); MEAN CORPUSCULAR HGB CONC 32 g/dL (32.5-36.3); MONOCYTES # (AUTO) 2.2 K/uL (2.0-10.0); MONOCYTES % (AUTO) 12.4 % (0.0-11.0); NEUTROPHILS % (AUTO) 84.1 % (38.5-71.5); PLATELET COUNT (AUTO) 92 K/uL (152-348); RED BLOOD CELL COUNT(AUTO) 4.14 MIL/uL (4.06-5.63); WHITE BLOOD COUNT (AUTO) 17.8 K/uL (3.6-10.2)
[2018-12-10 16:47] LABS: CARBON DIOXIDE 22 mmol/L (21-32); CHLORIDE 95 mmol/L (98-107); CREATININE 0.6 mg/dL (0.6-1.3); GLUCOSE 114 mg/dL (74-106); POTASSIUM 3.2 mmol/L (3.5-5.1); UREA NITROGEN, BLOOD 3 mg/dL (7-18)
[2018-12-10 16:52] LABS: ALANINE AMINOTRANSFERASE 17 U/L (16-63); ALKALINE PHOSPHATASE 288 U/L (50-136); ASPARTATE AMINOTRANSFERASE 36 U/L (15-37); BILIRUBIN,DIRECT 0.6 mg/dL (0.0-0.2); BILIRUBIN,TOTAL 1.2 mg/dL (0.2-1.0); LIPASE 121 U/L (73-393)
[2018-12-10 17:10] LABS: BAND % (MANUAL) 11 % (0-10); LYMPHOCYTES % (MANUAL) 2 % (20-40); MONOCYTES % (MANUAL) 13 % (2-10); NEUTROPHILS % (MANUAL) 74 % (42-75)
[2018-12-10] MEDS ORDERED: MORPHINE SULFATE 4 MG/1 ML DISP.SYRIN IM ONE (18:00)
[2018-12-10] MEDS ORDERED: MORPHINE SULFATE 2 MG/1 ML DISP.SYRIN ONE (18:04)
[2018-12-10] MEDS ORDERED: MORPHINE SULFATE 4 MG/1 ML DISP.SYRIN ONE (18:04)
--- NOTE | 2018-12-10 18:13 | NUR ---
rivera avila at bed side for paracenthesis.
[2018-12-10] MEDS ORDERED: VANCOMYCIN IV 1,000 MG in IV DEXTROSE 5% 250 ML IV SCH ×2 (18:45→19:45)
[2018-12-10] MEDS ORDERED: CEFTRIAXONE 2 G in IV DEXTROSE 5% 100 ML IV ONE (18:45)
[2018-12-10] MEDS ORDERED: CEFTRIAXONE /D5W 50ML IVPB **ER PYXIS IV ONE (18:58)
[2018-12-10] MEDS ORDERED: VANCOMYCIN IV 200 ML ONE (18:58)
[2018-12-10] MEDS ORDERED: Z GUARD REMEDY PASTE 57 GM TUBE TOP PRN (19:30)
[2018-12-10] MEDS ORDERED: ONDANSETRON 4 MG/2 ML VIAL IV PRN (19:30)
[2018-12-10] MEDS ORDERED: MAGNESIUM HYDROXIDE 30 ML LIQUID UDC PO PRN (19:30)
[2018-12-10] MEDS ORDERED: POTASSIUM CHLORIDE 20 MEQ TAB.PRT.SR PO ONE (19:45)
[2018-12-10] MEDS ORDERED: TRAMADOL HCL 50 MG TABLET PO PRN (19:45)
--- NOTE | 2018-12-10 19:45 | NUR ---
vancomycin 1gm IV started at 1944, running at the time of transfer to floor.
--- NOTE | 2018-12-10 20:00 | NUR ---
pt transfered to [facility] in stable condition.
[2018-12-10 20:47] VITALS: BP 116/58
--- NOTE | 2018-12-10 21:33 | NUR ---
PATIENT ADMITTED FROM ED BROUGHT IN VIA XOCHILT .A O X 3, IV ATB INUSING. ABDOMEN FIRM AND DISTENDED. BILATERAL ARM WITH DISCOLORATION AND EXCORIATION. . NOTICED REDNESS ON THE ABSOMINAL AREA. PATIENT UNTIDY. WILL CONTINUE TO MONITOR
[2018-12-10] MEDS: HYDROCODONE/APAP 5-325MG TABLET PO PRN (21:40)
[2018-12-11 00:34] VITALS: BP 115/62
[2018-12-11] MEDS: HYDROCODONE/APAP 5-325MG TABLET PO PRN ×2 (01:57→09:58)
[2018-12-11 04:00] VITALS: BP 95/58
--- NOTE | 2018-12-11 04:00 | NUR ---
Noticed dislodged IV . New IV re inserted on LFA #20 . Pain medication administered on c/o abd pain. No N/V noted. abdomen still distended and firm. Redness noticed on abdominal area and on back. continuing on atb as ordered . No BM noted during the shift Will continue to monitor
--- NOTE | 2018-12-11 07:15 | NUR ---
RECEIVED PATIENT RESTING IN BED, NO S/S OF ACUTE DISTRESS NOTED. NO C/O PAIN. PATIENT ON TELE MONITOR . SAFETY AND COMFORT PROVIDED. CONTINUE TO MONITOR. CALL LIGHT WITHIN REACHED.
[2018-12-11] MEDS: VANCOMYCIN IV 1,250 MG in IV DEXTROSE 5% 250 ML IV SCH ×2 (11:05→18:44)
[2018-12-11 11:16] VITALS: BP 106/60
[2018-12-11 12:07] LABS: CARBON DIOXIDE 25 mmol/L (21-32); CHLORIDE 99 mmol/L (98-107); CREATININE 0.4 mg/dL (0.6-1.3); GLUCOSE 101 mg/dL (74-106); MAGNESIUM 1.5 mg/dL (1.8-2.4); POTASSIUM 3.5 mmol/L (3.5-5.1); UREA NITROGEN, BLOOD 4 mg/dL (7-18)
--- NOTE | 2018-12-11 12:18 | NUR ---
Clinical Pharmacy Note: Vancomycin Dosing per Pharmacy Subjective: Vancomycin IV to start on this 53 yo male patient for documented infection (abdominal cellulitis). Objective: BUN 3/Scr 0.6 (12/10) WBC 17.8 (12/10) Temperature 98.2 ht 182.8 cm wt 74 kg Assessment/Plan: Will start vancomycin 1250mg IVPB Q8hr for a predicted vancomycin steady state trough level of 16 mcg/ml. 1st dose today at 1100. Will draw a vancomycin trough level prior to the 4th dose of vancomycin (ordered for 12/12 at 1030am). Pharmacy shall review the level when available & adjust the dose if needed. Will follow daily.
[2018-12-11 12:28] LABS: BASOPHILS % (AUTO) 0.3 % (0.0-2.0); EOSINOPHILS % (AUTO) 0.6 % (0.0-7.0); LYMPHOCYTES # (AUTO) 0.3 K/uL (20.0-40.0); LYMPHOCYTES % (AUTO) 3.5 % (20.5-51.5); MEAN CORPUSCULAR HGB CONC 32 g/dL (32.5-36.3); MEAN CORPUSCULAR VOLUME 68.7 fL (73.0-96.2); MONOCYTES # (AUTO) 1.1 K/uL (2.0-10.0); MONOCYTES % (AUTO) 13.6 % (0.0-11.0); NEUTROPHILS # (AUTO) 6.5 K/uL (1.8-8.9); RED BLOOD CELL COUNT(AUTO) 3.69 MIL/uL (4.06-5.63); WHITE BLOOD COUNT (AUTO) 7.9 K/uL (3.6-10.2)
[2018-12-11 12:30] LABS: HEMOGLOBIN 8.2 g/dL (12.5-16.3)
[2018-12-11 12:32] LABS: HEMATOCRIT 25.6 % (36.7-47.1); PLATELET COUNT (AUTO) 60 K/uL (152-348)
[2018-12-11] MEDS: TRAMADOL HCL 50 MG TABLET PO PRN ×2 (13:14→19:14)
[2018-12-11 15:22] VITALS: BP 100/58
[2018-12-11] MEDS ORDERED: NEUTRA PHOS PACKET PO ONE (16:30)
[2018-12-11 17:08] LABS: BAND % (MANUAL) 13 % (0-10); LYMPHOCYTES % (MANUAL) 2 % (20-40); MONOCYTES % (MANUAL) 12 % (2-10); NEUTROPHILS % (MANUAL) 73 % (42-75)
[2018-12-11] MEDS: CEFTRIAXONE 2 G in IV DEXTROSE 5% 100 ML IV SCH (17:43)
--- NOTE | 2018-12-11 18:25 | NUR ---
PATIENT ALERT AND ORIENTED, C/O PAIN AND PRN PAIN MEDICATION GIVEN ORDERED. CONTINUE ON IV ATB ORDERED, MONITOR FOR FOR ASE. CONTINUE TO PROVIDE SAFETY AND COMFORT AT ALL TIMES, PATIENT BEEN CLEAN . CALL LIGHT WITHIN REACHED.
[2018-12-11 20:34] VITALS: BP 102/60
[2018-12-12] MEDS: TRAMADOL HCL 50 MG TABLET PO PRN ×4 (02:17→20:41)
[2018-12-12] MEDS: VANCOMYCIN IV 1,250 MG in IV DEXTROSE 5% 250 ML IV SCH (02:18)
[2018-12-12 05:22] VITALS: BP 105/62
[2018-12-12 07:03] LABS: BASOPHILS % (AUTO) 0.6 % (0.0-2.0); EOSINOPHILS # (AUTO) 0.3 K/uL (0.0-0.7); EOSINOPHILS % (AUTO) 4.9 % (0.0-7.0); HEMATOCRIT 25.7 % (36.7-47.1); HEMOGLOBIN 8.1 g/dL (12.5-16.3); LYMPHOCYTES # (AUTO) 0.5 K/uL (20.0-40.0); LYMPHOCYTES % (AUTO) 9.8 % (20.5-51.5); MEAN CORPUSCULAR HEMOGLOBIN 21.7 uug (23.8-33.4); MEAN CORPUSCULAR HGB CONC 31 g/dL (32.5-36.3); MEAN CORPUSCULAR VOLUME 69.2 fL (73.0-96.2); MONOCYTES # (AUTO) 0.9 K/uL (2.0-10.0); MONOCYTES % (AUTO) 16.8 % (0.0-11.0); NEUTROPHILS # (AUTO) 3.7 K/uL (1.8-8.9); NEUTROPHILS % (AUTO) 67.9 % (38.5-71.5); PLATELET COUNT (AUTO) 66 K/uL (152-348); RED BLOOD CELL COUNT(AUTO) 3.72 MIL/uL (4.06-5.63); WHITE BLOOD COUNT (AUTO) 5.4 K/uL (3.6-10.2)
[2018-12-12 07:31] LABS: CARBON DIOXIDE 27 mmol/L (21-32); CHLORIDE 98 mmol/L (98-107); CREATININE 0.4 mg/dL (0.6-1.3); GLUCOSE 91 mg/dL (74-106); MAGNESIUM 1.6 mg/dL (1.8-2.4); PHOSPHOROUS 2.7 mg/dL (2.5-4.9); UREA NITROGEN, BLOOD 4 mg/dL (7-18)
[2018-12-12] MEDS: CEFTRIAXONE 2 G in IV DEXTROSE 5% 100 ML IV SCH (08:40)
[2018-12-12 10:16] LABS: BAND % (MANUAL) 2 % (0-10); EOSINOPHILS % (MANUAL) 4 % (0-8); LYMPHOCYTES % (MANUAL) 11 % (20-40); MONOCYTES % (MANUAL) 12 % (2-10); NEUTROPHILS % (MANUAL) 71 % (42-75)
[2018-12-12 11:19] VITALS: BP 97/64
--- NOTE | 2018-12-12 11:49 | NUR ---
Called pharmacy to check on vancomycin, not on floor in med room. Awaiting lab results in order to send up. Awaiting medication.
--- NOTE | 2018-12-12 13:01 | NUR ---
Clinical Pharmacy Note: Vancomycin Dosing per Pharmacy Subjective: Vancomycin IV to continue on this 53 yo male patient for documented infection (abdominal cellulitis). Objective: BUN 10/Scr 0.4 WBC 5.4 Temperature 98.3 ht 182.8 cm wt 74 kg Trough at 1130 (drawn one hr late, 30min post scheduled 4th dose): 10.7 Assessment/Plan: Based on trough, will reschedule vancomycin regimen to 1500mg q8h for new estimated trough of 16.4, first dose today at 1300. Trough ordered before 4th scheduled dose of new regimen, due tomorrow 12/13 @1230. Will check level when available and adjust as needed. Will follow
[2018-12-12] MEDS: VANCOMYCIN IV 1,500 MG in IV DEXTROSE 5% 500 ML IV SCH ×2 (13:20→21:23)
[2018-12-12] MEDS ORDERED: POTASSIUM CHLORIDE 20 MEQ TAB.PRT.SR PO ONE ×2 (14:00→18:00)
[2018-12-12] MEDS: MAGNESIUM SULFATE/D5W 100 ML IV SCH ×2 (15:20→16:17)
[2018-12-12 16:03] VITALS: BP 102/56
--- NOTE | 2018-12-12 17:30 | NUR ---
Patient alert and oriented, no distress noted. Abdominal and back pain managed with PRN tramadol. Wound care followed, done today. Patient continues on antibiotics, vanco levels drawn today prior to giving dose. Potassium 3.0, replaced PO today. Magnesium 1.6, replaced IV today. Will endorse care to oncoming shift.
--- NOTE | 2018-12-12 20:00 | NUR ---
Patient received into care awake and alert, resting comfortably in bed. All safety and fall precaution measures are in place. Call light and personal items are within reach at all times. Will continue to monitor.
[2018-12-12 20:31] VITALS: BP 104/62
--- NOTE | 2018-12-13 00:15 | NUR ---
Left wrist IV site infiltrated. IV catheter removed intact. Wrist elevated and ice applied to effected area. New IV cath started on left forearm, 22g, patent and intact.
[2018-12-13] MEDS: TRAMADOL HCL 50 MG TABLET PO PRN ×4 (02:59→21:56)
[2018-12-13] MEDS: VANCOMYCIN IV 1,500 MG in IV DEXTROSE 5% 500 ML IV SCH ×3 (05:00→23:01)
[2018-12-13 06:08] VITALS: BP 101/58
--- NOTE | 2018-12-13 06:15 | NUR ---
Patient slept intermittently throughout night, with complaints of pain addressed with prescribed analgesic medication. All prescribed antibiotic treatments were infused as ordered and tolerated well, with no adverse side effects noted or observed. Wound on left arm was redressed when it became wet after patient spilled water on the bandage placed by AM nurse. IV site on left wrist infiltrated and was replaced by IV site on left forearm, 22g, which is patent and intact. All safety and fall precaution measures remain in place. Call light and personal items are within reach at all times.
[2018-12-13 06:56] LABS: BASOPHILS % (AUTO) 0.6 % (0.0-2.0); EOSINOPHILS # (AUTO) 0.2 K/uL (0.0-0.7); EOSINOPHILS % (AUTO) 4.9 % (0.0-7.0); HEMATOCRIT 24.9 % (36.7-47.1); HEMOGLOBIN 8.1 g/dL (12.5-16.3); LYMPHOCYTES # (AUTO) 0.7 K/uL (20.0-40.0); LYMPHOCYTES % (AUTO) 14.4 % (20.5-51.5); MEAN CORPUSCULAR HEMOGLOBIN 22.5 uug (23.8-33.4); MEAN CORPUSCULAR HGB CONC 33 g/dL (32.5-36.3); MEAN CORPUSCULAR VOLUME 69.3 fL (73.0-96.2); MONOCYTES % (AUTO) 20.2 % (0.0-11.0); NEUTROPHILS # (AUTO) 2.8 K/uL (1.8-8.9); NEUTROPHILS % (AUTO) 59.9 % (38.5-71.5); PLATELET COUNT (AUTO) 90 K/uL (152-348); RED BLOOD CELL COUNT(AUTO) 3.59 MIL/uL (4.06-5.63); WHITE BLOOD COUNT (AUTO) 4.7 K/uL (3.6-10.2)
[2018-12-13 07:08] LABS: CARBON DIOXIDE 27 mmol/L (21-32); CHLORIDE 102 mmol/L (98-107); CREATININE 0.5 mg/dL (0.6-1.3); GLUCOSE 136 mg/dL (74-106); MAGNESIUM 1.8 mg/dL (1.8-2.4); PHOSPHOROUS 2.8 mg/dL (2.5-4.9); POTASSIUM 3.3 mmol/L (3.5-5.1); UREA NITROGEN, BLOOD 3 mg/dL (7-18)
[2018-12-13 08:05] LABS: EOSINOPHILS % (MANUAL) 6 % (0-8); LYMPHOCYTES % (MANUAL) 9 % (20-40); MONOCYTES % (MANUAL) 13 % (2-10); NEUTROPHILS % (MANUAL) 71 % (42-75)
--- NOTE | 2018-12-13 09:28 | NUR ---
Pt received this morning, assisted to bathroom for voiding. Pt assessed, reports pain 12/10 pain medication administered per PRN orders along with routine antibiotics. All comfort and safety needs attended to at this time. Bed in locked and lowest position. Call light within reach. Will continue to monitor for safety.
[2018-12-13] MEDS ORDERED: POTASSIUM CHLORIDE 20 MEQ TAB.PRT.SR PO ONE (09:30)
[2018-12-13] MEDS: CEFTRIAXONE 2 G in IV DEXTROSE 5% 100 ML IV SCH (09:32)
[2018-12-13 11:25] VITALS: BP 98/53
--- NOTE | 2018-12-13 14:17 | NUR ---
Clinical Pharmacy Note: Vancomycin Dosing per Pharmacy Subjective: Vancomycin IV to continue on this 53 yo male patient for documented infection (abdominal cellulitis). Objective: BUN 3/Scr 0.5 WBC 4.7 Temperature 98.5 ht 182.8 cm wt 74 kg Trough at 1130 on 12/12 (drawn one hr late, 30min post scheduled 4th dose): 10.7 Trough at 1230 on 12/13 (drawn one hr late, 30 min post scheduled 4th dose): 13.3 Assessment/Plan: Since the vanco trough was drawn late, the estimated trough ~15 mcg/ml (per MD note, patient improving, WBC decreased), will continue same dose of vanco 1500mg IVPB q8h. Will consider repeating level and/or adjusting dose as per renal function. Will follow
[2018-12-13 15:37] VITALS: BP 108/65
--- NOTE | 2018-12-13 16:26 | NUR ---
Pt reported nausea subsided following administration of Zofran as ordered. Pt reports PRN pain medication Tramadol "helps slightly, but not as well as Morphine usually does". All needs attended to promptly this shift. Call light within reach. Will continue to monitor.
--- NOTE | 2018-12-13 17:00 | NUR ---
Pt refused to complete remaining 250ml of Vanco Iv antibiotic already running. Pt teaching provided on the importance of completing entire dose of antibiotic regimen. Pt insisted on stopping IV medication at this time. Will continue to monitor and follow up.
--- NOTE | 2018-12-13 20:00 | NUR ---
Patient received into care awake and sitting up in bed. Patient has no complaints of pain or discomfort at this time. IV site on left forearm is patient and intact. All safety and fall precaution measures are in place. Call light and personal items are within reach at all times. Will continue to monitor.
[2018-12-13 20:50] VITALS: BP 101/61
[2018-12-14] MEDS: VANCOMYCIN IV 1,500 MG in IV DEXTROSE 5% 500 ML IV SCH ×3 (06:17→22:42)
[2018-12-14] MEDS: TRAMADOL HCL 50 MG TABLET PO PRN ×3 (06:18→18:27)
[2018-12-14 06:35] LABS: BASOPHILS % (AUTO) 0.9 % (0.0-2.0); EOSINOPHILS # (AUTO) 0.2 K/uL (0.0-0.7); EOSINOPHILS % (AUTO) 4.4 % (0.0-7.0); HEMATOCRIT 25.4 % (36.7-47.1); HEMOGLOBIN 8.2 g/dL (12.5-16.3); LYMPHOCYTES # (AUTO) 0.8 K/uL (20.0-40.0); LYMPHOCYTES % (AUTO) 15.2 % (20.5-51.5); MEAN CORPUSCULAR HEMOGLOBIN 22.4 uug (23.8-33.4); MEAN CORPUSCULAR HGB CONC 32 g/dL (32.5-36.3); MEAN CORPUSCULAR VOLUME 69.5 fL (73.0-96.2); MONOCYTES # (AUTO) 1.1 K/uL (2.0-10.0); MONOCYTES % (AUTO) 22.2 % (0.0-11.0); NEUTROPHILS # (AUTO) 2.9 K/uL (1.8-8.9); NEUTROPHILS % (AUTO) 57.3 % (38.5-71.5); PLATELET COUNT (AUTO) 110 K/uL (152-348); RED BLOOD CELL COUNT(AUTO) 3.66 MIL/uL (4.06-5.63)
[2018-12-14 06:42] VITALS: BP 105/62
[2018-12-14 06:44] LABS: CARBON DIOXIDE 29 mmol/L (21-32); CHLORIDE 103 mmol/L (98-107); CREATININE 0.5 mg/dL (0.6-1.3); GLUCOSE 96 mg/dL (74-106); POTASSIUM 3.4 mmol/L (3.5-5.1); UREA NITROGEN, BLOOD 4 mg/dL (7-18)
--- NOTE | 2018-12-14 07:04 | NUR ---
Patient slept intermittently throughout night with complaints of pain addressed with prescribed analgesics. Prescribed IV antibiotics infused as ordered and tolerated well, with no adverse side effects verbalized or observed. All safety and fall precaution measures remain in place. Call light and personal items are within reach at all times.
[2018-12-14] MEDS ORDERED: POTASSIUM CHLORIDE 20 MEQ TAB.PRT.SR PO ONE (07:30)
[2018-12-14] MEDS: CEFTRIAXONE 2 G in IV DEXTROSE 5% 100 ML IV SCH (08:50)
[2018-12-14 09:08] LABS: EOSINOPHILS % (MANUAL) 4 % (0-8); LYMPHOCYTES % (MANUAL) 25 % (20-40); MONOCYTES % (MANUAL) 15 % (2-10); NEUTROPHILS % (MANUAL) 56 % (42-75)
[2018-12-14] MEDS ORDERED: AMOX500C2 PO (10:55)
[2018-12-14] MEDS ORDERED: SULF1TAB48 PO (10:55)
[2018-12-14 11:19] VITALS: BP 96/54
--- NOTE | 2018-12-14 13:30 | NUR ---
Clinical Pharmacy Note: Vancomycin Dosing per Pharmacy Subjective: Vancomycin IV to continue on this 53 yo male patient for documented infection (abdominal cellulitis). Objective: BUN 4/Scr 0.5 WBC 5.0 Temperature 98.3 ht 182.8 cm wt 74 kg Trough at 1130 on 12/12 (drawn one hr late, 30min post scheduled 4th dose): 10.7 Trough at 1230 on 12/13 (drawn one hr late, 30 min post scheduled 4th dose): 13.3 Assessment/Plan: Since the vanco trough was drawn late on 12/13, the estimated trough is actually ~15 mcg/ml (per MD note, patient improving, WBC decreased), will continue same dose of vanco 1500mg IVPB q8h for today. Will consider repeating level and/or adjusting dose as per renal function if unstable, condition changes, or on prolonged course. Will follow
[2018-12-14 15:23] VITALS: BP 118/72
--- NOTE | 2018-12-14 18:58 | NUR ---
PATIENT IN BED WITH CAREGIVER AT BEDSIDE. NO S/S OF ACUTE DISTRESS NOTED, IV INTACT AND PATENT, C/O PAIN AND PRN PAIN MEDICATION GIVEN ORDERED. SAFETY AND COMFORT PROVIDED. WILL CONTINUE TO MONITOR, CALL LIGHT WITHIN REACHED.
--- NOTE | 2018-12-14 19:30 | NUR ---
Report from previous nurse pt will be discharged tomorrow in am. Received pt in bed, awake in no acute signs of distress. No c/o pain at this time. Will continue to monitor.
[2018-12-14 20:14] VITALS: BP 95/56
[2018-12-15] MEDS: TRAMADOL HCL 50 MG TABLET PO PRN ×2 (01:05→07:03)
[2018-12-15 06:46] VITALS: BP 110/56
[2018-12-15] MEDS: VANCOMYCIN IV 1,500 MG in IV DEXTROSE 5% 500 ML IV SCH (06:51)
--- NOTE | 2018-12-15 07:04 | NUR ---
GIVEN PAIN MED FOR C/O ABDOMINAL PAIN. EFFECTIVE. CONTINUE ON IV ATB. NO A/E NOTED.
[2018-12-15] MEDS: CEFTRIAXONE 2 G in IV DEXTROSE 5% 100 ML IV SCH (08:29)
--- NOTE | 2018-12-15 11:12 | NUR ---
dc orders received noted and carried out,dc heplock per md orders,dc instruction given to the pt,pt left the facility via walking from the hospital in proper clothing,in stable condition
[2019-01-14] MEDS ORDERED: THIA100T13 PO (11:15)
[2019-01-14] MEDS ORDERED: SPIR100T5 PO (11:15)
[2019-01-14] MEDS ORDERED: FERR325T28 PO (11:15)
[2019-01-14] MEDS ORDERED: FOLI1TAB16 PO (11:15)
== END 2018-12-15 11:20 | disposition home or self-care (01) | DRG 720 ==
LOC: ER 16:13 → TELE3 19:59 → MEDSURG3 12-11 17:58
PROVIDERS: ADMIT Student in an Organized Health Care Education/Training Program; ATTEND Student in an Organized Health Care Education/Training Program
PROC: 0W9G3ZX Drainage of Peritoneal Cavity, Percutaneous Approach, Diagnostic (ICD-10-PCS; principal; 2018-12-10)
DX: A41.9 Sepsis, unspecified organism (principal); E87.8 Other disorders of electrolyte and fluid balance, not elsewhere classified; D69.6 Thrombocytopenia, unspecified; E44.0 Moderate protein-calorie malnutrition; K65.2 Spontaneous bacterial peritonitis; E87.1 Hypo-osmolality and hyponatremia; L03.311 Cellulitis of abdominal wall; F11.20 Opioid dependence, uncomplicated; K76.6 Portal hypertension; G62.1 Alcoholic polyneuropathy; K70.31 Alcoholic cirrhosis of liver with ascites; K86.1 Other chronic pancreatitis; F10.20 Alcohol dependence, uncomplicated; Y90.9 Presence of alcohol in blood, level not specified; D63.8 Anemia in other chronic diseases classified elsewhere; Z91.19 Patient's noncompliance with other medical treatment and regimen; Z59.0 Homelessness; Z76.5 Malingerer [conscious simulation]; K57.90 Diverticulosis of intestine, part unspecified, without perforation or abscess without bleeding; E87.6 Hypokalemia; B35.1 Tinea unguium; J98.11 Atelectasis; G89.29 Other chronic pain; G25.81 Restless legs syndrome; F17.210 Nicotine dependence, cigarettes, uncomplicated
CPT/HCPCS: 36415; 49083; 70030-TC; 71045; 74018; 83690; 83735; 83986; 84100; 85025; 85730; 87070; 87205; A4663; G0378; J0696; J2270; J2405; J3370; J3475; J7060

== ENCOUNTER 2018-12-22 16:26 | Inpatient (IN) | payer OTHER ==
[~2018-12-22] VITALS: Ht 182.9 cm; Wt 70.9 kg
[~2018-12-22 16:26] MED LIST changes: +AMOX500C2 PO; -FOLI1TAB16 PO; -FURO40TA5 PO; -MULT-24 PO; -SPIR100T PO; +SULF1TAB48 PO; -THIA100T13 PO
--- NOTE | 2018-12-22 16:54 | NUR ---
Per ER admitting pt's friend came to asked for a wheelchair and gave the pt's information, however the pt has not presented himself to the ER yet.
[2018-12-22] MEDS ORDERED: MORPHINE SULFATE 4 MG/1 ML DISP.SYRIN ONE ×2 (17:29→21:36)
[2018-12-22] MEDS ORDERED: ONDANSETRON 4 MG/2 ML VIAL ONE (17:29)
[2018-12-22 17:30] LABS: BASOPHILS # (AUTO) 0.2 K/uL (0.0-8.0); BASOPHILS % (AUTO) 2.2 % (0.0-2.0); EOSINOPHILS # (AUTO) 0.2 K/uL (0.0-0.7); EOSINOPHILS % (AUTO) 2.3 % (0.0-7.0); HEMATOCRIT 25.9 % (36.7-47.1); HEMOGLOBIN 8.3 g/dL (12.5-16.3); LYMPHOCYTES # (AUTO) 1.5 K/uL (20.0-40.0); LYMPHOCYTES % (AUTO) 20.1 % (20.5-51.5); MEAN CORPUSCULAR HGB CONC 32 g/dL (32.5-36.3); MEAN CORPUSCULAR VOLUME 68.4 fL (73.0-96.2); MONOCYTES # (AUTO) 1.4 K/uL (2.0-10.0); MONOCYTES % (AUTO) 18.8 % (0.0-11.0); NEUTROPHILS # (AUTO) 4.1 K/uL (1.8-8.9); NEUTROPHILS % (AUTO) 56.6 % (38.5-71.5); PLATELET COUNT (AUTO) 251 K/uL (152-348); RED BLOOD CELL COUNT(AUTO) 3.79 MIL/uL (4.06-5.63); WHITE BLOOD COUNT (AUTO) 7.3 K/uL (3.6-10.2)
[2018-12-22 17:37] LABS: CARBON DIOXIDE 27 mmol/L (21-32); CHLORIDE 103 mmol/L (98-107); CREATININE 0.5 mg/dL (0.6-1.3); GLUCOSE 99 mg/dL (74-106); POTASSIUM 3.3 mmol/L (3.5-5.1); UREA NITROGEN, BLOOD 5 mg/dL (7-18)
--- NOTE | 2018-12-22 17:37 | NUR ---
PT IS IN ROOM #1B. DR MCGRAW EVALUATED THE PT.
[2018-12-22 17:43] LABS: ALANINE AMINOTRANSFERASE 28 U/L (16-63); ALKALINE PHOSPHATASE 386 U/L (50-136); ASPARTATE AMINOTRANSFERASE 52 U/L (15-37); BILIRUBIN,DIRECT 0.4 mg/dL (0.0-0.2); BILIRUBIN,TOTAL 0.9 mg/dL (0.2-1.0); LIPASE 380 U/L (73-393); TOTAL PROTEIN, SERUM 6.2 g/dL (6.4-8.2)
[2018-12-22] MEDS ORDERED: ONDANSETRON 4 MG/2 ML VIAL IV ONE (17:45)
[2018-12-22] MEDS ORDERED: MORPHINE SULFATE 4 MG/1 ML DISP.SYRIN IV ONE ×2 (17:45→21:30)
[2018-12-22 17:52] LABS: BAND % (MANUAL) 1 % (0-10); NEUTROPHILS % (MANUAL) 56 % (42-75)
[2018-12-22 17:53] LABS: EOSINOPHILS % (MANUAL) 1 % (0-8); LYMPHOCYTES % (MANUAL) 24 % (20-40); MONOCYTES % (MANUAL) 18 % (2-10)
[2018-12-22] MEDS ORDERED: LIDOCAINE HCL 1% 20 ML VIAL IJ ONE (19:30)
[2018-12-22] MEDS ORDERED: LIDOCAINE HCL 1% 20 ML VIAL ONE (19:31)
--- NOTE | 2018-12-23 00:18 | NUR ---
Assisted ERMD with paracentesis procedure. Sterile techniques observed. Fluid recovered using vacuum sealed containers, and tubing. A total of 1.5L of fluid recovered.
--- NOTE | 2018-12-23 02:13 | NUR ---
STANLEY called, awaiting call back from Luis
[2018-12-23] MEDS ORDERED: ONDANSETRON 4 MG/2 ML VIAL IV PRN (02:45)
[2018-12-23] MEDS ORDERED: MAGNESIUM HYDROXIDE 30 ML LIQUID UDC PO PRN (02:45)
[2018-12-23] MEDS ORDERED: Z GUARD REMEDY PASTE 57 GM TUBE TOP PRN (02:45)
[2018-12-23] MEDS ORDERED: ACETAMINOPHEN 325 MG TABLET PO PRN (02:45)
--- NOTE | 2018-12-23 02:47 | NUR ---
Report given to BALTA Gonzales
--- NOTE | 2018-12-23 03:40 | NUR ---
Patient transferred to [place] in stable condition.
[2018-12-23] MEDS: HYDROCODONE/APAP 5-325MG TABLET PO PRN ×5 (03:55→21:46)
[2018-12-23 04:00] VITALS: BP 105/95
--- NOTE | 2018-12-23 04:45 | NUR ---
[facility] Admission Patient received from ER Nurse, transported from ER via wheelchair at 0330. Pt awake, alert and verbally responsive. Admission to [facility] carried out as ordered. Admission process started as protocol, belongings listed and patient signed. Found with alcohol/beer contraband, also listed and placed in locked contraband container patient is aware. Full skin assessment done, photos taken per protocol and filed in chart. Cleaned skin with cloth and pat dry. Patient noted with foul smell/unkempt/bad hygiene. Offered hospital gown but adamantly refused. Full assessment done, all pertinent questions answered and recorded in flowsheet. Vs checked and recorded, O2 saturation fluctuates from 88 to 95% at rest on RA. Patient placed on O2 2LPM via nasal cannula. Pt refuses at first but agreed after explanation of risks/benefits. Complains of 10/10 pain initially, due to ascites, also noted with +1 pitting edema on bilateral foot/legs. [place] 5/325 mg given as ordered around 0345, appears effective at this time. All needs attended. Call light kept within reach, and is working. Pt is familiar with surroundings, frequent patient here. Verbalized desire to rest. Will continue to monitor.
[2018-12-23 06:31] LABS: *BILIRUBIN,URIN NEGATIVE (NEGATIVE); *BLOOD, URINE NEGATIVE (NEGATIVE); *CLARITY,URINE CLEAR (CLEAR); *COLOR,URINE YELLOW (YELLOW); *KETONES,URINE NEGATIVE (NEGATIVE); LEUKOCYTE ESTERASE ,URINE NEGATIVE (NEGATIVE); NITRITE, URINE NEGATIVE (NEGATIVE); UGLUCOSE NEGATIVE (NEGATIVE)
[2018-12-23 06:43] LABS: BASOPHILS # (AUTO) 0.1 K/uL (0.0-8.0); BASOPHILS % (AUTO) 2.3 % (0.0-2.0); EOSINOPHILS # (AUTO) 0.1 K/uL (0.0-0.7); EOSINOPHILS % (AUTO) 2.2 % (0.0-7.0); HEMATOCRIT 24.1 % (36.7-47.1); HEMOGLOBIN 7.6 g/dL (12.5-16.3); LYMPHOCYTES # (AUTO) 0.7 K/uL (20.0-40.0); MEAN CORPUSCULAR HEMOGLOBIN 21.7 uug (23.8-33.4); MEAN CORPUSCULAR HGB CONC 32 g/dL (32.5-36.3); MEAN CORPUSCULAR VOLUME 68.5 fL (73.0-96.2); MONOCYTES # (AUTO) 0.8 K/uL (2.0-10.0); MONOCYTES % (AUTO) 20.5 % (0.0-11.0); NEUTROPHILS # (AUTO) 2.4 K/uL (1.8-8.9); RED BLOOD CELL COUNT(AUTO) 3.52 MIL/uL (4.06-5.63)
[2018-12-23 06:57] LABS: BACTERIA,URINE NONE SEEN /HPF (NONE SEEN); MUCUS,URINE FEW /LPF (0-FEW); RBC,URINE 0-3 /HPF (0-3); SQUAMOUS EPITHELIAL CELL,UR FEW /HPF (NONE SEEN); WBC,URINE 0-3 /HPF (0-3)
[2018-12-23 06:59] LABS: ALANINE AMINOTRANSFERASE 30 U/L (16-63); ALKALINE PHOSPHATASE 311 U/L (50-136); ASPARTATE AMINOTRANSFERASE 32 U/L (15-37); BILIRUBIN,DIRECT 0.3 mg/dL (0.0-0.2); BILIRUBIN,TOTAL 0.8 mg/dL (0.2-1.0); CARBON DIOXIDE 26 mmol/L (21-32); CHLORIDE 104 mmol/L (98-107); CREATININE 0.5 mg/dL (0.6-1.3); GLUCOSE 89 mg/dL (74-106); POTASSIUM 3.2 mmol/L (3.5-5.1); TOTAL PROTEIN, SERUM 5.4 g/dL (6.4-8.2); UREA NITROGEN, BLOOD 5 mg/dL (7-18)
[2018-12-23 07:00] LABS: PLATELET COUNT (AUTO) 171 K/uL (152-348); WHITE BLOOD COUNT (AUTO) 4.1 K/uL (3.6-10.2)
--- NOTE | 2018-12-23 07:30 | NUR ---
Patient in Bed, awake and verbally responsive. No signs of Distress noted. No SOB. No complain of pain and discomfort at this time. kept the call light within easy reach. Will continue to monitor.
[2018-12-23 11:40] VITALS: BP 108/66
[2018-12-23 13:45] LABS: BAND % (MANUAL) 2 % (0-10); BASOPHILS % (MANUAL) 3 % (0-2); LYMPHOCYTES % (MANUAL) 15 % (20-40); METAMYELOCYTES % 2 % (0-1); MONOCYTES % (MANUAL) 14 % (2-10); MYELOCYTES % 3 % (0-0); NEUTROPHILS % (MANUAL) 61 % (42-75)
[2018-12-23] MEDS ORDERED: POTASSIUM CHLORIDE 20 MEQ TAB.PRT.SR PO ONE (15:00)
[2018-12-23 15:59] VITALS: BP 109/62
--- NOTE | 2018-12-23 16:15 | NUR ---
Paracentesis was done with 7.8L output noted.
--- NOTE | 2018-12-23 19:11 | NUR ---
Patient in Bed, awake and verbally responsive. No signs of distress noted. No SOB. Pain medication given as ordered. Paracentesis was done with output of 7.8L. All needs attended and met. Kept the call light within easy reach. Will Endorse to Oncoming Shift.
--- NOTE | 2018-12-23 19:30 | NUR ---
Beginning of Shift Patient received in bed. Report received from AM Nurse. Awake, alert and verbally responsive. Pain is effectively managed with last dose of [place]. Asking when he can get it again, provided information. No noted complications from paracentesis. Dressing on site intact, no noted bleeding. Will continue to monitor.
[2018-12-23 20:03] VITALS: BP 100/59
--- NOTE | 2018-12-23 23:04 | NUR ---
Episode of Emesis Patient noted with episode of clear emesis. Verbalized feeling nauseated. VS checked, within normal parameters. BP: 110/89, P: 77, T: 97.3, R: 20. Zofran IV given as ordered, no further emesis at this time, will continue to monitor.
[2018-12-24] MEDS: HYDROCODONE/APAP 5-325MG TABLET PO PRN ×2 (01:40→08:40)
[2018-12-24 04:10] VITALS: BP 97/53
--- NOTE | 2018-12-24 06:08 | NUR ---
End of Shift Patient's pain effectively managed throughout shift. No further complaints of nausea/vomiting. Currently sleeping right now, no noted signs of pain noted. No complications S/P paracentesis noted. IV transferred to R inner forearm, intact and patent. Will continue to monitor and endorse accordingly.
[2018-12-24 06:23] LABS: BASOPHILS % (AUTO) 1.3 % (0.0-2.0); EOSINOPHILS # (AUTO) 0.1 K/uL (0.0-0.7); EOSINOPHILS % (AUTO) 2.9 % (0.0-7.0); HEMATOCRIT 24.7 % (36.7-47.1); HEMOGLOBIN 7.7 g/dL (12.5-16.3); LYMPHOCYTES # (AUTO) 0.6 K/uL (20.0-40.0); LYMPHOCYTES % (AUTO) 17.5 % (20.5-51.5); MEAN CORPUSCULAR HGB CONC 31 g/dL (32.5-36.3); MEAN CORPUSCULAR VOLUME 67.1 fL (73.0-96.2); MONOCYTES # (AUTO) 0.7 K/uL (2.0-10.0); MONOCYTES % (AUTO) 18.6 % (0.0-11.0); NEUTROPHILS # (AUTO) 2.2 K/uL (1.8-8.9); NEUTROPHILS % (AUTO) 59.7 % (38.5-71.5); PLATELET COUNT (AUTO) 151 K/uL (152-348); RED BLOOD CELL COUNT(AUTO) 3.69 MIL/uL (4.06-5.63); WHITE BLOOD COUNT (AUTO) 3.7 K/uL (3.6-10.2)
[2018-12-24 06:38] LABS: CARBON DIOXIDE 26 mmol/L (21-32); CHLORIDE 105 mmol/L (98-107); CHOLESTEROL 109 mg/dL (<200); CREATININE 0.5 mg/dL (0.6-1.3); GLUCOSE 94 mg/dL (74-106); HDL CHOLESTEROL 54 mg/dL (40-60); MAGNESIUM 1.7 mg/dL (1.8-2.4); PHOSPHOROUS 3.2 mg/dL (2.5-4.9); POTASSIUM 3.5 mmol/L (3.5-5.1); TRIGLYCERIDES 45 MG/DL (30-150); UREA NITROGEN, BLOOD 5 mg/dL (7-18)
[2018-12-24 06:42] LABS: THYROID STIMULATING HORMONE 1.617 mIU/mL (0.358-3.740)
--- NOTE | 2018-12-24 07:38 | NUR ---
Patient resting comfortably in bed at this time. No complaints of pain. No signs of bleeding, infection at incision site of paracentesis. Stable condition, no signs of distress at this time. Pain management will be provided as needed per MD orders. Will continue to monitor throughout shift. Safety measures implemented.
[2018-12-24 08:30] LABS: EOSINOPHILS % (MANUAL) 3 % (0-8); LYMPHOCYTES % (MANUAL) 20 % (20-40); MONOCYTES % (MANUAL) 12 % (2-10); NEUTROPHILS % (MANUAL) 65 % (42-75)
[2018-12-24] MEDS ORDERED: ENSURE WITH FIBER 237 ML LIQUID (CHOCOLATE) PO SCH (09:15)
[2018-12-24] MEDS ORDERED: MAGNESIUM OXIDE 400 MG TABLET PO ONE (10:30)
--- NOTE | 2018-12-24 12:19 | NUR ---
report given to BALTA Torres.
--- NOTE | 2018-12-24 12:50 | NUR ---
Pt. discharged to self. IV removed by mat all discharge papers completed by mat. Pt. refused to take discharge paperworks as he stated is is too heavy for him to carry and only took his prescription paper. ID band cut off but given to pt. as pt. states he lost his ID and this is his only form of verification he has. Walked pt. downstairs. Pt. stable.
== END 2018-12-24 12:00 | disposition home or self-care (01) | DRG 280 ==
LOC: ER 16:28 → OBSVTOIN 12-23 03:07 → MEDSURG3 12-23 03:07
PROVIDERS: ADMIT Nurse Practitioner Acute Care; ATTEND Nurse Practitioner Acute Care
PROC: 0W9G3ZZ Drainage of Peritoneal Cavity, Percutaneous Approach (ICD-10-PCS; principal; 2018-12-23)
PROC: 0W9G3ZX Drainage of Peritoneal Cavity, Percutaneous Approach, Diagnostic (ICD-10-PCS; principal; 2018-12-23)
DX: K70.31 Alcoholic cirrhosis of liver with ascites (principal); K76.6 Portal hypertension; D68.9 Coagulation defect, unspecified; E44.0 Moderate protein-calorie malnutrition; F11.20 Opioid dependence, uncomplicated; G62.1 Alcoholic polyneuropathy; K86.0 Alcohol-induced chronic pancreatitis; K75.9 Inflammatory liver disease, unspecified; F10.10 Alcohol abuse, uncomplicated; G25.81 Restless legs syndrome; F17.210 Nicotine dependence, cigarettes, uncomplicated; D50.9 Iron deficiency anemia, unspecified; Y90.9 Presence of alcohol in blood, level not specified; Z59.0 Homelessness; M16.0 Bilateral primary osteoarthritis of hip; Z91.010 Allergy to peanuts; Z91.018 Allergy to other foods; Z91.19 Patient's noncompliance with other medical treatment and regimen; K57.90 Diverticulosis of intestine, part unspecified, without perforation or abscess without bleeding; G89.29 Other chronic pain; F41.9 Anxiety disorder, unspecified; E03.9 Hypothyroidism, unspecified; E53.8 Deficiency of other specified B group vitamins; F32.9 Major depressive disorder, single episode, unspecified
CPT/HCPCS: 36415; 70030-TC; 71045; 83690; 83735; 84100; 84155; 84443; 85025; 85730; 87070; 87205; 93005; A4663; G0378; J2270; J2405; J3490

== ENCOUNTER 2018-12-29 17:56 | Inpatient (IN) | payer OTHER ==
[~2018-12-29] VITALS: Ht 182.9 cm; Wt 75.9 kg
--- NOTE | 2018-12-29 18:51 | NUR ---
PT IS IN ROOM #2A. DR MCGRAW EVALUATED THE PT.
[2018-12-29] MEDS ORDERED: HYDROCODONE/APAP 5-325MG TABLET PO ONE (19:00)
[2018-12-29 19:17] LABS: BASOPHILS # (AUTO) 0.2 K/uL (0.0-8.0); BASOPHILS % (AUTO) 2.3 % (0.0-2.0); EOSINOPHILS # (AUTO) 0.4 K/uL (0.0-0.7); EOSINOPHILS % (AUTO) 5.3 % (0.0-7.0); HEMATOCRIT 28.2 % (36.7-47.1); LYMPHOCYTES # (AUTO) 1.9 K/uL (20.0-40.0); LYMPHOCYTES % (AUTO) 26.3 % (20.5-51.5); MEAN CORPUSCULAR HEMOGLOBIN 21.1 uug (23.8-33.4); MEAN CORPUSCULAR HGB CONC 32 g/dL (32.5-36.3); MEAN CORPUSCULAR VOLUME 66.3 fL (73.0-96.2); MONOCYTES # (AUTO) 1.7 K/uL (2.0-10.0); MONOCYTES % (AUTO) 23.5 % (0.0-11.0); NEUTROPHILS % (AUTO) 42.6 % (38.5-71.5); PLATELET COUNT (AUTO) 186 K/uL (152-348); RED BLOOD CELL COUNT(AUTO) 4.26 MIL/uL (4.06-5.63); WHITE BLOOD COUNT (AUTO) 7.1 K/uL (3.6-10.2)
[2018-12-29 19:18] LABS: CARBON DIOXIDE 27 mmol/L (21-32); CHLORIDE 104 mmol/L (98-107); CREATININE 0.5 mg/dL (0.6-1.3); GLUCOSE 93 mg/dL (74-106); POTASSIUM 3.3 mmol/L (3.5-5.1); UREA NITROGEN, BLOOD 5 mg/dL (7-18)
[2018-12-29 19:19] LABS: *BILIRUBIN,URIN NEGATIVE (NEGATIVE); *BLOOD, URINE NEGATIVE (NEGATIVE); *CLARITY,URINE CLEAR (CLEAR); *COLOR,URINE YELLOW (YELLOW); *KETONES,URINE NEGATIVE (NEGATIVE); *UROBILINOGEN,URINE 0.2 E.U./dl (NORMAL); LEUKOCYTE ESTERASE ,URINE NEGATIVE (NEGATIVE); NITRITE, URINE NEGATIVE (NEGATIVE); UGLUCOSE NEGATIVE (NEGATIVE)
[2018-12-29] MEDS ORDERED: HYDROCODONE/APAP 5-325MG TABLET ONE (19:19)
[2018-12-29 19:23] LABS: ALANINE AMINOTRANSFERASE 21 U/L (16-63); ALKALINE PHOSPHATASE 305 U/L (50-136); ASPARTATE AMINOTRANSFERASE 38 U/L (15-37); BILIRUBIN,DIRECT 0.3 mg/dL (0.0-0.2); BILIRUBIN,TOTAL 0.7 mg/dL (0.2-1.0); LIPASE 279 U/L (73-393); TOTAL PROTEIN, SERUM 6.3 g/dL (6.4-8.2)
[2018-12-29 19:32] LABS: BAND % (MANUAL) 2 % (0-10); EOSINOPHILS % (MANUAL) 4 % (0-8); LYMPHOCYTES % (MANUAL) 31 % (20-40); MONOCYTES % (MANUAL) 20 % (2-10); NEUTROPHILS % (MANUAL) 43 % (42-75)
--- NOTE | 2018-12-29 20:36 | NUR ---
PREFERRED INFORMATION SYSTEMS AUDITOR (INSURANCE) ON THE PHONE WITH ER HOSPITAL EDUCATOR FOR CLINICALS
--- NOTE | 2018-12-29 21:03 | NUR ---
HAND OFF AND SBAR GIVEN TO DARREN GIFFORD PT WILL BE ADMITTED TO M/S RM 323 UNDER GABBIE DX ASCITES/ ABD PAIN
--- NOTE | 2018-12-29 21:07 | NUR ---
TRANSPORTED VIA GURNEY ACC BY DIANE YINX2 UP BED AT LOWEST POSITION BELONGINGS W/ PT
--- NOTE | 2018-12-29 21:20 | NUR ---
PT TRANSPORTED TO VIA GURNEY ACCOMPANIED BY DIANE PLASENCIA X2 UP BED AT LOWEST POSITION ALL BELONGINGS W/ PT
[2018-12-29 21:36] VITALS: BP 100/60
[2018-12-29] MEDS ORDERED: ACETAMINOPHEN 325 MG TABLET PO PRN (22:00)
--- NOTE | 2018-12-29 22:00 | NUR ---
New Admission/MedSurg Resident arrived via gurney, accompanied by ER Nurse. Awake, alert and verbally responsive. All belongings accounted for, also with contraband and medications. 1 beer, 2 lighters and pack of cigarettes stored in locked contraband locker. Signature obtained from patient, emphasized that hospital will not be held liable for any loss of property when he gets discharged. Verbalized that he will maintain full responsibility for his belongings. Initial physical assessment performed, noted with multiple scabs (closed and healing) on bilateral upper arms. Abdomen distended and rigid. Slight movement and patient complains of 10/10 pain. At rest, he verbalizes 4/10 pain, tolerable but increasing, as verbalized. Education provided on alcohol intake, smoking cessation, and liver disease. Verbalizes understanding, but patient noted with lack of motivation for self improvement. Risks and benefits made aware. Full history taken and recorded. All admission process finished at this time. Awaiting for complete orders. Also emphasized fall precautions. Needs attended. Will continue to monitor and manage pain as needed.
[2018-12-29] MEDS: MORPHINE SULFATE 2 MG/1 ML DISP.SYRIN IV PRN (22:55)
[2018-12-30] MEDS: MORPHINE SULFATE 2 MG/1 ML DISP.SYRIN IV PRN ×2 (04:24→09:44)
[2018-12-30 05:57] VITALS: BP 101/53
--- NOTE | 2018-12-30 06:11 | NUR ---
End Of Shift Patient able to sleep 6-7 hours this night. With one episode of 10/10 pain at around 5AM with due PRN Morphine given and effective. In recent rounds, patient verbalizes that he is cold and thirsty. Provided patient with water and warm blanket. Pain is currently at 3/10 on the abdomen. Tolerable at this time. Fall precautions reinforced. Will continue to monitor and endorse accordingly.
[2018-12-30] MEDS: PANTOPRAZOLE SODIUM 40 MG TABLET.DR PO SCH (06:26)
[2018-12-30 07:03] LABS: ALANINE AMINOTRANSFERASE 18 U/L (16-63); ALKALINE PHOSPHATASE 282 U/L (50-136); ASPARTATE AMINOTRANSFERASE 34 U/L (15-37); BILIRUBIN,TOTAL 0.8 mg/dL (0.2-1.0); CARBON DIOXIDE 26 mmol/L (21-32); CHLORIDE 102 mmol/L (98-107); CREATININE 0.5 mg/dL (0.6-1.3); GLUCOSE 90 mg/dL (74-106); MAGNESIUM 1.6 mg/dL (1.8-2.4); PHOSPHOROUS 3.4 mg/dL (2.5-4.9); POTASSIUM 3.1 mmol/L (3.5-5.1); UREA NITROGEN, BLOOD 4 mg/dL (7-18)
[2018-12-30 07:15] LABS: BASOPHILS # (AUTO) 0.1 K/uL (0.0-8.0); BASOPHILS % (AUTO) 1.4 % (0.0-2.0); EOSINOPHILS # (AUTO) 0.2 K/uL (0.0-0.7); EOSINOPHILS % (AUTO) 4.3 % (0.0-7.0); HEMATOCRIT 27.9 % (36.7-47.1); HEMOGLOBIN 8.7 g/dL (12.5-16.3); LYMPHOCYTES # (AUTO) 1.1 K/uL (20.0-40.0); LYMPHOCYTES % (AUTO) 22.9 % (20.5-51.5); MEAN CORPUSCULAR HGB CONC 31 g/dL (32.5-36.3); MEAN CORPUSCULAR VOLUME 67.7 fL (73.0-96.2); MONOCYTES # (AUTO) 1.1 K/uL (2.0-10.0); NEUTROPHILS # (AUTO) 2.2 K/uL (1.8-8.9); NEUTROPHILS % (AUTO) 47.4 % (38.5-71.5); PLATELET COUNT (AUTO) 146 K/uL (152-348); RED BLOOD CELL COUNT(AUTO) 4.12 MIL/uL (4.06-5.63)
[2018-12-30 07:29] LABS: WHITE BLOOD COUNT (AUTO) 4.6 K/uL (3.6-10.2)
--- NOTE | 2018-12-30 08:00 | NUR ---
RECEIVED PT RESTING IN BED COMFORTABLY. NO SIGNS OF ACUTE DISTRESS OR SOB. BED LOCKED IN LOW POSITION. CALL LIGHT WITHIN REACH. SAFETY PRECAUTIONS AND MEASURES IMPLEMENTED. WILL CONTINUE TO MONITOR.
[2018-12-30] MEDS: FUROSEMIDE 20 MG/2 ML VIAL IV SCH (09:26)
[2018-12-30 11:25] LABS: BASOPHILS % (MANUAL) 1 % (0-2); EOSINOPHILS % (MANUAL) 3 % (0-8); LYMPHOCYTES % (MANUAL) 23 % (20-40); MONOCYTES % (MANUAL) 20 % (2-10); NEUTROPHILS % (MANUAL) 53 % (42-75)
--- NOTE | 2018-12-30 11:28 | NUR ---
SW consultation requested. SW met with patient, who was in his hospital bed, awake, and receptive to meeting with this SW. Patient is a 53 year old male, presented alert, oriented x 4, cooperative. Patient reports being homeless for the past 15 years, living mostly at [facility] ([place] [facility] and sometimes at a friend's house. Patient stated he came to the ED last night due to pain, and liver disease. Patient reported being diagnosed with liver cirrhosis 8-9 months ago. Patient reported a long standing history of alcohol use, stating that he has been drinking beer on a daily basis since he was 24 years old. Patient reported drinking 8-9 cans of beer a day, but recently has decreased his drinking to 2-3 cans/day. Patient stated that he last drank yesterday afternoon, having 2 cans of beer. Patient denied using any drugs, stating "I've never done drugs, and I only drink beer, no other alcohol". SW explored patient's financial status, and patient reported that he has [employer] insurance, and recently began receiving food stamps. Patient stated he does not get any governmental financial assistance, and his friends sometimes help him out by giving him money. However, patient stated that he is planning on applying for government assistance at the [employer] office. SW explored discharge plans with the patient, and patient stated that he has been in shelters and board and cares, but always left them because he did not like them. When SW asked what patient's discharge plans were after current hospitalization, patient stated that [place] the park. Patient expressed not feeling well, and SW ended the current conversation so patient could rest, however SW stated that either SW or community development planner will meet with patient at a later time to further discuss discharge options and available community resources. Patient expressed agreement and was receptive to further discussion. SW informed CM/community development planner Meme of above.
[2018-12-30] MEDS ORDERED: ONDANSETRON 4 MG/2 ML VIAL IV PRN (11:30)
[2018-12-30 11:38] VITALS: BP 121/71
[2018-12-30] MEDS ORDERED: MAGNESIUM OXIDE 400 MG TABLET PO ONE (12:15)
[2018-12-30] MEDS ORDERED: POTASSIUM CHLORIDE 20 MEQ TAB.PRT.SR PO ONE (12:15)
--- NOTE | 2018-12-30 12:45 | NUR ---
CONSENT FOR ULTRASOUND GUIDED PARACENTESIS OBTAINED. PT RESTING IN BED. NO ACUTE DISTRESS NOTED. NO SOB NOTED. PT COMPLAINS OF PAIN OF 10. PAIN MEDS GIVEN ORDERED AND SCHEDULED. CALL LIGHT WITHIN REACH. BED LOCKED IN LOW POSITION.
[2018-12-30] MEDS: HYDROMORPHONE 1 MG/1 ML DISP.SYRIN IV PRN ×3 (12:58→22:10)
[2018-12-30 15:46] VITALS: BP 121/52
--- NOTE | 2018-12-30 18:00 | NUR ---
PT RESTING COMFORTABLY IN BED. PAIN MANAGEMENT DONE WITH MEDS ORDERED. PT ALERT AND ORIENTED X 3. PT COOPERATIVE. NO ACUTE DISTRESS OR SOB NOTED. BED LOCKED IN LOW POSITION. REPORT GIVEN TO [facility] REGISTRY NURSE.
--- NOTE | 2018-12-30 19:27 | NUR ---
4000 PARACENTESIS DRAINAGE Addendum: 12/30/18 at 1928 by KAILEE SOTO RN Amended: Links added.
[2018-12-30 20:25] VITALS: BP 113/62
[2018-12-31 05:48] VITALS: BP 101/55
[2018-12-31] MEDS: PANTOPRAZOLE SODIUM 40 MG TABLET.DR PO SCH (07:25)
[2018-12-31 07:35] LABS: BASOPHILS # (AUTO) 0.1 K/uL (0.0-8.0); BASOPHILS % (AUTO) 1.8 % (0.0-2.0); EOSINOPHILS # (AUTO) 0.2 K/uL (0.0-0.7); EOSINOPHILS % (AUTO) 4.2 % (0.0-7.0); HEMATOCRIT 28.9 % (36.7-47.1); LYMPHOCYTES # (AUTO) 0.9 K/uL (20.0-40.0); LYMPHOCYTES % (AUTO) 23.5 % (20.5-51.5); MEAN CORPUSCULAR HEMOGLOBIN 20.6 uug (23.8-33.4); MEAN CORPUSCULAR HGB CONC 31 g/dL (32.5-36.3); MEAN CORPUSCULAR VOLUME 65.8 fL (73.0-96.2); MONOCYTES # (AUTO) 0.8 K/uL (2.0-10.0); MONOCYTES % (AUTO) 21.1 % (0.0-11.0); NEUTROPHILS # (AUTO) 1.9 K/uL (1.8-8.9); NEUTROPHILS % (AUTO) 49.4 % (38.5-71.5); PLATELET COUNT (AUTO) 119 K/uL (152-348); RED BLOOD CELL COUNT(AUTO) 4.39 MIL/uL (4.06-5.63); WHITE BLOOD COUNT (AUTO) 3.8 K/uL (3.6-10.2)
--- NOTE | 2018-12-31 07:40 | NUR ---
RECEIVED PT RESTING COMFORTABLY IN BED. NO SIGNS OF SOB OR ACUTE DISTRESS. SAFETY MEASURES OBSERVED AND IMPLEMENTED. CALL LIGHT WITHIN REACH. BED LOCKED IN LOW POSITION. WILL CONTINUE TO MONITOR.
[2018-12-31 08:04] LABS: CARBON DIOXIDE 27 mmol/L (21-32); CHLORIDE 100 mmol/L (98-107); CREATININE 0.6 mg/dL (0.6-1.3); GLUCOSE 100 mg/dL (74-106); MAGNESIUM 1.8 mg/dL (1.8-2.4); PHOSPHOROUS 3.7 mg/dL (2.5-4.9); POTASSIUM 3.3 mmol/L (3.5-5.1); UREA NITROGEN, BLOOD 6 mg/dL (7-18)
[2018-12-31] MEDS ORDERED: POTASSIUM CHLORIDE 20 MEQ TAB.PRT.SR PO ONE (08:45)
[2018-12-31] MEDS ORDERED: diphenhydrAMINE 25 MG CAP PO PRN (09:00)
[2018-12-31 09:20] LABS: BASOPHILS % (MANUAL) 1 % (0-2); EOSINOPHILS % (MANUAL) 4 % (0-8); LYMPHOCYTES % (MANUAL) 20 % (20-40); MONOCYTES % (MANUAL) 18 % (2-10); NEUTROPHILS % (MANUAL) 57 % (42-75)
[2018-12-31] MEDS: HYDROMORPHONE 1 MG/1 ML DISP.SYRIN IV PRN ×4 (10:25→20:59)
[2018-12-31] MEDS: FUROSEMIDE 20 MG/2 ML VIAL IV SCH (10:25)
[2018-12-31 11:53] VITALS: BP 107/68
--- NOTE | 2018-12-31 12:30 | NUR ---
PT RESTING COMFORTABLY IN BED. NO SIGNS OF SOB OR ACUTE DISTRESS. EFFECTIVE PAIN MANAGEMENT. SAFETY MEASURES OBSERVED AND IMPLEMENTED. CALL LIGHT WITHIN REACH. BED LOCKED IN LOW POSITION. WILL CONTINUE TO MONITOR
--- NOTE | 2018-12-31 18:10 | NUR ---
PT RESTING IN ROOM. NO ACUTE DISTRESS OR SOB NOTED. WILL GIVE REPORT TO INCOMING SHIFT NURSE.
--- NOTE | 2018-12-31 20:00 | NUR ---
Patient received into care, awake and alert in bed, watching television. Patient has no complaints of pain or discomfort at this time. IV site is patent and intact. All safety and fall precaution measures are in place. Call light and personal items are within reach at all times. Will continue to monitor.
[2018-12-31 20:46] VITALS: BP 115/67
[2019-01-01] MEDS: HYDROMORPHONE 1 MG/1 ML DISP.SYRIN IV PRN ×2 (00:06→08:32)
[2019-01-01] MEDS ORDERED: HYDROMORPHONE 1 MG/1 ML DISP.SYRIN ONE (03:40)
[2019-01-01 04:50] VITALS: BP 96/57
--- NOTE | 2019-01-01 05:00 | NUR ---
Patient slept intermittently throughout night with complaints of pain addressed with prescribed analgesics, which were tolerated well with no adverse side effects verbalized or observed. All prescribed medications were provided as ordered and tolerated well, with no adverse side effects verbalized or observed. Safety and fall precaution measures remain in place. Call light and personal items are within reach at all times.
[2019-01-01] MEDS: PANTOPRAZOLE SODIUM 40 MG TABLET.DR PO SCH (06:23)
--- NOTE | 2019-01-01 07:00 | NUR ---
PATIENT RESTING IN THE ROOM W/OUT CONCERN OR ISSUES- SAFETY PRECAUTIONS IN PLACE- RECEIVED BEDSIDE SBAR- WILL CONTINUE TO MONITOR REPORT AND RECORD
[2019-01-01 07:04] LABS: BASOPHILS # (AUTO) 0.1 K/uL (0.0-8.0); BASOPHILS % (AUTO) 1.5 % (0.0-2.0); EOSINOPHILS # (AUTO) 0.3 K/uL (0.0-0.7); EOSINOPHILS % (AUTO) 6.9 % (0.0-7.0); HEMATOCRIT 28.6 % (36.7-47.1); HEMOGLOBIN 8.8 g/dL (12.5-16.3); LYMPHOCYTES # (AUTO) 1.1 K/uL (20.0-40.0); LYMPHOCYTES % (AUTO) 22.2 % (20.5-51.5); MEAN CORPUSCULAR HEMOGLOBIN 20.4 uug (23.8-33.4); MEAN CORPUSCULAR HGB CONC 31 g/dL (32.5-36.3); MEAN CORPUSCULAR VOLUME 66.5 fL (73.0-96.2); MONOCYTES # (AUTO) 0.9 K/uL (2.0-10.0); MONOCYTES % (AUTO) 18.8 % (0.0-11.0); NEUTROPHILS # (AUTO) 2.5 K/uL (1.8-8.9); NEUTROPHILS % (AUTO) 50.6 % (38.5-71.5); PLATELET COUNT (AUTO) 129 K/uL (152-348); WHITE BLOOD COUNT (AUTO) 4.9 K/uL (3.6-10.2)
[2019-01-01] MEDS ORDERED: POTASSIUM CHLORIDE 20 MEQ TAB.PRT.SR PO ONE (07:45)
[2019-01-01 07:46] LABS: CARBON DIOXIDE 26 mmol/L (21-32); CHLORIDE 99 mmol/L (98-107); CREATININE 0.6 mg/dL (0.6-1.3); GLUCOSE 110 mg/dL (74-106); POTASSIUM 3.4 mmol/L (3.5-5.1); UREA NITROGEN, BLOOD 9 mg/dL (7-18)
[2019-01-01] MEDS: FUROSEMIDE 20 MG/2 ML VIAL IV SCH (08:48)
[2019-01-01 10:21] LABS: BAND % (MANUAL) 1 % (0-10); EOSINOPHILS % (MANUAL) 7 % (0-8); LYMPHOCYTES % (MANUAL) 24 % (20-40); MONOCYTES % (MANUAL) 9 % (2-10); NEUTROPHILS % (MANUAL) 59 % (42-75)
--- NOTE | 2019-01-01 12:00 | NUR ---
PATIENT HAS BEEN DISCHARGED- PIV REMOVED- DISCHARGE DISCUSSED-- VERBALIZED UNDERSTANDING- ID BAN REMOVED - PIV REMOVED- [id number] WAIVER SIGNED- BELONGINGS RETURNED- TRANSPORTATION FROM FRIEND IN PRIVATE VEHICLE- PATIENT RETURNING TO [facility] FOR [facility]HABILITATION - ESCORTED OFF UNIT - WILL CONTINUE TO MONITOR REPORT AND RECORD
[2019-01-14] MEDS ORDERED: THIA100T13 PO (11:15)
[2019-01-14] MEDS ORDERED: FOLI1TAB16 PO (11:15)
[2019-01-14] MEDS ORDERED: FERR325T28 PO (11:15)
[2019-01-14] MEDS ORDERED: SPIR100T5 PO (11:15)
== END 2019-01-01 12:23 | disposition home or self-care (01) | DRG 280 ==
LOC: ER 18:03 → MEDSURG3 21:04
PROVIDERS: ADMIT Internal Medicine; ATTEND Nurse Practitioner Acute Care
PROC: 0W9G3ZZ Drainage of Peritoneal Cavity, Percutaneous Approach (ICD-10-PCS; principal; 2018-12-30)
DX: K70.31 Alcoholic cirrhosis of liver with ascites (principal); K76.6 Portal hypertension; E44.0 Moderate protein-calorie malnutrition; G62.1 Alcoholic polyneuropathy; E83.42 Hypomagnesemia; F11.20 Opioid dependence, uncomplicated; K75.9 Inflammatory liver disease, unspecified; K86.0 Alcohol-induced chronic pancreatitis; F10.188 Alcohol abuse with other alcohol-induced disorder; Y90.9 Presence of alcohol in blood, level not specified; Z59.0 Homelessness; E87.6 Hypokalemia; D63.8 Anemia in other chronic diseases classified elsewhere; Z91.19 Patient's noncompliance with other medical treatment and regimen; G25.81 Restless legs syndrome; G89.29 Other chronic pain; F17.210 Nicotine dependence, cigarettes, uncomplicated; I70.0 Atherosclerosis of aorta; J98.11 Atelectasis; D50.9 Iron deficiency anemia, unspecified
CPT/HCPCS: 36415; 70030-TC; 71045; 71250; 83690; 83735; 84100; 84443; 85025; 85730; 93005; A4663; G0378; J1170; J1940; J2270

== ENCOUNTER 2019-01-09 19:59 | Emergency (ER) | payer OTHER ==
[~2019-01-09] VITALS: Ht 172.7 cm; Wt 75.7 kg
--- NOTE | 2019-01-09 20:39 | NUR ---
PATIENT ASSISTED TO STRECTHER ON PLASTER MECHANIC REQUESTING PAIN MEDICATION AND BLANKETS.
[2019-01-09 20:44] LABS: BASOPHILS # (AUTO) 0.2 K/uL (0.0-8.0); BASOPHILS % (AUTO) 2.2 % (0.0-2.0); EOSINOPHILS # (AUTO) 0.2 K/uL (0.0-0.7); HEMATOCRIT 26.4 % (36.7-47.1); HEMOGLOBIN 8.2 g/dL (12.5-16.3); LYMPHOCYTES # (AUTO) 2.3 K/uL (20.0-40.0); LYMPHOCYTES % (AUTO) 33.7 % (20.5-51.5); MEAN CORPUSCULAR HEMOGLOBIN 20.4 uug (23.8-33.4); MEAN CORPUSCULAR HGB CONC 31 g/dL (32.5-36.3); MEAN CORPUSCULAR VOLUME 65.3 fL (73.0-96.2); MONOCYTES # (AUTO) 1.5 K/uL (2.0-10.0); MONOCYTES % (AUTO) 21.9 % (0.0-11.0); NEUTROPHILS # (AUTO) 2.7 K/uL (1.8-8.9); NEUTROPHILS % (AUTO) 39.2 % (38.5-71.5); PLATELET COUNT (AUTO) 179 K/uL (152-348); RED BLOOD CELL COUNT(AUTO) 4.04 MIL/uL (4.06-5.63); WHITE BLOOD COUNT (AUTO) 6.9 K/uL (3.6-10.2)
[2019-01-09 20:53] LABS: MAGNESIUM 1.9 mg/dL (1.8-2.4)
[2019-01-09 20:54] LABS: CARBON DIOXIDE 25 mmol/L (21-32); CHLORIDE 103 mmol/L (98-107); CREATININE 0.6 mg/dL (0.6-1.3); GLUCOSE 126 mg/dL (74-106); UREA NITROGEN, BLOOD 5 mg/dL (7-18)
[2019-01-09 20:59] LABS: ALANINE AMINOTRANSFERASE 21 U/L (16-63); ALKALINE PHOSPHATASE 283 U/L (50-136); ASPARTATE AMINOTRANSFERASE 38 U/L (15-37); BILIRUBIN,DIRECT 0.4 mg/dL (0.0-0.2); BILIRUBIN,TOTAL 0.7 mg/dL (0.2-1.0); LIPASE 249 U/L (73-393); TOTAL PROTEIN, SERUM 6.1 g/dL (6.4-8.2)
[2019-01-09] MEDS ORDERED: POTASSIUM CHLORIDE 20 MEQ POWDER PACKET ONE (21:26)
[2019-01-09] MEDS ORDERED: POTASSIUM CHLORIDE 20 MEQ TAB.PRT.SR PO ONE (21:30)
[2019-01-09 21:36] LABS: BAND % (MANUAL) 1 % (0-10); EOSINOPHILS % (MANUAL) 4 % (0-8); LYMPHOCYTES % (MANUAL) 31 % (20-40); MONOCYTES % (MANUAL) 17 % (2-10); NEUTROPHILS % (MANUAL) 47 % (42-75)
--- NOTE | 2019-01-09 21:41 | NUR ---
PATIENT BEING D/C WITH INSTRUCTIONS TO F/U IN AM FOR PARACENTESIS IN IR STATES "WELL ILL SEE IF I CANCOME BACK"
[2019-01-09 21:45] VITALS: BP 100/55
== END 2019-01-09 21:46 | disposition home or self-care (01) ==
LOC: ER 19:59
DX: R18.8 Other ascites (principal); E87.6 Hypokalemia; F10.10 Alcohol abuse, uncomplicated; D64.9 Anemia, unspecified; F17.200 Nicotine dependence, unspecified, uncomplicated; Z59.0 Homelessness; Z91.018 Allergy to other foods; Z91.010 Allergy to peanuts; Y90.8 Blood alcohol level of 240 mg/100 ml or more
CPT/HCPCS: 36415; 80048; 80076; 83690; 83735; 85007; 85025; 85730; 99283; G0480; 70030-TC; A4663

== ENCOUNTER 2019-01-12 20:29 | Inpatient (IN) | payer OTHER ==
[~2019-01-12] VITALS: Ht 175.3 cm; Wt 78.0 kg
--- NOTE | 2019-01-12 20:45 | NUR ---
patient came in chief complain of abdominal pain and abdominal distention. Patient states he has past medical history of liver chirrosis.
[2019-01-12] MEDS ORDERED: FURO-152 PO (20:58)
[2019-01-12] MEDS ORDERED: SPIR50TA PO (20:58)
[2019-01-12] MEDS ORDERED: POTA10CA43 PO (20:58)
--- NOTE | 2019-01-12 20:58 | NUR ---
Dr. Velasquez at bedside to evaluate patient
[2019-01-12] MEDS ORDERED: MORPHINE SULFATE 2 MG/1 ML DISP.SYRIN ONE (21:14)
[2019-01-12] MEDS ORDERED: KETOROLAC TROMETHAMINE 15 MG INJ IVP ONE (21:15)
[2019-01-12] MEDS ORDERED: KETOROLAC TROMETHAMINE 15 MG INJ ONE (21:15)
[2019-01-12] MEDS ORDERED: MORPHINE SULFATE 2 MG/1 ML DISP.SYRIN IV ONE (21:15)
[2019-01-12 21:25] LABS: BASOPHILS # (AUTO) 0.1 K/uL (0.0-8.0); BASOPHILS % (AUTO) 1.2 % (0.0-2.0); CARBON DIOXIDE 24 mmol/L (21-32); CHLORIDE 102 mmol/L (98-107); CREATININE 0.6 mg/dL (0.6-1.3); EOSINOPHILS # (AUTO) 0.2 K/uL (0.0-0.7); EOSINOPHILS % (AUTO) 3.2 % (0.0-7.0); GLUCOSE 103 mg/dL (74-106); HEMATOCRIT 26.4 % (36.7-47.1); HEMOGLOBIN 8.3 g/dL (12.5-16.3); LYMPHOCYTES # (AUTO) 1.8 K/uL (20.0-40.0); LYMPHOCYTES % (AUTO) 24.9 % (20.5-51.5); MEAN CORPUSCULAR HGB CONC 31 g/dL (32.5-36.3); MEAN CORPUSCULAR VOLUME 63.6 fL (73.0-96.2); MONOCYTES # (AUTO) 1.4 K/uL (2.0-10.0); MONOCYTES % (AUTO) 18.5 % (0.0-11.0); NEUTROPHILS # (AUTO) 3.9 K/uL (1.8-8.9); NEUTROPHILS % (AUTO) 52.2 % (38.5-71.5); PLATELET COUNT (AUTO) 161 K/uL (152-348); POTASSIUM 3.3 mmol/L (3.5-5.1); RED BLOOD CELL COUNT(AUTO) 4.15 MIL/uL (4.06-5.63); UREA NITROGEN, BLOOD 4 mg/dL (7-18); WHITE BLOOD COUNT (AUTO) 7.4 K/uL (3.6-10.2)
[2019-01-12 21:31] LABS: ALANINE AMINOTRANSFERASE 19 U/L (16-63); ALKALINE PHOSPHATASE 256 U/L (50-136); ASPARTATE AMINOTRANSFERASE 33 U/L (15-37); BILIRUBIN,DIRECT 0.4 mg/dL (0.0-0.2); BILIRUBIN,TOTAL 0.9 mg/dL (0.2-1.0); LIPASE 811 U/L (73-393); TOTAL PROTEIN, SERUM 6.3 g/dL (6.4-8.2)
--- NOTE | 2019-01-12 21:45 | NUR ---
Anselmo martinez in ED - 01/12/19 at 2146 by ANNA patient complaining of abdominal pain and biting on teeth. Dr. richardson at bedside to evaluate patient
[2019-01-12 21:57] LABS: EOSINOPHILS % (MANUAL) 4 % (0-8); LYMPHOCYTES % (MANUAL) 22 % (20-40); MONOCYTES % (MANUAL) 18 % (2-10); NEUTROPHILS % (MANUAL) 56 % (42-75)
[2019-01-12] MEDS ORDERED: MORPHINE SULFATE 4 MG/1 ML DISP.SYRIN IV ONE (22:15)
[2019-01-12 22:32] LABS: *BILIRUBIN,URIN NEGATIVE (NEGATIVE); *BLOOD, URINE NEGATIVE (NEGATIVE); *CLARITY,URINE CLEAR (CLEAR); *COLOR,URINE YELLOW (YELLOW); *KETONES,URINE NEGATIVE (NEGATIVE); LEUKOCYTE ESTERASE ,URINE NEGATIVE (NEGATIVE); NITRITE, URINE NEGATIVE (NEGATIVE); UGLUCOSE NEGATIVE (NEGATIVE)
[2019-01-12 22:39] LABS: BACTERIA,URINE NONE SEEN /HPF (NONE SEEN); RBC,URINE NONE SEEN /HPF (0-3); SQUAMOUS EPITHELIAL CELL,UR FEW /HPF (NONE SEEN); WBC,URINE 0-3 /HPF (0-3)
--- NOTE | 2019-01-12 22:56 | NUR ---
Called [facility] to page Dr. Whitaker.
--- NOTE | 2019-01-12 23:09 | NUR ---
Dr. Velasquez on panel call with Dr. Whitaker.
--- NOTE | 2019-01-12 23:14 | NUR ---
gave report to BALTA Lorenzana.
[2019-01-12] MEDS ORDERED: ZOLPIDEM 5 MG TABLET PO PRN (23:45)
[2019-01-12] MEDS ORDERED: ACETAMINOPHEN 325 MG TABLET PO PRN (23:45)
[2019-01-12] MEDS ORDERED: MAGNESIUM HYDROXIDE 30 ML LIQUID UDC PO PRN (23:45)
[2019-01-12] MEDS ORDERED: Z GUARD REMEDY PASTE 57 GM TUBE TOP PRN (23:45)
[2019-01-12] MEDS ORDERED: ONDANSETRON 4 MG/2 ML VIAL IV PRN (23:45)
--- NOTE | 2019-01-13 00:04 | NUR ---
[facility] ins table condition, via gurgwen with RN adrianna Whalen. VSS.
[2019-01-13 00:10] VITALS: BP 115/62
[2019-01-13 00:16] LABS: *AMPHETAMINE, URINE NEGATIVE (NEGATIVE); *BARBITURATE, URINE NEGATIVE (NEGATIVE); *CANNABINOID, URINE POSITIVE (NEGATIVE); *COCCAINE, URINE NEGATIVE (NEGATIVE); *OPIATE, URINE POSITIVE (NEGATIVE); *PHENCYCLIDINE SCREEN,URINE NEGATIVE (NEGATIVE)
[2019-01-13] MEDS: HYDROCODONE/APAP 5-325MG TABLET PO PRN ×5 (00:59→22:42)
[2019-01-13 04:56] VITALS: BP 93/50
[2019-01-13 06:47] LABS: BASOPHILS # (AUTO) 0.1 K/uL (0.0-8.0); BASOPHILS % (AUTO) 1.4 % (0.0-2.0); EOSINOPHILS # (AUTO) 0.2 K/uL (0.0-0.7); HEMATOCRIT 23.9 % (36.7-47.1); HEMOGLOBIN 7.6 g/dL (12.5-16.3); LYMPHOCYTES # (AUTO) 1.4 K/uL (20.0-40.0); LYMPHOCYTES % (AUTO) 26.9 % (20.5-51.5); MEAN CORPUSCULAR HEMOGLOBIN 20.9 uug (23.8-33.4); MEAN CORPUSCULAR HGB CONC 32 g/dL (32.5-36.3); MEAN CORPUSCULAR VOLUME 65.6 fL (73.0-96.2); MONOCYTES % (AUTO) 19.5 % (0.0-11.0); NEUTROPHILS # (AUTO) 2.6 K/uL (1.8-8.9); NEUTROPHILS % (AUTO) 48.2 % (38.5-71.5); RED BLOOD CELL COUNT(AUTO) 3.64 MIL/uL (4.06-5.63)
[2019-01-13 06:50] LABS: PLATELET COUNT (AUTO) 114 K/uL (152-348); WHITE BLOOD COUNT (AUTO) 5.3 K/uL (3.6-10.2)
[2019-01-13 06:51] LABS: IRON, SERUM 12 ug/dL (50-175)
[2019-01-13 07:20] LABS: CARBON DIOXIDE 24 mmol/L (21-32); CHLORIDE 104 mmol/L (98-107); CHOLESTEROL 133 mg/dL (<200); CREATININE 0.5 mg/dL (0.6-1.3); GLUCOSE 84 mg/dL (74-106); HDL CHOLESTEROL 67 mg/dL (40-60); MAGNESIUM 1.9 mg/dL (1.8-2.4); PHOSPHOROUS 4.4 mg/dL (2.5-4.9); POTASSIUM 3.2 mmol/L (3.5-5.1); TRIGLYCERIDES 45 MG/DL (30-150); UREA NITROGEN, BLOOD 6 mg/dL (7-18)
[2019-01-13 07:31] LABS: LIPASE 1064 U/L (73-393)
[2019-01-13 07:44] LABS: BAND % (MANUAL) 1 % (0-10); EOSINOPHILS % (MANUAL) 1 % (0-8); LYMPHOCYTES % (MANUAL) 28 % (20-40); MONOCYTES % (MANUAL) 17 % (2-10); NEUTROPHILS % (MANUAL) 53 % (42-75)
--- NOTE | 2019-01-13 08:00 | NUR ---
Received pt. resting in bed alert oriented x4. Pt. states he is in 10/10 abdominal pain. Will given PRN pain medication. Pt. denies SOB/ difficulty breathing. IV in L AC 20 gauge saline lock. Safety measures in place. call light within reach will continue to monitor pt.
[2019-01-13] MEDS ORDERED: FOLIC ACID/VITAMIN B COMP W-C TABLET PO SCH (09:15)
[2019-01-13] MEDS ORDERED: LORAZEPAM 2 MG/1 ML VIAL IV PRN (09:15)
[2019-01-13] MEDS ORDERED: POTASSIUM CHLORIDE 50 ML IV SCH (09:15)
[2019-01-13] MEDS ORDERED: SWABABLE VALVE TRANSFER SET EA MC ONE (09:23)
[2019-01-13] MEDS ORDERED: IOHEXOL 300MG/ML 100 ML INFUS..BTL ONE (09:23)
[2019-01-13] MEDS ORDERED: IV NORMAL SALINE 250 ML IV ONE (09:24)
[2019-01-13] MEDS: SPIRONOLACTONE 50 MG TABLET PO SCH (10:13)
[2019-01-13] MEDS: FUROSEMIDE 20 MG TABLET PO SCH (10:13)
[2019-01-13] MEDS: POTASSIUM CHLORIDE 10 MEQ TAB.PRT.SR PO SCH (10:14)
[2019-01-13] MEDS ORDERED: MVI ADULT 10 ML VIAL=1 AMP 10 ML in IV D5/ 0.9% NACL 1,000 ML IV PRN (11:00)
[2019-01-13] MEDS ORDERED: MAGNESIUM SULFATE/D5W 100 ML IV SCH (11:00)
[2019-01-13 11:07] VITALS: BP 96/52
[2019-01-13] MEDS ORDERED: POTASSIUM CHLORIDE 20 MEQ TAB.PRT.SR PO ONE (11:15)
[2019-01-13] MEDS ORDERED: THIAMINE HCL INJ 100 MG in IV DEXTROSE 5% 50 ML IV SCH (12:00)
[2019-01-13] MEDS ORDERED: ALBUMIN HUMAN 25% 25 GM in PREMIXED 1 EACH IV SCH (12:00)
[2019-01-13] MEDS: FOLIC ACID 1 MG TABLET PO SCH (12:09)
[2019-01-13] MEDS: THIAMINE HCL 100 MG TABLET PO SCH (12:09)
[2019-01-13] MEDS ORDERED: FOLIC ACID 1 MG in IV DEXTROSE 5% 50 ML IV SCH (13:00)
[2019-01-13] MEDS ORDERED: SOD FERRIC GLUC COMPLX/SUCROSE 125 MG in IV NORMAL SALINE 100 ML IV SCH (14:00)
[2019-01-13 15:00] VITALS: BP 112/62
--- NOTE | 2019-01-13 17:07 | NUR ---
Pt. BP low in high 80s and low 90s systolic and mid 40s diastolic. Dr. aware of low BP and still advised to give diuretics. Pt. refused IV K. Spoke to Dr. Whitaker to switch to PO K. One time order for 40 mEQ K Dur. Pt. signed consent for CT abdomen with contrast and consent for US guided paracentesis. Paracentesis removed 5.9 L of fluid. Second dose on my shift of [place] given for pt. 12/29 pain. Pt. complaint with medication. Will continue to monitor pt. Safety measures in place.
[2019-01-13] MEDS ORDERED: IV D5/ 0.9% NACL 1,000 ML IV PRN (19:00)
--- NOTE | 2019-01-13 19:45 | NUR ---
RECEIVED PATIENT AWAKE IN BED. IVF WERE JUST STARTED PER RN DAYSHIFT NURSE. PATIENT IS A/O X4. REFUSING FOR IVF AND STATED THAT HE WANTS THE IV HEPLOCK OUT NOW AND IF ITS NOT TAKEN OUT THEN HE WILL REMOVE IT HIMSELF. HEPLOCK NOTED TO BE RED AROUND INSERTION SITE AND INFILTRATED. REMOVED. PATIENT EDUCATED ON THE IMPORTANCE OF HAVING THE IV. PATIENT HAS SCHEDULED IV MEDS DUE TOMORROW AND CT SCAN ORDERED WITH CONTRAST. PATIENT STILL REFUSED. NOTIFIED SUZANNA BASILIO NP AIRCRAFT NAVIGATOR. CLINICAL DOCUMENTATION CONSULTANT NOTIFIED. CALL LIGHT IN REACH. ALL NEEDS ATTENDED. WILL CONTINUE TO MONITOR AND ASSESS.
[2019-01-13 20:09] VITALS: BP 121/73
[2019-01-13] MEDS ORDERED: ALBUMIN HUMAN 25% 100 ML IV ONE (20:30)
--- NOTE | 2019-01-13 22:40 | NUR ---
NOTIFIED DR. BRIONES, THAT PATIENT IS REFUSING FOR IV HEPLOCK TO BE REINSERTED AND UNABLE TO GIVE ORDERED MEDS. PATIENT EDUCATED ON IMPORTANCE OF MEDICATIONS/CT SCAN AND NEED FOR IV HEPLOCK. PATIENT STILL REFUSED FOR INSERTION. SEO EXPERT NOTIFIED. CALL LIGHT IN REACH. ALL NEEDS ATTENDED. WILL CONTINUE TO MONITOR.
[2019-01-14] MEDS: HYDROCODONE/APAP 5-325MG TABLET PO PRN ×3 (02:27→13:56)
[2019-01-14 05:58] VITALS: BP 119/70
[2019-01-14 06:28] LABS: CARBON DIOXIDE 25 mmol/L (21-32); CHLORIDE 102 mmol/L (98-107); CREATININE 0.5 mg/dL (0.6-1.3); GLUCOSE 87 mg/dL (74-106); LIPASE 241 U/L (73-393); POTASSIUM 3.2 mmol/L (3.5-5.1); UREA NITROGEN, BLOOD 5 mg/dL (7-18)
[2019-01-14 06:44] LABS: BASOPHILS % (AUTO) 0.9 % (0.0-2.0); EOSINOPHILS # (AUTO) 0.2 K/uL (0.0-0.7); EOSINOPHILS % (AUTO) 5.7 % (0.0-7.0); HEMATOCRIT 27.4 % (36.7-47.1); HEMOGLOBIN 8.6 g/dL (12.5-16.3); LYMPHOCYTES # (AUTO) 0.9 K/uL (20.0-40.0); LYMPHOCYTES % (AUTO) 20.4 % (20.5-51.5); MEAN CORPUSCULAR HEMOGLOBIN 20.1 uug (23.8-33.4); MEAN CORPUSCULAR HGB CONC 31 g/dL (32.5-36.3); MEAN CORPUSCULAR VOLUME 64.2 fL (73.0-96.2); MONOCYTES # (AUTO) 0.8 K/uL (2.0-10.0); MONOCYTES % (AUTO) 18.7 % (0.0-11.0); NEUTROPHILS # (AUTO) 2.4 K/uL (1.8-8.9); NEUTROPHILS % (AUTO) 54.3 % (38.5-71.5); PLATELET COUNT (AUTO) 93 K/uL (152-348); RED BLOOD CELL COUNT(AUTO) 4.27 MIL/uL (4.06-5.63); WHITE BLOOD COUNT (AUTO) 4.4 K/uL (3.6-10.2)
--- NOTE | 2019-01-14 06:50 | NUR ---
PATIENT CONTINUES TO REFUSE AN IV, EDUCATED ON RISKS AND BENEFITS, PATIENT UNDERSTANDS THAT ALL MEDS HE IS RECEIVING IS THROUGH IV WELL CT SCAN THAT NEEDS TO CONTRAST. CONTINUES TO REFUSE. NO ACUTE CHANGES. IN NO ACUTE DISTRESS. ENDORSED TO AM SHIFT.
[2019-01-14 07:28] LABS: MONOCYTES % (MANUAL) 17 % (2-10); NEUTROPHILS % (MANUAL) 58 % (42-75)
[2019-01-14 07:30] LABS: EOSINOPHILS % (MANUAL) 5 % (0-8); LYMPHOCYTES % (MANUAL) 20 % (20-40)
--- NOTE | 2019-01-14 07:30 | NUR ---
RECEIVED PATIENT IN BED , NO C/O PAIN AND NO SOB NOTED AT THIS TIME. PATIENT REFUSED IV INSERTION. NO IV . SAFETY AND COMFORT PROVIDED AT ALL TIME. CALL LIGHT WITHIN REACHED. WILL CONTINUE TO MONITOR.
[2019-01-14] MEDS: THIAMINE HCL 100 MG TABLET PO SCH (09:21)
[2019-01-14] MEDS: SPIRONOLACTONE 50 MG TABLET PO SCH (09:21)
[2019-01-14] MEDS: POTASSIUM CHLORIDE 10 MEQ TAB.PRT.SR PO SCH ×2 (09:21→11:41)
[2019-01-14] MEDS: FOLIC ACID 1 MG TABLET PO SCH (09:21)
[2019-01-14] MEDS: FUROSEMIDE 20 MG TABLET PO SCH (09:21)
[2019-01-14] MEDS ORDERED: FERROUS SULFATE 325 MG TABEC PO SCH (09:45)
[2019-01-14] MEDS ORDERED: MAGNESIUM OXIDE 400 MG TABLET PO SCH (09:45)
[2019-01-14 11:00] VITALS: BP 101/53
[2019-01-14] MEDS ORDERED: SPIR100T5 PO (11:15)
[2019-01-14] MEDS ORDERED: POTASSIUM CHLORIDE 20 MEQ TAB.PRT.SR PO ONE (11:15)
[2019-01-14] MEDS ORDERED: FOLI1TAB16 PO (11:15)
[2019-01-14] MEDS ORDERED: FERR325T28 PO (11:15)
[2019-01-14] MEDS ORDERED: THIA100T13 PO (11:15)
--- NOTE | 2019-01-14 15:12 | NUR ---
DISCHARGE PATIENT TO SELF, TAB CARD GIVEN TO PATIENT. DISCHARGE INSTRUCTION GIVEN TO PATIENT AND VERBALIZED UNDERSTANDING, PSYCHOLOGIST PERSONNEL PROVIDED RESOURCES TO PATIENT , BUT PATIENT REFUSES. ID BAND REMOVED. KEPT CLEAN AND DRY AT ALL TIMES. NO SON NOTED AT THIS TIME. BELONGINGS ACCOUNTED FOR AND SIGNED. QUESTIONS AND ANSWERS ADDRESSED
[2019-01-15] MEDS ORDERED: MULTIVITAMINS,THERAPEUTIC TABLET PO SCH (09:00)
== END 2019-01-14 14:30 | disposition home or self-care (01) | DRG 282 ==
LOC: ER 20:30 → MEDSURG3 23:32
PROVIDERS: ADMIT Hospitalist; ATTEND Hospitalist
PROC: 0W9G3ZZ Drainage of Peritoneal Cavity, Percutaneous Approach (ICD-10-PCS; principal; 2019-01-13)
DX: K85.90 Acute pancreatitis without necrosis or infection, unspecified (principal); E44.0 Moderate protein-calorie malnutrition; K70.31 Alcoholic cirrhosis of liver with ascites; E87.6 Hypokalemia; D50.9 Iron deficiency anemia, unspecified; F17.200 Nicotine dependence, unspecified, uncomplicated; F10.188 Alcohol abuse with other alcohol-induced disorder; Y90.8 Blood alcohol level of 240 mg/100 ml or more; G25.81 Restless legs syndrome; J98.11 Atelectasis; Z79.899 Other long term (current) drug therapy
CPT/HCPCS: 36415; 70030-TC; 71045; 80307; 83550; 83690; 83735; 84100; 85025; 85730; 93005; A4663; G0378; G0480; J1885; J2270; J2916; J3411; J3475; J3480; J3490; J7040; J7042; J7050; J7060; P9047; Q9967

== ENCOUNTER 2019-03-10 20:00 | Inpatient (IN) | payer OTHER ==
[~2019-03-10] VITALS: Ht 182.9 cm; Wt 73.5 kg
[~2019-03-10 20:00] MED LIST changes: -AMOX500C2 PO; +FERR325T28 PO; +FOLI1TAB16 PO; +FURO-152 PO; +POTA10CA43 PO; +SPIR100T5 PO; -SULF1TAB48 PO; +THIA100T13 PO
[2019-03-10] MEDS ORDERED: KETOROLAC TROMETHAMINE 60 MG INJ IM ONE ×2 (20:44→20:45)
[2019-03-10 20:59] LABS: BASOPHILS # (AUTO) 0.2 K/uL (0.0-8.0); BASOPHILS % (AUTO) 2.7 % (0.0-2.0); EOSINOPHILS # (AUTO) 0.4 K/uL (0.0-0.7); HEMATOCRIT 26.5 % (36.7-47.1); HEMOGLOBIN 8.2 g/dL (12.5-16.3); LYMPHOCYTES # (AUTO) 2.3 K/uL (20.0-40.0); LYMPHOCYTES % (AUTO) 26.7 % (20.5-51.5); MEAN CORPUSCULAR HEMOGLOBIN 20.4 uug (23.8-33.4); MEAN CORPUSCULAR HGB CONC 31 g/dL (32.5-36.3); MEAN CORPUSCULAR VOLUME 65.9 fL (73.0-96.2); MONOCYTES # (AUTO) 1.3 K/uL (2.0-10.0); MONOCYTES % (AUTO) 15.2 % (0.0-11.0); NEUTROPHILS # (AUTO) 4.5 K/uL (1.8-8.9); NEUTROPHILS % (AUTO) 51.4 % (38.5-71.5); PLATELET COUNT (AUTO) 253 K/uL (152-348); RED BLOOD CELL COUNT(AUTO) 4.01 MIL/uL (4.06-5.63); WHITE BLOOD COUNT (AUTO) 8.8 K/uL (3.6-10.2)
[2019-03-10 21:07] LABS: CREATININE 0.7 mg/dL (0.6-1.3); POTASSIUM 3.2 mmol/L (3.5-5.1)
[2019-03-10 21:13] LABS: BILIRUBIN,DIRECT 0.5 mg/dL (0.0-0.2); BILIRUBIN,TOTAL 0.9 mg/dL (0.2-1.0); TOTAL PROTEIN, SERUM 6.4 g/dL (6.4-8.2)
[2019-03-10 21:27] LABS: BAND % (MANUAL) 4 % (0-10); LYMPHOCYTES % (MANUAL) 21 % (20-40)
[2019-03-10 21:28] LABS: EOSINOPHILS % (MANUAL) 3 % (0-8); MONOCYTES % (MANUAL) 16 % (2-10); NEUTROPHILS % (MANUAL) 56 % (42-75)
[2019-03-10 21:46] LABS: *BILIRUBIN,URIN NEGATIVE (NEGATIVE); *BLOOD, URINE NEGATIVE (NEGATIVE); *CLARITY,URINE CLEAR (CLEAR); *COLOR,URINE YELLOW (YELLOW); *KETONES,URINE NEGATIVE (NEGATIVE); LEUKOCYTE ESTERASE ,URINE NEGATIVE (NEGATIVE); NITRITE, URINE NEGATIVE (NEGATIVE); PH,URINE 6.5 (5.0-8.0); UGLUCOSE NEGATIVE (NEGATIVE)
[2019-03-10 21:53] LABS: WBC,URINE 0-3 /HPF (0-3)
[2019-03-10] MEDS ORDERED: MORPHINE SULFATE 2 MG/1 ML DISP.SYRIN IV ONE (22:15)
[2019-03-10] MEDS ORDERED: Z GUARD REMEDY PASTE 57 GM TUBE TOP PRN (23:15)
[2019-03-10] MEDS ORDERED: MAGNESIUM HYDROXIDE 30 ML LIQUID UDC PO PRN (23:15)
[2019-03-10] MEDS ORDERED: ACETAMINOPHEN 325 MG TABLET PO PRN (23:15)
[2019-03-10] MEDS ORDERED: ONDANSETRON 4 MG/2 ML VIAL IV PRN (23:15)
[2019-03-10 23:30] VITALS: BP 106/60
[2019-03-10] MEDS: MORPHINE SULFATE 2 MG/1 ML DISP.SYRIN IV PRN (23:55)
[2019-03-11] MEDS ORDERED: LORAZEPAM 2 MG/1 ML VIAL IV ONE (01:45)
[2019-03-11] MEDS: HYDROCODONE/APAP 5-325MG TABLET PO PRN ×2 (01:53→20:46)
[2019-03-11 06:00] VITALS: BP 94/52
[2019-03-11 08:03] LABS: BASOPHILS # (AUTO) 0.1 K/uL (0.0-8.0); BASOPHILS % (AUTO) 1.3 % (0.0-2.0); EOSINOPHILS # (AUTO) 0.2 K/uL (0.0-0.7); EOSINOPHILS % (AUTO) 3.5 % (0.0-7.0); LYMPHOCYTES # (AUTO) 1.3 K/uL (20.0-40.0); MEAN CORPUSCULAR HEMOGLOBIN 20.7 uug (23.8-33.4); MEAN CORPUSCULAR HGB CONC 31 g/dL (32.5-36.3); MEAN CORPUSCULAR VOLUME 66.3 fL (73.0-96.2); MONOCYTES # (AUTO) 1.2 K/uL (2.0-10.0); MONOCYTES % (AUTO) 22.6 % (0.0-11.0); NEUTROPHILS # (AUTO) 2.7 K/uL (1.8-8.9); NEUTROPHILS % (AUTO) 49.6 % (38.5-71.5); PLATELET COUNT (AUTO) 175 K/uL (152-348); RED BLOOD CELL COUNT(AUTO) 3.48 MIL/uL (4.06-5.63); WHITE BLOOD COUNT (AUTO) 5.5 K/uL (3.6-10.2)
[2019-03-11 08:13] LABS: THYROID STIMULATING HORMONE 2.369 mIU/mL (0.358-3.740)
[2019-03-11 08:20] LABS: CREATININE 0.7 mg/dL (0.6-1.3); MAGNESIUM 2.1 mg/dL (1.8-2.4); PHOSPHOROUS 4.3 mg/dL (2.5-4.9); POTASSIUM 3.6 mmol/L (3.5-5.1)
[2019-03-11 08:26] LABS: HEMOGLOBIN 7.2 g/dL (12.5-16.3)
[2019-03-11] MEDS ORDERED: LORAZEPAM 2 MG/1 ML VIAL IV PRN (09:15)
[2019-03-11] MEDS: FOLIC ACID 1 MG TABLET PO SCH (09:24)
[2019-03-11] MEDS: THIAMINE HCL 100 MG TABLET PO SCH (09:24)
[2019-03-11 10:00] VITALS: BP 104/85
[2019-03-11 12:12] LABS: EOSINOPHILS % (MANUAL) 3 % (0-8); LYMPHOCYTES % (MANUAL) 18 % (20-40); MONOCYTES % (MANUAL) 18 % (2-10); NEUTROPHILS % (MANUAL) 61 % (42-75)
[2019-03-11] MEDS: MORPHINE SULFATE 2 MG/1 ML DISP.SYRIN IV PRN ×3 (14:50→23:00)
[2019-03-11] MEDS: SOD FERRIC GLUC COMPLX/SUCROSE 125 MG in IV NORMAL SALINE 100 ML IV SCH (14:50)
[2019-03-11 18:03] LABS: HEMATOCRIT 29.2 % (36.7-47.1); HEMOGLOBIN 9.1 g/dL (12.5-16.3)
[2019-03-11 18:50] VITALS: BP 105/68
[2019-03-11 19:30] VITALS: BP 109/58
[2019-03-12] MEDS: diphenhydrAMINE 50 MG/1 ML VIAL IV PRN ×2 (01:55→20:46)
[2019-03-12] MEDS: MORPHINE SULFATE 2 MG/1 ML DISP.SYRIN IV PRN ×5 (03:00→22:36)
[2019-03-12 04:50] VITALS: BP 109/66
[2019-03-12 06:43] LABS: BASOPHILS # (AUTO) 0.1 K/uL (0.0-8.0); BASOPHILS % (AUTO) 1.4 % (0.0-2.0); EOSINOPHILS # (AUTO) 0.2 K/uL (0.0-0.7); EOSINOPHILS % (AUTO) 3.4 % (0.0-7.0); HEMATOCRIT 24.6 % (36.7-47.1); HEMOGLOBIN 7.7 g/dL (12.5-16.3); LYMPHOCYTES # (AUTO) 1.2 K/uL (20.0-40.0); LYMPHOCYTES % (AUTO) 25.3 % (20.5-51.5); MEAN CORPUSCULAR HEMOGLOBIN 20.2 uug (23.8-33.4); MEAN CORPUSCULAR HGB CONC 31 g/dL (32.5-36.3); MEAN CORPUSCULAR VOLUME 64.8 fL (73.0-96.2); MONOCYTES # (AUTO) 0.9 K/uL (2.0-10.0); MONOCYTES % (AUTO) 18.8 % (0.0-11.0); NEUTROPHILS # (AUTO) 2.5 K/uL (1.8-8.9); NEUTROPHILS % (AUTO) 51.1 % (38.5-71.5); PLATELET COUNT (AUTO) 151 K/uL (152-348); WHITE BLOOD COUNT (AUTO) 4.9 K/uL (3.6-10.2)
[2019-03-12 07:25] LABS: CARBON DIOXIDE 26 mmol/L (21-32); CHLORIDE 104 mmol/L (98-107); CREATININE 0.5 mg/dL (0.6-1.3); GLUCOSE 83 mg/dL (74-106); POTASSIUM 3.1 mmol/L (3.5-5.1); UREA NITROGEN, BLOOD 6 mg/dL (7-18)
[2019-03-12 08:54] LABS: BAND % (MANUAL) 6 % (0-10); EOSINOPHILS % (MANUAL) 6 % (0-8); LYMPHOCYTES % (MANUAL) 20 % (20-40); MONOCYTES % (MANUAL) 18 % (2-10); NEUTROPHILS % (MANUAL) 50 % (42-75)
[2019-03-12] MEDS: THIAMINE HCL 100 MG TABLET PO SCH (09:00)
[2019-03-12] MEDS: FOLIC ACID 1 MG TABLET PO SCH (09:00)
[2019-03-12 12:20] VITALS: BP 105/57
[2019-03-12 12:21] VITALS: BP 122/44
[2019-03-12] MEDS ORDERED: POTASSIUM CHLORIDE 20 MEQ TAB.PRT.SR PO ONE (13:45)
[2019-03-12] MEDS: SOD FERRIC GLUC COMPLX/SUCROSE 125 MG in IV NORMAL SALINE 100 ML IV SCH (14:16)
[2019-03-12 16:24] VITALS: BP 113/64
[2019-03-12 20:06] VITALS: BP 111/63
[2019-03-13] MEDS: MORPHINE SULFATE 2 MG/1 ML DISP.SYRIN IV PRN ×5 (02:37→20:40)
[2019-03-13 04:26] VITALS: BP 105/62
[2019-03-13 06:52] LABS: CARBON DIOXIDE 23 mmol/L (21-32); CHLORIDE 105 mmol/L (98-107); CREATININE 0.5 mg/dL (0.6-1.3); GLUCOSE 88 mg/dL (74-106); POTASSIUM 3.6 mmol/L (3.5-5.1); UREA NITROGEN, BLOOD 5 mg/dL (7-18)
[2019-03-13 06:56] LABS: PLATELET COUNT (AUTO) 141 K/uL (152-348); RED BLOOD CELL COUNT(AUTO) 3.87 MIL/uL (4.06-5.63); WHITE BLOOD COUNT (AUTO) 5.4 K/uL (3.6-10.2)
[2019-03-13 07:21] LABS: MEAN CORPUSCULAR HEMOGLOBIN 20.6 uug (23.8-33.4); MEAN CORPUSCULAR HGB CONC 31 g/dL (32.5-36.3); MEAN CORPUSCULAR VOLUME 67.1 fL (73.0-96.2)
[2019-03-13 08:00] VITALS: BP 105/65
[2019-03-13] MEDS: THIAMINE HCL 100 MG TABLET PO SCH (08:27)
[2019-03-13] MEDS: FOLIC ACID 1 MG TABLET PO SCH (08:27)
[2019-03-13 08:50] LABS: BASOPHILS % (MANUAL) 3 % (0-2); EOSINOPHILS % (MANUAL) 2 % (0-8); LYMPHOCYTES % (MANUAL) 18 % (20-40); METAMYELOCYTES % 1 % (0-1); MONOCYTES % (MANUAL) 22 % (2-10); NEUTROPHILS % (MANUAL) 54 % (42-75)
[2019-03-13 11:30] VITALS: BP 104/62
[2019-03-13] MEDS: SOD FERRIC GLUC COMPLX/SUCROSE 125 MG in IV NORMAL SALINE 100 ML IV SCH (13:51)
[2019-03-13] MEDS: diphenhydrAMINE 50 MG/1 ML VIAL IV PRN (14:06)
[2019-03-13] MEDS: ALBUMIN HUMAN 25% 25 GM in PREMIXED 1 EACH IV SCH (17:31)
[2019-03-13 20:05] VITALS: BP 113/65
[2019-03-13] MEDS: HYDROCODONE/APAP 5-325MG TABLET PO PRN (22:34)
[2019-03-14] MEDS: ALBUMIN HUMAN 25% 25 GM in PREMIXED 1 EACH IV SCH (00:39)
[2019-03-14] MEDS: MORPHINE SULFATE 2 MG/1 ML DISP.SYRIN IV PRN ×3 (00:52→09:44)
[2019-03-14 05:21] VITALS: BP 105/60
[2019-03-14] MEDS: THIAMINE HCL 100 MG TABLET PO SCH (09:41)
[2019-03-14] MEDS: FOLIC ACID 1 MG TABLET PO SCH (09:43)
[2019-03-14 11:09] VITALS: BP 107/47
== END 2019-03-14 14:43 | disposition home or self-care (01) | DRG 280 ==
LOC: ER 20:00 → MEDSURG3 22:51
PROVIDERS: ADMIT Nurse Practitioner Acute Care; ATTEND Nurse Practitioner Acute Care
PROC: 0WJF3ZZ Inspection of Abdominal Wall, Percutaneous Approach (ICD-10-PCS; principal; 2019-03-11)
PROC: 0W9G3ZZ Drainage of Peritoneal Cavity, Percutaneous Approach (ICD-10-PCS; 2019-03-13)
DX: K70.31 Alcoholic cirrhosis of liver with ascites (principal); K76.6 Portal hypertension; E87.1 Hypo-osmolality and hyponatremia; F10.220 Alcohol dependence with intoxication, uncomplicated; D50.9 Iron deficiency anemia, unspecified; E87.6 Hypokalemia; F10.230 Alcohol dependence with withdrawal, uncomplicated; Y90.8 Blood alcohol level of 240 mg/100 ml or more; Z59.0 Homelessness; F17.210 Nicotine dependence, cigarettes, uncomplicated; G25.81 Restless legs syndrome; Z79.899 Other long term (current) drug therapy; Z91.010 Allergy to peanuts; Z91.018 Allergy to other foods
CPT/HCPCS: 36415; 70030-TC; 83550; 83690; 83735; 84100; 84443; 85018; 85025; 85610; 93005; A4663; G0378; G0480; J1200; J1885; J2060; J2270; J2916; J3490; J7050; P9047

== ENCOUNTER 2019-03-15 01:43 | Emergency (ER) | payer OTHER ==
[~2019-03-15] VITALS: Ht 182.9 cm; Wt 74.8 kg
--- NOTE | 2019-03-15 01:55 | NUR ---
Patient walked into ER c/o worsening chronic abdominal pain due to ascites. Patient screaming intermittenly during traiged due to pain. Patient was placed in room 3, admits to drinking ETOH prior to arrival. No distress noted.
--- NOTE | 2019-03-15 02:00 | NUR ---
Patient sleeping on gurny with no distress noted.
--- NOTE | 2019-03-15 05:30 | NUR ---
Patient woke up and used restroom, no complaint noted.
--- NOTE | 2019-03-15 07:35 | NUR ---
Bill Recapitulation Clerk assumes care- patient is sleeping, easily arousable, respiration:easy, no complaints of pains@this time.
--- NOTE | 2019-03-15 09:49 | NUR ---
Patient ambulated to bathroom with steady gait. Patient says that he wants to go home. MD is aware.
--- NOTE | 2019-03-15 09:58 | NUR ---
Patient is AOx4, calm & cooperative. Patient denies pains or being homeless. Arm band removed. Patient discharged to home in stable conditon & brisk steady gait. Written and verbal after care instructions given to patient. Patient verbalizes understanding & compliance of instructions.
== END 2019-03-15 10:01 | disposition home or self-care (01) ==
LOC: ER 01:46
DX: F10.129 Alcohol abuse with intoxication, unspecified (principal); F17.200 Nicotine dependence, unspecified, uncomplicated; Z91.013 Allergy to seafood; Z91.018 Allergy to other foods; Z91.010 Allergy to peanuts; Z59.0 Homelessness; Z79.899 Other long term (current) drug therapy; Y90.9 Presence of alcohol in blood, level not specified
CPT/HCPCS: A4663

== ENCOUNTER 2019-03-15 21:25 | Emergency (ER) | END 2019-03-15 23:08 | disposition home or self-care (01) | DX: K70.31 Alcoholic cirrhosis of liver with ascites (principal); F17.200 Nicotine dependence, unspecified, uncomplicated; Z59.0 Homelessness; Z91.018 Allergy to other foods; Z91.010 Allergy to peanuts; Z91.013 Allergy to seafood; Z79.899 Other long term (current) drug therapy | CPT/HCPCS: 36415; 80048; 80076; 83690; 84484; 85007; 85025; 85730; 96372; 99283; J1885 ==

== ENCOUNTER 2019-04-14 19:08 | Emergency (ER) | payer OTHER ==
--- NOTE | 2019-04-14 19:43 | NUR ---
NO ANSWER. PT LWBS
== END 2019-04-14 19:44 | disposition left against medical advice (07) ==
LOC: ER 19:09
DX: Z53.21 Procedure and treatment not carried out due to patient leaving prior to being seen by health care provider (principal)

== ENCOUNTER 2019-04-14 20:55 | Emergency (ER) | payer OTHER ==
[~2019-04-14] VITALS: Ht 175.3 cm; Wt 88.5 kg
--- NOTE | 2019-04-14 22:12 | NUR ---
WENT FOR PT WHOM WAS OUTSIDE SMOKING AND DRINKING A BEER. PT STATED HE DID NOT WANT TO BE SEEN.
== END 2019-04-14 22:18 | disposition left against medical advice (07) ==
LOC: ER 20:58
DX: Z53.21 Procedure and treatment not carried out due to patient leaving prior to being seen by health care provider (principal)
CPT/HCPCS: A4663

== ENCOUNTER 2019-04-30 23:13 | Inpatient (IN) | payer OTHER ==
[~2019-04-30] VITALS: Ht 175.3 cm; Wt 71.8 kg
[2019-04-30 23:53] LABS: BASOPHILS # (AUTO) 0.1 K/uL (0.0-8.0); BASOPHILS % (AUTO) 0.9 % (0.0-2.0); EOSINOPHILS # (AUTO) 0.1 K/uL (0.0-0.7); HEMATOCRIT 34.7 % (36.7-47.1); HEMOGLOBIN 11.2 g/dL (12.5-16.3); LYMPHOCYTES # (AUTO) 1.2 K/uL (20.0-40.0); LYMPHOCYTES % (AUTO) 18.8 % (20.5-51.5); MEAN CORPUSCULAR HEMOGLOBIN 24.6 uug (23.8-33.4); MEAN CORPUSCULAR HGB CONC 32 g/dL (32.5-36.3); MONOCYTES # (AUTO) 0.9 K/uL (2.0-10.0); MONOCYTES % (AUTO) 14.3 % (0.0-11.0); PLATELET COUNT (AUTO) 195 K/uL (152-348); RED BLOOD CELL COUNT(AUTO) 4.56 MIL/uL (4.06-5.63); WHITE BLOOD COUNT (AUTO) 6.3 K/uL (3.6-10.2)
--- NOTE | 2019-04-30 23:58 | NUR ---
PT IS IN ROOM #1B. DR PRUITT EVALUATED THE PT.
[2019-05-01 00:01] LABS: CARBON DIOXIDE 26 mmol/L (21-32); CHLORIDE 102 mmol/L (98-107); CREATININE 0.4 mg/dL (0.6-1.3); GLUCOSE 92 mg/dL (74-106); POTASSIUM 2.9 mmol/L (3.5-5.1); UREA NITROGEN, BLOOD 6 mg/dL (7-18)
[2019-05-01 00:06] LABS: ALANINE AMINOTRANSFERASE 23 U/L (16-63); ALKALINE PHOSPHATASE 263 U/L (50-136); ASPARTATE AMINOTRANSFERASE 58 U/L (15-37); BILIRUBIN,DIRECT 0.4 mg/dL (0.0-0.2); BILIRUBIN,TOTAL 0.7 mg/dL (0.2-1.0); LIPASE 425 U/L (73-393); TOTAL PROTEIN, SERUM 6.7 g/dL (6.4-8.2)
[2019-05-01] MEDS ORDERED: TDAP DIPH,PERTUSS,TET VAC/PF 0.5 ML DISP.SYRIN IM ONE ×2 (00:30→02:22)
--- NOTE | 2019-05-01 01:27 | NUR ---
Patient transferred to CT in stable condition.
--- NOTE | 2019-05-01 01:37 | NUR ---
Patient back in room from CT in stable condition.
[2019-05-01] MEDS ORDERED: POTASSIUM CHLORIDE 20 MEQ TAB.PRT.SR PO ONE ×2 (01:45→11:30)
[2019-05-01] MEDS: MAGNESIUM SULFATE/D5W 100 ML IV SCH ×2 (01:52→03:23)
--- NOTE | 2019-05-01 02:10 | NUR ---
EPIC panel call requested, awaiting call back from Henry Vital CANDY PACKER
[2019-05-01] MEDS ORDERED: KETOROLAC TROMETHAMINE 30 MG INJ IVP ONE (02:30)
[2019-05-01] MEDS ORDERED: ONDANSETRON 4 MG/2 ML VIAL IV PRN (02:30)
[2019-05-01] MEDS ORDERED: ACETAMINOPHEN 325 MG TABLET PO PRN (02:30)
[2019-05-01] MEDS ORDERED: MAGNESIUM HYDROXIDE 30 ML LIQUID UDC PO PRN (02:30)
[2019-05-01] MEDS ORDERED: Z GUARD REMEDY PASTE 57 GM TUBE TOP PRN (02:30)
[2019-05-01] MEDS ORDERED: HYDROCODONE/APAP 5-325MG TABLET PO PRN (02:30)
--- NOTE | 2019-05-01 02:37 | NUR ---
Report given to BALTA Mayorga
--- NOTE | 2019-05-01 03:13 | NUR ---
Patient transported to TELE in stable condition.
[2019-05-01] MEDS: IV NS 1000 ML 1,000 ML IV PRN ×2 (03:19→17:03)
[2019-05-01 04:00] VITALS: BP 96/55
[2019-05-01 04:18] LABS: *BILIRUBIN,URIN NEGATIVE (NEGATIVE); *BLOOD, URINE NEGATIVE (NEGATIVE); *CLARITY,URINE CLEAR (CLEAR); *COLOR,URINE YELLOW (YELLOW); *KETONES,URINE NEGATIVE (NEGATIVE); *UROBILINOGEN,URINE 0.2 E.U./dl (NORMAL); LEUKOCYTE ESTERASE ,URINE NEGATIVE (NEGATIVE); NITRITE, URINE NEGATIVE (NEGATIVE); UGLUCOSE NEGATIVE (NEGATIVE)
--- NOTE | 2019-05-01 04:38 | NUR ---
Received from ER. Dx: Hypokalemia. No signs of acute distress noted. Patient is A/Ox4. complains of abdominal pain with pain medication from ER helping. Started second bag of magnesium and NS at 75ml/hr to left AC. Skin assessment done with abrasion to nose, bruising to left and right forearms. Patient [place] the park. patient did not want to remove pants or shoes for assessment. Patient oriented to room and unit, safety measures initiated. Bed is low and locked, call light within reach. Will continue to monitor.
[2019-05-01 06:34] LABS: CARBON DIOXIDE 25 mmol/L (21-32); CHLORIDE 105 mmol/L (98-107); CREATININE 0.4 mg/dL (0.6-1.3); GLUCOSE 101 mg/dL (74-106); MAGNESIUM 2.1 mg/dL (1.8-2.4); PHOSPHOROUS 3.1 mg/dL (2.5-4.9); POTASSIUM 3.2 mmol/L (3.5-5.1); UREA NITROGEN, BLOOD 6 mg/dL (7-18)
--- NOTE | 2019-05-01 09:00 | NUR ---
AWAKE ALERT AND ORIENTED ABLE TO MAKE NEEDS KNOWN ON IVF WITH NO S/S OF INFILTERATION ON SITE PATIENT REFUSED TO CHANGE INTO A HOSPITAL GOWN STATED TOO COLD FOR HIM DESPITE OFFER TO GIVE HIM WARM BLANKETS WILL CONTINUE TO OBSERVE.
[2019-05-01 12:02] VITALS: BP 93/48
--- NOTE | 2019-05-01 12:35 | NUR ---
PATIENT WAS GIVEN NORCO FOR PAIN ORDERED AND HE STATED THAT THE NORCO DID NOT HELP ENOUGH STATED WANTS MORPHINE DR RATLIFF NOTIFIED WITH NEW ORDERS AND NOTED.
[2019-05-01] MEDS: MORPHINE SULFATE 2 MG/1 ML DISP.SYRIN IV PRN ×3 (12:52→21:37)
[2019-05-01 15:40] VITALS: BP 106/53
--- NOTE | 2019-05-01 18:00 | NUR ---
MORPHINE IVP GIVEN ORDERED PER HIS REQUEST AND STATED HELPFUL REMAIN ON IVF ORDERED WITH NO S/S OF INFILTERATION ON SITE.PATIENT IS EASILY AGITATED AND IRRITATED NEEDS FREQUENT REDIRECTION BUT IS COOPERATIVE AND COMPLIANT WILL CONTINUE TO OBSERVE AND PROVIDE SAFE AND THERAPEUTIC ENVIRONMENT AT ALL TIMES.
--- NOTE | 2019-05-01 19:30 | NUR ---
RECEIVED PT AWAKE, ALERT AND ORIENTEDX4. PT IN NO ACUTE DISTRESS. IV INTACT. SAFETY AND COMFORT PROVIDED. WILL CONTINUE TO MONITOR.
--- NOTE | 2019-05-01 20:00 | NUR ---
PT WANTS PAIN MEDICATION . TOLD HIM ITS NOT YET DUE. HE IS ASKING FOR ANOTHER PAIN MEDICATION. PT IN NO ACUTE DISTRESS. WILL CONTINUE TO MONITOR.
[2019-05-01 20:30] VITALS: BP 110/55
[2019-05-02 00:31] VITALS: BP 115/54
[2019-05-02] MEDS: MORPHINE SULFATE 2 MG/1 ML DISP.SYRIN IV PRN ×4 (01:37→20:02)
[2019-05-02] MEDS: TEMAZEPAM 15 MG CAPSULE PO PRN (01:43)
[2019-05-02 04:00] VITALS: BP 101/59
[2019-05-02 06:37] LABS: BASOPHILS % (AUTO) 0.7 % (0.0-2.0); EOSINOPHILS % (AUTO) 1.4 % (0.0-7.0); HEMOGLOBIN 9.4 g/dL (12.5-16.3); LYMPHOCYTES # (AUTO) 0.8 K/uL (20.0-40.0); LYMPHOCYTES % (AUTO) 25.2 % (20.5-51.5); MEAN CORPUSCULAR HEMOGLOBIN 24.5 uug (23.8-33.4); MEAN CORPUSCULAR HGB CONC 33 g/dL (32.5-36.3); MEAN CORPUSCULAR VOLUME 75.3 fL (73.0-96.2); MONOCYTES # (AUTO) 0.8 K/uL (2.0-10.0); MONOCYTES % (AUTO) 24.4 % (0.0-11.0); NEUTROPHILS # (AUTO) 1.6 K/uL (1.8-8.9); NEUTROPHILS % (AUTO) 48.3 % (38.5-71.5); PLATELET COUNT (AUTO) 113 K/uL (152-348); RED BLOOD CELL COUNT(AUTO) 3.85 MIL/uL (4.06-5.63); WHITE BLOOD COUNT (AUTO) 3.3 K/uL (3.6-10.2)
[2019-05-02 06:38] LABS: CARBON DIOXIDE 26 mmol/L (21-32); CHLORIDE 103 mmol/L (98-107); CREATININE 0.4 mg/dL (0.6-1.3); GLUCOSE 89 mg/dL (74-106); LIPASE 619 U/L (73-393); POTASSIUM 3.5 mmol/L (3.5-5.1); UREA NITROGEN, BLOOD 4 mg/dL (7-18)
[2019-05-02] MEDS: IV NS 1000 ML 1,000 ML IV PRN (06:39)
--- NOTE | 2019-05-02 06:58 | NUR ---
PT IN NO ACUTE DISTRESS. IV INTACT.PRESCRIBED MEDICATION GIVEN AND PT TOLERATED IT WELL. MORPHINE GIVEN AT 2137H AND 0137H FOR 10/10 GENERALIZED PAIN . PT TOLERATED IT WELL. SAFETY AND COMFORT PROVIDED. WILL ENDORSE TO INCOMING NURSE FOR CONTINUITY OF CARE.
[2019-05-02 07:11] LABS: EOSINOPHILS % (MANUAL) 5 % (0-8); LYMPHOCYTES % (MANUAL) 24 % (20-40); MONOCYTES % (MANUAL) 21 % (2-10); NEUTROPHILS % (MANUAL) 50 % (42-75)
--- NOTE | 2019-05-02 07:30 | NUR ---
RECEIVED PATIENT IN BED ASLEEP WITH EYES CLOSED SEEMS COMFORTABLE WITH IVF IN PROGRESS ORDERED HE IS ON ROOM AIR WITH NO SOB AT THIS TIME CALL LIGHTS AND PERSONAL BELONGINGS ARE WITHIN EASY REACH WILL CONTINUE TO OBSERVE.
[2019-05-02 11:34] VITALS: BP 118/70
[2019-05-02 15:49] VITALS: BP 114/60
--- NOTE | 2019-05-02 18:00 | NUR ---
PATIENT WAS SEEN BY SUZANNA WITH NEW ORDERS PAIN MANAGEMENT AND HELPFUL REMAIN ON IVF ORDERED WITH NO S/S OF INFILTERATION AT THIS TIME.
[2019-05-02 19:18] LABS: HEMATOCRIT 29.8 % (36.7-47.1); HEMOGLOBIN 9.7 g/dL (12.5-16.3)
--- NOTE | 2019-05-02 19:30 | NUR ---
RECEIVED PT AWAKE, ALERT AND ORIENTEDX4. PT IN NO ACUTE DISTRESS. PT COMPLAINING OF GENERALIZED PAIN. IV INTACT. SAFETY AND COMFORT PROVIDED. WILL CONTINUE TO MONITOR.
[2019-05-02 20:00] VITALS: BP 93/52
[2019-05-03] MEDS: MORPHINE SULFATE 2 MG/1 ML DISP.SYRIN IV PRN ×4 (00:10→21:50)
[2019-05-03] MEDS: TEMAZEPAM 15 MG CAPSULE PO PRN (01:41)
[2019-05-03 06:06] VITALS: BP 118/71
--- NOTE | 2019-05-03 06:43 | NUR ---
PT IN NO ACUTE DISTRESS. IV INTACT. PT REQUESTED TO HOLD HIS IV FLUIDS AND JUST CONTINUE IN THE MORNING. PAIN MEDICATION GIVEN. PT TOLERATED IT WELL. PRESCRIBED MEDICATION GIVEN AND PT TOLERATED IT WELL. SAFETY AND COMFORT PROVIDED. ALL NEEDS ARE MET. WILL ENDORSE TO INCOMING NURSE FOR CONTINUITY OF CARE.
[2019-05-03 07:07] LABS: BASOPHILS % (AUTO) 1.3 % (0.0-2.0); EOSINOPHILS # (AUTO) 0.1 K/uL (0.0-0.7); EOSINOPHILS % (AUTO) 2.6 % (0.0-7.0); HEMATOCRIT 29.3 % (36.7-47.1); HEMOGLOBIN 9.6 g/dL (12.5-16.3); LYMPHOCYTES # (AUTO) 0.9 K/uL (20.0-40.0); LYMPHOCYTES % (AUTO) 23.1 % (20.5-51.5); MEAN CORPUSCULAR HEMOGLOBIN 24.4 uug (23.8-33.4); MEAN CORPUSCULAR HGB CONC 33 g/dL (32.5-36.3); MEAN CORPUSCULAR VOLUME 74.5 fL (73.0-96.2); MONOCYTES # (AUTO) 0.9 K/uL (2.0-10.0); MONOCYTES % (AUTO) 24.5 % (0.0-11.0); NEUTROPHILS # (AUTO) 1.8 K/uL (1.8-8.9); NEUTROPHILS % (AUTO) 48.5 % (38.5-71.5); PLATELET COUNT (AUTO) 106 K/uL (152-348); RED BLOOD CELL COUNT(AUTO) 3.93 MIL/uL (4.06-5.63); WHITE BLOOD COUNT (AUTO) 3.7 K/uL (3.6-10.2)
--- NOTE | 2019-05-03 08:00 | NUR ---
RECEIVED PATIENT IN BED RESTING COMFORTABLY. NO ACUTE DISTRESS NOTED. PT DENIES PAIN AT THIS TIME. IVF RUNNING ORDERED HE IS ON ROOM AIR WITH NO SOB AT THIS TIME CALL LIGHTS AND PERSONAL BELONGINGS ARE WITHIN EASY REACH WILL CONTINUE TO MONITOR FOR SAFETY AND COMFORT.
[2019-05-03 08:16] LABS: CARBON DIOXIDE 24 mmol/L (21-32); CREATININE 0.4 mg/dL (0.6-1.3); GLUCOSE 96 mg/dL (74-106); LIPASE 818 U/L (73-393); UREA NITROGEN, BLOOD 4 mg/dL (7-18)
[2019-05-03 08:57] LABS: CHLORIDE 103 mmol/L (98-107); POTASSIUM 3.3 mmol/L (3.5-5.1)
[2019-05-03 09:44] LABS: EOSINOPHILS % (MANUAL) 2 % (0-8); LYMPHOCYTES % (MANUAL) 21 % (20-40); MONOCYTES % (MANUAL) 24 % (2-10); NEUTROPHILS % (MANUAL) 53 % (42-75)
[2019-05-03 11:19] VITALS: BP 113/69
[2019-05-03] MEDS: IV NS 1000 ML 1,000 ML IV PRN ×2 (13:30→19:43)
[2019-05-03 15:23] VITALS: BP 114/73
--- NOTE | 2019-05-03 18:00 | NUR ---
PT RESTING COMFORTABLY IN BED. PAIN MANAGED WITH MEDICATION. NO ACUTE DISTRESS OR SOB NOTED. PT IS DIET AND MED COMPLIANT. BED LOCKED AND IN LOW POSITION. NO NEW ORDERS GIVEN. WILL GIVE REPORT ACCORDINGLY.
--- NOTE | 2019-05-03 19:30 | NUR ---
RECEIVED PT AWAKE,ALERT AND ORIENTEDX4. PT IV INTACT. SAFETY AND COMFORT PROVIDED. WILL CONTINUE TO MONITOR.
[2019-05-03 20:00] VITALS: BP 98/54
[2019-05-04] MEDS: TEMAZEPAM 15 MG CAPSULE PO PRN ×2 (01:57→02:47)
[2019-05-04] MEDS: MORPHINE SULFATE 2 MG/1 ML DISP.SYRIN IV PRN ×2 (02:02→12:08)
--- NOTE | 2019-05-04 06:20 | NUR ---
PT SLEPT INTERMITTENTLY. PRESCRIBED MEDICATION GIVEN AND PT TOLERATED IT WELL. PAIN MEDICATION GIVEN AND PT TOLERATED IT WELL. SAFETY AND COMFORT PROVIDED. WILL ENDORSE TO INCOMING NURSE FOR CONTINUITY OF CARE.
[2019-05-04 06:23] VITALS: BP 105/58
[2019-05-04 06:43] LABS: BASOPHILS # (AUTO) 0.1 K/uL (0.0-8.0); BASOPHILS % (AUTO) 1.5 % (0.0-2.0); EOSINOPHILS # (AUTO) 0.2 K/uL (0.0-0.7); EOSINOPHILS % (AUTO) 3.9 % (0.0-7.0); HEMATOCRIT 30.1 % (36.7-47.1); HEMOGLOBIN 9.7 g/dL (12.5-16.3); LYMPHOCYTES # (AUTO) 0.9 K/uL (20.0-40.0); LYMPHOCYTES % (AUTO) 20.4 % (20.5-51.5); MEAN CORPUSCULAR HEMOGLOBIN 24.3 uug (23.8-33.4); MEAN CORPUSCULAR HGB CONC 32 g/dL (32.5-36.3); MEAN CORPUSCULAR VOLUME 75.5 fL (73.0-96.2); MONOCYTES # (AUTO) 0.9 K/uL (2.0-10.0); MONOCYTES % (AUTO) 20.6 % (0.0-11.0); NEUTROPHILS # (AUTO) 2.4 K/uL (1.8-8.9); NEUTROPHILS % (AUTO) 53.6 % (38.5-71.5); PLATELET COUNT (AUTO) 110 K/uL (152-348); RED BLOOD CELL COUNT(AUTO) 3.99 MIL/uL (4.06-5.63); WHITE BLOOD COUNT (AUTO) 4.5 K/uL (3.6-10.2)
[2019-05-04 07:03] LABS: CARBON DIOXIDE 24 mmol/L (21-32); CHLORIDE 106 mmol/L (98-107); CREATININE 0.4 mg/dL (0.6-1.3); GLUCOSE 94 mg/dL (74-106); LIPASE 662 U/L (73-393); POTASSIUM 3.2 mmol/L (3.5-5.1); UREA NITROGEN, BLOOD 4 mg/dL (7-18)
[2019-05-04 09:48] LABS: NEUTROPHILS % (MANUAL) 54 % (42-75)
[2019-05-04 09:49] LABS: LYMPHOCYTES % (MANUAL) 25 % (20-40)
[2019-05-04 09:50] LABS: EOSINOPHILS % (MANUAL) 3 % (0-8); MONOCYTES % (MANUAL) 18 % (2-10)
[2019-05-04 11:46] VITALS: BP 96/50
[2019-05-04] MEDS ORDERED: POTASSIUM CHLORIDE 20 MEQ TAB.PRT.SR PO ONE (12:30)
--- NOTE | 2019-05-04 15:03 | NUR ---
Pt. discharged home to streets. Pt. removed IV on own although educating pt. to wait for me to remove IV. ID band removed. Pt. refused photos of areas. Provided pt. with donated blanket. Pt. had appropriate clothing for weather. Pt. had meal before leaving. Provided pt. with snf resources. Provided pt. with tap card.
== END 2019-05-04 15:00 | disposition home or self-care (01) | DRG 282 ==
LOC: ER 23:14 → TELE3 05-01 02:46 → MEDSURG3 05-02 12:35
PROVIDERS: ADMIT Nurse Practitioner Acute Care; ATTEND Student in an Organized Health Care Education/Training Program
DX: K85.20 Alcohol induced acute pancreatitis without necrosis or infection (principal); D69.59 Other secondary thrombocytopenia; K76.6 Portal hypertension; I65.23 Occlusion and stenosis of bilateral carotid arteries; E87.1 Hypo-osmolality and hyponatremia; F10.229 Alcohol dependence with intoxication, unspecified; D50.9 Iron deficiency anemia, unspecified; K70.31 Alcoholic cirrhosis of liver with ascites; E87.6 Hypokalemia; S00.31XA Abrasion of nose, initial encounter; S02.2XXA Fracture of nasal bones, initial encounter for closed fracture; S00.03XA Contusion of scalp, initial encounter; W19.XXXA Unspecified fall, initial encounter; Y92.830 Public park as the place of occurrence of the external cause; Z59.0 Homelessness; G25.81 Restless legs syndrome; Y90.9 Presence of alcohol in blood, level not specified; K42.9 Umbilical hernia without obstruction or gangrene; F17.200 Nicotine dependence, unspecified, uncomplicated; D63.8 Anemia in other chronic diseases classified elsewhere
CPT/HCPCS: 36415; 70030-TC; 70450; 70486; 72125; 83690; 83735; 84100; 85018; 85025; 90715; 93005; A4663; G0378; J1885; J2270; J3475; J7030

== ENCOUNTER 2019-05-06 22:37 | Inpatient (IN) | payer OTHER ==
[~2019-05-06] VITALS: Ht 182.9 cm; Wt 81.6 kg
--- NOTE | 2019-05-06 22:55 | NUR ---
Dr. Catalan at bedside for MSE.
[2019-05-06] MEDS ORDERED: ONDANSETRON ODT 4 MG TAB.RAPDIS SL ONE (23:00)
[2019-05-06] MEDS ORDERED: TDAP DIPH,PERTUSS,TET VAC/PF 0.5 ML DISP.SYRIN IM ONE ×2 (23:00→23:30)
[2019-05-06] MEDS ORDERED: HYDROCODONE/APAP 10-325 MG TABLET PO ONE (23:00)
[2019-05-06] MEDS ORDERED: HYDROCODONE/APAP 10-325 MG TABLET ONE (23:04)
[2019-05-06] MEDS ORDERED: ONDANSETRON ODT 4 MG TAB.RAPDIS ONE (23:05)
[2019-05-06 23:17] LABS: BASOPHILS # (AUTO) 0.1 K/uL (0.0-8.0); EOSINOPHILS # (AUTO) 0.2 K/uL (0.0-0.7); EOSINOPHILS % (AUTO) 3.3 % (0.0-7.0); HEMATOCRIT 33.2 % (36.7-47.1); HEMOGLOBIN 10.7 g/dL (12.5-16.3); LYMPHOCYTES # (AUTO) 1.9 K/uL (20.0-40.0); LYMPHOCYTES % (AUTO) 29.6 % (20.5-51.5); MEAN CORPUSCULAR HEMOGLOBIN 24.2 uug (23.8-33.4); MEAN CORPUSCULAR HGB CONC 32 g/dL (32.5-36.3); MONOCYTES % (AUTO) 15.1 % (0.0-11.0); NEUTROPHILS # (AUTO) 3.2 K/uL (1.8-8.9); PLATELET COUNT (AUTO) 227 K/uL (152-348); RED BLOOD CELL COUNT(AUTO) 4.42 MIL/uL (4.06-5.63); WHITE BLOOD COUNT (AUTO) 6.5 K/uL (3.6-10.2)
[2019-05-06 23:36] LABS: ALANINE AMINOTRANSFERASE 27 U/L (16-63); ALKALINE PHOSPHATASE 279 U/L (50-136); ASPARTATE AMINOTRANSFERASE 45 U/L (15-37); BILIRUBIN,DIRECT 0.4 mg/dL (0.0-0.2); BILIRUBIN,TOTAL 0.8 mg/dL (0.2-1.0); CARBON DIOXIDE 22 mmol/L (21-32); CHLORIDE 106 mmol/L (98-107); CREATININE 0.4 mg/dL (0.6-1.3); GLUCOSE 95 mg/dL (74-106); LIPASE 742 U/L (73-393); POTASSIUM 3.3 mmol/L (3.5-5.1); TOTAL PROTEIN, SERUM 6.6 g/dL (6.4-8.2); UREA NITROGEN, BLOOD 3 mg/dL (7-18)
[2019-05-06] MEDS ORDERED: CEFTRIAXONE 1 G VIAL IM ONE (23:45)
--- NOTE | 2019-05-06 23:53 | NUR ---
Xray at bedside.
[2019-05-06] MEDS ORDERED: CEFTRIAXONE 1 G VIAL ONE (23:59)
[2019-05-07] MEDS ORDERED: LIDOCAINE HCL 1% 20 ML VIAL ONE
[2019-05-07 00:18] LABS: EOSINOPHILS % (MANUAL) 3 % (0-8); LYMPHOCYTES % (MANUAL) 29 % (20-40); MONOCYTES % (MANUAL) 1 % (2-10); NEUTROPHILS % (MANUAL) 67 % (42-75)
--- NOTE | 2019-05-07 00:27 | NUR ---
Dr. Catalan on panel call with Rajan Colon NP. Patient accepted for admission to [facility], diagnosis: ascites.
[2019-05-07] MEDS ORDERED: POTASSIUM CHLORIDE 20 MEQ TAB.PRT.SR PO ONE (00:30)
[2019-05-07] MEDS ORDERED: POTASSIUM CHLORIDE 20 MEQ TAB.PRT.SR ONE (00:49)
[2019-05-07] MEDS ORDERED: MAGNESIUM HYDROXIDE 30 ML LIQUID UDC PO PRN (01:00)
[2019-05-07] MEDS ORDERED: HYDROCODONE/APAP 5-325MG TABLET PO PRN (01:00)
[2019-05-07] MEDS ORDERED: ACETAMINOPHEN 325 MG TABLET PO PRN (01:00)
[2019-05-07] MEDS ORDERED: ONDANSETRON 4 MG/2 ML VIAL IV PRN (01:00)
--- NOTE | 2019-05-07 01:50 | NUR ---
Report given to Christian GIFFORD Medsurg.
[2019-05-07] MEDS: MORPHINE SULFATE 2 MG/1 ML DISP.SYRIN IV PRN ×2 (02:53→09:46)
--- NOTE | 2019-05-07 03:00 | NUR ---
Patient arrived at the unit around 0230. Awake alert and verbally responsive. Able to walk from gurney to bed, unsteady gait due to weakness and ascites. Verbalizes pain. Initial physical assessment done, wounds noted photos taken and documented. All belongings accounted for. Patient had 29 dollars and change in his black jacket pocket, that he would like to keep with him at bedside. Ascites is worse than his prior admission recently, photo taken as well. Reinforced importance of following MD order of being NPO until her can be seen by MD, possible paracentesis. Full admission process finished, all new orders noted and carried out. Will administer pain medications as needed.
[2019-05-07 03:05] VITALS: BP 113/65
[2019-05-07 04:40] VITALS: BP 91/50
--- NOTE | 2019-05-07 06:03 | NUR ---
Able to sleep after administration of Morphine 1mg x 1. Patient concerned about not eating due to NPO status. Reinforced importance of following MD orders. Will continue to monitor and endorse accordingly.
[2019-05-07 08:19] LABS: *BILIRUBIN,URIN NEGATIVE (NEGATIVE); *CLARITY,URINE CLEAR (CLEAR); *COLOR,URINE DARK YELLOW (YELLOW); *KETONES,URINE NEGATIVE (NEGATIVE); *UROBILINOGEN,URINE 0.2 E.U./dl (NORMAL); LEUKOCYTE ESTERASE ,URINE NEGATIVE (NEGATIVE); NITRITE, URINE NEGATIVE (NEGATIVE); PH,URINE 5.5 (5.0-8.0); UGLUCOSE NEGATIVE (NEGATIVE)
[2019-05-07 08:21] LABS: *BLOOD, URINE TRACE LYSED (NEGATIVE)
[2019-05-07 08:37] LABS: BACTERIA,URINE NONE SEEN /HPF (NONE SEEN); RBC,URINE 0-3 /HPF (0-3); SQUAMOUS EPITHELIAL CELL,UR FEW /HPF (NONE SEEN); WBC,URINE 0-3 /HPF (0-3)
--- NOTE | 2019-05-07 10:00 | NUR ---
give patient 1mg of morphine for pain . removed 2mg and wasted 1mg.
--- NOTE | 2019-05-07 10:50 | NUR ---
patient left AMA, discuss risk and benefits with leaving AMA . Dr. Smith spoke to the patient.
== END 2019-05-07 10:45 | disposition left against medical advice (07) | DRG 280 ==
LOC: ER 22:38 → MEDSURG3 05-07 01:55
PROVIDERS: ADMIT Nurse Practitioner Acute Care; ATTEND Nurse Practitioner Acute Care
PROC: 0HQDXZZ Repair Right Lower Arm Skin, External Approach (ICD-10-PCS; principal; 2019-05-07)
DX: K70.31 Alcoholic cirrhosis of liver with ascites (principal); K85.20 Alcohol induced acute pancreatitis without necrosis or infection; K76.6 Portal hypertension; G62.1 Alcoholic polyneuropathy; D64.9 Anemia, unspecified; S51.811A Laceration without foreign body of right forearm, initial encounter; F10.288 Alcohol dependence with other alcohol-induced disorder; F17.210 Nicotine dependence, cigarettes, uncomplicated; E87.6 Hypokalemia; G25.81 Restless legs syndrome; W25.XXXA Contact with sharp glass, initial encounter; Y92.89 Other specified places as the place of occurrence of the external cause; Z59.0 Homelessness; K42.9 Umbilical hernia without obstruction or gangrene; G89.29 Other chronic pain
CPT/HCPCS: 36415; 70030-TC; 73090; 83690; 85025; 90715; A4217; A4663; G0378; J0696; J2270; J2405; J3490; Q0162

== ENCOUNTER 2019-05-07 20:35 | Emergency (ER) | payer OTHER ==
[~2019-05-07] VITALS: Ht 177.8 cm; Wt 74.8 kg
--- NOTE | 2019-05-07 21:10 | NUR ---
Dr. Gibbs at bedside for MSE
[2019-05-07] MEDS ORDERED: PANTOPRAZOLE SODIUM 40 MG VIAL ONE (21:27)
[2019-05-07] MEDS ORDERED: PANTOPRAZOLE SODIUM 40 MG VIAL IV ONE (21:30)
[2019-05-07 21:53] LABS: BASOPHILS # (AUTO) 0.1 K/uL (0.0-8.0); BASOPHILS % (AUTO) 1.2 % (0.0-2.0); EOSINOPHILS # (AUTO) 0.2 K/uL (0.0-0.7); EOSINOPHILS % (AUTO) 2.7 % (0.0-7.0); HEMATOCRIT 34.2 % (36.7-47.1); HEMOGLOBIN 11.1 g/dL (12.5-16.3); LYMPHOCYTES # (AUTO) 1.8 K/uL (20.0-40.0); LYMPHOCYTES % (AUTO) 23.8 % (20.5-51.5); MEAN CORPUSCULAR HEMOGLOBIN 24.3 uug (23.8-33.4); MEAN CORPUSCULAR HGB CONC 32 g/dL (32.5-36.3); MONOCYTES # (AUTO) 1.4 K/uL (2.0-10.0); MONOCYTES % (AUTO) 18.7 % (0.0-11.0); NEUTROPHILS # (AUTO) 4.1 K/uL (1.8-8.9); NEUTROPHILS % (AUTO) 53.6 % (38.5-71.5); PLATELET COUNT (AUTO) 233 K/uL (152-348); RED BLOOD CELL COUNT(AUTO) 4.55 MIL/uL (4.06-5.63); WHITE BLOOD COUNT (AUTO) 7.7 K/uL (3.6-10.2)
[2019-05-07 22:51] LABS: CARBON DIOXIDE 26 mmol/L (21-32); CHLORIDE 105 mmol/L (98-107); CREATININE 0.5 mg/dL (0.6-1.3); GLUCOSE 88 mg/dL (74-106); POTASSIUM 3.6 mmol/L (3.5-5.1); UREA NITROGEN, BLOOD 3 mg/dL (7-18)
[2019-05-07 22:55] VITALS: BP 120/70
[2019-05-07] MEDS ORDERED: AMLODIPINE 5 MG TABLET ONE (22:55)
[2019-05-07 22:56] LABS: ALANINE AMINOTRANSFERASE 25 U/L (16-63); ALKALINE PHOSPHATASE 307 U/L (50-136); ASPARTATE AMINOTRANSFERASE 49 U/L (15-37); BILIRUBIN,DIRECT 0.5 mg/dL (0.0-0.2); LIPASE 320 U/L (73-393); TOTAL PROTEIN, SERUM 6.9 g/dL (6.4-8.2)
[2019-05-07] MEDS ORDERED: AMLODIPINE 5 MG TABLET PO ONE (23:00)
[2019-05-07 23:03] LABS: *BILIRUBIN,URIN NEGATIVE (NEGATIVE); *BLOOD, URINE NEGATIVE (NEGATIVE); *CLARITY,URINE CLEAR (CLEAR); *COLOR,URINE YELLOW (YELLOW); *KETONES,URINE NEGATIVE (NEGATIVE); *UROBILINOGEN,URINE 0.2 E.U./dl (NORMAL); LEUKOCYTE ESTERASE ,URINE NEGATIVE (NEGATIVE); NITRITE, URINE NEGATIVE (NEGATIVE); UGLUCOSE NEGATIVE (NEGATIVE)
--- NOTE | 2019-05-07 23:29 | NUR ---
IV removed. Catheter intact and site benign. Pressure and 4x4 gauze applied to site. No bleeding noted.
--- NOTE | 2019-05-07 23:30 | NUR ---
Patient has been medically cleared by Dr. Gibbs. Patient declines to leave. Security / form building supervisor aware
[2019-05-07 23:43] LABS: LYMPHOCYTES % (MANUAL) 26 % (20-40); MONOCYTES % (MANUAL) 20 % (2-10); NEUTROPHILS % (MANUAL) 54 % (42-75)
--- NOTE | 2019-05-08 00:14 | NUR ---
Patient given written and verbal discharge instructions. Patient verbalizes understanding of instructions. Patient is ambulatory with steady gait. Refuses offer of long-term placement. Patient given list of available shelters in surrounding area.
== END 2019-05-08 00:14 | disposition home or self-care (01) ==
LOC: ER 20:36
DX: K29.20 Alcoholic gastritis without bleeding (principal); F10.10 Alcohol abuse, uncomplicated; F17.200 Nicotine dependence, unspecified, uncomplicated; Z91.010 Allergy to peanuts; Z91.018 Allergy to other foods; Z91.013 Allergy to seafood; Z59.0 Homelessness; Z79.82 Long term (current) use of aspirin
CPT/HCPCS: 36415; 74021; 80048; 80076; 81001; 83690; 84484; 85007; 85025; 85730; 93005; 96374; 99285; C9113; 70030-TC; A4663

== ENCOUNTER 2019-05-10 16:08 | Emergency (ER) | payer OTHER ==
[~2019-05-10] VITALS: Ht 182.9 cm; Wt 74.8 kg
--- NOTE | 2019-05-10 16:20 | NUR ---
Dr Boo seen and examined the pt.
--- NOTE | 2019-05-10 16:27 | NUR ---
Pt requested food and drinks. Pt denies nausea/vomitting and abdominal pain. DR Boo made aware. Hospital dinner tray provided.
--- NOTE | 2019-05-10 17:14 | NUR ---
Patient is resting comfortably in bed with eyes closed, NAD noted.
--- NOTE | 2019-05-10 19:08 | NUR ---
Patient given written and verbal discharge instructions. Patient verbalizes understanding of instructions. Patient is ambulatory with steady gait. Refuses offer of [facility] placement. Patient given list of available shelters in surrounding area.
== END 2019-05-10 19:10 | disposition home or self-care (01) ==
LOC: ER 16:11
DX: F10.129 Alcohol abuse with intoxication, unspecified (principal); F17.200 Nicotine dependence, unspecified, uncomplicated; Z79.82 Long term (current) use of aspirin; Z91.018 Allergy to other foods; Z91.010 Allergy to peanuts; Z91.013 Allergy to seafood; Y90.9 Presence of alcohol in blood, level not specified
CPT/HCPCS: A4663

== ENCOUNTER 2019-10-25 11:42 | Emergency (ER) | payer OTHER ==
[~2019-10-25] VITALS: Ht 172.7 cm; Wt 68.0 kg
--- NOTE | 2019-10-25 11:54 | NUR ---
MD@bedside, medical screening exam in progress
--- NOTE | 2019-10-25 11:59 | NUR ---
Patient went to bathroom 2x with slow steady gait. Urine collected & sent to lab.
[2019-10-25 12:00] LABS: *BILIRUBIN,URIN NEGATIVE (NEGATIVE); *BLOOD, URINE NEGATIVE (NEGATIVE); *CLARITY,URINE CLEAR (CLEAR); *COLOR,URINE YELLOW (YELLOW); *KETONES,URINE NEGATIVE (NEGATIVE); *UROBILINOGEN,URINE 0.2 E.U./dl (NORMAL); LEUKOCYTE ESTERASE ,URINE NEGATIVE (NEGATIVE); NITRITE, URINE NEGATIVE (NEGATIVE); UGLUCOSE NEGATIVE (NEGATIVE)
[2019-10-25 12:13] LABS: BASOPHILS # (AUTO) 0.1 K/uL (0.0-8.0); BASOPHILS % (AUTO) 1.2 % (0.0-2.0); EOSINOPHILS # (AUTO) 0.2 K/uL (0.0-0.7); EOSINOPHILS % (AUTO) 2.2 % (0.0-7.0); HEMATOCRIT 37.5 % (36.7-47.1); HEMOGLOBIN 12.2 g/dL (12.5-16.3); LYMPHOCYTES # (AUTO) 1.6 K/uL (20.0-40.0); LYMPHOCYTES % (AUTO) 18.2 % (20.5-51.5); MEAN CORPUSCULAR HEMOGLOBIN 26.3 uug (23.8-33.4); MEAN CORPUSCULAR HGB CONC 33 g/dL (32.5-36.3); MEAN CORPUSCULAR VOLUME 80.6 fL (73.0-96.2); MONOCYTES # (AUTO) 1.5 K/uL (2.0-10.0); MONOCYTES % (AUTO) 16.5 % (0.0-11.0); NEUTROPHILS # (AUTO) 5.5 K/uL (1.8-8.9); NEUTROPHILS % (AUTO) 61.9 % (38.5-71.5); PLATELET COUNT (AUTO) 239 K/uL (152-348); RED BLOOD CELL COUNT(AUTO) 4.65 MIL/uL (4.06-5.63)
[2019-10-25 12:24] LABS: CREATININE 0.7 mg/dL (0.6-1.3); POTASSIUM 3.1 mmol/L (3.5-5.1)
--- NOTE | 2019-10-25 12:29 | NUR ---
Patient is resting comfortably on gurney with eyes closed. PATIENT IS PAIN FREE AT THIS TIME.
[2019-10-25 12:30] LABS: BILIRUBIN,DIRECT 0.3 mg/dL (0.0-0.2); BILIRUBIN,TOTAL 0.7 mg/dL (0.2-1.0); TOTAL PROTEIN, SERUM 6.6 g/dL (6.4-8.2)
[2019-10-25] MEDS ORDERED: POTASSIUM CHLORIDE 20 MEQ TAB.PRT.SR ONE (13:54)
--- NOTE | 2019-10-25 13:55 | NUR ---
Patient is refusing po potassium tablets. Patient said, "I am not taking anything. I want Dilaudid." notified.
[2019-10-25] MEDS ORDERED: TRAMADOL HCL 50 MG TABLET PO ONE (14:00)
[2019-10-25] MEDS ORDERED: POTASSIUM CHLORIDE 20 MEQ TAB.PRT.SR PO ONE (14:00)
[2019-10-25] MEDS ORDERED: TRAMADOL HCL 50 MG TABLET ONE (14:05)
[2019-10-25 14:58] LABS: EOSINOPHILS % (MANUAL) 3 % (0-8); LYMPHOCYTES % (MANUAL) 32 % (20-40); MONOCYTES % (MANUAL) 10 % (2-10); NEUTROPHILS % (MANUAL) 55 % (42-75)
--- NOTE | 2019-10-25 15:05 | NUR ---
Patient is sleeping, easily arousable, NAD, pending results and disposition
--- NOTE | 2019-10-25 16:11 | NUR ---
Patient eventually took the potassium tablets after Tramadol was given, MD notified.
--- NOTE | 2019-10-25 16:48 | NUR ---
Patient was given written and verbal discharge instructions. Patient verbalized understanding of instructions but refused to sign the Homeless Waiver form & discharge papers. Patient is ambulatory with steady gait. Patient refuses offer of senior care placement@the moment. Patient was given a list of available shelters in surrounding area. Security assistance was requested to escort this patient out of ER.
== END 2019-10-25 16:48 | disposition home or self-care (01) ==
LOC: ER 11:44
DX: R18.8 Other ascites (principal); K70.31 Alcoholic cirrhosis of liver with ascites; F10.10 Alcohol abuse, uncomplicated; G62.1 Alcoholic polyneuropathy; G89.29 Other chronic pain; Z59.0 Homelessness; G25.81 Restless legs syndrome; F17.210 Nicotine dependence, cigarettes, uncomplicated; E87.6 Hypokalemia; Z82.49 Family history of ischemic heart disease and other diseases of the circulatory system
CPT/HCPCS: 36415; 49083; 70030-TC; 71045; 83605; 83690; 83986; 85025; 85730; 87070; 87205; A4663; J7030

== ENCOUNTER 2019-11-08 21:20 | Emergency (ER) | payer OTHER ==
[~2019-11-08] VITALS: Ht 172.7 cm; Wt 79.4 kg
--- NOTE | 2019-11-08 21:44 | NUR ---
Dr. Velasquez at bedside for MSE
[2019-11-08 23:07] LABS: BASOPHILS # (AUTO) 0.1 K/uL (0.0-8.0); BASOPHILS % (AUTO) 1.1 % (0.0-2.0); EOSINOPHILS # (AUTO) 0.3 K/uL (0.0-0.7); EOSINOPHILS % (AUTO) 4.1 % (0.0-7.0); HEMATOCRIT 36.8 % (36.7-47.1); HEMOGLOBIN 12.1 g/dL (12.5-16.3); LYMPHOCYTES # (AUTO) 1.5 K/uL (20.0-40.0); LYMPHOCYTES % (AUTO) 19.7 % (20.5-51.5); MEAN CORPUSCULAR HEMOGLOBIN 25.7 uug (23.8-33.4); MEAN CORPUSCULAR HGB CONC 33 g/dL (32.5-36.3); MEAN CORPUSCULAR VOLUME 78.3 fL (73.0-96.2); MONOCYTES # (AUTO) 1.3 K/uL (2.0-10.0); MONOCYTES % (AUTO) 16.5 % (0.0-11.0); NEUTROPHILS # (AUTO) 4.5 K/uL (1.8-8.9); NEUTROPHILS % (AUTO) 58.6 % (38.5-71.5); PLATELET COUNT (AUTO) 171 K/uL (152-348); WHITE BLOOD COUNT (AUTO) 7.7 K/uL (3.6-10.2)
[2019-11-08 23:18] LABS: CARBON DIOXIDE 24 mmol/L (21-32); CHLORIDE 102 mmol/L (98-107); CREATININE 0.6 mg/dL (0.6-1.3); GLUCOSE 90 mg/dL (74-106); UREA NITROGEN, BLOOD 2 mg/dL (7-18)
[2019-11-08 23:25] LABS: POTASSIUM 2.5 mmol/L (3.5-5.1)
[2019-11-08] MEDS: POTASSIUM CHLORIDE 50 ML IV SCH (23:45)
[2019-11-08] MEDS: MAGNESIUM SULFATE/D5W 100 ML IV SCH (23:45)
[2019-11-08] MEDS ORDERED: POTASSIUM CHLORIDE 20 MEQ TAB.PRT.SR PO ONE ×2 (23:45)
[2019-11-08] MEDS ORDERED: POTASSIUM CHLORIDE 50 ML IV SCH (23:45)
[2019-11-09] MEDS ORDERED: MAGNESIUM SULFATE/D5W 0 ML ONE
[2019-11-09] MEDS ORDERED: POTASSIUM CHLORIDE 20 MEQ TAB.PRT.SR ONE
--- NOTE | 2019-11-09 | NUR ---
pt in bed. aa/ox4. able to make needs known no s/s of distress in stable condition safety precautions in place. bed locked, lowest position. instructed pt to call nurse for assistance
--- NOTE | 2019-11-09 00:15 | NUR ---
Pt refused IV medications. Offered x3, explained risks and benefits, will refused. aware
[2019-11-09] MEDS: MAGNESIUM SULFATE/D5W 100 ML IV SCH (00:45)
[2019-11-09] MEDS: POTASSIUM CHLORIDE 50 ML IV SCH (00:45)
[2019-11-09] MEDS ORDERED: HYDROMORPHONE 1 MG/1 ML DISP.SYRIN ONE (01:47)
[2019-11-09] MEDS ORDERED: HYDROMORPHONE 1 MG/1 ML DISP.SYRIN IM ONE (02:15)
[2019-11-09 02:39] LABS: EOSINOPHILS % (MANUAL) 3 % (0-8); LYMPHOCYTES % (MANUAL) 25 % (20-40); MONOCYTES % (MANUAL) 7 % (2-10); NEUTROPHILS % (MANUAL) 65 % (42-75)
--- NOTE | 2019-11-09 04:00 | NUR ---
Pt in bed, asleep. easily arousable. no s/s of distress in stable condition safety precautions in place. bed locked, lowest position. instructed pt to call nurse for assistance
--- NOTE | 2019-11-09 06:01 | NUR ---
Patient does not wish to proceed with medical care recommended by Dr. Velasquez. Patient given information related to possible complications, up to and including , which could occur as a result of leaving the hospital at this time. Patient verbalizes understanding of risks involved due to leaving against medical advice. Patient has signed AMA form. aa/ox4. able to speak in complete ambulatory with steady gait no s/s of distress in stable condition all belongings with pt
[2019-11-09 06:10] VITALS: BP 116/68
== END 2019-11-09 06:05 | disposition left against medical advice (07) ==
LOC: ER 21:22
DX: K70.31 Alcoholic cirrhosis of liver with ascites (principal); E87.6 Hypokalemia; Z59.0 Homelessness; G25.81 Restless legs syndrome; F10.20 Alcohol dependence, uncomplicated; G62.1 Alcoholic polyneuropathy; Z91.010 Allergy to peanuts; Z91.013 Allergy to seafood; Z91.018 Allergy to other foods; F17.210 Nicotine dependence, cigarettes, uncomplicated
CPT/HCPCS: 36415; 49082; 80048; 85025; 85730; 96372; 99285; 99406; J1170; J3490; 49083; 70030-TC; A4663; J3475

== ENCOUNTER 2019-11-29 21:15 | Emergency (ER) | payer OTHER ==
[~2019-11-29] VITALS: Ht 172.7 cm; Wt 77.1 kg
[2019-11-29 21:45] LABS: BASOPHILS # (AUTO) 0.1 K/uL (0.0-8.0); BASOPHILS % (AUTO) 1.1 % (0.0-2.0); EOSINOPHILS # (AUTO) 0.3 K/uL (0.0-0.7); EOSINOPHILS % (AUTO) 3.9 % (0.0-7.0); HEMATOCRIT 40.3 % (36.7-47.1); HEMOGLOBIN 13.5 g/dL (12.5-16.3); LYMPHOCYTES # (AUTO) 2.2 K/uL (20.0-40.0); LYMPHOCYTES % (AUTO) 32.4 % (20.5-51.5); MEAN CORPUSCULAR HEMOGLOBIN 25.7 uug (23.8-33.4); MEAN CORPUSCULAR HGB CONC 33 g/dL (32.5-36.3); MEAN CORPUSCULAR VOLUME 76.9 fL (73.0-96.2); MONOCYTES % (AUTO) 15.2 % (0.0-11.0); NEUTROPHILS # (AUTO) 3.2 K/uL (1.8-8.9); NEUTROPHILS % (AUTO) 47.4 % (38.5-71.5); PLATELET COUNT (AUTO) 163 K/uL (152-348); RED BLOOD CELL COUNT(AUTO) 5.24 MIL/uL (4.06-5.63); WHITE BLOOD COUNT (AUTO) 6.7 K/uL (3.6-10.2)
[2019-11-29 21:52] LABS: CARBON DIOXIDE 25 mmol/L (21-32); CHLORIDE 104 mmol/L (98-107); CREATININE 0.7 mg/dL (0.6-1.3); GLUCOSE 90 mg/dL (74-106); POTASSIUM 2.9 mmol/L (3.5-5.1); UREA NITROGEN, BLOOD 3 mg/dL (7-18)
[2019-11-29 22:04] LABS: ALANINE AMINOTRANSFERASE 33 U/L (16-63); ALKALINE PHOSPHATASE 452 U/L (50-136); ASPARTATE AMINOTRANSFERASE 106 U/L (15-37); BILIRUBIN,DIRECT 0.5 mg/dL (0.0-0.2); BILIRUBIN,TOTAL 0.9 mg/dL (0.2-1.0); TOTAL PROTEIN, SERUM 6.5 g/dL (6.4-8.2)
[2019-11-29 22:05] LABS: ACETAMINOPHEN < 2.0 ug/mL (10-30); MAGNESIUM 1.8 mg/dL (1.8-2.4)
[2019-11-29] MEDS ORDERED: POTASSIUM CHLORIDE 20 MEQ TAB.PRT.SR PO ONE (22:15)
[2019-11-29] MEDS ORDERED: MAGNESIUM OXIDE 400 MG TABLET PO ONE (22:15)
[2019-11-29 22:16] LABS: ETHANOL 429 MG/DL (0-0)
[2019-11-29] MEDS ORDERED: MAGNESIUM OXIDE 400 MG TABLET ONE (22:33)
[2019-11-29] MEDS ORDERED: POTASSIUM CHLORIDE 20 MEQ TAB.PRT.SR ONE (22:38)
[2019-11-29] MEDS ORDERED: OXYCODONE/APAP 5-325 MG TABLET PO ONE (22:45)
[2019-11-29] MEDS ORDERED: OXYCODONE/APAP 5-325 MG TABLET ONE (22:46)
--- NOTE | 2019-11-29 23:17 | NUR ---
Patient is resting comfortably in bed with eyes closed. Respirations are even & unlabored. Appears in no apparent distress. Will continue to monitor.
[2019-11-30 02:54] LABS: EOSINOPHILS % (MANUAL) 5 % (0-8); LYMPHOCYTES % (MANUAL) 34 % (20-40); MONOCYTES % (MANUAL) 16 % (2-10); NEUTROPHILS % (MANUAL) 45 % (42-75)
--- NOTE | 2019-11-30 04:37 | NUR ---
Patient is sleeping comfortably in bed. Appears in no distress. Respirations are even & unlabored. Will continue to monitor.
--- NOTE | 2019-11-30 05:52 | NUR ---
Anselmo martinez in [facility] - 11/30/19 at 0553 by [email or web address] Medically cleared by DR Catalan to be eval by PET TEAM.
--- NOTE | 2019-11-30 06:32 | NUR ---
Pt is awake, alert, oriented x 4. Walks in steady gait.
--- NOTE | 2019-11-30 06:50 | NUR ---
Dr. Stubbs at bedside. Patient medically cleared for discharge.
[2019-11-30] MEDS ORDERED: ONDANSETRON ODT 4 MG TAB.RAPDIS ONE (06:53)
[2019-11-30] MEDS ORDERED: ONDANSETRON ODT 4 MG TAB.RAPDIS SL ONE (07:00)
--- NOTE | 2019-11-30 07:00 | NUR ---
Patient refused to sign discharge papers & homeless patient waiver form. Patient escorted out of ER by 2 security officers. Patient walked in steady gait. Patient left his discharge papers, states he does not want it.
[2019-11-30 07:04] VITALS: BP 128/72
== END 2019-11-30 07:05 | disposition home or self-care (01) ==
LOC: ER 21:17
DX: F10.229 Alcohol dependence with intoxication, unspecified (principal); K70.31 Alcoholic cirrhosis of liver with ascites; Y90.8 Blood alcohol level of 240 mg/100 ml or more; K42.9 Umbilical hernia without obstruction or gangrene; G62.1 Alcoholic polyneuropathy; Z91.010 Allergy to peanuts; Z91.013 Allergy to seafood; Z91.018 Allergy to other foods; Z59.0 Homelessness; E87.6 Hypokalemia; Z20.828 Contact with and (suspected) exposure to other viral communicable diseases; G25.81 Restless legs syndrome; F17.200 Nicotine dependence, unspecified, uncomplicated; M50.30 Other cervical disc degeneration, unspecified cervical region
CPT/HCPCS: 36415; 70450; 71045; 72125; 80048; 80076; 80307; 80329; 83690; 83735; 85007; 85025; 87426; 99285; G0480; 70030-TC; A4663; Q0162